=== PATIENT | female | born 1955 | race Caucasian/White ===

== ENCOUNTER 2023-10-18 21:51 | Emergency (ER) | payer MEDICARE, MEDICAID, SELFPAY ==
[2023-10-18] VITALS (11 sets, daily range): BP systolic 82–113; BP diastolic 46–84; PULSE 80; RESP 16; O2SAT 95–100; BMI 24.9
--- NOTE | 2023-10-18 22:00 | CT_ITS ---
The [address] [address] Patient Name: GERTRUDE ALAN MRN: [id number] date: 1955 Sex: F Assigned Patient Location: ER Current Patient Location: Accession/Order Number: [id number] Exam Date: 10/18/2023 22:15 Report Date: 10/18/2023 22:48 At the request of: KHAI MOJICA Procedure: CT head/brain wo con NONCONTRAST CT SCAN OF THE HEAD HISTORY: Headache. TECHNIQUE: Multiple axial images are taken from the level the vertex down to the base of the skull without the use of IV contrast. Images were then reconstructed in the sagittal and coronal planes. This exam was performed according to our departmental dose-optimization program which includes use of Automated Exposure Control, adjustment of the mA and/or kV according to patient size and/or use of iterative reconstruction technique. COMPARISON: None. FINDINGS: Brain Parenchyma: There is global, diffuse atrophy with periventricular decreased white matter attenuation. No intracranial mass. No intracranial hemorrhage. Posterior fossa: Normal. Midline shift: None Extra-axial fluid collection: None Ventricles: Normal. Mastoid air cells: Opacification of mastoid air cells. Cerumen in the ear canals. Sinuses: Large air filled sinuses. Cranium: No depressed skull fracture.Hyperostosis frontalis. Soft tissues: Soft tissue edema overlies the posterior superior scalp with subcutaneous air. Orbits: Normal. CT/CT head/brain wo con IMPRESSION: 1. Chronic small vessel ischemic change. 2. Otherwise, no CT evidence for acute pathology. 3. If patient continues to have symptoms or if there remains any further clinical concern, MRI may help better delineate. Electronically authenticated by: LAM BAEZA Date: 10/18/2023 22:48
--- NOTE | 2023-10-18 22:00 | CT_ITS ---
The [address] [address] Patient Name: GERTRUDE ALAN MRN: [id number] date: 1955 Sex: F Assigned Patient Location: ER Current Patient Location: ER Accession/Order Number: [id number] Exam Date: 10/18/2023 22:15 Report Date: 10/18/2023 22:57 At the request of: KHAI MOJICA Procedure: CT cervical spine wo con EXAM: CT cervical spine wo con HISTORY: fall, head injury COMPARISON: C-spine x-ray 09/10/2011. TECHNIQUE: CT C-spine noncontrast. Axial scans with reformatted coronal and sagittal images. Individualized dose reduction use for this exam. FINDINGS: Negative for fracture. Reversal of lordotic curvature unchanged from previous without findings suggesting traumatic subluxation. Disc space narrowing moderate with mild spurring felt to be degenerative C6-7 increased from previous plain films. Disc spaces are preserved at other levels. Facet joint degenerative changes mild to moderate. No definite acute process neck, upper chest or lung branch. CT/CT cervical spine wo con IMPRESSION: Negative for fracture or traumatic subluxation. Degenerative disc disease C6-7. Electronically authenticated by: BLANK SMITH Date: 10/18/2023 22:57
--- NOTE | 2023-10-18 22:02 | ED_ITS ---
HPI - Fall General Chief Complaint: Fall Stated Complaint: Fall, Head Injury Time Seen by Provider: 10/18/23 21:55 Source: unable to obtain Mode of arrival: ambulance Limitations: language barrier and altered mental status History of Present Illness HPI Narrative: Patient had a witnessed fall at the jail in [place]. No LOC but the patient sustained a large laceration to the back of the scalp. She apparently fell like a tree trunk and no attempt was made by herself to catch her fall. She was brought in by EMS. Patient is autistic and deaf. She is unable to give HPI or ROS. PMHx includes seizure disorder, pulmonary HTN, CHF, sick sinus syndrome. She takes aspirin and Eliquis daily - not clear why she is on blood thinner. Related Data Home Medications Medication Instructions Recorded Confirmed apixaban 5 mg tablet (Eliquis) 5 mg PO Q12H 10/18/23 10/18/23 aspirin 81 mg tablet,delayed 81 mg PO DAILY 10/18/23 10/18/23 release calcium carbonate 500 mg-vitamin 1 tab PO BID 10/18/23 10/18/23 D3 5 mcg (200 unit) tablet (Oyster Shell Calcium-Vitamin D3) cholecalciferol (vitamin D3) 125 5,000 unit PO DAILY 10/18/23 10/18/23 mcg (5,000 unit) capsule furosemide 40 mg tablet 40 mg PO DAILY 10/18/23 10/18/23 losartan 25 mg tablet 12.5 mg PO DAILY 10/18/23 10/18/23 metoprolol tartrate 50 mg tablet 50 mg PO Q12H 10/18/23 10/18/23 multivitamin 1 tab PO DAILY 10/18/23 10/18/23 sertraline 25 mg tablet 75 mg PO DAILY 10/18/23 10/18/23 [facility] Social History Smoking status: Unknown if ever smoked Exam Narrative Exam Narrative: Nurses note and vital signs reviewed and patient is not hypoxic. afebrile General: The patient appears well and in no apparent distress. Patient is res ting comfortably on cart. Skin: Warm, dry, no pallor noted. Head: Occipital scalp - hair is matted with alrge amount of blood - there is a vigorous bleeder noted in one area but visualization is limited due to hair matting and amount of dried blood. Neck: Supple, trachea mid-line, no tenderness, no lymphadenopathy. Full ROM and no cervical spinal tenderness. The patient has no step-offs or crepitus noted Eyes: PERRLA, EOMI ENT: TM's clear, no hemotympanum detected, no blood in posterior oropharynx Cardiovascular: Regular Rate and Rhythm Respiratory: Patient is in no distress, no accessory muscle use, lungs are clear to auscultation, no wheezing, rales or rhonchi Chest Wall: no tenderness, no flail chest, contusion, abrasion, or signs of trauma. Back: Back has no evidence of trauma, including contusion, abrasion, swelling or ecchymosis. The patient had no evidence of step-offs or creptitus noted. No tenderness to palpation. Negative straight leg raise bilaterally. Musculoskeletal: no sign of long bone fracture. No extremity or hip/pelvis tenderness or extremity swelling noted. Pulses at femoral, DP, PT, and popiteal were 2+ bilaterally. Moves all four extremities in all modalities with 5/5 strength. GI: Normal bowel sounds, no tenderness to palpation, no masses appreciated. No rebound, guarding, or rigidity noted. Neurological: Awake and alert. No truncal ataxia. Moves extremities spontaneously with normal motor function. Sensation intact. Psychiatric: Cooperative Constitutional Vital Signs, click to edit/add: Last Vital Signs Pulse 80 10/18/23 21:54 Resp 16 10/18/23 21:54 BP 113/84 10/18/23 23:16 Pulse Ox 96 10/18/23 23:16 O2 Del Method Nasal Cannula 10/18/23 21:54 O2 Flow Rate 3 10/18/23 21:54 Course Vital Signs Vital signs: Vital Signs Pulse Rate 80 10/18/23 21:54 Respiratory Rate 16 10/18/23 21:54 Blood Pressure 99/78 10/18/23 21:54 Pulse Oximetry 95 10/18/23 21:54 Oxygen Delivery Method Nasal Cannula 10/18/23 21:54 Oxygen Delivery Flow Rate 3 10/18/23 21:54 Pulse Rate 80 10/18/23 21:54 Respiratory Rate 16 10/18/23 21:54 Blood Pressure 113/84 10/18/23 23:16 Pulse Oximetry 96 10/18/23 23:16 Oxygen Delivery Method Nasal Cannula 10/18/23 21:54 Oxygen Delivery Flow Rate 3 10/18/23 21:54 MDM - Fall MDM Narrative Medical decision making narrative: I applied two ABD pads to the patient's occipital scalp and then wrapped with two puma wraps to tamponade the bleeding. She was sent for CT scans of the head and cervical spine. Blood drawn and sent for testing. CTs did not identify any skull fracture, ICH, cervical fracture or other worrisome findings, per radiologist. Scalp cleansed and wound closed - see procedure note. Patient tolerated well. She will need to have the grace removed in 7-10 days. Lab Data Attestation: I reviewed the patient's lab results. Labs: Lab Results 10/18/23 Range/Units 22:12 WBC 7.3 (4.0-11.0) 10^3/uL RBC 4.02 L (4.20-5.40) 10^6/uL Hgb 12.9 (12.0-16.0) g/dL Hct 40.9 (36.0-48.0) % MCV 101.7 H (81.0-99.0) fL MCH 32.1 (26.7-34.0) pg MCHC 31.5 (29.9-35.2) g/dL RDW 13.5 (11.0-15.0) % Plt Count 180 (150-450) 10^3/uL MPV 8.8 L (9.5-13.5) fL Neut % (Auto) 54.8 (43.0-75.0) % Lymph % (Auto) 32.2 (20.5-60.0) % Holmes % (Auto) 10.3 (1.7-12.0) % Eos % (Auto) 1.0 (0.9-7.0) % Baso % (Auto) 1.0 (0.2-2.0) % Neut # (Auto) 4.0 (1.4-6.5) 10^3/uL Lymph # (Auto) 2.4 (1.2-3.8) 10^3/uL Holmes # (Auto) 0.8 (0.3-0.8) 10^3/uL Eos # (Auto) 0.1 (0.0-0.7) 10^3/uL Baso # (Auto) 0.1 (0.0-0.1) 10^3/uL Abs Immat Gran (auto) 0.05 H (0.00-0.03) 10^3/uL Imm/Tot Granulo (auto) 0.7 H (0.0-0.5) % PT 12.8 H (9.0-11.6) sec INR 1.22 APTT 37.4 H (22.3-36.2) sec Sodium 141 (136-145) mmol/L Potassium 4.2 (3.5-5.1) mmol/L Chloride 102 (98-107) mmol/L Carbon Dioxide 33.1 H (21.0-32.0) mmol/L Anion Gap 10.1 BUN 27.0 H (7.0-18.0) mg/dL Creatinine 1.00 (0.55-1.02) mg/dL Est GFR ( Amer) >60 (>=60) Est GFR (Non-Af Amer) 55 L (>=60) BUN/Creatinine Ratio 27.0 Glucose 103 (74-106) mg/dL Calcium 9.3 (8.5-10.1) mg/dL Total Bilirubin 0.6 (0.2-1.0) mg/dL AST 20 (15-37) U/L ALT 21 (14-59) U/L Alkaline Phosphatase 87 (46-116) U/L Total Protein 7.5 (6.4-8.2) g/dL Albumin 3.3 L (3.4-5.0) g/dL Globulin 4.2 g/dL Albumin/Globulin Ratio 0.[address] head, ct cervical spine: Attestation: I have reviewed the pertinent imaging results. Radiologist's impression: ITS Impressions Cervical Spine CT 10/18/23 22:00 IMPRESSION: Negative for fracture or traumatic subluxation. Degenerative disc disease C6-7. Electronically authenticated by: BLANK SMITH Date: 10/18/2023 22:[address] 10/18/23 22:00 IMPRESSION: 1. Chronic small vessel ischemic change. 2. Otherwise, no CT evidence for acute pathology. 3. If patient continues to have symptoms or if there remains any further clinical concern, MRI may help better delineate. Electronically authenticated by: LAM BAEZA Date: 10/18/2023 22:48 Discharge Plan Discharge Chief Complaint: Fall Clinical Impression: Head injury, Laceration of scalp Patient Disposition: Home, Self-Care Time of Disposition Decision: 00:08 Prescriptions / Home Meds: No Action Eliquis 5 mg tablet 5 mg PO Q12H aspirin 81 mg tablet,delayed release (DR/EC) 81 mg PO DAILY furosemide 40 mg tablet 40 mg PO DAILY losartan 25 mg tablet 12.5 mg PO DAILY metoprolol tartrate 50 mg tablet 50 mg PO Q12H multivitamin Tablet 1 tab PO DAILY calcium carbonate-vitamin D3 [Oyster Shell Calcium-Vit D3] 500 mg-5 mcg (200 unit) tablet 1 tab PO BID sertraline 25 mg tablet 75 mg PO DAILY cholecalciferol (vitamin D3) 125 mcg (5,000 unit) capsule 5,000 unit PO DAILY Instructions: Laceration (ED), Head Injury (ED) Stand Alone Forms: Portal Instructions Referrals: Physician,Non-Staff, MD [Primary Care Provider] - 1 week Procedures ED Laceration Laceration Laceration 1: Additional comments: Scalp laceration -laceration repair: All of the procedure was done under sterile conditions. Wound cleansed with Hibiclens and sterile water solution. The wound was explored to depth and found to be free of foreign material. The laceration wound edges were well-approximated and did not require revision. Wound closed with 6 sterile grace in simple interrupted fashion. Patient valentino erated the procedure well. With the assistance of the ED nurse I applied an ABD dressing and then wrapped the patient's head with puma bandages. The patient will need to follow-up in the next 7-10 days for removal.
[2023-10-18 22:18] LABS: Basophils Absolute Auto 0.1 10^3/uL (0.0-0.1); Eosinophils Absolute Auto 0.1 10^3/uL (0.0-0.7); Hematocrit 40.9 % (36.0-48.0); Hemoglobin 12.9 g/dL (12.0-16.0); Immature Granulocytes Abs Auto 0.05 10^3/uL (0.00-0.03); Immature Granulocytes Pct Auto 0.7 % (0.0-0.5); Lymphocytes Absolute Auto 2.4 10^3/uL (1.2-3.8); Lymphocytes Percent Auto 32.2 % (20.5-60.0); Mean Corpuscular HGB Conc 31.5 g/dL (29.9-35.2); Mean Corpuscular Hemoglobin 32.1 pg (26.7-34.0); Mean Corpuscular Volume 101.7 fL (81.0-99.0); Mean Platelet Volume 8.8 fL (9.5-13.5); Monocytes Absolute Auto 0.8 10^3/uL (0.3-0.8); Monocytes Percent Auto 10.3 % (1.7-12.0); Neutrophils Percent Auto 54.8 % (43.0-75.0); Platelet Count 180 10^3/uL (150-450); Red Blood Count 4.02 10^6/uL (4.20-5.40); Red Cell Distribution Width 13.5 % (11.0-15.0); White Blood Count 7.3 10^3/uL (4.0-11.0)
[2023-10-18 22:32] LABS: Alanine Aminotransferase 21 U/L (14-59); Albumin Globulin Ratio 0.8; Albumin Level 3.3 g/dL (3.4-5.0); Alkaline Phosphatase 87 U/L (46-116); Anion Gap 10.1; Aspartate Amino Transferase 20 U/L (15-37); Bilirubin Total 0.6 mg/dL (0.2-1.0); Calcium 9.3 mg/dL (8.5-10.1); Carbon Dioxide 33.1 mmol/L (21.0-32.0); Chloride 102 mmol/L (98-107); Estimated GFR (African America >60 (>=60); Estimated GFR (Non-African Ame 55 (>=60); Globulin 4.2 g/dL; Glucose 103 mg/dL (74-106); Potassium 4.2 mmol/L (3.5-5.1); Sodium 141 mmol/L (136-145); Total Protein 7.5 g/dL (6.4-8.2)
[2023-10-18 22:41] LABS: INR 1.22; Partial Thromboplastin Time 37.4 sec (22.3-36.2); Prothrombin Time 12.8 sec (9.0-11.6)
--- NOTE | 2023-10-19 00:11 | PC.NURSE ---
area cleansed and several grace in place by Dr at bedside. dressing applied to head
== END 2023-10-19 02:22 | disposition home or self-care (01) ==
PROVIDERS: Emergency Provider Emergency Medicine
DX: S01.01XA Laceration without foreign body of scalp, initial encounter (principal); W19.XXXA Unspecified fall, initial encounter; F84.0 Autistic disorder; H91.90 Unspecified hearing loss, unspecified ear; G40.909 Epilepsy, unspecified, not intractable, without status epilepticus; I27.20 Pulmonary hypertension, unspecified; I11.0 Hypertensive heart disease with heart failure; I50.9 Heart failure, unspecified; Z79.01 Long term (current) use of anticoagulants; Z79.82 Long term (current) use of aspirin; I49.5 Sick sinus syndrome; M50.323 Other cervical disc degeneration at C6-C7 level; X58.XXXA Exposure to other specified factors, initial encounter
CPT/HCPCS: 12001; 12002; 36415; 70450; 72125; 80053; 85025; 85610; 85730; 99284

== ENCOUNTER 2023-10-19 05:57 | Emergency (ER) | payer MEDICARE, MEDICAID, SELFPAY ==
[2023-10-19 06:00] VITALS: BP 113/78; PULSE 104; RESP 18; TEMP 36.5; O2SAT 99; BMI 23.8
--- OUTSIDE RECORDS SUMMARY | 2023-10-19 06:03 | XMS_ITS | CCD ---
Author Name Unknown Address [address] [place] [address] Organization [facility] Care Team Providers Care Storeroom Supervisor Name Role Phone Jose Deleon Primary Care Provider [phone] LUCIE DELEON Admitting Unavailab le LUCIE DELEON Attending Unavailab le MISC, DOCTOR Primary Care Unavailable LUCIE DELEON Consulting Unavailab le Heike Almazandeep Primary Care Provider [phone] Ara Almazan MD Primary Care Provider [phone] Ara Almazan MD Primary Care Provider [phone] Ara Almazan MD Primary Care Provider [phone] Ara Almazan MD Primary Care Provider [phone] [facility] Provider Unavailable Primary Care Provider Unavailabl e PROVIDER, UNKNOWN Attending Unavailable PROVIDER, UNKNOWN Admitting Unavailable Ara Almazan MD Primary Care Provider [phone] GIDDA, KULADEEP Primary Care Unavailable GADIEL, ROB L Referring Unavailable GIDDA, KULADEEP Primary Care Unavailable GADIEL, ROB L Referring Unavailable GIDDA, KULADEEP Primary Care Unavailable GADIEL, ROB L Referring Unavailable GADIEL, ROB L Referring Unavailable GIDDA, KULADEEP Primary Care Unavailable GADIEL, ROB L Referring Unavailable GIDDA, KULADEEP Primary Care Unavailable EFREN TIM Referring Unavailable GIDDA, KULADEEP Primary Care Unavailable GADIEL, ROB L Referring Unavailable GIDDA, KULADEEP Primary Care Unavailable GADIEL, ROB L Referring Unavailable MAXIMINO ALMAZANVACHRIS Primary Care Unavailable ROB RAMESH Referring [facility] Unavailable ROB RAMESH Referring Unavailable Medications Current Medications Medication Drug Class(es) Dates Sig (Normalized) Sig (Original) Acetaminophen (20 sources) Start: 11-30-2020 acetaminophen (TYLENOL) tablet 650 mg Start: 10-02-2020 acetaminophen (TYLENOL) 160 MG/5ML solution 640 mg take 2 tablets by mo uth every six hours as needed acetaminophen (TYLENOL) 325 MG tablet Take 2 tablets by mouth every 6 hours as needed 0 Active albuterol 0.83 mg/ml inhalant solution (20 sources) beta2-Adrenergic Agonist Start: 10-06-2020 2.5 m g, Nebulization, EVERY 4 HOURS PRN, Wheezing, Shortness of Breath, Starting Ka[facility] 10/06/20 at 2007 albuterol (PROVE NTIL) (2.5 MG/3ML) 0.083% nebulizer solution Inhale 3 mLs into the lungs every 4 hours as needed 0 Active End: 11-30-2020 albuterol (PROVENTIL) (2.5 M G/3ML) 0.083% nebulizer solution Inhale 2.5 mg into the lungs every 4 hours as needed 0 Active apixaban 5 mg oral tablet (20 sources) Factor Xa Inhibitor Start: 10-07-2020 take 1 tablet by mouth twice daily apixaban (ELIQUIS) 5 MG TABS tablet Take 1 tablet by mouth 2 times daily 60 tablet 2 10/10/2020 Active aspirin 81 mg delayed release oral tablet (20 sources) Platelet Aggregation Inhibitor, Nonsteroidal Anti-inflammatory Drug Start: 12-01-2020 take 81 mg by mouth once daily 81 mg, Oral, DAILY, First dose on [facility] 12/01/20 at 0900 Start: 10-06-2020 take 81 mg by mouth once daily 81 mg, Oral, DAILY, First dose on [facility] 10/06/20 at 2030 take 1 tablet by mouth once tereso y aspirin 81 MG tablet Take 1 tablet by mouth daily 0 Active calcium carbonate 1250 mg / cholecalciferol 200 unt oral tablet (20 sources) Vitamin D Start: 10-06-2020 take 1 tablet by mouth once daily 1 tablet, Oral, DAILY, First dose on [facility] 12/01/20 at 0900 take 1 tablet by mouth twice darion ly calcium-vitamin D (OSCAL-500) 500-200 MG- UNIT per tablet Take 1 tablet by mouth 2 times daily 0 Active cholecalciferol 1000 unt oral tablet (20 sources) Vitamin D Start: 12-01-2020 take 1 tablet by mouth once daily 5,000 Units (5 tablet), Oral, DAILY, First dose on [facility] 12/01/20 at 2200 take 1 tablet by mouth once tereso y Cholecalciferol (VITAMIN D3) 125 MCG (5000 UT) TABS Take 1 tablet by mouth daily 0 Active clindamycin 150 mg oral capsule (6 sources) Lincosamide Antibacterial Start: 10-06-2020 clindamycin (CLEOCIN ) capsule 300 mg Start: 10-02-2020 End: 10-10-2020 take 20 mL by mouth four times daily clindamycin (CLEOCIN) 75 MG/5ML solution Take 20 mLs by mouth 4 times daily for 7 days 560 mL 0 10/02/2020 10/10/2020 Discontinued (Stop Taking at Discharge) Start: 10-02-2020 End: 10-02-2020 clindamycin (CLEOCIN) 900 mg in dextrose 5 % 50 mL IVPB End: 11-30-2020 take 1 capsule by mouth four times daily clindamycin (CLEOCIN) 75 MG capsule Take 75 mg by mouth 4 times daily 0 11/30/2020 Discontinued (LIST CLEANUP) Compression Stockings MISC (18 sources) Start: 12-16-2020 Compression Stockings MISC Indications: Chronic diastolic CHF (congestive heart failure), NYHA class 3 (HCC) by Does not apply route Low compression knee high as directed. 5 each 1 12/16/2020 Active digoxin 0.125 mg oral tablet (16 sources) Cardiac Glycoside Start: 10-07-2020 take 1 tablet by mouth once daily digoxin (LANOXIN) 125 MCG tablet Take 1 tablet by mouth daily 30 tablet 3 10/10/2020 Active furosemide 40 mg oral tablet (20 sources) Loop Diuretic Start: 12-02-2020 take 1 tablet by mouth once daily furosemide (LASIX) 40 MG tablet Take 1 tablet by mouth daily 30 tablet 2 12/02/2020 Active Start: 11-30-2020 40 mg, Intrave nous, DAILY, First dose on Sat11/30/20 at 1615 Start: 10-10-2020 End: 12-02-2020 take 1 tablet by mouth once daily furosemide (LASIX) 20 MG tablet Take 1 tablet by mouth daily 60 tablet 3 10/10/2020 12/02/2020 Discontinued (REORDER) Start: 10-06-2020 End: 10-07-2020 furosemide (LASIX) injection 20 mg Start: 09-16-2020 End: 10-10-2020 take 1 tablet by mouth twice daily furosemide (LASIX) 20 MG tablet Take 20 mg by mouth 2 times daily 0 09/16/2020 10/10/2020 Discontinued (REORDER) losartan potassium 25 mg oral tablet (20 sources) Angiotensin 2 Receptor Leonie Start: 12-01-2020 take 12.5 mg by mouth once daily 12.5 mg, Oral, DAILY, First dose on Sat12/01/20 at 0900 Start: 10-06-2020 take 12.5 mg by mouth once darion ly 12.5 mg, Oral, DAILY, First dose on Sat10/06/20 at 2030 take 0.5 tablet by m outh once daily losartan (COZAAR) 25 MG tablet Take 0.5 tablets by mouth daily 0 Active losartan (COZAAR ) 25 MG tablet Take 12.5 mg by mouth daily 0 Active metoprolol tartrate 50 mg oral tablet (20 sources) beta-Adrenergic Leonie Start: 05-03-2022 take 1 tablet by mouth twice daily metoprolol tartrate (LOPRESSOR) 50 MG tablet Take 1 tablet by mouth 2 times daily 180 tablet 3 05/03/2022 Active Start: 11-30-2020 take 75 mg by mouth twice tereso y 75 mg, Oral, 2 TIMES DAILY, First dose on Sat11/30/20 at 2100 Start: 10-10-2020 take 1 tablet by aleksandra th twice daily Metoprolol Tartrate 75 MG TABS Take 75 mg by mouth 2 times daily 60 tablet 3 10/10/2020 Active Start: 10-10-2020 End: 10-10-2020 metoprolol tartrate 75 MG TA BS Take 50 mg by mouth 2 times daily 60 tablet 3 10/10/2020 10/10/2020 Discontinued Start: 10-07-2020 metoprolol tar trate (LOPRESSOR) tablet 50 mg Start: 10-06-2020 metoprolol (LO PRESSOR) injection 5 mg Multiple Vitamin (MULTI-VITAMIN DAILY PO) (20 sources) Multiple Vitamin (MULTI-VITAMIN DAILY PO) Take by mouth 0 Active multivitamin 1 tablet (1 source) Start: 12-02-19 take 1 tablet by mouth once daily 1 tablet, Oral, DAILY, First dose on Sat12/01/20 at 0900 2 ml ondansetron 2 mg/ml injection (1 source) Serotonin-3 Receptor Antagonist Start: 10-06-19 4 mg, Intravenous, EVERY 6 HOURS PRN, Nausea, Vomiting, Starting Sat10/06/20 at 2007 polyethylene glycol 3350 [id number] mg powder for oral solution (20 sources) Osmotic Laxative Start: 10-06-19 17 g, Oral, DAILY, First dose on Sat12/01/20 at 0900 Sertraline (20 sources) Serotonin Reuptake Inhibitor Start: 12-02-19 take 75 mg by mouth once daily 75 mg, Oral, DAILY, First dose on Sat12/01/20 at 0900 Start: 11-11-2020 End: 11-30-2020 sertraline (ZOLOFT) 50 MG ta blet Start: 10-10-2020 take 3 tablets by mo uth once daily sertraline (ZOLOFT) 25 MG tablet Take 3 tablets by mouth daily 30 tablet 3 10/10/2020 Active Start: 10-10-2020 sertraline (ZO LOFT) tablet 75 mg Start: 09-09-2020 End: 10-10-2020 sertraline (ZOLOFT) 50 MG ta blet End: 10-10-2020 sertraline (ZOLOFT) 25 MG ta blet Take 62.5 mg by mouth daily 0 10/10/2020 Discontinued (Stop Taking at Discharge) take 3 tablets by mo uth once daily sertraline (ZOLOFT) 25 MG tablet Take 75 mg by mouth daily. 0 Active 3 ml sodium chloride 9 mg/ml injection (5 sources) Start: 11-30-2020 10 mL, Intrave nous, EVERY 12 HOURS SCHEDULED (2 times per day), First dose on Sat11/30/20 at 2100 Start: 11-30-2020 take 25 mL intraveno us route every hour as needed 25 mL, Intravenous, at 100 mL/hr, PRN, If patient receiving piggyback infusions without ordered maintenance IV fluids or with frequent/long duration piggyback infusions, Starting Sat11/30/20 at 1544 Administer at the same rate as the piggyback being infused. Start: 11-30-2020 take 10 mL intraveno us route once as needed 10 mL, Intravenous, PRN, Line Care, After every IV line use, Starting Sat11/30/20 at 1544 Start: 10-06-2020 10 mL, Intrave nous, EVERY 12 HOURS SCHEDULED (2 times per day), First dose on Sat10/06/20 at 2100 Start: 10-06-2020 take 10 mL intraveno us route once as needed 10 mL, Intravenous, PRN, Line Care, After every IV line use, Starting Sat10/06/20 at 2008 Completed/Discontinued Medications Medication Drug Class(es) Dates Sig (Normalized) Sig (Original) 0.4 ml enoxaparin sodium 100 mg/ml prefilled syringe (1 source) Low Molecular Weight Heparin Start: 10-07-2020 End: 10-07-2020 inject 40 mg by subcutaneous injection once daily 40 mg, Subcutaneous, DAILY, First dose on Sat10/07/20 at 0900 hydrocortisone 10 mg/ml topical cream (6 sources) Corticosteroid End: 11-30-2020 hydrocortisone 1 % cream Apply topically 2 times daily as needed Apply topically 2 times daily. 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] Onset: 2023 10-07-2020 Chronic Cardiac dysrhythmias (20 sources) Atrial flutter; Translations: [Unspecified atrial flutter] Onset: 10-06-2020 10-07-2020 Chronic Congestive heart failure; nonhypertensive (20 sources) Congestive heart failure; Translations: [Acute exacerbation of chronic congestive heart failure] Onset: 10-06-2020 10-06-2020 Chronic Developmental disorders (2 sources) Moderate intellectual disabilities; 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] Onset: 09-18-2023 Chronic Disorders of teeth and jaw (1 source) Infection of tooth; Translations: [Dental infection] Episodic Disorders usually diagnosed in infancy, childhood, or adolescence (2 sources) Autistic disorder; Translations: [Autistic disorder] Onset: 09-18-2023 Chronic Epilepsy; convulsions (2 sources) Epilepsy, unspecified, not intractable, without status epilepticus; Translations: [Epilepsy, unspecified, not intractable, without status epilepticus] Onset: 09-18-2023 Chronic Genitourinary symptoms and ill-defined conditions (2 sources) Other symptoms and signs involving the genitourinary system; Translations: [Other symptoms and signs involving the genitourinary system] Onset: 09-18-2023 Episodic Heart valve disorders (20 sources) Mitral valve regurgitation; Translations: [Nonrheumatic mitral (valve) insufficiency] 02-03-2013 Chronic Immunizations and screening for infectious disease (4 sources) Contact with and (suspected) exposure to other viral communicable diseases; Translations: [CONTCT EXPS OTH VIRL COMMUNICABL DZ] Onset: 03-10-2020 Episodic Other aftercare (20 sources) Long-term current use of anticoagulant; Translations: [technician terminal and repeater (current) use of anticoagulants] 10-07-2020 Episodic Other connective tissue disease (1 source) Weakness of face muscles; Translations: [Facial droop] Episodic Other ear and sense organ disorders (2 sources) Unspecified hearing loss, unspecified ear; Translations: [Unspecified hearing loss, unspecified ear] Onset: 09-18-2023 Chronic Other lower respiratory disease (1 source) Cough Episodic Other screening for suspected conditions (not mental disorders or infectious disease) (2 sources) Patient encounter status; Translations: [Encounter for screening mammogram for malignant neoplasm of breast] Episodic Pulmonary heart disease (20 sources) Pulmonary hypertension; Translations: [Pulmonary hypertension, unspecified] Onset: 2023 02-03-2013 Chronic Unclassified (1 source) Atrioventricular septal defect, unspecified as to partial or complete; Translations: [Atrioventricular septal defect, unspecified as to partial or complete] Onset: 2023 Past or Other Problems Problem Classification Problem Date Documented Date Episodic/Chronic Cardiac dysrhythmias (2 sources) Bradycardia, unspecified; Translations: [Bradycardia, unspecified] Onset: 12-12-2022 Episodic Other aftercare (2 sources) correction (current) use of anticoagulants; Translations: [correction (current) use of anticoagulants] Onset: 2023 Episodic Other aftercare (2 sources) Other prison (current) drug therapy; Translations: [Other long term care social worker (current) drug therapy] Onset: 09-26-2022 Episodic Other connective tissue disease (2 sources) Muscle weakness (generalized); Translations: [Muscle weakness (generalized)] Onset: 12-13-2022 Episodic Other nervous system disorders (2 sources) Personal history of other diseases of the nervous system and sense organs; Translations: [Personal history of other diseases of the nervous system and sense organs] Onset: 06-13-2023 Episodic Skin and subcutaneous tissue infections (20 sources) Cellulitis; Translations: [Cellulitis of face] Onset: 10-07-2020 10-07-2020 Episodic Syncope (2 sources) Syncope and collapse; Translations: [Syncope and collapse] Onset: 12-12-2022 Episodic Unclassified (1 source) Atrioventricular septal defect, unspecified as to partial or complete; Translations: [Atrioventricular septal defect, unspecified as to partial or complete] Onset: 2023 Viral infection (15 sources) COVID-19; Translations: [Other specified viral infection] Onset: 08-29-2021 08-29-2021 Episodic Results Test Name Value Interpretation Reference Range Facility [facility] Metabolic Profon 2023 Albumin [Mass/Vol] 3.8 g/dL Normal 3.5-5.2 [facility] Comment on above: Performed By: #### C P #### [facility] [address] [place] [address] Set Making Machine Operator: Jorge Richard MD Albumin/Glob Ratio 1.2 Normal 1.0-2.5 [facility] Comment on above: Performed By: #### C P #### [facility] [address] [place] [address] Set Making Machine Operator: Jorge Richard MD Alkaline Phos 79 U/L Normal 35-104 [facility] Comment on above: Performed By: #### C P #### [facility] [address] [place], [place] [id number] Set Making Machine Operator: Jorge Richard MD ALT [Catalytic activity/Vol] 13 U/L Normal 5-33 [facility] Comment on above: Performed By: #### C P #### [facility] [address] [place], [place] [id number] Set Making Machine Operator: Jorge Richard MD Anion gap [Moles/Vol] 9 mmol/L Normal 9-17 [facility] Comment on above: Performed By: #### C P #### [facility] [address] [place], [place] [id number] Set Making Machine Operator: Jorge Richard MD AST [Catalytic activity/Vol] 16 U/L Normal <32 [facility] Comment on above: Performed By: #### C P #### [facility] [address] [place], [place] [id number] Set Making Machine Operator: Jorge Richard MD Bilirubin [Mass/Vol] 0.6 mg/dL Normal 0.3-1.2 [facility] Comment on above: Performed By: #### C P #### [facility] [address] [place], [place] [id number] Set Making Machine Operator: Jorge Richard MD BUN/CRE Ratio 39 High 9-20 [facility] Comment on above: Performed By: #### C P #### [facility] [address] [place], [place] [id number] Set Making Machine Operator: Jorge Richard MD Calcium [Mass/Vol] 9.6 mg/dL Normal 8.6-10.4 [facility] Comment on above: Performed By: #### C P #### [facility] [address] [place], [place] [id number] Set Making Machine Operator: Jorge iRchard MD Chloride [Moles/Vol] 101 mmol/L Normal 98-107 [facility] Comment on above: Performed By: #### C P #### [facility] [address] [place] [address] Set Making Machine Operator: Jorge Richard MD CO2 [Moles/Vol] 31 mmol/L Normal 20-31 [facility] Comment on above: Performed By: #### C P #### [facility] [address] [place] [address] Set Making Machine Operator: Jorge Richard MD Creatinine [Mass/Vol] 0.8 mg/dL Normal 0.5-0.9 [facility] Comment on above: Performed By: #### C P #### [facility] [address] [place] [address] Set Making Machine Operator: Jorge Richard MD GFR/1.73 sq M.predicted among non-blacks MDRD (S/P/Bld) [Vol rate/Area] mL/min/{1.73_m2} Normal >60 [facility] Comment on above: Result Comment: These results are not intended for use in patients <18 years of age. eGFR results are calculated without a race factor using the 2020 CKD-EPI equation. Careful clinical correlation is recommended, particularly when comparing to results calculated using previous equations. The CKD-EPI equation is less accurate in patients with extremes of muscle mass, extra-renal metabolism of creatine, excessive creatine ingestion, or following therapy that affects renal tubular secretion. Performed By: #### C P #### [facility] [address] [place] [address] Set Making Machine Operator: Jorge Richard MD Glucose [Mass/Vol] 82 mg/dL Normal 70-99 [facility] Comment on above: Performed By: #### C P #### [facility] [address] [place] [address] Set Making Machine Operator: Jorge Richard MD Potassium [Moles/Vol] 4.7 mmol/L Normal 3.7-5.3 [facility] Comment on above: Performed By: #### C P #### [facility] [address] [place] [address] Set Making Machine Operator: Jorge Richard MD Protein [Mass/Vol] 7.1 g/dL Normal 6.4-8.3 [facility] Comment on above: Performed By: #### C P #### [facility] [address] [place], [place] [id number] Set Making Machine Operator: Jorge Richard MD Sodium [Moles/Vol] 141 mmol/L Normal 135-144 [facility] Comment on above: Performed By: #### C P #### [facility] [address] [place] [address] Set Making Machine Operator: Jorge Richard MD Urea nitrogen [Mass/Vol] 31 mg/dL High 8-23 [facility] Comment on above: Performed By: #### C P #### [facility] [address] [place], [place] [id number] Set Making Machine Operator: Jorge Richard MD Basic Metabolic Profon 06-13 Anion gap [Moles/Vol] 9 mmol/L Normal 9-17 [facility] Comment on above: Performed By: #### B MP #### [facility] [address] [place] [address] Dr. [place], [place] [id number] Set Making Machine Operator: Jorge Richard MD BUN/CRE Ratio 51 High 9-20 [facility] Comment on above: Performed By: #### B MP #### [facility] [address] [place], [place] [id number] Set Making Machine Operator: Jorge Richard MD Calcium [Mass/Vol] 10.0 mg/dL Normal 8.6-10.4 [facility] Comment on above: Performed By: #### B MP #### [facility] [address] [place] [address] Set Making Machine Operator: Jorge Richard MD Chloride [Moles/Vol] 100 mmol/L Normal 98-107 [facility] Comment on above: Performed By: #### B MP #### [facility] [address] [place] [address] Set Making Machine Operator: Jorge Richard MD CO2 [Moles/Vol] 31 mmol/L Normal 20-31 [facility] Comment on above: Performed By: #### B MP #### [facility] [address] [place] [address] Set Making Machine Operator: Jorge Richard MD Creatinine [Mass/Vol] 0.8 mg/dL Normal 0.5-0.9 [facility] Comment on above: Performed By: #### B MP #### [facility] [address] [place] [address] Set Making Machine Operator: Jorge Richard MD GFR/1.73 sq M.predicted among non-blacks MDRD (S/P/Bld) [Vol rate/Area] mL/min/{1.73_m2} Normal >60 [facility] Comment on above: Result Comment: These results are not intended for use in patients <18 years of age. eGFR results are calculated without a race factor using the 2020 CKD-EPI equation. Careful clinical correlation is recommended, particularly when comparing to results calculated using previous equations. The CKD-EPI equation is less accurate in patients with extremes of muscle mass, extra-renal metabolism of creatine, excessive creatine ingestion, or following therapy that affects renal tubular secretion. Performed By: #### B MP #### [facility] [address] [place] [address] Set Making Machine Operator: Jorge Richard MD Glucose [Mass/Vol] 77 mg/dL Normal 70-99 [facility] Comment on above: Performed By: #### B MP #### [facility] [address] [place] [address] Set Making Machine Operator: Jorge Richard MD Potassium [Moles/Vol] 4.5 mmol/L Normal 3.7-5.3 [facility] Comment on above: Performed By: #### B MP #### [facility] [address] [place], [place] [id number] Set Making Machine Operator: Jorge Richard MD Sodium [Moles/Vol] 140 mmol/L Normal 135-144 [facility] Comment on above: Performed By: #### B MP #### [facility] [address] [place] [address] [place] [place], [place] [id number] Set Making Machine Operator: Jorge Richard MD Urea nitrogen [Mass/Vol] 41 mg/dL High 8-23 [facility] Comment on above: Performed By: #### B MP #### [address] [place], [place] [id number] Set Making Machine Operator: Jorge Richard MD CBCon 04-11-2023 Erythrocyte distribution width (RBC) [Ratio] 13.3 % Normal 11.8-14.4 [facility] Comment on above: Performed By: #### C BC #### [address] [place], [place] [id number] Set Making Machine Operator: Jorge Richard MD Hematocrit (Bld) [Volume fraction] 42.7 % Normal 36.3-47.1 [facility] Comment on above: Performed By: #### C BC #### [address] [place], [place] [id number] Set Making Machine Operator: Jorge Richard MD Hemoglobin (Bld) [Mass/Vol] 13.6 g/dL Normal 11.9-15.1 [facility] Comment on above: Performed By: #### C BC #### [facility] [address] [place] [address] [place] [place], [place] [phone] Set Making Machine Operator: Jorge Richard MD MCH (RBC) [Entitic mass] 32.1 pg Normal 25.2-33.5 [facility] Comment on above: Performed By: #### C BC #### [facility] [address] [place] [address] [place] [place], [place] [phone] Set Making Machine Operator: Jorge Richard MD MCHC (RBC) [Mass/Vol] 31.9 g/dL Normal 28.4-34.8 [facility] Comment on above: Performed By: #### C BC #### [facility] [address] [place], [place] [phone] Set Making Machine Operator: Jorge Richard MD MCV (RBC) [Entitic vol] 100.7 fL Normal 82.6-102.9 [facility] Comment on above: Performed By: #### C BC #### [facility] [address] [place], [place] [id number] Set Making Machine Operator: Jorge Richard MD NRBC Automated 0.0 per 100 WBC Normal 0.0 [facility] Comment on above: Performed By: #### C BC #### [address] [place] [address] Set Making Machine Operator: Jorge Richard MD Platelet mean volume (Bld) [Entitic vol] 9.5 fL Normal 8.1-13.5 [facility] Comment on above: Performed By: #### C BC #### [address] [place] [address] Set Making Machine Operator: Jorge Richard MD Platelets (Bld) [#/Vol] 172 10*3/uL Normal 138-453 [facility] Comment on above: Performed By: #### C BC #### [address] [place] [address] Set Making Machine Operator: Jorge Richard MD RBC (Bld) [#/Vol] 4.24 10*6/uL Normal 3.95-5.11 [facility] Comment on above: Performed By: #### C BC #### [address] [place], [place] [id number] Set Making Machine Operator: Jorge Richard MD WBC (Bld) [#/Vol] 4.6 10*3/uL Normal 3.5-11.3 [facility] Comment on above: Performed By: #### C #### [facility] [address] [place] [address] Set Making Machine Operator: Jorge Richard MD Erythrocyte distribution width (RBC) [Ratio] 13.3 % 11.8 - 14.4 % [facility] Hematocrit (Bld) [Volume fraction] 42.7 % 36.3 - 47.1 % [facility] Hemoglobin (Bld) [Mass/Vol] 13.6 g/dL 11.9 - 15.1 g/dL [facility] MCH (RBC) [Entitic mass] 32.1 pg 25.2 - 33.5 pg [facility] MCHC (RBC) [Mass/Vol] 31.9 g/dL 28.4 - 34.8 g/dL [facility] MCV (RBC) [Entitic vol] 100.7 fL 82.6 - 102.9 fL [facility] Nucleated RBC/100 WBC (Bld) [Ratio] 0.0 % 0.0 per 100 WBC [facility] Platelet mean volume (Bld) [Entitic vol] 9.5 fL 8.1 - 13.5 fL [facility] Platelets (Bld) [#/Vol] 172 10*3/uL [facility] RBC (Bld) [#/Vol] 4.24 10*6/uL 3.95 - 5.1 1 m/uL [facility] WBC other (Bld) [#/Vol] 4.6 [facility] Progress Noteson 02-14-2023 [employer] Authentication Interface Message Text ----- January at 12:08:30 PM ----- ----- Provider: Resident Harsha -- Clinic: [facility] ----- OR EVALUATION Patient presents for evaluation to determine best course of treatment due to history of . Deaf, autistic, seisure disorder, urinary problems, sick sinus syndrome, bradycardia, syncope, facial laceration Patient is accompanied by caregiver for today's appointment. Patient did not cooperate for any examination. Clinical findings: Decay and Gingivitis It is best suited that this patient have full comprehensive examination, radiographs and treatment completed in the OR setting. Explained that the patient will be added to our OR waiting list, and the legal guardian will be contacted once a time slot becomes available. Legal Guardian: Katerin Meyer- [phone]- Sandwich Artist email- [email or web address] Next Visit: OR ----- Signed on , February 14, 2023 at 12:23:14 PM ----- ----- Provider: Gaston Gloria DDS -- Clinic: [facility] ----- Normal [facility] Basic Metabolic Profon 02-13 Anion gap [Moles/Vol] 8 mmol/L Low 9-17 [facility] Comment on above: Performed By: #### B MP, BNP, CDP #### [facility] [address] [place] [address] [place] [address] Set Making Machine Operator: Jorge Richard MD BUN/CRE Ratio 41 High 9-20 [facility] Comment on above: Performed By: #### B MP BNP, CDP #### [facility] [address] [place] [address] Set Making Machine Operator: Jorge Richard MD Calcium [Mass/Vol] 9.8 mg/dL Normal 8.6-10.4 [facility] Comment on above: Performed By: #### B MP BNP, CDP #### [facility] [address] [place] [address] Set Making Machine Operator: Jorge Richard MD Chloride [Moles/Vol] 98 mmol/L Normal 98-107 [facility] Comment on above: Performed By: #### B MP, BNP, CDP #### [facility] [address] [place] [address] [place] [address] Set Making Machine Operator: Jorge Richard MD CO2 [Moles/Vol] 32 mmol/L High 20-31 [facility] Comment on above: Performed By: #### B MP, BNP, CDP #### [facility] [address] [place] [address] Set Making Machine Operator: Jorge Richard MD Creatinine [Mass/Vol] 0.76 mg/dL Normal 0.50-0.90 [facility] Comment on above: Performed By: #### B MP, BNP, CDP #### [facility] [address] [place] [address] Set Making Machine Operator: Jorge Richard MD GFR/1.73 sq M.predicted among non-blacks MDRD (S/P/Bld) [Vol rate/Area] mL/min/{1.73_m2} Normal >60 [facility] Comment on above: Result Comment: These results are not intended for use in patients <18 years of age. eGFR results are calculated without a race factor using the 2020 CKD-EPI equation. Careful clinical correlation is recommended, particularly when comparing to results calculated using previous equations. The CKD-EPI equation is less accurate in patients with extremes of muscle mass, extra-renal metabolism of creatine, excessive creatine ingestion, or following therapy that affects renal tubular secretion. Performed By: #### B MP, BNP, CDP #### [address] [place] [address] Set Making Machine Operator: Jorge Richard MD Glucose [Mass/Vol] 81 mg/dL Normal 70-99 [facility] Comment on above: Performed By: #### B MP, BNP, CDP #### [facility] [address] [place] [address] Set Making Machine Operator: Jorge Richard MD Potassium [Moles/Vol] 4.0 mmol/L Normal 3.7-5.3 [facility] Comment on above: Performed By: #### B MP, BNP, CDP #### [facility] [address] [place] [address] Set Making Machine Operator: Jorge Richard MD Sodium [Moles/Vol] 138 mmol/L Normal 135-144 [facility] Comment on above: Performed By: #### B MP, BNP, CDP #### [facility] [address] [place], [place] [id number] Set Making Machine Operator: Jorge Richard MD Urea nitrogen [Mass/Vol] 31 mg/dL High 8-23 [facility] Comment on above: Performed By: #### B MP, BNP, CDP #### [facility] [address] [place] [id number] Set Making Machine Operator: Jorge Richard MD Brain Natri. Peptideon 02-13 Natriuretic peptide B (Bld) [Mass/Vol] 2964 pg/mL High <300 [facility] Comment on above: Result Comment: An age-independent cutoff point of 300 pg/ml has a 98% negative predictive value excluding acute heart failure. Performed By: #### B MP, BNP, CDP #### [facility] [address] [place] [address] [address] [place], [place] [address] Set Making Machine Operator: Jorge Richard MD CBC with Diffon 5 Abs. Basophil 0.06 k/uL Normal 0.00-0.20 [facility] Comment on above: Performed By: #### B MP, BNP, CDP #### [address] [place] [id number] Set Making Machine Operator: Jorge Richard MD Abs.Imm.Granulocyte <0.03 Normal 0.00-0.30 [facility] Comment on above: Performed By: #### B MP, BNP, CDP #### [facility] [address] [place] [address] Dr[place], [place] [phone] Set Making Machine Operator: Jorge Richard MD Abs.Neutrophil (Seg) 3.76 k/uL Normal 1.50-8.10 [facility] Comment on above: Performed By: #### B MP, BNP, CDP #### [facility] [address] [place] [address] Dr[address] [place], [facility]83 Set Making Machine Operator: Jorge Richard MD Basophils/100 WBC (Bld) 1 % Normal 0-2 [facility] Comment on above: Performed By: #### B MP, BNP, CDP #### [address] [place], [place] [id number] Set Making Machine Operator: Jorge Richard MD Eosinophils (Bld) [#/Vol] 0.21 10*3/uL Normal 0.00-0.44 [facility] Comment on above: Performed By: #### B MP, BNP, CDP #### [address] [place], [place] [phone] Set Making Machine Operator: Jorge Richard MD Eosinophils/100 WBC (Bld) 3 % Normal 1-4 [facility] Comment on above: Performed By: #### B MP, BNP, CDP #### [address] [place] [phone] Set Making Machine Operator: Jorge Richard MD Erythrocyte distribution width (RBC) [Ratio] 13.7 % Normal 11.8-14.4 [facility] Comment on above: Performed By: #### B MP, BNP, CDP #### [address] [place] [address] Set Making Machine Operator: Jorge Richard MD Hematocrit (Bld) [Volume fraction] 42.7 % Normal 36.3-47.1 [facility] Comment on above: Performed By: #### B MP, BNP, CDP #### [address] [place], [place] [address]83 Set Making Machine Operator: Jorge Richard MD Hemoglobin (Bld) [Mass/Vol] 13.7 g/dL Normal 11.9-15.1 [facility] Comment on above: Performed By: #### B MP, BNP, CDP #### [address] [place] [address] Set Making Machine Operator: Jorge Richard MD Immature granulocytes/100 WBC (Bld) 0 % Normal 0 [facility] Comment on above: Performed By: #### B MP, BNP, CDP #### [facility] [address] [place], [place] [phone] Set Making Machine Operator: Jorge Richard MD Lymphocytes (Bld) [#/Vol] 1.76 10*3/uL Normal 1.10-3.70 [facility] Comment on above: Performed By: #### B MP, BNP, CDP #### [address] [place], [place] [id number] Set Making Machine Operator: Jorge Richard MD Lymphocytes/100 WBC (Bld) 27 % Normal 24-43 [facility] Comment on above: Performed By: #### B MP, BNP, CDP #### [address] [place], [place] [phone] Set Making Machine Operator: Jorge Richard MD MCH (RBC) [Entitic mass] 31.9 pg Normal 25.2-33.5 [facility] Comment on above: Performed By: #### B MP, BNP, CDP #### [address] [place], [place] [phone] Set Making Machine Operator: Jorge Richard MD MCHC (RBC) [Mass/Vol] 32.1 g/dL Normal 28.4-34.8 [facility] Comment on above: Performed By: #### B MP, BNP, CDP #### [address] [place], [facility]83 Set Making Machine Operator: Jorge Richard MD MCV (RBC) [Entitic vol] 99.5 fL Normal 82.6-102.9 [facility] Comment on above: Performed By: #### B MP, BNP, CDP #### [address] [place] [address] Set Making Machine Operator: Jorge Richard MD Monocytes (Bld) [#/Vol] 0.62 10*3/uL Normal 0.10-1.20 [facility] Comment on above: Performed By: #### B MP, BNP, CDP #### [facility] [address] [place], [place] [phone] Set Making Machine Operator: Jorge Richard MD Monocytes/100 WBC (Bld) 10 % Normal 3-12 [facility] Comment on above: Performed By: #### B MP, BNP, CDP #### [facility] [address] [place], [facility]83 Set Making Machine Operator: Jorge Richard MD Neutrophil (Seg) 59 % Normal 36-65 [facility] Comment on above: Performed By: #### B MP, BNP, CDP #### [address] [place], [place] [id number] Set Making Machine Operator: Jorge Richard MD NRBC Automated 0.0 per 100 WBC Normal 0.0 [facility] Comment on above: Performed By: #### B MP, BNP, CDP #### [address] [place], [facility]83 Set Making Machine Operator: Jorge Richard MD Platelet mean volume (Bld) [Entitic vol] 9.5 fL Normal 8.1-13.5 [facility] Comment on above: Performed By: #### B MP, BNP, CDP #### [address] [place], [facility]83 Set Making Machine Operator: Jorge Richard MD Platelets (Bld) [#/Vol] 175 10*3/uL Normal 138-453 [facility] Comment on above: Performed By: #### B MP, BNP, CDP #### [address] [place], [place] [phone] Set Making Machine Operator: Jorge Richard MD RBC (Bld) [#/Vol] 4.29 10*6/uL Normal 3.95-5.11 [facility] Comment on above: Performed By: #### B MP, BNP, CDP #### [address] [place] [address] Set Making Machine Operator: Jorge Richard MD WBC (Bld) [#/Vol] 6.4 10*3/uL Normal 3.5-11.3 [facility] Comment on above: Performed By: #### B MP, BNP, CDP #### [facility] [address] [place] [address] Set Making Machine Operator: Jorge Richard MD Basic Metabolic Panelon 04-2 Anion gap [Moles/Vol] 9 mmol/L 9 - 17 mmol/L [facility] Calcium [Mass/Vol] 10.0 mg/dL 8.6 - 10. 4 mg/dL [facility] Chloride [Moles/Vol] 97 mmol/L Low 98 - 10 7 mmol/L [facility] CO2 [Moles/Vol] 30 mmol/L 20 - 31 mmol/L [facility] Creatinine [Mass/Vol] 0.83 mg/dL 0.50 - 0.90 mg/dL [facility] GFR/1.73 sq M.predicted MDRD (S/P/Bld) [Vol rate/Area] - PINF [facility] Comment on above: These results are not intended for use in patients <18 years of age. eGFR results are calculated without a race factor using the 2020 CKD-EPI equation. Careful clinical correlation is recommended, particularly when comparing to results calculated using previous equations. The CKD-EPI equation is less accurate in patients with extremes of muscle mass, extra-renal metabolism of creatine, excessive creatine ingestion, or following therapy that affects renal tubular secretion. Glucose [Mass/Vol] 114 mg/dL High 70 - 99 mg/dL [facility] Interpretation and review of laboratory results Abnormal [facility] Potassium [Moles/Vol] 4.1 mmol/L 3.7 - 5.3 mmol/L [facility] Sodium [Moles/Vol] 136 mmol/L 135 - 144 mmol/L [facility] Urea nitrogen [Mass/Vol] 34 mg/dL High 8 - 23 mg/dL [facility] Urea nitrogen/Creatinine (Bld) [Mass ratio] 41 High 9 - 20 [facility] Basic Metabolic Profon 12-13 Anion gap [Moles/Vol] 9 mmol/L Normal 9-17 [facility] Comment on above: Performed By: #### B MP #### [facility] [address] [place], [place] [phone] Set Making Machine Operator: Jorge Richard MD BUN/CRE Ratio 41 High 9-20 [facility] Comment on above: Performed By: #### B MP #### [facility] [address] [place], [place] [phone] Set Making Machine Operator: Jorge Richard MD Calcium [Mass/Vol] 10.0 mg/dL Normal 8.6-10.4 [facility] Comment on above: Performed By: #### B MP #### [facility] [address] [place], [place] 668[address]83 Set Making Machine Operator: Jorge Richard MD Chloride [Moles/Vol] 97 mmol/L Low 98-107 [facility] Comment on above: Performed By: #### B MP #### [facility] [address] [place], [place] [phone] Set Making Machine Operator: Jorge Richard MD CO2 [Moles/Vol] 30 mmol/L Normal 20-31 [facility] Comment on above: Performed By: #### B MP #### [facility] [address] [place], [place] [address]83 Set Making Machine Operator: Jorge Richard MD Creatinine [Mass/Vol] 0.83 mg/dL Normal 0.50-0.90 [facility] Comment on above: Performed By: #### B MP #### [facility] [address] [place], [place] [phone] Set Making Machine Operator: Jorge Richard MD GFR/1.73 sq M.predicted among non-blacks MDRD (S/P/Bld) [Vol rate/Area] mL/min/{1.73_m2} Normal >60 [facility] Comment on above: Result Comment: These results are not intended for use in patients <18 years of age. eGFR results are calculated without a race factor using the 2020 CKD-EPI equation. Careful clinical correlation is recommended, particularly when comparing to results calculated using previous equations. The CKD-EPI equation is less accurate in patients with extremes of muscle mass, extra-renal metabolism of creatine, excessive creatine ingestion, or following therapy that affects renal tubular secretion. Performed By: #### B MP #### [facility] [address] [place] [address] Set Making Machine Operator: Jorge Richard MD Glucose [Mass/Vol] 114 mg/dL High 70-99 [facility] Comment on above: Performed By: #### B MP #### [address] [place] [address] Set Making Machine Operator: Jorge Richard MD Potassium [Moles/Vol] 4.1 mmol/L Normal 3.7-5.3 [facility] Comment on above: Performed By: #### B MP #### [address] [place] [address] Set Making Machine Operator: Jorge Richard MD Sodium [Moles/Vol] 136 mmol/L Normal 135-144 [facility] Comment on above: Performed By: #### B MP #### [facility] [address] [place] [address] [place] [address] Set Making Machine Operator: Jorge Richard MD Urea nitrogen [Mass/Vol] 34 mg/dL High 8-23 [facility] Comment on above: Performed By: #### B MP #### [facility] [address] [place] [address] Set Making Machine Operator: Jorge Richard MD CBCon 09-27-2022 Erythrocyte distribution width (RBC) [Ratio] 13.3 % Normal 11.8-14.4 [facility] Comment on above: Performed By: #### D IGC, CBC #### [facility] [address] [place] [address] [place], [place] [phone] Set Making Machine Operator: Jorge Richard MD Hematocrit (Bld) [Volume fraction] 44.5 % Normal 36.3-47.1 [facility] Comment on above: Performed By: #### D IGC, CBC #### [address] [place], [place] [id number] Set Making Machine Operator: Jorge Richard MD Hemoglobin (Bld) [Mass/Vol] 14.6 g/dL Normal 11.9-15.1 [facility] Comment on above: Performed By: #### D IGC, CBC #### [address] [place], [place] 1148383 Set Making Machine Operator: Jorge Richard MD MCH (RBC) [Entitic mass] 33.5 pg Normal 25.2-33.5 [facility] Comment on above: Performed By: #### D IGC, CBC #### [address] [place], [place] 2003583 Set Making Machine Operator: Jorge Richard MD MCHC (RBC) [Mass/Vol] 32.8 g/dL Normal 28.4-34.8 [facility] Comment on above: Performed By: #### D IGC, CBC #### [address] [place] [address] Set Making Machine Operator: Jorge Richard MD MCV (RBC) [Entitic vol] 102.1 fL Normal 82.6-102.9 [facility] Comment on above: Performed By: #### D IGC, CBC #### [address] [place] [address] Set Making Machine Operator: Jorge Richard MD NRBC Automated 0.0 per 100 WBC Normal 0.0 [facility] Comment on above: Performed By: #### D IGC, CBC #### [address] [place], [place] [phone] Set Making Machine Operator: Jorge Richard MD Platelet mean volume (Bld) [Entitic vol] 9.6 fL Normal 8.1-13.5 [facility] Comment on above: Performed By: #### D IGC, CBC #### [facility] [address] [place], [place] [phone] Set Making Machine Operator: Jorge Richard MD Platelets (Bld) [#/Vol] 175 10*3/uL Normal 138-453 [facility] Comment on above: Performed By: #### D IGC, CBC #### [facility] [address] [place] [address] Set Making Machine Operator: Jorge Richard MD RBC (Bld) [#/Vol] 4.36 10*6/uL Normal 3.95-5.11 [facility] Comment on above: Performed By: #### D IGC, CBC #### [facility] [address] [place], [place] [phone] Set Making Machine Operator: Jorge Richard MD WBC (Bld) [#/Vol] 5.6 10*3/uL Normal 3.5-11.3 [facility] Comment on above: Performed By: #### D IGC, CBC #### [facility] [address] [place], [place] [phone] Set Making Machine Operator: Jorge Richard MD Hematocrit (Bld) [Volume fraction] 44.5 % 36.3 - 47.1 % [facility] Hemoglobin (Bld) [Mass/Vol] 14.6 g/dL 11.9 - 15.1 g/dL [facility] MCH (RBC) [Entitic mass] 33.5 pg 25.2 - 33.5 pg [facility] MCHC (RBC) [Mass/Vol] 32.8 g/dL 28.4 - 34.8 g/dL [facility] MCV (RBC) [Entitic vol] 102.1 fL 82.6 - 102.9 fL [facility] NRBC Automated 0.0 0.0 per 100 WBC [facility] Platelet distribution width (Bld) [Ratio] 13.3 % 11.8 - 14.4 % [facility] Platelet mean volume (Bld) [Entitic vol] 9.6 fL 8.1 - 13.5 fL [facility] Platelets (Bld) [#/Vol] 175 10*3/uL [facility] RBC (Bld) [#/Vol] 4.36 10*6/uL 3.95 - 5.1 1 m/uL [facility] WBC (Bld) [#/Vol] 5.6 10*3/uL [facility] Digoxinon 09-27-2022 Digoxin [Mass/Vol] 0.5 ng/mL Normal 0.5-2.0 [facility] Comment on above: Result Comment: Digoxin Reference Range: Heart Failure 0.5-0.9 Atrial Fibrillation 0.8-2.0 Performed By: #### D IGC, CBC #### [facility] [address] [place] [address] [place] [address] Set Making Machine Operator: Jorge Richard MD Digoxin Levelon 09-27-2022 Digoxin Lvl 0.5 ng/mL 0.5 - 2.0 ng/mL [facility] Comment on above: Digoxin Reference Range: Heart Failure 0.5-0.9 Atrial Fibrillation 0.8-2.0 [facility] Comprehensive Metabolic Pane barry 09-19-2022 Albumin [Mass/Vol] 4.5 g/dL 3.5 - 5.2 g/dL [facility] Albumin/Globulin [Mass ratio] 1.2 {ratio} 1.0 - 2.5 [facility] ALP (Bld) [Catalytic activity/Vol] 99 U/L 35 - 104 U/L [facility] ALT [Catalytic activity/Vol] 22 U/L 5 - 33 U/L [facility] Anion gap [Moles/Vol] 10 mmol/L 9 - 17 mmol/L [facility] AST [Catalytic activity/Vol] 25 U/L NINF - 32 U/L [facility] Bilirubin [Mass/Vol] 0.6 mg/dL 0.3 - 1 .2 mg/dL [facility] Calcium [Mass/Vol] 10.2 mg/dL 8.6 - 10. 4 mg/dL [facility] Chloride [Moles/Vol] 99 mmol/L 98 - 10 7 mmol/L [facility] CO2 [Moles/Vol] 30 mmol/L 20 - 31 mmol/L [facility] Creatinine [Mass/Vol] 0.77 mg/dL 0.50 - 0.90 mg/dL [facility] GFR/1.73 sq M.predicted MDRD (S/P/Bld) [Vol rate/Area] - PINF [facility] Comment on above: Effective May 28, 2022 These results are not intended for use in patients <18 years of age. eGFR results are calculated without a race factor using the 2020 CKD-EPI equation. Careful clinical correlation is recommended, particularly when comparing to results calculated using previous equations. The CKD-EPI equation is less accurate in patients with extremes of muscle mass, extra-renal metabolism of creatine, excessive creatine ingestion, or following therapy that affects renal tubular secretion. Glucose [Mass/Vol] 101 mg/dL High 70 - 99 mg/dL [facility] Interpretation and review of laboratory results Abnormal [facility] Potassium [Moles/Vol] 5.1 mmol/L 3.7 - 5.3 mmol/L [facility] Protein [Mass/Vol] 8.2 g/dL 6.4 - 8.3 g/dL [facility] Sodium [Moles/Vol] 139 mmol/L 135 - 144 mmol/L [facility] Urea nitrogen (BldV) [Mass/Vol] 28 mg/dL High 8 - 23 mg/dL [facility] Urea nitrogen/Creatinine (Bld) [Mass ratio] 36 High 9 - 20 [facility] Basic Metabolic Panelon 10-2 Anion gap [Moles/Vol] 6 mmol/L Low 9 - 17 mmol/L [facility] Calcium [Mass/Vol] 9.4 mg/dL 8.6 - 10. 4 mg/dL [facility] Chloride [Moles/Vol] 100 mmol/L 98 - 10 7 mmol/L [facility] [employer] CO2 [Moles/Vol] 30 mmol/L 20 - 31 mmol/L [facility] [employer] Creatinine [Mass/Vol] 0.7 mg/dL 0.50 - 0.90 mg/dL [facility] [employer] GFR/1.73 sq M.predicted MDRD (S/P/Bld) [Vol rate/Area] - PINF [facility] [employer] Comment on above: Effective May 28, 2022 These results are not intended for use in patients <18 years of age. eGFR results are calculated without a race factor using the 2020 CKD-EPI equation. Careful clinical correlation is recommended, particularly when comparing to results calculated using previous equations. The CKD-EPI equation is less accurate in patients with extremes of muscle mass, extra-renal metabolism of creatine, excessive creatine ingestion, or following therapy that affects renal tubular secretion. Glucose [Mass/Vol] 109 mg/dL High 70 - 99 mg/dL [facility] [employer] Interpretation and review of laboratory results Abnormal [facility] Potassium [Moles/Vol] 4.5 mmol/L 3.7 - 5.3 mmol/L [facility] [employer] [facility] Sodium [Moles/Vol] 136 mmol/L 135 - 144 mmol/L [facility] [employer] Urea nitrogen (BldV) [Mass/Vol] 25 mg/dL High 8 - 23 mg/dL [facility] [employer] Urea nitrogen/Creatinine (Bld) [Mass ratio] 36 High 9 - 20 [facility] Basic Metabolic Panelon 09-0 Anion gap [Moles/Vol] 9 mmol/L 9 - 17 mmol/L [facility] [employer] [facility] Calcium [Mass/Vol] 9.9 mg/dL 8.6 - 10. 4 mg/dL [facility] [facility] Chloride [Moles/Vol] 99 mmol/L 98 - 10 7 mmol/L [facility] [employer] [facility] CO2 [Moles/Vol] 31 mmol/L 20 - 31 mmol/L [facility] Creatinine [Mass/Vol] 0.74 mg/dL 0.5 - 0.9 mg/dL [facility] [employer] [facility] GFR >60 60 - PI NF mL/min [facility] GFR Non- >60 60 - PINF mL/min [facility] Glucose [Mass/Vol] 85 mg/dL 70 - 99 mg/dL [facility] Potassium [Moles/Vol] 4.3 mmol/L 3.7 - 5.3 mmol/L [facility] Sodium [Moles/Vol] 139 mmol/L 135 - 144 mmol/L [facility] Urea nitrogen (BldV) [Mass/Vol] 26 mg/dL High 8 - 23 mg/dL [facility] Urea nitrogen/Creatinine (Bld) [Mass ratio] 35 High 9 - 20 [facility] Brain Natriuretic Peptideon 05-02-2022 Natriuretic peptide B (Bld) [Mass/Vol] 2979 pg/mL High NINF - 300 pg/mL [facility] Comment on above: An age-independent cutoff point of 300 pg/ml has a 98% negative predictive value excluding acute heart failure. CBCon 05-02-2022 Hematocrit (Bld) [Volume fraction] 41.1 % 36.3 - 47.1 % [facility] Hemoglobin (Bld) [Mass/Vol] 13.0 g/dL 11.9 - 15.1 g/dL [facility] MCH (RBC) [Entitic mass] 31.1 pg 25.2 - 33.5 pg [facility] MCHC (RBC) [Mass/Vol] 31.6 g/dL 28.4 - 34.8 g/dL [facility] MCV (RBC) [Entitic vol] 98.3 fL 82.6 - 102.9 fL [facility] NRBC Automated 0.0 0.0 per 100 WBC [facility] Platelet distribution width (Bld) [Ratio] 12.7 % 11.8 - 14.4 % [facility] Platelet mean volume (Bld) [Entitic vol] 9.6 fL 8.1 - 13.5 fL [facility] Platelets (Bld) [#/Vol] 184 10*3/uL [facility] RBC (Bld) [#/Vol] 4.18 10*6/uL 3.95 - 5.1 1 m/uL [facility] WBC (Bld) [#/Vol] 6.1 10*3/uL [facility] Digoxin Levelon 05-02-2022 Digoxin Lvl 1.5 ng/mL 0.5 - 2 ng/mL [facility] Comment on above: Digoxin Reference Range: Heart Failure 0.5-0.9 Atrial Fibrillation 0.8-2.0 Laboratory - Chemistry and C hemistry - challengeon 05-02-2022 GFR/1.73 sq M.predicted MDRD (S/P/Bld) [Vol rate/Area] [facility] Comment on above: Average GFR for 60-6 9 years old: 85 mL/min/1.73sq m Chronic Kidney Disease: <60 mL/min/1.73sq m Kidney failure: <15 mL/min/1.73sq m eGFR calculated using average adult body mass. Additional eGFR calculator available at: http://www.OpenX/multiple_crcl_2012.htm Stage 1: Some kidney damage normal GFR Stage 2: Mild kidney damage GFR 60-89 Stage 3: Moderate kidney damage GFR 30-59 Stage 4: Severe kidney damage GFR 15-29 Stage 5: Severe kidney damage GFR <15 ESRD - chronic treatment by dialysis or transplant No Panel Informationon 05-02 Interpretation and review of laboratory results Abnormal [facility] CBCon 04-12-2022 Hematocrit (Bld) [Volume fraction] 39.8 % 36.3 - 47.1 % [facility] Hemoglobin (Bld) [Mass/Vol] 12.5 g/dL 11.9 - 15.1 g/dL [facility] MCH (RBC) [Entitic mass] 31.6 pg 25.2 - 33.5 pg [facility] MCHC (RBC) [Mass/Vol] 31.4 g/dL 28.4 - 34.8 g/dL [facility] MCV (RBC) [Entitic vol] 100.5 fL 82.6 - 102.9 fL [facility] NRBC Automated 0.0 0.0 per 100 WBC [facility] Platelet distribution width (Bld) [Ratio] 13.0 % 11.8 - 14.4 % [facility] Platelet mean volume (Bld) [Entitic vol] 9.1 fL 8.1 - 13.5 fL [facility] Platelets (Bld) [#/Vol] 174 10*3/uL [facility] RBC (Bld) [#/Vol] 3.96 10*6/uL 3.95 - 5.1 1 m/uL [facility] WBC (Bld) [#/Vol] 5.5 10*3/uL [facility] CHANG DIGITAL SCREEN BILA TERALon 2022 No evidence of malignancy. Advise annual screening mammography. BREAST DENSITY SUMMARY C: The breasts are heterogeneously dense which may obscure small masses. BI-RADS 1 BIRADS: BIRADS - CATEGORY 1 Negative, no evidence of malignancy. Normal interval follow-up is recommended in 12 months. OVERALL ASSESSMENT - NEGATIVE A letter of notification will be sent to the patient regarding the results. [employer] recommends annual mammograms for women 40 years and older. [facility] EXAMINATION: SCREENING DIGITAL BILATERAL MAMMOGRAM WITH TOMOSYNTHESIS, 2022 TECHNIQUE: Screening mammography was performed with tomosynthesis including MLO and CC views of the bilateral breasts. Computer aided detection was used for the interpretation of this exam. COMPARISON: 26 Dec 2020; 04 December 2018 HISTORY: Screening. Screening examination. Limited history is the patient is from a long-term. FINDINGS: The breasts are heterogeneously dense with anterior breast parenchyma extremely dense which can limit assessment. No skin thickening, nipple contour changes, malignant type microcalcifications , areas of architectural distortion, or significant interval changes are noted. [facility] Radiology Study observation (narrative) [facility] Work Phone: [facility] CHANG DIGITAL SCREEN BILA TERALOrdered By: Kerry Felix on 2022 [facility] Work Phone: Basic Metabolic Panelon 04-2 Anion gap [Moles/Vol] 8 mmol/L Low 9 - 17 mmol/L [facility] Calcium [Mass/Vol] 9.7 mg/dL 8.6 - 10. 4 mg/dL [facility] Chloride [Moles/Vol] 98 mmol/L 98 - 10 7 mmol/L [facility] CO2 [Moles/Vol] 33 mmol/L High 20 - 31 mmol/L [facility] Creatinine [Mass/Vol] 0.64 mg/dL 0.50 - 0.90 mg/dL [facility] GFR >60 >60 mL/min [facility] GFR Non- >60 >60 mL/min [facility] Glucose [Mass/Vol] 74 mg/dL 70 - 99 mg/dL [facility] Interpretation and review of laboratory results Abnormal [facility] Potassium [Moles/Vol] 4.0 mmol/L 3.7 - 5.3 mmol/L [facility] Sodium [Moles/Vol] 139 mmol/L 135 - 144 mmol/L [facility] Urea nitrogen (BldV) [Mass/Vol] 26 mg/dL High 8 - 23 mg/dL [facility] Urea nitrogen/Creatinine (Bld) [Mass ratio] 41 High [facility] Laboratory - Chemistry and C hemistry - challengeon 12-22-2021 GFR/1.73 sq M.predicted MDRD (S/P/Bld) [Vol rate/Area] [facility] Comment on above: Average GFR for 60-6 9 years old: 85 mL/min/1.73sq m Chronic Kidney Disease: <60 mL/min/1.73sq m Kidney failure: <15 mL/min/1.73sq m eGFR calculated using average adult body mass. Additional eGFR calculator available at: http://www.[employer]/multiple_crcl_2012.htm Stage 1: Some kidney damage normal GFR Stage 2: Mild kidney damage GFR 60-89 Stage 3: Moderate kidney damage GFR 30-59 Stage 4: Severe kidney damage GFR 15-29 Stage 5: Severe kidney damage GFR <15 ESRD - chronic treatment by dialysis or transplant CBCon 09-06-2021 Hematocrit (Bld) [Volume fraction] 40.3 % 36.3 - 47.1 % [facility] Hemoglobin.gastrointes tinal spec 1 Ql (Stl) 12.8 g/dL 11.9 - 15.1 g/dL [facility] MCH (RBC) [Entitic mass] 32.2 pg 25.2 - 33.5 pg [facility] MCHC (RBC) [Mass/Vol] 31.8 g/dL 28.4 - 34.8 g/dL [facility] MCV (RBC) [Entitic vol] 101.5 fL 82.6 - 102.9 fL [facility] NRBC Automated 0.0 0.0 per 100 WBC [facility] Platelet distribution width (Bld) [Ratio] 13.6 % 11.8 - 14.4 % [facility] Platelet mean volume (Bld) [Entitic vol] 9.4 fL 8.1 - 13.5 fL [facility] Platelets (Bld) [#/Vol] 193 10*3/uL [facility] RBC (Bld) [#/Vol] 3.97 10*6/uL 3.95 - 5.1 1 m/uL [facility] WBC (Bld) [#/Vol] 4.7 10*3/uL [facility] Comprehensive Metabolic Pane barry 09-06-2021 Albumin [Mass/Vol] 4 g/dL 3.5 - 5.2 g/dL [facility] Albumin/Globulin [Mass ratio] 1.1 {ratio} [facility] ALP (Bld) [Catalytic activity/Vol] 78 U/L 35 - 104 U/L [facility] ALT [Catalytic activity/Vol] 20 U/L 5 - 33 U/L [facility] Anion gap [Moles/Vol] 13 mmol/L 9 - 17 mmol/L [facility] AST [Catalytic activity/Vol] 20 U/L <32 [facility] Bilirubin [Mass/Vol] 0.53 mg/dL 0.3 - 1 .2 mg/dL [facility] Calcium [Mass/Vol] 9.5 mg/dL 8.6 - 10. 4 mg/dL [facility] Chloride [Moles/Vol] 100 mmol/L 98 - 10 7 mmol/L [facility] CO2 [Moles/Vol] 29 mmol/L 20 - 31 mmol/L [facility] Creatinine [Mass/Vol] 0.72 mg/dL 0.50 - 0.90 mg/dL [facility] Free PSA/Total PSA [Mass fraction] 7.7 g/dL 6.4 - 8.3 g/dL [facility] GFR >60 >60 mL/min [facility] GFR Non- >60 >60 mL/min [facility] Glucose [Mass/Vol] 72 mg/dL 70 - 99 mg/dL [facility] Interpretation and review of laboratory results Abnormal [facility] Potassium [Moles/Vol] 3.9 mmol/L 3.7 - 5.3 mmol/L [facility] Sodium [Moles/Vol] 142 mmol/L 135 - 144 mmol/L [facility] Urea nitrogen (BldV) [Mass/Vol] 29 mg/dL High 8 - 23 mg/dL [facility] Urea nitrogen/Creatinine (Bld) [Mass ratio] 40 High [facility] Laboratory - Chemistry and C hemistry - challengeon 09-06-2021 GFR/1.73 sq M.predicted MDRD (S/P/Bld) [Vol rate/Area] [facility] Comment on above: Average GFR for 60-6 9 years old: 85 mL/min/1.73sq m Chronic Kidney Disease: <60 mL/min/1.73sq m Kidney failure: <15 mL/min/1.73sq m eGFR calculated using average adult body mass. Additional eGFR calculator available at: http://www.OpenX/multiple_crcl_2012.htm Stage 1: Some kidney damage normal GFR Stage 2: Mild kidney damage GFR 60-89 Stage 3: Moderate kidney damage GFR 30-59 Stage 4: Severe kidney damage GFR 15-29 Stage 5: Severe kidney damage GFR <15 ESRD - chronic treatment by dialysis or transplant Basic Metabolic PanelOrdered By: Ara Almazan on 06-14-2021 Anion gap [Moles/Vol] 11 mmol/L 9 - 17 mmol/L [facility] [employer] Work Phone: Calcium [Mass/Vol] 9.1 mg/dL 8.6 - 10. 4 mg/dL [employer] Phone: Chloride [Moles/Vol] 96 mmol/L Low 98 - 10 7 mmol/L [employer] Phone: CO2 [Moles/Vol] 30 mmol/L 20 - 31 mmol/L [employer] Phone: Creatinine [Mass/Vol] 0.62 mg/dL 0.50 - 0.90 mg/dL [facility] Work Phone: GFR >60 >60 mL/min [employer] Phone: GFR Non- >60 >60 mL/min [facility] [employer] Phone: Glucose [Mass/Vol] 111 mg/dL High 70 - 99 mg/dL [facility] [employer] Phone: Interpretation and review of laboratory results Abnormal [facility] [employer] Phone: Potassium [Moles/Vol] 3.9 mmol/L 3.7 - 5.3 mmol/L [facility] [employer] Phone: Sodium [Moles/Vol] 137 mmol/L 135 - 144 mmol/L [facility] [employer] Phone: Urea nitrogen (BldV) [Mass/Vol] 25 mg/dL High 8 - 23 mg/dL [facility] [employer] Phone: Urea nitrogen/Creatinine (Bld) [Mass ratio] 40 High [facility] [employer] Phone: [facility] [employer] Phone: Laboratory - Chemistry and C hemistry - challengeOrdered By: Ara Almazan on 06-14-2021 GFR/1.73 sq M.predicted MDRD (S/P/Bld) [Vol rate/Area] [facility] [employer] Phone: Comment on above: Average GFR for 60-6 9 years old: 85 mL/min/1.73sq m Chronic Kidney Disease: <60 mL/min/1.73sq m Kidney failure: <15 mL/min/1.73sq m eGFR calculated using average adult body mass. Additional eGFR calculator available at: http://www.Incanthe[employer].com/multiple_crcl_2011.htm Stage 1: Some kidney damage normal GFR Stage 2: Mild kidney damage GFR 60-89 Stage 3: Moderate kidney damage GFR 30-59 Stage 4: Severe kidney damage GFR 15-29 Stage 5: Severe kidney damage GFR <15 ESRD - chronic treatment by dialysis or transplant ED CHANG DIGITAL SCREEN SELF REFERRAL W OR WO CAD BILATERALOrdered By: Scooter Dhillon on 12-26-2020 No evidence of malignancy. Advise annual screening mammography. BREAST DENSITY SUMMARY D: The breasts are extremely dense which may obscure small masses. BI-RADS 1 BIRADS: BIRADS - CATEGORY 1 Negative, no evidence of malignancy in either breast. OVERALL ASSESSMENT - NEGATIVE A letter of notification will be sent to the patient regarding the results. RECOMMENDATION: Routine bilateral annual screening mammography is recommended. Follow-up screening mammogram in 1 year is advised. [employer] Phone: EXAMINATION: SCREENING DIGITAL BILATERAL MAMMOGRAM WITH TOMOSYNTHESIS, 12/26/2020 TECHNIQUE: Screening mammography of the bilateral breasts was performed with tomosynthesis. 2D standard and 3D tomosynthesis combination imaging performed through both breasts in the MLO and CC projection. Computer aided detection was utilized in the interpretation of this exam. COMPARISON: 04 December 2018; 11 November 2017 HISTORY: Screening. Negative family history of breast cancer. Negative history of hormonal replacement therapy. No prior breast interventions. FINDINGS: Anterior breast parenchyma is extremely dense which can obscure small masses. No skin thickening, nipple contour changes, malignant type microcalcifications , areas of architectural distortion, or significant interval changes are noted. [employer] Phone: Joni, pn Incoming Radiant Results From [employer] - 12/26/2020 2:29 PM EDT EXAMINATION: SCREENING DIGITAL BILATERAL MAMMOGRAM WITH TOMOSYNTHESIS, 12/26/2020 TECHNIQUE: Screening mammography of the bilateral breasts was performed with tomosynthesis. 2D standard and 3D tomosynthesis combination imaging performed through both breasts in the MLO and CC projection. Computer aided detection was utilized in the interpretation of this exam. COMPARISON: 04 December 2018; 11 November 2017 HISTORY: Screening. Negative family history of breast cancer. Negative history of hormonal replacement therapy. No prior breast interventions. FINDINGS: Anterior breast parenchyma is extremely dense which can obscure small masses. No skin thickening, nipple contour changes, malignant type microcalcifications , areas of architectural distortion, or significant interval changes are noted. IMPRESSION: No evidence of malignancy. Advise annual screening mammography. BREAST DENSITY SUMMARY D: The breasts are extremely dense which may obscure small masses. BI-RADS 1 BIRADS: BIRADS - CATEGORY 1 Negative, no evidence of malignancy in either breast. OVERALL ASSESSMENT - NEGATIVE A letter of notification will be sent to the patient regarding the results. RECOMMENDATION: Routine bilateral annual screening mammography is recommended. Follow-up screening mammogram in 1 year is advised. [employer] Work Phone: Microscopic UrinalysisOrdere d By: Scooter Dhillon on 12-21-2020 - [employer] Work Phone: Amorphous, UA NOT REPORTED None [facility] Work Phone: Bacteria, UA TRACE Abnormal None [facility] Work Phone: Casts UA NOT REPORTED /LPF [facility] Work Phone: Crystals, UA NOT REPORTED None /HPF [facility] Work Phone: Epithelial Cells UA 0 TO 2 [facility] Work Phone: Interpretation and review of laboratory results Abnormal [facility] Work Phone: Mucus, UA NOT REPORTED None [facility] Work Phone: Other Observations UA NOT REPORTED NOT REQ. [facility] [employer] Work Phone: RBC, UA 0 TO 2 [facility] Work Phone: Renal Epithelial, UA NOT REPORTED 0 /HPF [facility] [employer] Work Phone: Trichomonas, UA NOT REPORTED None [facility] Work Phone: WBC, UA 2 TO 5 [facility] Work Phone: Yeast, UA NOT REPORTED None [facility] Work Phone: UrinalysisOrdered By: Scooter Dhillon on 12-21-2020 Bilirubin Urine Negative NEGATIVE [facility] Work Phone: Color, UA YELLOW YELLOW [facility] Work Phone: Glucose, Ur Negative NEGATIVE [employer] Work Phone: Interpretation and review of laboratory results Abnormal [facility] [employer] Work Phone: Ketones Ql (U) Negative NEGATIVE [facility] Work Phone: Leukocyte esterase Test strip Ql (U) TRACE Abnormal NEGATIVE [facility] [employer] Work Phone: Nitrite, Urine Negative NEGATIVE [facility] Work Phone: pH, UA 6.0 [facility] [employer] Work Phone: Protein, UA Negative NEGATIVE [facility] Work Phone: Specific [place], UA 1.025 High [facility] [employer] Work Phone: Turbidity UA CLEAR CLEAR [facility] [employer] Work Phone: Urinalysis Comments NOT REPORTED [facility] [employer] Work Phone: Urine Hgb Negative NEGATIVE [facility] [employer] Work Phone: Urobilinogen, Urine Normal Normal [facility] [employer] Work Phone: Microscopic Urinalysison Amorphous, UA NOT REPORTED None [facility] Work Phone: Bacteria, UA 3+ Abnormal None [facility] Work Phone: Casts UA NOT REPORTED /LPF [facility] [employer] Work Phone: Crystals, UA NOT REPORTED None /HPF [facility] Work Phone: Epithelial Cells UA 2 TO 5 [facility] Work Phone: Interpretation and review of laboratory results Abnormal [facility] [employer] Work Phone: Mucus, UA NOT REPORTED None [facility] [employer] Work Phone: Other Observations UA NOT REPORTED NOT REQ. M [facility] [employer] Work Phone: RBC (U) [#/Vol] [address] [facility] Work Phone: Renal Epithelial, UA NOT REPORTED 0 /HPF [facility] [employer] Work Phone: Trichomonas, UA NOT REPORTED None [facility] Work Phone: WBC, UA 50 TO 100 [facility] Work Phone: Yeast, UA NOT REPORTED None [facility] Work Phone: - [facility] Work Phone: Urinalysison 12-07-2020 Bilirubin Urine Negative NEGATIVE [facility] Work Phone: Color, UA YELLOW YELLOW [facility] Work Phone: Glucose, Ur Negative NEGATIVE [facility] Work Phone: Interpretation and review of laboratory results Abnormal [facility] Work Phone: Ketones Ql (U) Negative NEGATIVE [facility] Work Phone: Leukocyte esterase Test strip Ql (U) SMALL Abnormal NEGATIVE [facility] Work Phone: Nitrite, Urine Positive Abnormal NEGATIVE [facility] Work Phone: pH, UA 6.0 [facility] [employer] Work Phone: Protein (U) [Mass/Vol] TRACE Abnormal NEGATIVE [facility] Work Phone: Specific [place], UA 1.025 High [facility] [employer] Work Phone: Turbidity UA CLOUDY Abnormal CLEAR [facility] Work Phone: Urinalysis Comments NOT REPORTED [facility] [employer] Work Phone: Urine Hgb TRACE Abnormal NEGATIVE [facility] Work Phone: Urobilinogen, Urine Normal Normal [facility] Work Phone: Basic Metabolic Panelon 04-0 Anion gap [Moles/Vol] 10 mmol/L 9 - 17 mmol/L [facility] [employer] Work Phone: Calcium [Mass/Vol] 9.4 mg/dL 8.6 - 10. 4 mg/dL [facility] Work Phone: Chloride [Moles/Vol] 95 mmol/L Low 98 - 10 7 mmol/L [facility] [employer] Phone: CO2 [Moles/Vol] 32 mmol/L High 20 - 31 mmol/L [facility] [employer] Phone: Creatinine [Mass/Vol] 0.93 mg/dL High 0.50 - 0.90 mg/dL [facility] [employer] Phone: GFR >60 >60 mL/min [employer] Phone: GFR Non- >60 >60 mL/min [facility] [employer] Phone: Glucose [Mass/Vol] 90 mg/dL 70 - 99 mg/dL [facility] [email or web address]) Phone: Interpretation and review of laboratory results Abnormal [facility] [employer] Phone: Potassium [Moles/Vol] 4.3 mmol/L 3.7 - 5.3 mmol/L [facility] [employer] Phone: Sodium [Moles/Vol] 137 mmol/L 135 - 144 mmol/L [facility] [employer] Phone: Urea nitrogen (BldV) [Mass/Vol] 31 mg/dL High 8 - 23 mg/dL [facility] [employer] Phone: Urea nitrogen/Creatinine (Bld) [Mass ratio] 33 High [facility] [employer] Phone: Lipid panel - fastingon 04-0 Cholesterol [Mass/Vol] 99 mg/dL <200 [facility] [employer] Phone: Comment on above: Cholesterol Guidelines: <200 Desirable 200-240 Borderline >240 Undesirable Cholesterol in HDL [Mass/Vol] 37 mg/dL Low >40 [facility] [employer] Phone: Comment on above: HDL Guidelines: <40 Undesirable 40-59 Borderline >59 Desirable Cholesterol in LDL [Mass/Vol] 55 mg/dL 0 - 130 mg/dL [facility] [employer] Phone: Comment on above: LDL Guidelines: <100 Desirable 100-129 Near to/above Desirable 130-159 Borderline >159 Undesirable Direct (measured) LDL and calculated LDL are not interchangeable tests. Cholesterol in VLDL [Mass/Vol] NOT REPORTED 1 - 30 mg/dL [facility] Phone: Cholesterol.total/Chol esterol in HDL [Mass ratio] 2.7 {ratio} <5 [facility] Phone: Interpretation and review of laboratory results Abnormal [employer] Phone: Triglyceride [Mass/Vol] 37 mg/dL <150 [employer] Phone: Comment on above: Triglyceride Guidelines: <150 Desirable 150-199 Borderline 200-499 High >499 Very high Based on AHA Guidelines for fasting triglyceride, May 2012. Otheron 12-02-2020 GFR/1.73 sq M.predicted MDRD (S/P/Bld) [Vol rate/Area] [employer] Phone: Comment on above: Average GFR for 60-6 9 years old: 85 mL/min/1.73sq m Chronic Kidney Disease: <60 mL/min/1.73sq m Kidney failure: <15 mL/min/1.73sq m eGFR calculated using average adult body mass. Additional eGFR calculator available at: http://www.OpenX/multiple_crcl_2012.htm Stage 1: Some kidney damage normal GFR Stage 2: Mild kidney damage GFR 60-89 Stage 3: Moderate kidney damage GFR 30-59 Stage 4: Severe kidney damage GFR 15-29 Stage 5: Severe kidney damage GFR <15 ESRD - chronic treatment by dialysis or transplant Basic Metabolic Panelon 04-0 Anion gap [Moles/Vol] 7 mmol/L Low 9 - 17 mmol/L [facility] Phone: Calcium [Mass/Vol] 9.1 mg/dL 8.6 - 10. 4 mg/dL [facility] Phone: Chloride [Moles/Vol] 97 mmol/L Low 98 - 10 7 mmol/L [facility] Phone: CO2 [Moles/Vol] 30 mmol/L 20 - 31 mmol/L [facility] Phone: Creatinine [Mass/Vol] 0.9 mg/dL 0.50 - 0.90 mg/dL [facility] Phone: GFR >60 >60 mL/min [employer] Phone: GFR Non- >60 >60 mL/min [facility] Phone: Glucose [Mass/Vol] 83 mg/dL 70 - 99 mg/dL [employer] Phone: Interpretation and review of laboratory results Abnormal [facility] Phone: Potassium [Moles/Vol] 4.3 mmol/L 3.7 - 5.3 mmol/L [facility] Phone: Sodium [Moles/Vol] 134 mmol/L Low 135 - 144 mmol/L [facility] Phone: Urea nitrogen (BldV) [Mass/Vol] 33 mg/dL High 8 - 23 mg/dL [facility] Phone: Urea nitrogen/Creatinine (Bld) [Mass ratio] 37 High [facility] Phone: Otheron 12-01-2020 GFR/1.73 sq M.predicted MDRD (S/P/Bld) [Vol rate/Area] [facility] Phone: Comment on above: Stage 1: Some kidney damage normal GFR Stage 2: Mild kidney damage GFR 60-89 Stage 3: Moderate kidney damage GFR 30-59 Stage 4: Severe kidney damage GFR 15-29 Stage 5: Severe kidney damage GFR <15 ESRD - chronic treatment by dialysis or transplant Average GFR for 60-6 9 years old: 85 mL/min/1.73sq m Chronic Kidney Disease: <60 mL/min/1.73sq m Kidney failure: <15 mL/min/1.73sq m eGFR calculated using average adult body mass. Additional eGFR calculator available at: http://www.[employer]/multiple_crcl_2012.htm APTTon 11-30-2020 aPTT Coag (Bld) [Time] 42.1 s High [facility] [employer] Phone: Comment on above: IV Heparin Therapy Range: 62.0-94.0 Interpretation and review of laboratory results Abnormal [facility] Phone: Brain Natriuretic Peptideon 11-30-2020 Natriuretic peptide B (Bld) [Mass/Vol] Pro-BNP Reference Range: [facility] Phone: Comment on above: Rule Out: <300 Chao Zone: Age <50 300-450 Age 50-75 300-900 Age >75 300-1800 Usually represents mild to moderate HF but other cardiopulmonary causes cannot be ruled out. Rule In: Age <50 >450 Age 50-75 >900 Age >75 >1800 Natriuretic peptide B (Bld) [Mass/Vol] 4701 pg/mL High <300 [facility] Phone: Comment on above: Pro-BNP results cesar ot be compared to BNP results. CBC auto differentialon Basophils (Bld) [#/Vol] 0.06 10*3/uL [facility] Phone: Basophils/100 WBC (Bld) 1 % 0 - 2 % [facility] Phone: Differential Type NOT REPORTED [facility] Phone: Eosinophils (Bld) [#/Vol] 0.07 10*3/uL [facility] Phone: Eosinophils/100 WBC (Bld) 1 % 1 - 4 % [facility] Phone: Hematocrit (Bld) [Volume fraction] 47.6 % High 36.3 - 47.1 % [facility] Phone: Hemoglobin.gastrointes tinal spec 1 Ql (Stl) 14.8 g/dL 11.9 - 15.1 g/dL [facility] Phone: Immature granulocytes (Bld) [#/Vol] 0 % 0 [facility] Phone: Immature granulocytes (Bld) [#/Vol] 10*3/uL [facility] Phone: Interpretation and review of laboratory results Abnormal [facility] Phone: Lymphocytes (Bld) [#/Vol] 1.43 10*3/uL [facility] Phone: Lymphocytes/100 WBC (Bld) 24 % 24 - 43 % [facility] Phone: MCH (RBC) [Entitic mass] 31.0 pg 25.2 - 33.5 pg [facility] Phone: MCHC (RBC) [Mass/Vol] 31.1 g/dL 28.4 - 34.8 g/dL [facility] Phone: MCV (RBC) [Entitic vol] 99.6 fL 82.6 - 102.9 fL [facility] Phone: Monocytes (Bld) [#/Vol] 0.74 10*3/uL [facility] Phone: Monocytes/100 WBC (Bld) 12 % 3 - 12 % [facility] Phone: Platelet distribution width (Bld) [Ratio] 14.6 % High 11.8 - 14.4 % [facility] Phone: Platelet mean volume (Bld) [Entitic vol] 9.4 fL 8.1 - 13.5 fL [facility] Phone: Platelets (Bld) [#/Vol] NOT REPORTED [facility] Phone: Platelets (Bld) [#/Vol] 148 10*3/uL [facility] Phone: RBC (Bld) [#/Vol] 4.78 10*6/uL 3.95 - 5.1 1 m/uL [facility] Phone: RBC (Bld) [#/Vol] NOT REPORTED [facility] Phone: Segmented neutrophils/100 WBC (Bld) 62 % 36 - 65 % [facility] Phone: Segs Absolute 3.76 [employer] Work Phone: WBC (Bld) [#/Vol] 6.1 10*3/uL [facility] Phone: WBC (Bld) [#/Vol] 0.0 10*3/uL 0.0 per 10 0 WBC [facility] Phone: WBC (Bld) [#/Vol] NOT REPORTED [facility] Phone: Comprehensive Metabolic Pane barry 11-30-2020 Albumin [Mass/Vol] 3.6 g/dL 3.5 - 5.2 g/dL [facility] Phone: Albumin/Globulin [Mass ratio] 1.0 {ratio} [facility] Phone: ALP (Bld) [Catalytic activity/Vol] 123 U/L High 35 - 104 U/L [facility] Phone: ALT [Catalytic activity/Vol] 35 U/L High 5 - 33 U/L [facility] Phone: Anion gap [Moles/Vol] 10 mmol/L 9 - 17 mmol/L [facility] Phone: AST [Catalytic activity/Vol] 33 U/L High <32 [facility] Phone: Bilirubin [Mass/Vol] 1.18 mg/dL 0.3 - 1 .2 mg/dL [facility] Phone: Calcium [Mass/Vol] 9.6 mg/dL 8.6 - 10. 4 mg/dL [facility] Phone: Chloride [Moles/Vol] 94 mmol/L Low 98 - 10 7 mmol/L [facility] Phone: CO2 [Moles/Vol] 29 mmol/L 20 - 31 mmol/L [facility] Phone: Creatinine [Mass/Vol] 0.88 mg/dL 0.50 - 0.90 mg/dL [facility] Phone: Free PSA/Prostate specific Ag.total [Mass fraction] 7.2 g/dL 6.4 - 8.3 g/dL [facility] Phone: GFR >60 >60 mL/min [employer] Phone: GFR Non- >60 >60 mL/min [facility] Phone: Glucose [Mass/Vol] 142 mg/dL High 70 - 99 mg/dL [employer] Phone: Potassium [Moles/Vol] 4.7 mmol/L 3.7 - 5.3 mmol/L [facility] Phone: Sodium [Moles/Vol] 133 mmol/L Low 135 - 144 mmol/L [facility] Phone: Urea nitrogen (BldV) [Mass/Vol] 36 mg/dL High 8 - 23 mg/dL [facility] Phone: Urea nitrogen/Creatinine (Bld) [Mass ratio] 41 High [facility] Phone: EKG 12 Leadon 11-30-2020 Atrial Rate 300 BPM [facility] Phone: Q-T Interval 366 ms [facility] Phone: QRS Duration 92 ms [facility] Phone: QTc Calculation (Bazett) 395 ms [facility] Phone: R Underhill -31 degrees [facility] Phone: T Underhill 137 degrees [facility] Phone: Ventricular Rate 70 BPM [employer] Phone: Joni, Mhpn Incoming Ekg Results From [employer] - 11/30/2020 8:53 PM EDT Atrial fibrillation Left axis deviation ST & T wave abnormality, consider lateral ischemia Abnormal ECG When compared with ECG of 06-OCT-2020 15:15, Criteria for Septal infarct are no longer Present Non-specific change in ST segment in Anterior leads T wave inversion more evident in Lateral leads Vent. rate has decreased 69 beats. Confirmed by Efren Tim MD ([id number]) on 11/30/2020 8:53:36 PM [facility] Phone: Atrial fibrillation Left axis deviation ST & T wave abnormality, consider lateral ischemia Abnormal ECG When compared with ECG of 06-OCT-2020 15:15, Criteria for Septal infarct are no longer Present Non-specific change in ST segment in Anterior leads T wave inversion more evident in Lateral leads Vent. rate has decreased 69 beats. Confirmed by Efren Tim MD ([id number]) on 11/30/2020 8:53:36 PM [facility] Phone: Magnesiumon 11-30-2020 Magnesium [Mass/Vol] 2.1 mg/dL 1.6 - 2 .6 mg/dL [facility] Phone: Otheron 11-30-2020 GFR/1.73 sq M.predicted MDRD (S/P/Bld) [Vol rate/Area] [facility] Phone: Comment on above: Stage 1: Some kidney damage normal GFR Stage 2: Mild kidney damage GFR 60-89 Stage 3: Moderate kidney damage GFR 30-59 Stage 4: Severe kidney damage GFR 15-29 Stage 5: Severe kidney damage GFR <15 ESRD - chronic treatment by dialysis or transplant Average GFR for 60-6 9 years old: 85 mL/min/1.73sq m Chronic Kidney Disease: <60 mL/min/1.73sq m Kidney failure: <15 mL/min/1.73sq m eGFR calculated using average adult body mass. Additional eGFR calculator available at: http://www.[employer]/multiple_crcl_2012.htm Interpretation and review of laboratory results Abnormal [facility] Phone: Protime-INRon 11-30-2020 INR Coag (Bld) [Relative time] 1.4 {INR} [facility] Phone: Comment on above: Non-therapeutic Range: INR = 0.9-1.2 Therapeutic Range: Moderate Anticoagulant Intensity: INR = 2.0-3.0 High Anticoagulant Intensity: INR = 2.5-3.5 Interpretation and review of laboratory results Abnormal [facility] Phone: PT Coag (PPP) [Time] 17 s High [employer] Phone: Troponinon 11-30-2020 Troponin I.cardiac [Mass/Vol] NOT REPORTED [facility] Phone: Troponin T.cardiac [Mass/Vol] NOT REPORTED <0.03 ng/mL [facility] Phone: Troponin, High Sensitivity 10 ng/L 0 - 14 ng/L [facility] Phone: Comment on above: High Sensitivity Troponin values cannot be compared with other Troponin methodologies. Patients with high levels of Biotin oral intake (i.e >5mg/day) may have falsely decreased Troponin levels. Samples collected within 8 hours of biotin intake may require additional information for diagnosis. XR CHEST (2 VW)on 11-30-2020 EXAMINATION: TWO XRAY VIEWS OF THE CHEST 11/30/2020 4:16 pm COMPARISON: Plain film imaging of the chest October 06, 2020 and September 28, 2019. HISTORY: ORDERING SYSTEM PROVIDED HISTORY: chf TECHNOLOGIST PROVIDED HISTORY: chf FINDINGS: There has been almost complete clearing of the prominent interstitial markings in the lung branch when compared to the previous study. The heart remains moderate to markedly enlarged with generalized configuration. Central pulmonary vascularity appears prominent. No evidence of pneumothorax or pleural effusion. Degenerative changes are present in the osseous structures, including the visualized portions of the shoulders. [facility] Phone: Joni, Mhpn Incoming Radiant Results From [facility] - 11/30/2020 4:26 PM EDT EXAMINATION: TWO XRAY VIEWS OF THE CHEST 11/30/2020 4:16 pm COMPARISON: Plain film imaging of the chest October 06, 2020 and September 28, 2019. HISTORY: ORDERING SYSTEM PROVIDED HISTORY: chf TECHNOLOGIST PROVIDED HISTORY: chf FINDINGS: There has been almost complete clearing of the prominent interstitial markings in the lung branch when compared to the previous study. The heart remains moderate to markedly enlarged with generalized configuration. Central pulmonary vascularity appears prominent. No evidence of pneumothorax or pleural effusion. Degenerative changes are present in the osseous structures, including the visualized portions of the shoulders. IMPRESSION: Heart is much larger when compared to the study of September 28, 2019. Findings suggest congestive heart failure but without definite pleural effusion. Degenerative bony changes with suggestion of osteopenia. Clearing of most of the prominent interstitial markings when compared to the previous study, suggesting vascular congestion. [employer] Phone: Heart is much larger when compared to the study of September 28, 2019. Findings suggest congestive heart failure but without definite pleural effusion. Degenerative bony changes with suggestion of osteopenia. Clearing of most of the prominent interstitial markings when compared to the previous study, suggesting vascular congestion. [facility] Phone: Basic Metabolic Panelon 02- Anion gap [Moles/Vol] 7 mmol/L Low 9 - 17 mmol/L [facility] Phone: Bun/Cre Ratio 32 High [employer] Work Phone: Calcium [Mass/Vol] 8.5 mg/dL Low 8.6 - 10. 4 mg/dL [facility] Phone: Chloride [Moles/Vol] 99 mmol/L 98 - 10 7 mmol/L [facility] Phone: CO2 [Moles/Vol] 29 mmol/L 20 - 31 mmol/L [facility] Phone: Creatinine [Mass/Vol] 1.18 mg/dL High 0.5 - 0.9 mg/dL [facility] Phone: GFR 56 mL/min Low >60 [employer] Phone: GFR Non- 46 mL/min Low >60 [facility] Phone: Glucose [Mass/Vol] 118 mg/dL High 70 - 99 mg/dL [facility] [employer] Phone: Interpretation and review of laboratory results Abnormal [facility] Phone: Potassium [Moles/Vol] 4.3 mmol/L 3.7 - 5.3 mmol/L [facility] Phone: Sodium [Moles/Vol] 135 mmol/L 135 - 144 mmol/L [facility] Phone: Urea nitrogen [Mass/Vol] 38 mg/dL High 8 - 23 mg/dL [facility] Phone: Magnesiumon 10-10-2020 Magnesium [Mass/Vol] 2.1 mg/dL 1.6 - 2 .6 mg/dL [facility] Phone: Metabolic Panelon 10-10-2020 GFR/1.73 sq M predicted among non-blacks MDRD (S/P/Bld) [Vol rate/Area] [facility] Phone: Comment on above: Stage 1: Some kidney damage normal GFR Stage 2: Mild kidney damage GFR 60-89 Stage 3: Moderate kidney damage GFR 30-59 Stage 4: Severe kidney damage GFR 15-29 Stage 5: Severe kidney damage GFR <15 ESRD - chronic treatment by dialysis or transplant Average GFR for 60-6 9 years old: 85 mL/min/1.73sq m Chronic Kidney Disease: <60 mL/min/1.73sq m Kidney failure: <15 mL/min/1.73sq m eGFR calculated using average adult body mass. Additional eGFR calculator available at: http://www.[employer]/multiple_crcl_2012.htm Basic Metabolic Panelon 09-26 Anion gap [Moles/Vol] 9 mmol/L 9 - 17 mmol/L [facility] Phone: Bun/Cre Ratio 38 High [employer] [facility] [employer] Work Phone: Calcium [Mass/Vol] 9.0 mg/dL 8.6 - 10. 4 mg/dL [facility] Phone: Chloride [Moles/Vol] 97 mmol/L Low 98 - 10 7 mmol/L [facility] Phone: CO2 [Moles/Vol] 26 mmol/L 20 - 31 mmol/L [facility] Phone: Creatinine [Mass/Vol] 1.06 mg/dL High 0.5 - 0.9 mg/dL [facility] Phone: GFR >60 >60 mL/min [employer] Phone: GFR Non- 52 mL/min Low >60 [facility] Phone: Glucose [Mass/Vol] 116 mg/dL High 70 - 99 mg/dL [facility] [email or web address] Phone: Interpretation and review of laboratory results Abnormal [facility] Phone: Potassium [Moles/Vol] 5.0 mmol/L 3.7 - 5.3 mmol/L [facility] Phone: Sodium [Moles/Vol] 132 mmol/L Low 135 - 144 mmol/L [facility] Phone: Urea nitrogen [Mass/Vol] 40 mg/dL High 8 - 23 mg/dL [facility] Phone: Brain Natriuretic Peptideon 10-09-2020 Interpretation and review of laboratory results Abnormal [facility] Phone: Natriuretic peptide B (Bld) [Mass/Vol] 6088 pg/mL High <300 [facility] Phone: Comment on above: Pro-BNP results cesar ot be compared to BNP results. Natriuretic peptide B (Bld) [Mass/Vol] Pro-BNP Reference Range: [facility] Phone: Comment on above: Rule Out: <300 Chao Zone: Age <50 300-450 Age 50-75 300-900 Age >75 300-1800 Usually represents mild to moderate HF but other cardiopulmonary causes cannot be ruled out. Rule In: Age <50 >450 Age 50-75 >900 Age >75 >1800 Magnesiumon 10-09-2020 Magnesium [Mass/Vol] 2.0 mg/dL 1.6 - 2 .6 mg/dL [facility] Phone: Metabolic Panelon 10-09-2020 GFR/1.73 sq M predicted among non-blacks MDRD (S/P/Bld) [Vol rate/Area] [facility] Phone: Comment on above: Average GFR for 60-6 9 years old: 85 mL/min/1.73sq m Chronic Kidney Disease: <60 mL/min/1.73sq m Kidney failure: <15 mL/min/1.73sq m eGFR calculated using average adult body mass. Additional eGFR calculator available at: http://www.[employer]/multiple_crcl_2012.htm Stage 1: Some kidney damage normal GFR Stage 2: Mild kidney damage GFR 60-89 Stage 3: Moderate kidney damage GFR 30-59 Stage 4: Severe kidney damage GFR 15-29 Stage 5: Severe kidney damage GFR <15 ESRD - chronic treatment by dialysis or transplant Basic Metabolic Panelon 09-26 Anion gap [Moles/Vol] 9 mmol/L 9 - 17 mmol/L [facility] Phone: Bun/Cre Ratio 43 High [employer] Work Phone: Calcium [Mass/Vol] 8.6 mg/dL 8.6 - 10. 4 mg/dL [facility] Phone: Chloride [Moles/Vol] 100 mmol/L 98 - 10 7 mmol/L [facility] Phone: CO2 [Moles/Vol] 24 mmol/L 20 - 31 mmol/L [facility] Phone: Creatinine [Mass/Vol] 1.05 mg/dL High 0.5 - 0.9 mg/dL [facility] Phone: GFR >60 >60 mL/min [employer] Phone: GFR Non- 53 mL/min Low >60 [facility] Phone: Glucose [Mass/Vol] 135 mg/dL High 70 - 99 mg/dL [facility] [email or web address] Phone: Interpretation and review of laboratory results Abnormal [facility] Phone: Potassium [Moles/Vol] 4.5 mmol/L 3.7 - 5.3 mmol/L [facility] Phone: Sodium [Moles/Vol] 133 mmol/L Low 135 - 144 mmol/L [facility] Phone: Urea nitrogen [Mass/Vol] 45 mg/dL High 8 - 23 mg/dL [facility] Phone: Magnesiumon 10-08-2020 Magnesium [Mass/Vol] 1.9 mg/dL 1.6 - 2 .6 mg/dL [facility] Phone: Metabolic Panelon 10-08-2020 GFR/1.73 sq M predicted among non-blacks MDRD (S/P/Bld) [Vol rate/Area] [facility] Phone: Comment on above: Average GFR for 60-6 9 years old: 85 mL/min/1.73sq m Chronic Kidney Disease: <60 mL/min/1.73sq m Kidney failure: <15 mL/min/1.73sq m eGFR calculated using average adult body mass. Additional eGFR calculator available at: http://www.[employer]/multiple_crcl_2012.htm Stage 1: Some kidney damage normal GFR Stage 2: Mild kidney damage GFR 60-89 Stage 3: Moderate kidney damage GFR 30-59 Stage 4: Severe kidney damage GFR 15-29 Stage 5: Severe kidney damage GFR <15 ESRD - chronic treatment by dialysis or transplant APTTon 10-07-2020 aPTT Coag (Bld) [Time] 38.3 s High [facility] [employer] Work Phone: Comment on above: IV Heparin Therapy Range: 62.0-94.0 Interpretation and review of laboratory results Abnormal [facility] Phone: Basic Metabolic Panelon 09-26 Anion gap [Moles/Vol] 12 mmol/L 9 - 17 mmol/L [facility] Work Phone: Bun/Cre Ratio 33 High [facility] [employer] Work Phone: Calcium [Mass/Vol] 9.0 mg/dL 8.6 - 10. 4 mg/dL [facility] [employer] Phone: Chloride [Moles/Vol] 96 mmol/L Low 98 - 10 7 mmol/L [facility] Work Phone: CO2 [Moles/Vol] 23 mmol/L 20 - 31 mmol/L [facility] [employer] Phone: Creatinine [Mass/Vol] 1.12 mg/dL High 0.5 - 0.9 mg/dL [facility] [employer] Phone: GFR 60 mL/min Low >60 [facility] [employer] Phone: GFR Non- 49 mL/min Low >60 [facility] [employer] Work Phone: Glucose [Mass/Vol] 113 mg/dL High 70 - 99 mg/dL [facility] [employer] Work Phone: Interpretation and review of laboratory results Abnormal [facility] Phone: Potassium [Moles/Vol] 4.8 mmol/L 3.7 - 5.3 mmol/L [facility] [employer] Phone: Sodium [Moles/Vol] 131 mmol/L Low 135 - 144 mmol/L [facility] Phone: Urea nitrogen [Mass/Vol] 37 mg/dL High 8 - 23 mg/dL [facility] Phone: CBC auto differentialon 09-26 Basophils (Bld) [#/Vol] 0.06 10*3/uL [facility] Phone: Basophils/100 WBC (Bld) 1 % 0 - 2 % [facility] Phone: Differential Type NOT REPORTED [facility] Phone: Eosinophils (Bld) [#/Vol] 0.03 10*3/uL [facility] Phone: Eosinophils/100 WBC (Bld) 0 % Low 1 - 4 % [facility] Phone: Erythrocyte distribution width (RBC) [Ratio] 14.8 % High 11.8 - 14.4 % [facility] Phone: Hematocrit (Bld) [Volume fraction] 44.2 % 36.3 - 47.1 % [facility] Phone: Hemoglobin (Bld) [Mass/Vol] 14.3 g/dL 11.9 - 15.1 g/dL [facility] Phone: Immature granulocytes (Bld) [#/Vol] 0.03 10*3/uL [facility] Phone: Immature granulocytes (Bld) [#/Vol] 0 % 0 [facility] Phone: Interpretation and review of laboratory results Abnormal [facility] Phone: Lymphocytes (Bld) [#/Vol] 2.04 10*3/uL [facility] Phone: Lymphocytes/100 WBC (Bld) 23 % Low 24 - 43 % [facility] Phone: MCH (RBC) [Entitic mass] 31.9 pg 25.2 - 33.5 pg [facility] Phone: MCHC (RBC) [Mass/Vol] 32.4 g/dL 28.4 - 34.8 g/dL [facility] Phone: MCV (RBC) [Entitic vol] 98.7 fL 82.6 - 102.9 fL [facility] Phone: Monocytes (Bld) [#/Vol] 1.06 10*3/uL [facility] Phone: Monocytes/100 WBC (Bld) 12 % 3 - 12 % [facility] Phone: Platelet mean volume (Bld) [Entitic vol] 9.0 fL 8.1 - 13.5 fL [facility] Phone: Platelets (Bld) [#/Vol] 185 10*3/uL [facility] Phone: Platelets (Bld) [#/Vol] NOT REPORTED [facility] Phone: RBC (Bld) [#/Vol] 4.48 10*6/uL 3.95 - 5.1 1 m/uL [facility] Phone: RBC morphology finding Nom (Bld) NOT REPORTED [facility] Phone: Segmented neutrophils/100 WBC (Bld) 64 % 36 - 65 % [facility] Phone: Segs Absolute 5.58 [facility] [facility] [employer] Work Phone: WBC (Bld) [#/Vol] 8.8 10*3/uL [facility] Phone: WBC (Bld) [#/Vol] 0.3 10*3/uL High 0.0 per 10 0 WBC [facility] Phone: WBC Morphology NOT REPORTED [facility] Work Phone: Lipid panel - fastingon 09-26 Cholesterol [Mass/Vol] 110 mg/dL <200 [employer] Work Phone: Comment on above: Cholesterol Guidelines: <200 Desirable 200-240 Borderline >240 Undesirable Cholesterol in HDL [Mass/Vol] 41 mg/dL >40 [facility] Phone: Comment on above: HDL Guidelines: <40 Undesirable 40-59 Borderline >59 Desirable Cholesterol in LDL [Mass/Vol] 57 mg/dL 0 - 130 mg/dL [facility] Phone: Comment on above: LDL Guidelines: <100 Desirable 100-129 Near to/above Desirable 130-159 Borderline >159 Undesirable Direct (measured) LDL and calculated LDL are not interchangeable tests. Cholesterol in VLDL [Mass/Vol] NOT REPORTED 1 - 30 mg/dL [facility] Phone: Cholesterol.total/Chol esterol in HDL [Mass ratio] 2.7 {ratio} <5 [facility] Phone: Triglyceride [Mass/Vol] 60 mg/dL <150 [facility] Phone: Comment on above: Triglyceride Guidelines: <150 Desirable 150-199 Borderline 200-499 High >499 Very high Based on AHA Guidelines for fasting triglyceride, May 2012. Magnesiumon 10-07-2020 Magnesium [Mass/Vol] 2.0 mg/dL 1.6 - 2 .6 mg/dL [facility] Phone: Metabolic Panelon 10-07-2020 GFR/1.73 sq M predicted among non-blacks MDRD (S/P/Bld) [Vol rate/Area] [facility] Phone: Comment on above: Stage 1: Some kidney damage normal GFR Stage 2: Mild kidney damage GFR 60-89 Stage 3: Moderate kidney damage GFR 30-59 Stage 4: Severe kidney damage GFR 15-29 Stage 5: Severe kidney damage GFR <15 ESRD - chronic treatment by dialysis or transplant Average GFR for 60-6 9 years old: 85 mL/min/1.73sq m Chronic Kidney Disease: <60 mL/min/1.73sq m Kidney failure: <15 mL/min/1.73sq m eGFR calculated using average adult body mass. Additional eGFR calculator available at: http://www.[employer]/multiple_crcl_2012.htm Protime-INRon 10-07-2020 INR Coag (PPP) [Relative time] 1.5 {INR} [facility] Phone: Comment on above: Non-therapeutic Range: INR = 0.9-1.2 Therapeutic Range: Moderate Anticoagulant Intensity: INR = 2.0-3.0 High Anticoagulant Intensity: INR = 2.5-3.5 Interpretation and review of laboratory results Abnormal [facility] Phone: PT Coag (PPP) [Time] 17.6 s High [employer] Phone: T4, freeon 10-07-2020 Thyroxine, Free 1.25 ng/dL 0.93 - 1.7 ng/dL [facility] Phone: Brain Natriuretic Peptideon 10-06-2020 Natriuretic peptide B (Bld) [Mass/Vol] Pro-BNP Reference Range: [facility] Phone: Comment on above: Rule Out: <300 Chao Zone: Age <50 300-450 Age 50-75 300-900 Age >75 300-1800 Usually represents mild to moderate HF but other cardiopulmonary causes cannot be ruled out. Rule In: Age <50 >450 Age 50-75 >900 Age >75 >1800 Natriuretic peptide B (Bld) [Mass/Vol] 5456 pg/mL High <300 [facility] Phone: Comment on above: Pro-BNP results cesar ot be compared to BNP results. CBC Auto Differentialon 09-26 Basophils (Bld) [#/Vol] 0.07 10*3/uL [facility] Phone: Basophils/100 WBC (Bld) 1 % 0 - 2 % [facility] Phone: Differential Type NOT REPORTED [facility] Phone: Eosinophils (Bld) [#/Vol] 0.07 10*3/uL [facility] Phone: Eosinophils/100 WBC (Bld) 1 % 1 - 4 % [facility] Phone: Erythrocyte distribution width (RBC) [Ratio] 14.6 % High 11.8 - 14.4 % [facility] Phone: Hematocrit (Bld) [Volume fraction] 43.7 % 36.3 - 47.1 % [facility] Phone: Hemoglobin (Bld) [Mass/Vol] 14.2 g/dL 11.9 - 15.1 g/dL [facility] Phone: Immature granulocytes (Bld) [#/Vol] 1 % High 0 [employer] Phone: Immature granulocytes (Bld) [#/Vol] 0.06 10*3/uL [facility] Phone: Interpretation and review of laboratory results Abnormal [employer] Phone: Lymphocytes (Bld) [#/Vol] 2.02 10*3/uL [facility] Phone: Lymphocytes/100 WBC (Bld) 24 % 24 - 43 % [employer] Phone: MCH (RBC) [Entitic mass] 31.7 pg 25.2 - 33.5 pg [facility] Phone: MCHC (RBC) [Mass/Vol] 32.5 g/dL 28.4 - 34.8 g/dL [facility] Phone: MCV (RBC) [Entitic vol] 97.5 fL 82.6 - 102.9 fL [facility] Phone: Monocytes (Bld) [#/Vol] 0.98 10*3/uL [facility] Phone: Monocytes/100 WBC (Bld) 12 % 3 - 12 % [facility] Phone: Platelet mean volume (Bld) [Entitic vol] 9.2 fL 8.1 - 13.5 fL [facility] Phone: Platelets (Bld) [#/Vol] NOT REPORTED [facility] Phone: Platelets (Bld) [#/Vol] 175 10*3/uL [facility] Phone: RBC (Bld) [#/Vol] 4.48 10*6/uL 3.95 - 5.1 1 m/uL [employer] Work Phone: RBC morphology finding Nom (Bld) NOT REPORTED [facility] Phone: Segmented neutrophils/100 WBC (Bld) 63 % 36 - 65 % [facility] Phone: Segs Absolute 5.34 [employer] Work Phone: WBC (Bld) [#/Vol] 0.0 10*3/uL 0.0 per 10 0 WBC [facility] Phone: WBC (Bld) [#/Vol] 8.5 10*3/uL [facility] Phone: WBC Morphology NOT REPORTED [employer] Work Phone: Comprehensive Metabolic Pane barry 10-06-2020 Albumin [Mass/Vol] 3.8 g/dL 3.5 - 5.2 g/dL [facility] Phone: Albumin/Globulin [Mass ratio] 1.0 {ratio} [facility] Phone: ALP [Catalytic activity/Vol] 112 U/L High 35 - 104 U/L [facility] Phone: ALT [Catalytic activity/Vol] 36 U/L High 5 - 33 U/L [facility] Phone: Anion gap [Moles/Vol] 10 mmol/L 9 - 17 mmol/L [facility] Phone: AST [Catalytic activity/Vol] 43 U/L High <32 [facility] Phone: Bilirubin Ql (U) 1.31 mg/dL High 0.3 - 1.2 mg/dL [facility] [employer] Phone: Bun/Cre Ratio 40 High [facility] Work Phone: Calcium [Mass/Vol] 9.1 mg/dL 8.6 - 10. 4 mg/dL [facility] English Phone: Chloride [Moles/Vol] 99 mmol/L 98 - 10 7 mmol/L [facility] Work Phone: CO2 [Moles/Vol] 22 mmol/L 20 - 31 mmol/L [facility] English Phone: Creatinine [Mass/Vol] 0.92 mg/dL High 0.5 - 0.9 mg/dL [facility] English Phone: GFR >60 >60 mL/min [email or web address] Work Phone: GFR Non- >60 >60 mL/min [facility] Work Phone: Glucose [Mass/Vol] 111 mg/dL High 70 - 99 mg/dL [facility] [employer] Work Phone: Potassium [Moles/Vol] 4.6 mmol/L 3.7 - 5.3 mmol/L [facility] [employer] Phone: Protein [Mass/Vol] 7.6 g/dL 6.4 - 8.3 g/dL [facility] [employer] Phone: Sodium [Moles/Vol] 131 mmol/L Low 135 - 144 mmol/L [facility] English Phone: Urea nitrogen [Mass/Vol] 37 mg/dL High 8 - 23 mg/dL [facility] English Phone: EKG 12 Leadon 10-06-2020 Atrial Rate 94 BPM [facility] English Phone: Q-T Interval 396 ms [facility] Work Phone: QRS Duration 102 ms [facility] Phone: QTc Calculation (Bazett) 623 ms [facility] Phone: R Underhill -24 degrees [facility] Phone: T Underhill 89 degrees [facility] Phone: Ventricular Rate 149 BPM [employer] Phone: Most likely 2:1 atrial flutter with variable block Septal infarct , age undetermined Subtle inferior ST elevation, Consider right ventricular involvement in acute inferior infarct Abnormal ECG No previous ECGs available Confirmed by ZOE FLOREZ ([id number]) on 10/06/2020 9:49:16 PM [facility] Phone: Joni, Mhpn Incoming Ekg Results From [employer] - 10/06/2020 9:49 PM EST Most likely 2:1 atrial flutter with variable block Septal infarct , age undetermined Subtle inferior ST elevation, Consider right ventricular involvement in acute inferior infarct Abnormal ECG No previous ECGs available Confirmed by ZOE FLOREZ ([id number]) on 10/06/2020 9:49:16 PM [facility] Phone: Metabolic Panelon 10-06-2020 GFR/1.73 sq M predicted among non-blacks MDRD (S/P/Bld) [Vol rate/Area] [facility] Phone: Comment on above: Average GFR for 60-6 9 years old: 85 mL/min/1.73sq m Chronic Kidney Disease: <60 mL/min/1.73sq m Kidney failure: <15 mL/min/1.73sq m eGFR calculated using average adult body mass. Additional eGFR calculator available at: http://www.[employer]/multiple_crcl_2012.htm Stage 1: Some kidney damage normal GFR Stage 2: Mild kidney damage GFR 60-89 Stage 3: Moderate kidney damage GFR 30-59 Stage 4: Severe kidney damage GFR 15-29 Stage 5: Severe kidney damage GFR <15 ESRD - chronic treatment by dialysis or transplant Microscopic Urinalysison Amorphous, UA NOT REPORTED None [facility] Work Phone: Bacteria, UA 3+ Abnormal None [facility] Work Phone: Casts UA NOT REPORTED /LPF [facility] Work Phone: Crystals, UA NOT REPORTED None /HPF [facility] Work Phone: Epithelial Cells UA 0 TO 2 [facility] Work Phone: Interpretation and review of laboratory results Abnormal [facility] Work Phone: Mucus, UA NOT REPORTED None [facility] Work Phone: Other Observations UA NOT REPORTED NOT REQ. M [facility] [employer] Work Phone: RBC (U) [#/Vol] 0 TO 2 [facility] Work Phone: Renal Epithelial, UA NOT REPORTED 0 /HPF [facility] Work Phone: Trichomonas, UA NOT REPORTED None [facility] Work Phone: WBC, UA 2 TO 5 [facility] Work Phone: Yeast, UA NOT REPORTED None [facility] Work Phone: - [facility] Work Phone: Otheron 10-06-2020 Interpretation and review of laboratory results Abnormal [employer] Work Phone: TSH without Reflexon 021 TSH Qn 2.44 m[IU]/L [facility] Work Phone: Troponinon 10-06-2020 Troponin I.cardiac [Mass/Vol] NOT REPORTED [facility] Work Phone: Troponin T.cardiac [Mass/Vol] NOT REPORTED <0.03 ng/mL [facility] Work Phone: Troponin, High Sensitivity 16 ng/L High 0 - 14 ng/L [employer] Work Phone: Comment on above: High Sensitivity Troponin values cannot be compared with other Troponin methodologies. Patients with high levels of Biotin oral intake (i.e >5mg/day) may have falsely decreased Troponin levels. Samples collected within 8 hours of biotin intake may require additional information for diagnosis. Urinalysis Reflex to Culture on 10-06-2020 Bilirubin Urine Negative NEGATIVE [facility] Work Phone: Color, UA YELLOW YELLOW [facility] [employer] Work Phone: Glucose, Ur Negative NEGATIVE [facility] [employer] Work Phone: Interpretation and review of laboratory results Abnormal [facility] [employer] Work Phone: Ketones Ql (U) Negative NEGATIVE [facility] Work Phone: Leukocyte esterase Test strip Ql (U) Negative NEGATIVE [facility] [employer] Phone: Nitrite, Urine Positive Abnormal NEGATIVE [facility] Work Phone: pH, UA 5.5 [facility] [employer] Work Phone: Protein (U) [Mass/Vol] Negative NEGATIVE [facility] [employer] Work Phone: Specific [place], UA 1.020 [facility] [employer] Work Phone: Turbidity UA CLEAR CLEAR [facility] [employer] Phone: Urinalysis Comments NOT REPORTED [facility] [employer] Work Phone: Urine Hgb Negative NEGATIVE [facility] [employer] Work Phone: Urobilinogen, Urine Normal Normal [facility] [employer] Work Phone: XR CHEST PORTABLEon 10-06-19 21 Joni, Mhpn Incoming Radiant Results From [employer] - 10/06/2020 3:46 PM EST EXAMINATION: ONE XRAY VIEW OF THE CHEST 10/06/2020 3:07 pm COMPARISON: 09/28/2019 HISTORY: ORDERING SYSTEM PROVIDED HISTORY: sob TECHNOLOGIST PROVIDED HISTORY: sob FINDINGS: Cardiomegaly and pulmonary vascular congestion. No definite superimposed focal airspace consolidation, sizeable pleural effusion or pneumothorax. Trachea is midline. Osseous structures and soft tissues are grossly intact. IMPRESSION: Cardiomegaly and pulmonary vascular congestion. [facility] Phone: EXAMINATION: ONE XRAY VIEW OF THE CHEST 10/06/2020 3:07 pm COMPARISON: 09/28/2019 HISTORY: ORDERING SYSTEM PROVIDED HISTORY: sob TECHNOLOGIST PROVIDED HISTORY: sob FINDINGS: Cardiomegaly and pulmonary vascular congestion. No definite superimposed focal airspace consolidation, sizeable pleural effusion or pneumothorax. Trachea is midline. Osseous structures and soft tissues are grossly intact. [facility] Phone: Cardiomegaly and pulmonary vascular congestion. [facility] Phone: Basic Metabolic Panel w/ Ref john to MGon 10-02-2020 Anion gap [Moles/Vol] 12 mmol/L 9 - 17 mmol/L [place] Bun/Cre Ratio 40 High [place] Calcium [Mass/Vol] 9.1 mg/dL 8.6 - 10. 4 mg/dL [place] Chloride [Moles/Vol] 97 mmol/L Low 98 - 10 7 mmol/L [place] CO2 [Moles/Vol] 25 mmol/L 20 - 31 mmol/L [place] Creatinine [Mass/Vol] 0.81 mg/dL 0.5 - 0.9 mg/dL [place] GFR >60 >60 mL/min [place] GFR Non- >60 >60 mL/min [place] Glucose [Mass/Vol] 126 mg/dL High 70 - 99 mg/dL [place] Interpretation and review of laboratory results Abnormal [place] Potassium [Moles/Vol] 4.5 mmol/L 3.7 - 5.3 mmol/L [place] Sodium [Moles/Vol] 134 mmol/L Low 135 - 144 mmol/L [place] Urea nitrogen [Mass/Vol] 32 mg/dL High 8 - 23 mg/dL [place] CBC Auto Differentialon Basophils (Bld) [#/Vol] 0.03 10*3/uL [place] Basophils/100 WBC (Bld) 0 % 0 - 2 % [place] Differential Type NOT REPORTED [place] Eosinophils (Bld) [#/Vol] 10*3/uL [place] Eosinophils/100 WBC (Bld) 0 % Low 1 - 4 % [place] Erythrocyte distribution width (RBC) [Ratio] 14.6 % High 11.8 - 14.4 % [place] Hematocrit (Bld) [Volume fraction] 41.6 % 36.3 - 47.1 % [place] Hemoglobin (Bld) [Mass/Vol] 13.3 g/dL 11.9 - 15.1 g/dL [place] Immature granulocytes (Bld) [#/Vol] 0.04 10*3/uL [place] Immature granulocytes (Bld) [#/Vol] 0 % 0 [place] Interpretation and review of laboratory results Abnormal [place] Lymphocytes (Bld) [#/Vol] 0.77 10*3/uL Low [place] Lymphocytes/100 WBC (Bld) 6 % Low 24 - 43 % [place] MCH (RBC) [Entitic mass] 31.1 pg 25.2 - 33.5 pg [place] MCHC (RBC) [Mass/Vol] 32.0 g/dL 28.4 - 34.8 g/dL [place] MCV (RBC) [Entitic vol] 97.4 fL 82.6 - 102.9 fL [place] Monocytes (Bld) [#/Vol] 0.80 10*3/uL [place] Monocytes/100 WBC (Bld) 7 % 3 - 12 % [place] Platelet mean volume (Bld) [Entitic vol] 9.7 fL 8.1 - 13.5 fL [place] Platelets (Bld) [#/Vol] 122 10*3/uL Low [place] Platelets (Bld) [#/Vol] NOT REPORTED [place] RBC (Bld) [#/Vol] 4.27 10*6/uL 3.95 - 5.1 1 m/uL [place] RBC morphology finding Nom (Bld) NOT REPORTED [place] Segmented neutrophils/100 WBC (Bld) 87 % High 36 - 65 % [place] Segs Absolute 10.53 [place] WBC (Bld) [#/Vol] 12.2 10*3/uL [place] WBC (Bld) [#/Vol] 0.0 10*3/uL 0.0 per 10 0 WBC [place] WBC Morphology NOT REPORTED [place] Metabolic Panelon 10-02-2020 GFR/1.73 sq M predicted among non-blacks MDRD (S/P/Bld) [Vol rate/Area] [place] Comment on above: Stage 1: Some kidney damage normal GFR Stage 2: Mild kidney damage GFR 60-89 Stage 3: Moderate kidney damage GFR 30-59 Stage 4: Severe kidney damage GFR 15-29 Stage 5: Severe kidney damage GFR <15 ESRD - chronic treatment by dialysis or transplant Average GFR for 60-6 9 years old: 85 mL/min/1.73sq m Chronic Kidney Disease: <60 mL/min/1.73sq m Kidney failure: <15 mL/min/1.73sq m eGFR calculated using average adult body mass. Additional eGFR calculator available at: http://www.[employer]/multiple_crcl_2012.htm CBC Auto Differentialon Basophils (Bld) [#/Vol] 0.05 10*3/uL [place] Basophils/100 WBC (Bld) 1 % 0 - 2 % [place] Differential Type NOT REPORTED [place] Eosinophils (Bld) [#/Vol] 0.21 10*3/uL [place] Eosinophils/100 WBC (Bld) 4 % 1 - 4 % [place] Erythrocyte distribution width (RBC) [Ratio] 14.6 % High 11.8 - 14.4 % [place] Hematocrit (Bld) [Volume fraction] 40.6 % 36.3 - 47.1 % [place] Hemoglobin (Bld) [Mass/Vol] 12.8 g/dL 11.9 - 15.1 g/dL [place] Immature granulocytes (Bld) [#/Vol] 0.03 10*3/uL [place] Immature granulocytes (Bld) [#/Vol] 1 % High 0 [place] Interpretation and review of laboratory results Abnormal [place] Lymphocytes (Bld) [#/Vol] 1.03 10*3/uL Low [place] Lymphocytes/100 WBC (Bld) 19 % Low 24 - 43 % [place] MCH (RBC) [Entitic mass] 31.1 pg 25.2 - 33.5 pg [place] MCHC (RBC) [Mass/Vol] 31.5 g/dL 28.4 - 34.8 g/dL [place] MCV (RBC) [Entitic vol] 98.5 fL 82.6 - 102.9 fL [place] Monocytes (Bld) [#/Vol] 0.69 10*3/uL [place] Monocytes/100 WBC (Bld) 13 % High 3 - 12 % [place] Platelet mean volume (Bld) [Entitic vol] NOT REPORTED 8.1 - 13.5 fL [place] Platelets (Bld) [#/Vol] NOT REPORTED [place] Platelets (Bld) [#/Vol] See Reflexed IPF Result [place] RBC (Bld) [#/Vol] 4.12 10*6/uL 3.95 - 5.1 1 m/uL [place] RBC morphology finding Nom (Bld) NOT REPORTED [place] Segmented neutrophils/100 WBC (Bld) 63 % 36 - 65 % [place] Segs Absolute 3.47 [place] WBC (Bld) [#/Vol] 5.5 10*3/uL [place] WBC (Bld) [#/Vol] 0.0 10*3/uL 0.0 per 10 0 WBC [place] WBC Morphology NOT REPORTED [place] Comprehensive Metabolic Pane barry 09-30-2020 Albumin [Mass/Vol] 3.4 g/dL Low 3.5 - 5.2 g/dL [place] Albumin/Globulin [Mass ratio] 1.0 {ratio} [place] ALP [Catalytic activity/Vol] 80 U/L 35 - 104 U/L [place] ALT [Catalytic activity/Vol] 24 U/L 5 - 33 U/L [place] Anion gap [Moles/Vol] 9 mmol/L 9 - 17 mmol/L [place] AST [Catalytic activity/Vol] 27 U/L <32 [place] Bilirubin Ql (U) 0.68 mg/dL 0.3 - 1.2 mg/dL [place] Bun/Cre Ratio 41 High [place] Calcium [Mass/Vol] 8.9 mg/dL 8.6 - 10. 4 mg/dL [place] Chloride [Moles/Vol] 99 mmol/L 98 - 10 7 mmol/L [place] CO2 [Moles/Vol] 25 mmol/L 20 - 31 mmol/L [place] Creatinine [Mass/Vol] 0.88 mg/dL 0.5 - 0.9 mg/dL [place] GFR >60 >60 mL/min [place] GFR Non- >60 >60 mL/min [place] Glucose [Mass/Vol] 111 mg/dL High 70 - 99 mg/dL [place] Interpretation and review of laboratory results Abnormal [place] Potassium [Moles/Vol] 4.9 mmol/L 3.7 - 5.3 mmol/L [place] Protein [Mass/Vol] 6.7 g/dL 6.4 - 8.3 g/dL [place] Sodium [Moles/Vol] 133 mmol/L Low 135 - 144 mmol/L [place] Urea nitrogen [Mass/Vol] 36 mg/dL High 8 - 23 mg/dL [place] Immature Platelet Fractionon 09-30-2020 Interpretation and review of laboratory results Abnormal [place] Platelet, Fluorescence 102 Low [place] Platelet, Immature Fraction 2.5 % 1.1 - 10.3 % [place] Metabolic Panelon 09-30-2020 GFR/1.73 sq M predicted among non-blacks MDRD (S/P/Bld) [Vol rate/Area] [place] Comment on above: Average GFR for 60-6 9 years old: 85 mL/min/1.73sq m Chronic Kidney Disease: <60 mL/min/1.73sq m Kidney failure: <15 mL/min/1.73sq m eGFR calculated using average adult body mass. Additional eGFR calculator available at: http://www.[employer]/multiple_crcl_2012.htm Stage 1: Some kidney damage normal GFR Stage 2: Mild kidney damage GFR 60-89 Stage 3: Moderate kidney damage GFR 30-59 Stage 4: Severe kidney damage GFR 15-29 Stage 5: Severe kidney damage GFR <15 ESRD - chronic treatment by dialysis or transplant COVID-19 PCRon 03-13-2020 SARS-CoV-2, LUIS F Not Detected Normal Not Detected [facility] Comment on above: Result Comment: This test was developed and its performance characteristics determined by [employer]. This test has not been FDA cleared or approved. This test has been authorized by FDA under an Emergency Use Authorization (EUA). This test is only authorized for the duration of time the declaration that circumstances exist justifying the authorization of the emergency use of in vitro diagnostic tests for detection of SARS-CoV-2 virus and/or diagnosis of COVID-19 infection under section 564(b)(1) of the Act, 21 U.S.C. 360bbb-3(b)(1), unless the authorization is terminated or revoked sooner. When diagnostic testing is negative, the possibility of a false negative result should be considered in the context of a patient's recent exposures and the presence of clinical signs and symptoms consistent with COVID-19. An individual without symptoms of COVID-19 and who is not shedding SARS-CoV-2 virus would expect to have a negative (not detected) result in this assay. Performed By: #### C VDPCR #### [facility] [id number] Head WO Contraston 2019 No acute intracranial abnormality. Findings were discussed with RODRIGUEZ ESTRADA at 2:30 pm on 02/22/2020. [place] EXAMINATION: CT OF THE HEAD WITHOUT CONTRAST 02/22/2020 1:48 pm TECHNIQUE: CT of the head was performed without the administration of intravenous contrast. Dose modulation, iterative reconstruction, and/or weight based adjustment of the mA/kV was utilized to reduce the radiation dose to as low as reasonably achievable. COMPARISON: CT brain performed 12/05/2013. HISTORY: ORDERING SYSTEM PROVIDED HISTORY: facial droop TECHNOLOGIST PROVIDED HISTORY: facial droop FINDINGS: BRAIN/VENTRICLES: There is no acute intracranial hemorrhage, mass effect, or midline shift. There is satisfactory overall chairez-white matter differentiation. The ventricular structures are symmetric and unremarkable. The infratentorial structures are unremarkable. ORBITS: The visualized portion of the orbits demonstrate no acute abnormality. SINUSES: Paranasal sinuses are normally aerated. There is fluid in the mastoid air cells. SOFT TISSUES/SKULL: No acute abnormality of the visualized skull or soft tissues. [place] Joni, pn Incoming Radiant Results From [employer] - 02/22/2020 2:35 PM EDT EXAMINATION: CT OF THE HEAD WITHOUT CONTRAST 02/22/2020 1:48 pm TECHNIQUE: CT of the head was performed without the administration of intravenous contrast. Dose modulation, iterative reconstruction, and/or weight based adjustment of the mA/kV was utilized to reduce the radiation dose to as low as reasonably achievable. COMPARISON: CT brain performed 12/05/2013. HISTORY: ORDERING SYSTEM PROVIDED HISTORY: facial droop TECHNOLOGIST PROVIDED HISTORY: facial droop FINDINGS: BRAIN/VENTRICLES: There is no acute intracranial hemorrhage, mass effect, or midline shift. There is satisfactory overall chairez-white matter differentiation. The ventricular structures are symmetric and unremarkable. The infratentorial structures are unremarkable. ORBITS: The visualized portion of the orbits demonstrate no acute abnormality. SINUSES: Paranasal sinuses are normally aerated. There is fluid in the mastoid air cells. SOFT TISSUES/SKULL: No acute abnormality of the visualized skull or soft tissues. IMPRESSION: No acute intracranial abnormality. Findings were discussed with RODRIGUEZ ESTRADA at 2:30 pm on 02/22/2020. [facility] [place] Basic Metabolic Panelon Anion gap [Moles/Vol] 11 mmol/L 9 - 17 mmol/L [employer] Phone: Bun/Cre Ratio 28 High [employer] Work Phone: Calcium [Mass/Vol] 9.3 mg/dL 8.6 - 10. 4 mg/dL [employer] Work Phone: Chloride [Moles/Vol] 96 mmol/L Low 98 - 10 7 mmol/L [employer] Work Phone: CO2 [Moles/Vol] 26 mmol/L 20 - 31 mmol/L [employer] Phone: Creatinine [Mass/Vol] 0.68 mg/dL 0.5 - 0.9 mg/dL [employer] Phone: GFR >60 >60 mL/min [email or web address] Work Phone: GFR Non- >60 >60 mL/min [facility] Phone: Glucose [Mass/Vol] 91 mg/dL 70 - 99 mg/dL [employer] Work Phone: Potassium [Moles/Vol] 4.5 mmol/L 3.7 - 5.3 mmol/L [facility] English Phone: Sodium [Moles/Vol] 133 mmol/L Low 135 - 144 mmol/L [employer] Phone: Urea nitrogen [Mass/Vol] 19 mg/dL 8 - 23 mg/dL [employer] Phone: Brain Natriuretic Peptideon 09-28-2019 Natriuretic peptide B (Bld) [Mass/Vol] 455 pg/mL High <300 [employer] Phone: Comment on above: Pro-BNP results cesar ot be compared to BNP results. Natriuretic peptide B (Bld) [Mass/Vol] Pro-BNP Reference Range: [employer] Phone: Comment on above: Rule Out: <300 Chao Zone: Age <50 300-450 Age 50-75 300-900 Age >75 300-1800 Usually represents mild to moderate HF but other cardiopulmonary causes cannot be ruled out. Rule In: Age <50 >450 Age 50-75 >900 Age >75 >1800 Metabolic Panelon 09-28-2019 GFR/1.73 sq M predicted among non-blacks MDRD (S/P/Bld) [Vol rate/Area] [employer] Phone: Comment on above: Stage 1: Some kidney damage normal GFR Stage 2: Mild kidney damage GFR 60-89 Stage 3: Moderate kidney damage GFR 30-59 Stage 4: Severe kidney damage GFR 15-29 Stage 5: Severe kidney damage GFR <15 ESRD - chronic treatment by dialysis or transplant Average GFR for 60-6 9 years old: 85 mL/min/1.73sq m Chronic Kidney Disease: <60 mL/min/1.73sq m Kidney failure: <15 mL/min/1.73sq m eGFR calculated using average adult body mass. Additional eGFR calculator available at: http://www.[employer]X/Simple IT_crcl_2012.htm Otheron 09-28-2019 Interpretation and review of laboratory results Abnormal [employer] Phone: XR CHEST STANDARD (2 VW)on 0 09-28-2019 No acute cardiopulmonary process. [employer] Phone: EXAMINATION: TWO XRAY VIEWS OF THE CHEST 09/28/2019 1:01 pm COMPARISON: Chest radiograph performed 11/03/2018. HISTORY: ORDERING SYSTEM PROVIDED HISTORY: Cough TECHNOLOGIST PROVIDED HISTORY: non-productive cough, CHF FINDINGS: There is no acute consolidation or effusion. There is no pneumothorax. The mediastinal structures are unremarkable. The upper abdomen is unremarkable. The extrathoracic soft tissues are unremarkable. [employer] Phone: Joni, Mhpn Incoming Radiant Results From [employer] - 09/28/2019 1:16 PM EST EXAMINATION: TWO XRAY VIEWS OF THE CHEST 09/28/2019 1:01 pm COMPARISON: Chest radiograph performed 11/03/2018. HISTORY: ORDERING SYSTEM PROVIDED HISTORY: Cough TECHNOLOGIST PROVIDED HISTORY: non-productive cough, CHF FINDINGS: There is no acute consolidation or effusion. There is no pneumothorax. The mediastinal structures are unremarkable. The upper abdomen is unremarkable. The extrathoracic soft tissues are unremarkable. IMPRESSION: No acute cardiopulmonary process. [facility] Work Phone: Basic Metabolic Panelon 05-26 Anion gap [Moles/Vol] 12 mmol/L 9 - 17 mmol/L [place] Bun/Cre Ratio 29 High [place] Calcium [Mass/Vol] 9.4 mg/dL 8.6 - 10. 4 mg/dL [place] Chloride [Moles/Vol] 95 mmol/L Low 98 - 10 7 mmol/L [place] CO2 [Moles/Vol] 27 mmol/L 20 - 31 mmol/L [place] Creatinine [Mass/Vol] 0.68 mg/dL 0.5 - 0.9 mg/dL [place] GFR >60 >60 mL/min [place] GFR Non- >60 >60 mL/min [place] Glucose [Mass/Vol] 102 mg/dL High 70 - 99 mg/dL [place] Interpretation and review of laboratory results Abnormal [place] Potassium [Moles/Vol] 4.3 mmol/L 3.7 - 5.3 mmol/L [place] Sodium [Moles/Vol] 134 mmol/L Low 135 - 144 mmol/L [place] Urea nitrogen [Mass/Vol] 20 mg/dL 8 - 23 mg/dL [place] Metabolic Panelon 06-11-2019 GFR/1.73 sq M predicted among non-blacks MDRD (S/P/Bld) [Vol rate/Area] [place] Comment on above: Stage 1: Some kidney damage normal GFR Stage 2: Mild kidney damage GFR 60-89 Stage 3: Moderate kidney damage GFR 30-59 Stage 4: Severe kidney damage GFR 15-29 Stage 5: Severe kidney damage GFR <15 ESRD - chronic treatment by dialysis or transplant Average GFR for 60-6 9 years old: 85 mL/min/1.73sq m Chronic Kidney Disease: <60 mL/min/1.73sq m Kidney failure: <15 mL/min/1.73sq m eGFR calculated using average adult body mass. Additional eGFR calculator available at: http://www.OpenX/multiple_crcl_2012.htm Vital Signs Date Time Vital Sign Value Performing Clinician Karmeni lity 12-02-2020 11:38-0400 Body Temperature 95.4 [degF] Austin Gorman [employer] 6 Phone: 12-02-2020 11:38-0400 BP Diastolic 99 mm[Hg] [employer] [facility] [employer] Work Phone: 12-02-2020 11:38-0400 BP Systolic 124 mm[Hg] [employer] [facility] Door 6 Phone: 12-02-2020 11:38-0400 Pulse (Heart Rate) 75 /min DylanProxinokumar Gorman [employer]en [employer] 6 Phone: 12-02-2020 11:38-0400 Pulse Oximetry 99 % POINT 3 Basketballkumar Gorman zlien Door 6 Phone: 12-02-2020 07:43-0400 Respiratory Rate 18 /min DylanProxinokumar [facility] Door 6 Phone: 12-02-2020 03:55-0400 BMI (Body Mass Index) 24.14 kg/m2 Austin [employer] [facility] Work Phone: 12-02-2020 03:55-0400 Body weight 74.16 kg Austin Gorman [employer] Phone: 12-01-2020 07:48-0400 Height 175.3 cm Austin Gorman [employer] Phone: 10-10-2020 06:47-0500 Body Temperature 96.01 [degF] Lindsay Mcneill [employer] Work Phone: 10-10-2020 06:47-0500 BP Diastolic 68 mm[Hg] Lindsay Obrien Door 6 Phone: 10-10-2020 06:47-0500 BP Systolic 119 mm[Hg] Lindsay Obrien Door 6 Phone: 10-10-2020 06:47-0500 Pulse (Heart Rate) 122 /min Lindsay Obrien Door 6 Phone: 10-10-2020 06:47-0500 Pulse Oximetry 99 % Lindsay Obrien Door 6 Phone: 10-10-2020 06:47-0500 Respiratory Rate 20 /min Lindsay Obrien [employer] 6 Phone: 10-10-2020 04:45-0500 BMI (Body Mass Index) 22.92 kg/m2 Lindsay Obrien [employer] Work Phone: 10-10-2020 04:45-0500 Body weight 70.4 kg Lindsay Obrien Door 6 Phone: 10-07-2020 10:07-0500 Height 175.3 cm Lindsay Obrien Door 6 Phone: 10-02-2020 09:29-0500 BMI (Body Mass Index) 23.63 kg/m2 [facility] [place] [place] 10-02-2020 09:29-0500 Body Temperature 97.7 [degF] Lindsay Obrien [facility] [place] 10-02-2020 09:29-0500 Body weight 72.58 kg [facility] [place] [facility] [place] 10-02-2020 09:29-0500 BP Diastolic 84 mm[Hg] [facility] [place] [facility] [place] 10-02-2020 09:29-0500 BP Systolic 126 mm[Hg] [facility] [place] [facility] [place] 10-02-2020 09:29-0500 Pulse (Heart Rate) 72 /min [facility] [place] 10-02-2020 09:29-0500 Pulse Oximetry 97 % Lindsay Obrien [facility] , [place] 10-02-2020 09:29-0500 Respiratory Rate 20 /min Lindsay Obrien [facility] [place] 02-22-2020 11:56-0400 Body Temperature 98.01 [degF] Rodriguez Obrien [facility] [place] 02-22-2020 11:56-0400 BP Diastolic 67 mm[Hg] Rodriguez Obrien [facility] [place] , [place] 02-22-2020 11:56-0400 BP Systolic 151 mm[Hg] Rodriguez Obrien [facility] [place] , [place] 02-22-2020 11:56-0400 Pulse (Heart Rate) 42 /min Rodriguez Obrien [facility], [place] 02-22-2020 11:56-0400 Pulse Oximetry 99 % Rodriguez Obrien [facility] , [place] 02-22-2020 11:56-0400 Respiratory Rate 16 /min Rodriguez Obrien [facility], [place] Encounters Encounter Date Encounter Type Care Provider Facility Start: 09-18-2023 End: 09-19-2023 ambulatory KULADEEP SANDRAA [facility] Start: 06-13-2023 End: 06-14-2023 ambulatory KULADEEP SHEREEDDA [facility] Start: 06-05-2023 End: 06-06-2023 ambulatory ROB L GADIEL [facility] Start: 04-11-2023 End: 04-12-2023 ambulatory ROB L GADIEL [facility] Start: 04-11-2023 End: 04-11-2023 Subsequent hospital visit by physician Ara Almazan MD Work Phone: [facility] Start: 04-10-2023 End: 04-11-2023 ambulatory ROB L GADIEL [facility] Start: 02-14-2023 End: 02-18-2023 Patient encounter procedure Jacquelin Rodriguez DDS Work Phone: [facility] Start: 02-14-2023 End: 02-18-2023 ambulatory UNKNOWN PROVIDER Facility:[facility] Start: 2023 End: 02-14-2023 ambulatory EFREN Obrien [facility] Start: 12-13-2022 End: 12-13-2022 Subsequent hospital visit by physician Ara Almazan MD Work Phone: [facility] Start: 12-13-2022 End: 12-14-2022 ambulatory ROB RAMESH [facility] Start: 12-12-2022 End: 12-13-2022 ambulatory ROB L GADIEL [facility] Start: 12-12-2022 End: 12-12-2022 Subsequent hospital visit by physician Ara Almazan MD Work Phone: [facility] Start: 09-27-2022 End: 09-28-2022 ambulatory ARA Obrien [facility] Start: 09-27-2022 End: 09-27-2022 Subsequent hospital visit by physician Ara Almazan MD Work Phone: [facility] Start: 09-26-2022 End: 09-27-2022 ambulatory ARA Obrien [facility] Start: 09-26-2022 End: 09-26-2022 Subsequent hospital visit by physician Ara Almazan MD Work Phone: [facility] Start: 09-19-2022 End: 09-19-2022 Subsequent hospital visit by physician Ara Almazan MD Work Phone: [facility] Start: 06-21-2022 End: 06-21-2022 Subsequent hospital visit by physician Ara Almazan MD Work Phone: [facility] Start: 05-02-2022 End: 05-02-2022 Subsequent hospital visit by physician Ara Almazan MD Work Phone: [facility] Comment on above: Chronic diastolic CH F (congestive heart failure) (HCC); Chronic a-fib (HCC); Chronic anticoagulation; Severe mitral regurgitation; Pulmonary hypertension, moderate to severe (HCC) Start: 04-12-2022 End: 04-12-2022 Subsequent hospital visit by physician Ara Almazan MD Work Phone: [facility] Start: 04-05-2022 End: 04-05-2022 Subsequent hospital visit by physician [facility] [employer] [facility] EKG Comment on above: Chronic diastolic CH F (congestive heart failure) (HCC); Chronic a-fib (HCC); Chronic anticoagulation; Severe mitral regurgitation; Pulmonary hypertension, moderate to severe (HCC) Start: 03-22-2022 End: 03-22-2022 Subsequent hospital visit by physician [facility] [employer] [facility] EKG Comment on above: Arrived Start: 2022 End: 02-15-2022 Subsequent hospital visit by physician [facility] Mamm[facility] Comment on above: Screening mammogram for high-risk patient Start: 12-22-2021 End: 12-22-2021 Subsequent hospital visit by physician Ara Almazan MD Work Phone: [facility] Start: 12-20-2021 End: 12-20-2021 Subsequent hospital visit by physician Ara Almazan MD Work Phone: [facility] Start: 09-06-2021 End: 09-06-2021 Subsequent hospital visit by physician Ara Almazan MD Work Phone: [facility] Start: 06-14-2021 End: 06-14-2021 Subsequent hospital visit by physician Ara Almazan MD Work Phone: [facility] Start: 12-26-2020 End: 12-28-2020 Subsequent hospital visit by physician [facility] Mammography [facility] Mammography Comment on above: Breast cancer screen ing by mammogram Start: 12-21-2020 End: 12-21-2020 Subsequent hospital visit by physician Ara Almazan MD Work Phone: [facility] Start: 12-07-2020 End: 12-07-2020 Subsequent hospital visit by physician Ara Almazan [facility] Start: 11-30-2020 End: 12-02-2020 Evaluation and management of inpatient Austin Gorman Work Phone: [facility] Start: 10-06-2020 End: 10-10-2020 Evaluation and management of inpatient Lindsay Mcneill Work Phone: [facility] Comment on above: Acute on chronic con gestive heart failure, unspecified heart failure type (HCC) (Primary Dx); Atrial flutter, unspecified type (HCC) Start: 10-04-2020 End: 10-04-2020 Subsequent hospital visit by physician [facility] Echo Room [facility] Echocardiography Comment on above: Severe mitral valve regurgitation; Congestive heart failure, unspecified HF chronicity, unspecified heart failure type (HCC) Start: 10-02-2020 End: 10-02-2020 Emergency department patient visit Lindsay Mcneill Work Phone: [facility] ED Comment on above: Dental infection (Pr imary Dx); Cellulitis, unspecified cellulitis site Start: 09-30-2020 End: 09-30-2020 Subsequent hospital visit by physician Ara Almazan [facility] Start: 03-10-2020 End: 03-10-2020 Patient encounter procedure LUCIE DELEON Facility: Start: 02-22-2020 End: 02-22-2020 Emergency department patient visit Rodriguez Estrada Work Phone: [facility] ED Comment on above: Facial droop (Primar y Dx) Start: 09-28-2019 End: 09-30-2019 Subsequent hospital visit by physician Jose MARTIN Laboratory Comment on above: Cough; Congestive heart failure, unspecified HF chronicity, unspecified heart failure type (HCC) Start: 06-11-2019 End: 06-11-2019 Subsequent hospital visit by physician Jose MARTIN Laboratory Start: 06-10-2019 End: 06-10-2019 Subsequent hospital visit by physician Jose MARTIN Laboratory Procedures Date Procedure Procedure Detail Performing Clinician Start: 04-11-2023 Blood count complete automated Rob Ramesh APRN Work Phone: Start: 12-13-2022 Basic metabolic pane l calcium total Rob Tamr [employer] Work Phone: Start: 09-27-2022 Blood count complete automated Rob Tamr [employer] Work Phone: Start: 09-27-2022 Drug screen quantita tive digoxin total Rob Tamr [employer] Work Phone: Start: 09-19-2022 Comprehensive metabo lic panel Rob Tamr [employer] Work Phone: Start: 06-21-2022 Basic metabolic pane l calcium total Ara Almazan MD Work Phone: Start: 05-02-2022 Basic metabolic pane l calcium total Efren Tim MD Work Phone: Start: 05-02-2022 Drug screen quantita tive digoxin total Efren Tim MD Work Phone: Start: 04-12-2022 Blood count complete automated Scooter Dhillon [employer] Work Phone: Start: 2022 Screening mammograph y bi 2-view breast inc cad Scooter Dhillon APRN - [employer] Work Phone: Start: 12-22-2021 Basic metabolic pane l calcium total Ara Almazan MD Work Phone: Start: 09-06-2021 Comprehensive metabo lic panel Ara Almazan MD Work Phone: Start: 06-14-2021 Basic metabolic pane l calcium total rAa Almazan MD Work Phone: Start: 12-26-2020 Screening mammograph y bi 2-view breast inc cad Scooter Dhillon [employer] Work Phone: Start: 12-21-2020 Urinalysis microscopic only Scooter Dhillon [employer] Work Phone: Start: 12-21-2020 Urnls dip stick/tabl et rgnt auto w/o microscopy Scooter Dhillon [employer] Work Phone: Start: 12-07-2020 Urinalysis microscopic only Scooter Dhillon Work Phone: Start: 12-07-2020 Urnls dip stick/tabl et rgnt auto w/o microscopy Scooter Dhillon Work Phone: Start: 12-02-2020 Basic metabolic pane l calcium total Francine Burkett Work Phone: Start: 12-01-2020 Basic metabolic pane l calcium total Francine Burkett Work Phone: Start: 12-01-2020 Lipid panel Francine Burkett Work Phone: Start: 11-30-2020 Assay of magnesium Tameka Burkett Work Phone: Start: 11-30-2020 Assay of troponin quantitative Francine Burkett Work Phone: Start: 11-30-2020 Blood count complete auto&auto difrntl wbc Francine Burkett Work Phone: Start: 11-30-2020 Comprehensive metabo lic panel Francine Burkett Work Phone: Start: 11-30-2020 Natriuretic peptide Charlotte virgilio Burkett Work Phone: Start: 11-30-2020 Prothrombin time Carin Burkett Work Phone: Start: 11-30-2020 Thromboplastin time partial plasma/whole blood Francine Burkett Work Phone: Start: 11-30-2020 Ecg routine ecg w/le ast 12 lds i&r only Francine Burkett Work Phone: Start: 11-30-2020 EKG REPORT Hpf Scanni ng Start: 11-30-2020 Radiologic exam ches t 2 views Francien Burkett Work Phone: Start: 10-10-2020 Assay of magnesium Tameka Burkett Work Phone: Start: 10-10-2020 Basic metabolic pane l calcium total Francine Burkett Work Phone: Start: 10-09-2020 Assay of magnesium Tameka Burkett Work Phone: Start: 10-09-2020 Basic metabolic pane l calcium total Francine Burkett Work Phone: Start: 10-09-2020 Natriuretic peptide Charlotte Irwin Nanali Work Phone: Start: 10-08-2020 Assay of magnesium Tameka Irwin Nanali Work Phone: Start: 10-08-2020 Basic metabolic pane l calcium total Francine Burkett Work Phone: Start: 10-07-2020 Assay of magnesium Tameka Irwin Nanali Work Phone: Start: 10-07-2020 Basic metabolic pane l calcium total Francine Burkett Work Phone: Start: 10-07-2020 Blood count complete auto&auto difrntl wbc Francine Burkett Work Phone: Start: 10-07-2020 Lipid panel Francine Burkett Work Phone: Start: 10-07-2020 Prothrombin time Carin Burkett Work Phone: Start: 10-07-2020 Thromboplastin time partial plasma/whole blood Francine Burkett Work Phone: Start: 10-06-2020 Urinalysis microscopic only Maria Elena Leonarda Work Phone: Start: 10-06-2020 Urnls dip stick/tabl et rgnt auto w/o microscopy Francine Burkett Work Phone: Start: 10-06-2020 Radiologic exam ches t single view Maria Elena Brower Work Phone: Start: 10-06-2020 Assay of free thyroxine Francine Burkett Work Phone: Start: 10-06-2020 Assay of thyroid stimulating hormone tsh Francine Burkett Work Phone: Start: 10-06-2020 Ecg routine ecg w/le ast 12 lds i&r only Maria Elena Brower Work Phone: Start: 10-06-2020 EKG REPORT Hpf Scanni ng Start: 10-06-2020 Assay of troponin quantitative Maria Elena Mendozacheson Work Phone: Start: 10-06-2020 Blood count complete auto&auto difrntl wbc Maria Elena Mendozacheson Work Phone: Start: 10-06-2020 Comprehensive metabo lic panel Maria Elena Mendozacheson Work Phone: Start: 10-06-2020 Natriuretic peptide Chantelle Mendozacheson Work Phone: Start: 10-02-2020 BASIC METABOLIC PANE L W/ REFLEX TO MG FOR LOW K Lindsay Mcneill Work Phone: Start: 10-02-2020 Blood count complete auto&auto difrntl wbc Lindsay Mcneill Work Phone: Start: 09-30-2020 Blood count complete auto&auto difrntl wbc Ara Almazan Work Phone: Start: 09-30-2020 Comprehensive metabo lic panel Ara Almazan Work Phone: Start: 09-30-2020 IMMATURE PLATELET FRACTION Ara Almazan Work Phone: Start: 02-22-2020 Ct head/brain w/o co ntrast material Rodriguez Estrada Work Phone: Start: 09-28-2019 Radiologic exam ches t 2 views Jose C Juana Work Phone: Start: 09-28-2019 Basic metabolic pane l calcium total Krishnaiah C Garlajese Work Phone: Start: 09-28-2019 Natriuretic peptide Aparna Deleon Work Phone: Start: 06-11-2019 Basic metabolic pane l calcium total Krishnaiah C Garlapati Work Phone: Plan of Treatment Date Care Activity Detail Author Start: 12-01-2025 Lipid panel [employer] Start: 10-07-2025 Lipid panel Lipid screen [employer] Work Phone: Start: 02-15-2024 Screening for malignant neoplasm of breast [facility] Start: 02-14-2024 Screening for malignant neoplasm of breast Breast cancer [facility] Start: 08-05-2023 End: 08-05-2023 Patient encounter procedure 08/05/2023 Office Visit Cardiology Efren Tim MD [address] [place] [address] [place] [phone] [facility] Start: 03-26-2023 Influenza vaccination [facility] Start: 02-14-2023 Screening for malignant neoplasm of breast Mammography [facility] Start: 01-31-2023 End: 01-31-2023 Patient encounter procedure 01/31/2023 Office Visit Cardiology Efren Tim MD [address] [place] [address] [place] [address] [facility] Start: 12-26-2022 Screening for malignant neoplasm of breast Breast cancer screen [employer] Start: 10-04-2022 Creatinine [facility] Start: 10-04-2022 Potassium [Moles/volume] in Serum or Plasma [facility] Start: 09-06-2022 Creatinine measurement [facility] Start: 09-06-2022 Potassium monitoring Potassium monitoring [facility] Start: 08-02-2022 End: 08-02-2022 Patient encounter procedure 08/02/2022 Office Visit Cardiology Efren Tim MD [address] [place] [address] [place] [phone] [facility] Start: 06-14-2022 Creatinine measurement Creatinine monitoring [facility] [employer] Work Phone: Start: 06-14-2022 Potassium monitoring Potassium monitoring [facility] English Phone: Start: 05-03-2022 End: 05-03-2022 Patient encounter procedure 05/03/2022 Office Visit Cardiology Efren Tim MD [address] [place] [phone] [facility] Start: 04-26-2022 Influenza vaccination [facility] Start: 04-14-2022 COVID-19 Vaccine (4 - Booster for Pfizer series) COVID-19 Vaccine (4 - Booster for Pfizer series) [facility] [employer] Start: 03-26-2022 Influenza vaccination Flu vaccine (#1) [facility] [employer] Start: 03-22-2022 End: 03-22-2022 Patient encounter procedure 03/22/2022 Office Visit Cardiology Efren Tim MD [address] [place] [address] [place] [phone] [facility] Start: 2022 Pneumococcal 0-64 years Vaccine (2 of 2 - PPSV23) Pneumococcal 0-64 years Vaccine (2 of 2 - PPSV23) [facility] Start: 2022 Screening for osteoporosis Bone Densitometry [facility] Start: 02-07-2022 COVID-19 Vaccine (4 - Booster for Pfizer series) COVID-19 Vaccine (4 - Booster for Pfizer series) [facility] Start: 12-27-2021 End: 12-27-2021 Patient encounter procedure 12/27/2021 Appointment Radiology [facility] Mammography Start: 12-07-2021 Creatinine measurement Creatinine [facility] Phone: Start: 12-07-2021 Potassium monitoring Potassium monitoring [facility] Phone: Start: 12-02-2021 Creatinine measurement Creatinine monitoring [facility] [employer] Phone: Start: 12-02-2021 Potassium monitoring Potassium monitoring [facility] Work Phone: Start: 10-10-2021 Creatinine measurement Creatinine monitoring [facility] Work Phone: Start: 10-10-2021 Potassium monitoring Potassium monitoring [facility] Work Phone: Start: 10-02-2021 Creatinine measurement Creatinine monitoring [facility] [place], [place] Start: 10-02-2021 Potassium monitoring Potassium monitoring [facility] [place] Start: 09-20-2021 End: 09-20-2021 Patient encounter procedure 09/20/2021 Office Visit Cardiology Efren Tim MD [address] [place] [phone] [facility] Start: 08-29-2021 End: 08-29-2021 Patient encounter procedure 08/29/2021 Office Visit Cardiology Efren Tim MD [address] [place] [phone] [facility] Start: 04-26-2021 Influenza vaccination [facility] Start: 03-27-2021 COVID-19 Vaccine (3 - Booster for Pfizer series) COVID-19 Vaccine (3 - Booster for Pfizer series) [facility] Start: 02-24-2021 COVID-19 Vaccine (3 - Booster for Pfizer series) COVID-19 Vaccine (3 - Booster for Pfizer series) [facility] Start: 02-01-2021 End: 02-01-2021 Patient encounter procedure 02/01/2021 Office Visit Cardiology Efren Tim MD [address] [place] [phone] [facility] Start: 12-26-2020 End: 12-26-2020 Appointment 12/26/2020 Appointment Radiology [facility] Mammography Start: 12-16-2020 End: 12-16-2020 Office Visit 12/16/2020 Office Visit Cardiology Efren Tim MD [address] [place] [address] [phone] [facility] Start: 12-04-2020 Breast cancer screen Breast cancer screen [place], [place] Start: 12-04-2020 Screening for malignant neoplasm of breast Breast cancer screen [place], [place] Start: 10-17-2020 End: 10-10-2021 Basic metabolic 2000 panel Basic Metabolic Panel Lab Routine Acute on chronic congestive heart failure, unspecified heart failure type (HCC) Expected: 10/17/2020, Expires: 10/10/2021 [facility] Work Phone: Comment on above: Expected: 10/17/2020, Expires: Start: 10-06-2020 End: 10-06-2020 Office Visit 10/06/2020 Office Visit Cardiology Efren Tim MD [address] [place] [address] [place] [phone] [facility] Start: 10-04-2020 End: 10-04-2020 Appointment 10/04/2020 Appointment Echocardiography [facility] Echocardiography Start: 09-28-2020 Creatinine measurement Creatinine monitoring [place], [place] Start: 09-28-2020 Potassium monitoring Potassium monitoring [place] Start: 04-26-2020 Influenza vaccination [place] Start: 12-15-2019 DTaP/Tdap/Td vaccine (2 - Td or Tdap) DTaP/Tdap/Td vaccine (2 - Td or Tdap) [facility] Start: 12-15-2019 Tetanus vaccination Tetanus (Td or Tdap) [facility] Start: 04-26-2019 Influenza vaccination Flu vaccine (#1) [place] Start: 02-12-2019 Annual Wellness Visit (AWV) Annual Wellness Visit (AWV) [facility] Start: 02-14-2012 Screening for osteoporosis DEXA (modify frequency per FRAX score) [facility]ENNY SOLARES [facility] Start: 12-14-2010 Pneumococcal 0-64 years Vaccine (2 - PCV) Pneumococcal 0-64 years Vaccine (2 - PCV) [facility] Start: 12-14-2010 Pneumococcal 65+ years Vaccine (2 - PCV) Pneumococcal 65+ years Vaccine (2 - PCV) [facility] Start: 12-14-2010 Pneumococcal vaccination Pneumococcal Vaccine(s) (65+ yrs) (2 - PCV) [facility] Start: 2007 Colon cancer screen colonoscopy Colon cancer screen colonoscopy [place], [place] Start: 2007 Screening for malignant neoplasm of colon Colon cancer screen colonoscopy [place] Start: 2007 Shingles (RZV) Vaccine (1 of 2) Shingles (RZV) Vaccine (1 of 2) [facility] Start: 2007 Shingles Vaccine (1 of 2) Shingles Vaccine (1 of 2) [facility] Start: 2002 Cholesterol [Mass/volume] in Serum or Plasma Cholesterol [facility] Start: 2002 Screening for malignant neoplasm of colon [facility] Start: 1997 Lipid panel Lipid screen [place], [place] Start: 1997 Lipid screen Lipid screen [place] Start: 1987 Screening for malignant neoplasm of cervix [facility] Start: 1978 Cervical cancer screen Cervical cancer screen [place], [place] Start: 1978 Screening for malignant neoplasm of cervix [facility] Start: 02-14-1976 DTaP/Tdap/Td vaccine (1 - Tdap) DTaP/Tdap/Td vaccine (1 - Tdap) [place] Start: 1975 Hepatitis C screening [facility] Start: 1973 COVID-19 Vaccine (1 of 2) COVID-19 Vaccine (1 of 2) [facility] Work Phone: Start: 1973 COVID-19 Vaccine (1) COVID-19 Vaccine (1) [facility] [employer] Phone: Start: 02-14-1972 HIV screen HIV screen [place], [place] Start: 02-14-1972 HIV screening HIV screen [facility] Start: 1969 COVID-19 Vaccine (1) COVID-19 Vaccine (1) [facility] [employer] Phone: Start: 1969 Depression Screen Depression Screen [facility] [employer] Start: 02-14-1968 DTaP/Tdap/Td vaccine (1 - Tdap) DTaP/Tdap/Td vaccine (1 - Tdap) [employer] Phone: Start: 1963 Pneumococcal 0-64 years Vaccine (1 of 1 - PPSV23) Pneumococcal 0-64 years Vaccine (1 of 1 - PPSV23) [employer] Phone: Start: 1963 Pneumococcal 0-64 years Vaccine (1 of 2 - PPSV23) Pneumococcal 0-64 years Vaccine (1 of 2 - PPSV23) [employer] Phone: Start: 1957 COVID-19 Vaccine (#1) COVID-19 Vaccine (#1) [facility] [facility] Start: 1955 Annual Wellness Visit (AWV) Annual Wellness Visit (AWV) JENNY SOLARES [facility] Start: 1955 Hepatitis C screen Hepatitis C screen [place], [place] Start: 1957 Hepatitis C screening Hepatitis C screen [facility] Start: 1955 Screening for malignant neoplasm of colon Colonoscopy [facility] End: 10-11-2020 Basic metabolic 2000 panel Basic Metabolic Panel Lab Routine Daily for 5 Days starting 10/07/2020 until 10/11/2020, 4 completed [facility] Phone: Comment on above: Daily for 5 Days starting 10/07/2020 unt il 10/11/2020, 4 completed End: 12-05-2020 Basic metabolic 2000 panel Basic Metabolic Panel Lab Routine Daily for 5 Days starting 12/01/2020 until 12/05/2020, 2 completed [facility] Phone: Comment on above: Daily for 5 Days starting 12/01/2020 unt il 12/05/2020, 2 completed End: 10-15-2020 Brain Natriuretic Peptide Brain Natriuretic Peptide Lab Routine Every Third Day for 3 Occurrences starting 10/09/2020 until 10/15/2020, 1 completed [facility] Phone: Comment on above: Every Third Day for 3 Occurrences starti ng 10/09/2020 until 10/15/2020, 1 completed End: 12-06-2020 Brain Natriuretic Peptide Brain Natriuretic Peptide Lab Routine Every Third Day for 3 Occurrences starting 11/30/2020 until 12/06/2020, 1 completed [facility] Phone: Comment on above: Every Third Day for 3 Occurrences starti ng 11/30/2020 until 12/06/2020, 1 completed End: 04-11-2023 CBC panel - Blood by Automated count [facility] Phone: Comment on above: Once for 1 Occurrences starting 04/11/20 until 04/11/2023 End: 04-05-2022 Continuous cardiac monitoring, >2 up to 14 days Continuous cardiac monitoring, >2 up to 14 days Cardiac Services Routine Chronic diastolic CHF (congestive heart failure) (HCC) Chronic a-fib (HCC) Chronic anticoagulation Severe mitral regurgitation Pulmonary hypertension, moderate to severe (HCC) 1 Occurrences starting 04/05/2022 until 04/05/2022 [facility] Phone: Comment on above: 1 Occurrences starting 04/05/2022 until 04/05/2022 End: 10-02-2020 Culture, Blood 1 Culture, Blood 1 Microbiology STAT One Time for 1 Occurrences starting 10/02/2020 until 10/02/2020 [employer] Comment on above: One Time for 1 Occurrences starting 02/2021 until 10/02/2020 Culture, Blood 1 [facility] [place], [place] End: 12-07-2020 Culture, Urine Culture, Urine Microbiology Routine Once for 1 Occurrences starting 12/07/2020 until 12/07/2020 [facility] Phone: Comment on above: Once for 1 Occurrences starting 12/08/19 21 until 12/07/2020 Culture, Urine [facility] Phone: End: 12-21-2020 Culture, Urine Culture, Urine Microbiology Routine Once for 1 Occurrences starting 12/21/2020 until 12/21/2020 [facility] Phone: Comment on above: Once for 1 Occurrences starting 12/22/19 21 until 12/21/2020 End: 10-11-2020 Magnesium [Mass/Vol] Magnesium Lab Routine Daily for 5 Days starting 10/07/2020 until 10/11/2020, 4 completed [facility] Phone: Comment on above: Daily for 5 Days starting 10/07/2020 unt il 10/11/2020, 4 completed Oxygen therapy [Minimum Data Set] [employer] Work Phone: Comment on above: Daily until discontinued starting 2020 Daily until disconti nued starting 11/30/2020 Immunizations Immunization Date Immunization Notes Care Provider Chris barbosa 05-28-2011 influenza, seasonal, injectable Jacquelin Rodriguez DDS Work Phone: [facility] 12-14-2009 pneumococcal polysac charide vaccine, 23 valent Jacquelin Rodriguez DDS Work Phone: [facility] 12-14-2009 tetanus toxoid, redu christin diphtheria toxoid, and acellular pertussis vaccine, adsorbed Jacquelin Rodriguez DDS Work Phone: [facility] Payers Date Payer Category Payer Medicaid DENTAL-MEDICAID D[facility]AL [place] MEDICAID [id number] 2017-Present [address] [place] [address] Medicaid [id number] 2016 Medicaid MEDICAID [facility] DEPT OF JOB xxxxxxxxxxxx 2016-Present [phone] [address] [place] [address] xxxxxxxxxxxx [id number] 2014 Medicare MEDICARE MEDICAR E PART A AND B xxxxxxxxxxx 2014-Present [phone] [place] [address] xxxxxxxxxxx [id number] 1959 Medicaid [id number] 1959 Medicare [id number] 1957 Unknown [id number] 1957 Unknown [id number] 1957 Unknown [id number] 1957 Unknown [id number] 1957 Unknown [id number] 1957 Unknown [id number] 1957 Unknown [id number] 1957 Unknown [id number] 1957 Unknown [id number] 1957 Unknown [id number] 1957 Unknown [id number] 1957 Unknown [id number] Social History Date Type Detail Facility Start: 12-05-2013 End: 10-06-2020 Tobacco smoking status NHIS Never smoker [place], [place] Start: 12-05-2013 End: 01-31-2023 Alcohol intake Current non-drinker of alcohol (finding) [facility] Phone: Start: 1955 Sex Assigned At Not on file M JL Ball Exposure to SARS-CoV-2 (event) Not sure [facility] [employer] JL JORDAN Start: 01-25-2013 End: 10-06-2020 Tobacco use and exposure Never used [facility] Phone: Start: 12-05-2013 Alcohol intake No [employer] Exposure to SARS-CoV-2 (event) Unable to assess [facility] Phone: Tobacco smoking status NHIS Tobacco smoking consumption unknown [facility] History of Present illness Narrative 02-14-2023 Jacquelin Rodriguez DDS - 02/14/2023 10:06 AM EDT Note Date & Type Note Facility 02-14-2023 History of Presen t illness Narrative ----- January at 12:08:30 PM ----- ----- Provider: [id number] Rosangela Rodriguez, -- Clinic: [facility] ----- OR EVALUATION Patient presents for evaluation to determine best course of treatment due to history of . Deaf, autistic, seisure disorder, urinary problems, sick sinus syndrome, bradycardia, syncope, facial laceration Patient is accompanied by caregiver for today's appointment. Patient did not cooperate for any examination. Clinical findings: Decay and Gingivitis It is best suited that this patient have full comprehensive examination, radiographs and treatment completed in the OR setting. Explained that the patient will be added to our OR waiting list, and the legal guardian will be contacted once a time slot becomes available. Legal Guardian: Katerin Meyer- [phone]- Sandwich Artist email- [email or web address] Next Visit: OR ----- Signed on January at 12:23:14 PM ----- ----- Provider: [id number] Rosangela Gloria DDS -- Clinic: [facility] ----- documented in this encounter [facility] History of Present illness Narrative 04-05-2022 Angelica Curiel RN - 04/05/2022 11:00 AM EDT Note Date & Type Note Facility 04-05-2022 History of Present illness Narrative Patient instructed on extended sourcing coordinator indications and use. Diary sent with patient. documented in this encounter [facility] Phone: Evaluation note Note Date & Type Note Facility Evaluation note Diagnosis Breast cancer screening by mammogram documented in this encounter [facility] Phone: Evaluation note Note Date & Type Note Facility Evaluation note Diagnosis Screening mammogram for high-risk patient documented in this encounter [facility] Phone: Evaluation note Note Date & Type Note Facility Evaluation note Diagnosis Chronic diastolic CHF (congestive heart failure) (HCC) Chronic a-fib (HCC) Atrial fibrillation Chronic anticoagulation Encounter for long-term (current) use of anticoagulants Severe mitral regurgitation Mitral valve disorders Pulmonary hypertension, moderate to severe (HCC) Other chronic pulmonary heart diseases documented in this encounter [facility] Phone: Evaluation note Note Date & Type Note Facility Evaluation note Diagnosis Chronic diastolic CHF (congestive heart failure) (HCC) Chronic a-fib (HCC) Atrial fibrillation Chronic anticoagulation Encounter for long-term (current) use of anticoagulants Severe mitral regurgitation Mitral valve disorders Pulmonary hypertension, moderate to severe (HCC) Other chronic pulmonary heart diseases documented in this encounter [facility] Phone: Advance Directives No Advanced Directives Records FoundDocuments on File Type Date Recorded Patient Cardiovascular Surgical Tech Expl anation Advance Directives and Living Will Power of Sandwich Artist Documents on File Type Date Recorded Patient Cardiovascular Surgical Tech Expl anation ACP-Advance Directive ACP-Power of Sandwich Artist DNR Documentation 03/03/2013 3:14 PM DNR Documentation 02/24/2020 12:32 PM Documents on File Type Date Recorded Patient Cardiovascular Surgical Tech Expl anation ACP-Advance Directive ACP-Power of Sandwich Artist DNR Documentation 03/03/2013 3:14 PM DNR Documentation 02/24/2020 12:32 PM Latest Code Status on File Code Status Date Activated Date Inactivated Comments DNR-CC 10/06/2020 8:41 PM Full Code 10/06/2020 8:08 PM 10/06/2020 8:41 PM Healthcare Agents on File Name Relationship Healthcare Agent Sherinehi p Communication Kody Alcaraz Legal Guardian Primary Decision Maker Documents on File Type Date Recorded Patient Cardiovascular Surgical Tech Expl anation ACP-Advance Directive ACP-Do Not Resuscitate 03/03/2013 3:14 PM ACP-Do Not Resuscitate 02/24/2020 12:32 PM ACP-Do Not Resuscitate 10/13/2020 1:28 PM ACP-Power of Sandwich Artist Latest Code Status on File Code Status Date Activated Date Inactivated Comments DNR-CC 11/30/2020 3:49 PM DNR-CC 10/06/2020 8:41 PM 10/10/2020 1:50 PM Healthcare Agents on File Name Relationship Healthcare Agent Relationshi p Communication Kody Alcaraz Legal Guardian Primary Decision Maker Latest Code Status on File Code Status Date Activated Date Inactivated Comments DNR-CC 11/30/2020 3:49 PM 12/02/2020 5:22 PM Healthcare Agents on File Name Relationship Healthcare Agent Relationshi p Communication Kody Alcaraz Legal Guardian Primary Decision Maker Healthcare Agents on File Name Relationship Healthcare Agent Relationshi p Communication Kody Alcaraz Legal Guardian Primary Decision Maker Documents on File Type Date Recorded Patient Cardiovascular Surgical Tech Expl anation ACP-Advance Directive ACP-Do Not Resuscitate 03/03/2013 3:14 PM ACP-Do Not Resuscitate 02/24/2020 12:32 PM ACP-Do Not Resuscitate 10/13/2020 1:28 PM ACP-Power of Sandwich Artist Latest Code Status on File Code Status Date Activated Date Inactivated Comments DNR-CC 11/30/2020 3:49 PM 12/02/2020 5:22 PM DNR-CC 10/06/2020 8:41 PM 10/10/2020 1:50 PM Full Code 10/06/2020 8:08 PM 10/06/2020 8:41 PM Healthcare Agents on File Name Relationship Healthcare Agent Relationshi p Communication Kody Alcaraz Legal Guardian Primary Decision Maker Documents on File Type Date Recorded Patient Cardiovascular Surgical Tech Expl anation ACP-Advance Directive ACP-Power of Sandwich Artist ACP-Do Not Resuscitate 10/13/2020 1:28 PM ACP-Do Not Resuscitate 02/24/2020 12:32 PM ACP-Do Not Resuscitate 03/03/2013 3:14 PM Healthcare Agents on File Name Relationship Healthcare Agent Relationshi p Communication Kody Alcaraz Legal Guardian Primary Decision Maker Healthcare Agents on File Name Relationship Healthcare Agent Relationshi p Communication Kody Alcaraz Legal Guardian Primary Decision Maker Documents on File Type Date Recorded Patient Cardiovascular Surgical Tech Expl anation ACP-Advance Directive ACP-Power of Sandwich Artist ACP-Do Not Resuscitate 10/13/2020 1:28 PM ACP-Do Not Resuscitate 02/24/2020 12:32 PM ACP-Do Not Resuscitate 03/03/2013 3:14 PM Healthcare Agents on File Name Relationship Healthcare Agent Relationshi p Communication Kody Alcaraz Legal Guardian Primary Decision Maker Documents on File Type Date Recorded Patient Cardiovascular Surgical Tech Expl anation ACP-Do Not Resuscitate 10/13/2020 1:28 PM ACP-Do Not Resuscitate 02/24/2020 12:32 PM Healthcare Agents on File Name Relationship Healthcare Agent Relationshi p Communication Kody Alcaraz Legal Guardian Primary Decision Maker Healthcare Agents on File Name Relationship Healthcare Agent Relationshi p Communication Kody Alcaraz Legal Guardian Primary Decision Maker Documents on File Type Date Recorded Patient Cardiovascular Surgical Tech Expl anation ACP-Do Not Resuscitate 10/13/2020 1:28 PM ACP-Do Not Resuscitate 02/24/2020 12:32 PM Healthcare Agents on File Name Relationship Healthcare Agent Relationshi p Communication Kody Alcaraz Legal Guardian Primary Decision Maker Healthcare Agents on File Name Relationship Healthcare Agent Relationshi p Communication Kody Alcaraz Legal Guardian Primary Decision Maker Healthcare Agents on File Name Relationship Healthcare Agent Relationshi p Communication Kody Alcaraz Legal Guardian Primary Decision Maker Latest Code Status on File Code Status Date Activated Date Inactivated Comments DNR-CC 11/30/2020 3:49 PM 12/02/2020 5:22 PM Code Status History Code Status Date Activated Date Inactivated Comments DNR-CC 10/06/2020 8:41 PM 10/10/2020 1:50 PM Full Code 10/06/2020 8:08 PM 10/06/2020 8:41 PM Healthcare Agents on File Name Relationship Healthcare Agent Sherinehi p Communication Kody Alcaraz Legal Guardian Primary Decision Maker Healthcare Agents on File Name Relationship Healthcare Agent Sherinega p Communication Kody Alcaraz Legal Guardian Primary Decision Maker Assessments Diagnosis Cough Congestive heart failure, unspecified HF chronicity, unspecified heart failure type (HCC) Diagnosis Facial droop Facial weakness Diagnosis Dental infection- Primary Acute apical periodontitis of pulpal origin Cellulitis, unspecified cellulitis site Diagnosis Severe mitral valve regurgitation Congestive heart failure, unspecified HF chronicity, unspecified heart failure type (HCC) Diagnosis Acute on chronic combined systolic and diastolic CHF (congestive heart failure) (HCC)- Primary Acute on chronic congestive heart failure, unspecified heart failure type (HCC) Atrial flutter, unspecified type (HCC) Severe mitral regurgitation Mitral valve disorders Pulmonary hypertension, moderate to severe (HCC) Other chronic pulmonary heart diseases Facial cellulitis Cellulitis and abscess of face 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 * Stroke (Martiniquais) documented in this encounter* Instructions* Lindsay Mcenill MD - 10/02/2020 Give Tylenol as directed until symptoms resolve. Clindamycin daily as directed until complete. Follow-up with a dentist as soon as possible. Return immediately for any worsening swelling pain fevers or any other acute concerns * Attachments The following attachments cannot be sent through Care Everywhere. * Cellulitis (Martiniquais) * Tooth: Abscessed (Martiniquais) documented in this encounter* Discharge Instr - SERGIO* MoisésCarlosJennifer Juan, LAURA - 10/07/2020 4:48 PM EST Continuity of Care Form Patient Name: Minerva Alan : 1955 Admit date: 10/06/2020 Discharge date: 10/10/20 Code Status Order: DNR-CC Advance Directives: Admitting Physician: Nathanael Foreman MD PCP: Ara Almazan MD Discharging Nurse: opal Discharging Hospital Unit/Room#: 0315/0315-01 Discharging Unit Phone Number: [phone] Emergency Contact: Extended Emergency Contact Information Primary Emergency Contact: Kody Alcaraz [address]: [address] [place] [address] Relation: Legal Guardian Past Surgical History: Past Surgical History: Procedure Laterality Date HIP SURGERY Immunization History: There is no immunization history on file for this patient. 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 Chronic anticoagulation Z79.01 Isolation/Infection: Isolation No Isolation Patient Infection Status None to display Nurse Assessment: Last Vital Signs: BP 119/68 Pulse 122 Temp 96 F (35.6 C) (Temporal) Resp 20 Ht 5' 9 (1.753m) Wt 155 lb 3.2 oz (70.4 kg) SpO2 99% BMI 22.92 kg/m Last documented pain score (0-10 scale): Pain Level: 0 Last Weight: Wt Readings from Last 1 Encounters: 10/10/20 155 lb 3.2 oz (70.4 kg) Mental Status: alert IV Access: - None Nursing Mobility/ADLs: Walking Assisted Transfer Assisted Bathing Assisted Dressing Assisted Toileting Assisted Feeding Independent Button Decorating Machine Operator Assisted Med Delivery whole Wound Care Documentation and Therapy: Wound 02/27/13 Laceration Eye Left (Active) Number of days: 2781 Elimination: Continence: Bowel: No Bladder: Yes Urinary Catheter: None and Removal Date 10/10/20 Colostomy/Ileostomy/Ileal Conduit: No Date of Last BM: 10/10/20 Intake/Output Summary (Last 24 hours) at 10/10/2020 0949 Last data filed at 10/10/2020 0831 Gross per 24 hour Intake 800 ml Output 1750 ml Net -950 ml I/O last 3 completed shifts: In: 620 [P.O.:620] Out: 1750 [Urine:1750] Safety Concerns: At Risk for Falls Impairments/Disabilities: Hearing Nutrition Therapy: Current Nutrition Therapy: - Oral Diet: General Routes of Feeding: Oral Liquids: Thin Liquids Daily Fluid Restriction: no Last Modified Barium Swallow with Video (Video Swallowing Test): not done Treatments at the Time of Hospital Discharge: Respiratory Treatments: Oxygen Therapy: is not on home oxygen therapy. Ventilator: - No ventilator support Rehab Therapies: {THERAPEUTIC INTERVENTION:0225902906} Weight Bearing Status/Restrictions: No weight bearing restirctions Other Medical Equipment (for information only, NOT a DME order): walker Other Treatments: Patient's personal belongings (please select all that are sent with patient): None RN SIGNATURE: CASE MANAGEMENT/SOCIAL WORK SECTION Inpatient Status Date:10/06/20 Readmission Risk Assessment Score: Readmission Risk Risk of Unplanned Readmission: 17 Discharging to Facility/ Agency Name: residential Address:[address] [place] [address] Phone: Fax: Dialysis Facility (if applicable) Name: Address: Dialysis Schedule: Phone: Fax: [employer]/Mill[employer] Salesperson signature: PHYSICIAN SECTION Prognosis: Fair Condition at Discharge: Stable Rehab Potential (if transferring to Rehab): Fair Recommended Labs or Other Treatments After Discharge: BMP in [address] Tim Physician Certification: I certify the above information and transfer of Minerva Alan is necessary for the continuing treatment of the diagnosis listed and that she requires Intermediate/Mental Retardation/Developmental Disabilities Care for greater 30 days. Update Admission H&P: No change in H&P PHYSICIAN SIGNATURE: documented in this encounter* Discharge Instr - SERGIO* Anjali Dickinson RN - 12/02/2020 10:54 AM EDT Continuity of Care Form Patient Name: Minerva Alan : 1955 Admit date: 11/30/2020 Discharge date: 12/02/2020 Code Status Order: DNR-CC Advance Directives: Admitting Physician: Austin Gorman MD PCP: Ara Almazan MD Discharging Nurse: Anjali PAN Discharging Hospital Unit/Room#: 0316/0316-01 Discharging Unit Emergency Contact: Extended Emergency Contact Information Primary Emergency Contact: Kody Alcaraz Address: [address] [place] [address] Relation: Legal Guardian Past Surgical History: Past Surgical History: Procedure Laterality Date HIP SURGERY Immunization History: There is no immunization history on file for this patient. 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 Chronic anticoagulation Z79.01 CHF (congestive heart failure) ([facility]) I50.9 Acute on chronic combined systolic and diastolic hrt fail ([facility]) I50.43 Isolation/Infection: Isolation No Isolation Patient Infection Status None to display Nurse Assessment: Last Vital Signs: BP 121/88 Pulse 62 Temp 98 F (36.7 C) (Oral) Resp 18 Ht 5' 9 (1.753 m) Wt 163 lb 8 oz (74.2 kg) SpO2 99% BMI 24.14 kg/m Last documented pain score (0-10 scale): Pain Level: 0 Last Weight: Wt Readings from Last 1 Encounters: 12/02/20 163 lb 8 oz (74.2 kg) Mental Status: alert IV Access: - None Nursing Mobility/ADLs: Walking Assisted Transfer Independent Bathing Assisted Dressing Assisted Toileting Independent Feeding Independent Button Decorating Machine Operator Dependent Med Delivery whole Wound Care Documentation and Therapy: Wound 02/27/13 Laceration Eye Left (Active) Number of days: 2834 Elimination: Continence: Bowel: Yes Bladder: No Urinary Catheter: None Colostomy/Ileostomy/Ileal Conduit: No Date of Last BM: 12/01/2020 Intake/Output Summary (Last 24 hours) at 12/02/2020 1052 Last data filed at 12/02/2020 1021 Gross per 24 hour Intake 490 ml Output 2350 ml Net -1860 ml I/O last 3 completed shifts: In: 490 [P.O.:490] Out: 3575 [Urine:3575] Safety Concerns: At Risk for Falls Impairments/Disabilities: Speech, Vision and Hearing Nutrition Therapy: Current Nutrition Therapy: - Oral Diet: Dental Soft and Low Sodium (2gm) Routes of Feeding: Oral Liquids: No Restrictions Daily Fluid Restriction: no Last Modified Barium Swallow with Video (Video Swallowing Test): not done Treatments at the Time of Hospital Discharge: Respiratory Treatments: Oxygen Therapy: is not on home oxygen therapy. Ventilator: - No ventilator support Rehab Therapies: Physical Therapy and Occupational Therapy Weight Bearing Status/Restrictions: No weight bearing restirctions Other Medical Equipment (for information only, NOT a DME order): Other Treatments: Patient's personal belongings (please select all that are sent with patient): Ankita RN SIGNATURE: CASE MANAGEMENT/SOCIAL WORK SECTION Inpatient Status Date: Readmission Risk Assessment Score: Readmission Risk Risk of Unplanned Readmission: 14 Discharging to Facility/ Agency Name: Address: Phone: Fax: Dialysis Facility (if applicable) Name: Address: Dialysis Schedule: Phone: Fax: [employer] Salesperson signature: {Esignature:[id number]} PHYSICIAN SECTION Prognosis: {Prognosis:4781284239} Condition at Discharge: { Patient Condition:013827009} Rehab Potential (if transferring to Rehab): {Prognosis:1870257757} Recommended Labs or Other Treatments After Discharge: Physician Certification: I certify the above information and transfer of Minerva Alan is necessary for the continuing treatment of the diagnosis listed and that she requires {Admit to Appropriate Level of Care:88411} for {GREATER/LESS:599954541} 30 days. Update Admission H&P: {CHP DME Changes in HandP:400212866} PHYSICIAN SIGNATURE: {Esignature:[id number]} * Attachments The following attachments cannot be sent through Care Everywhere. * Low Sodium Foods: General Info (Martiniquais) * Low Sodium: Reading a Food Label (Martiniquais) * Heart Failure (Martiniquais) documented in this encounter Summary Purpose Family History No Family History Records FoundNo Family History Records FoundNo Family History Records Found Reason for Referral Status Reason Specialty Diagnoses / Procedures Referred By Contact Referred To Contact Closed Cardiology / Echocardiography Diagnoses Severe mitral valve regurgitation Congestive heart failure, unspecified HF chronicity, unspecified heart failure type (HCC) Procedures ECHO Complete 2D W Doppler W Color Ara Almazan MD [address] [place] [id number] [facility] Echo [address] [place] [id number] Specialty Diagnoses / Procedures Referred By Contac t Referred To Contact Diagnoses Chronic diastolic CHF (congestive heart failure) (HCC) Chronic a-fib (HCC) Chronic anticoagulation Severe mitral regurgitation Pulmonary hypertension, moderate to severe (HCC) Procedures Continuous cardiac monitoring, >2 up to 14 days Efren Tim MD [address] [place] [address] Referral ID Status Reason Start Date Expiration Date Visits Re quested Visits Authorized [id number] Closed 03/22/2022 03/22/2023 1 1 History of Present Illness * Lory Shipley - 10/04/2020 2:00 PM EST Explained policies and procedures of an echocardiogram/doppler study. documented in this encounter* Opal Moralez - 10/10/2020 11:34 AM EST Iv, luevano removed pt discharged to alf staff * Jennifer Curiel LSW - 10/10/2020 9:54 AM EST The guardian aware of the discharge back to the alf. She will go by ambulance. Ambulance could not come until 730 PM. The alf will come and provide the transportation. LAURA Oneill Daisy Martin RN - 10/10/2020 1:55 AM EST Pt reassessed and VS rechecked. HR 104, BP 100/79. FLACC 0. No noted changed from initial assessment. Will continue to monitor. Daisy Mg RN - 10/09/2020 9:05 PM EST Senior Drafter entered room to administer nightly medications. BP 95/56, HR 116. Pt took medications without difficulty. Lighting adjusted in room. Bed alarm remains in place. Will continue to monitor. Daisy Mg RN - 10/09/2020 6:40 PM EST Bed alarm activated, credit underwriter entered room to find patient sitting on edge of bed pointing to bathroom. Pt assisted to bathroom using walker, tolerated well. Pt had large bowel movement as charted in flow sheet. Pt then assisted back to bed. VS obtained and assessment done as charted in flow sheet. Bed alarm in place. Will continue to monitor. Sera Arias RN - 10/09/2020 2:45 PM EST Rechecked vital signs and blood pressure was systolic in 120's with a heart rate of 126. MetoprololIV given at this time since she met the parameter for this. Will continue to monitor. Sera Foss RN - 10/09/2020 10:21 AM EST Rechecked blood pressure after oral medication to see if prn lopressor IV could be given for Heart rate at 110. Systolic BP was 101-does not meet parameters for order. A-flutter continues to be present but patient asymptomatic. * Austin Gorman MD - 10/09/2020 10:03 AM EST Progress Note Austin Gorman MD OBJECTIVE: Patient seen for f/u of Acute on chronic combined systolic and diastolic CHF (congestive heart failure) ([facility]). She is improving,lost 1 lbs ROS: Constitutional: negative for fevers, and negative for chills. Respiratory: negative for shortness of breath, negative for cough, and negative for wheezing Cardiovascular: negative for chest pain, and negative for palpitations Gastrointestinal: negative for abdominal pain, negative for nausea,negative for vomiting, negative for diarrhea, and negative for constipation All other systems were reviewed with the patient and are negative unless otherwise stated in HPI OBJECTIVE: Vitals: Temp: 98.6 F (37 C) BP: 128/72 Resp: 16 Pulse: 110 SpO2: 100 % 24HR INTAKE/OUTPUT: Intake/Output Summary (Last 24 hours) at 10/09/2020 1004 Last data filed at 10/09/2020 0809 Gross per 24 hour Intake 300 ml Output 1500 ml Net -1200 ml Exam: GEN: Awake, not in any distress. EYES: EOMI, pupils equal NECK: Supple. No lymphadenopathy. No carotid bruit CVS: regular rate and rhythm, 3/6 systolic murmur PULM: CTA, no wheezes, rales or rhonchi, no acute respiratory distress ABD: Bowels sounds normal. Abdomen is soft. No distention. no tenderness to palpation. EXT: trace edema bilaterally . No calf tenderness. NEURO: Moves all extremities. Motor and sensory are grossly intact SKIN: No rashes. No skin lesions. 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 * ASSESSMENT / PLAN: Acute on chronic combined systolic and diastolic CHF (congestive heart failure) ([facility]) Continue current therapy Monitor renal functionand electrolytes Nutrition status: Well developed, well nourished with no malnutrition DVT prophylaxis: Lovenox High risk medications: none Disposition: Discharge plan is home Austin Gorman M.D. 10/09/2020 10:04 AM * Sera Hunter RN - 10/09/2020 8:15 AM EST Patient alert and oriented x 4. Vital signs and head to toe assessment performed. Patient sitting up chair with feet elevated. Breathing is unlabored with clear lung sounds. Vital signs are within normal limits. Patient down 1 pound since yesterday with a total weight loss of 3 pounds. Her lower ext remities are reddened with 1+ pitting edema present bilaterally. Pedal pulses present-+2. Call light and patient belongings in reach. Instructed to use call light for assistance. * Alize Pham RN - 10/08/2020 9:55 PM EST Medications given. Patient has no difficulty taking pills whole with water. Brief continues to be dry. Bed alarm. No complaints that credit underwriter is aware of at this time. Will continue to monitor. * Alize Pham RN - 10/08/2020 6:58 PM EST Patient is deaf, non-verbal and MRDD. Patient able to effectively communicate what she wants via pointing at objects in the room. Vital signs and assessment completed. Patient has +1 pitting edema inBLE. Patient is overall cooperative. Brief is dry at this time. Luevano bag emptied, 450ml output, nadege, clear, non- odorous. Bed alarm on patient. Will continue to monitor. * Austin Gorman MD - 10/08/2020 11:14 AM EST Progress Note Austin Gorman MD OBJECTIVE: Patient seen for f/u of Acute on chronic combined systolic and diastolic CHF (congestive heart failure) (HCC). She is improving,lost 2 lbs ROS: Constitutional: negative for fevers, and negative for chills. Respiratory: negative for shortness of breath, negative for cough, and negative for wheezing Cardiovascular: negative for chest pain, and negative for palpitations Gastrointestinal: negative for abdominal pain, negative for nausea,negative for vomiting, negative for diarrhea, and negative for constipation All other systems were reviewed with the patient and are negative unless otherwise stated in HPI OBJECTIVE: Vitals: Temp: 97.5 F (36.4 C) BP: 101/78 Resp: 18 Pulse: 120 SpO2: 95 % 24HR INTAKE/OUTPUT: Intake/Output Summary (Last 24 hours) at 10/08/2020 1114 Last data filed at 10/08/2020 0830 Gross per 24 hour Intake 370 ml Output 975 ml Net -605 ml Exam: GEN: Awake, not in any distress. EYES: EOMI, pupils equal NECK: Supple. No lymphadenopathy. No carotid bruit CVS: regular rate and rhythm, 3/6 systolic murmur PULM: CTA, no wheezes, rales or rhonchi, no acute respiratory distress ABD: Bowels sounds normal. Abdomen is soft. No distention. no tenderness to palpation. EXT: no edema bilaterally . No calf tenderness. NEURO: Moves all extremities. Motor and sensory are grossly intact SKIN: No rashes. No skin lesions. 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 * ASSESSMENT / PLAN: Acute on chronic combined systolic and diastolic CHF (congestive heart failure) ([facility]) Continue current therapy Monitor renal functionand electrolytes Nutrition status: Well developed, well nourished with no malnutrition DVT prophylaxis: Lovenox High risk medications: none Disposition: Discharge plan is home Dipakkumar P Gorman , M.D. 10/08/2020 11:14 AM * Sera Hunter RN - 10/08/2020 9:11 AM EST Patient alert at this time sitting up in chair comfortable. Patient is deaf and nonverbal. Vital signs and head to toe assessment performed. Some swelling to bilateral lower extremity edema present +1 pitting. Chair alarm on and wheels locked. Call light and patient belongings in reach. Instructed to use call light for assistance. * Estela Berman RN - 10/07/2020 6:53 PM EST Pt sitting up in bed, removed all linen from bed and refuses to allow staff to return linen. Patient continually pushes credit underwriter away while credit underwriter assessing patient (report received that patient will push away when she is done with something or no longer wants to be messed with). Senior Drafter assessed as able and competed VS. Will continue to monitor. * Jennifer Curiel LSW - 10/07/2020 10:44 AM EST Discussed discharge plans with the legal guardian. Patient is a 65 year old female here with Acute on chronic diastolic heart failure. She is alert. Patient is deaf and has the dx of intellectual disability. Patient is single and lives in a alf. She uses a walker for ambulation. The staff assist herwith her ADL's. The alf manages her medication and transportation. Her PCP is Dr. Ara Almazan MD. She has medical insurance that helps with medication costs. The discharge plan is to return to the alf. She does not have advance directives do to having a legal guardian. CYBER SECURITY INSTRUCTOR to monitor and assist with any needs or concerns as they arise. LAURA Oneill * Saundra Yi RN - 10/07/2020 7:57 AM EST Senior Drafter to bedside to complete morning assessment and vitals. Pt awake in bed. Vitals obtained and assessment completed see flow sheet for details. Breakfast tray brought in, pt sitting at edge of bedeating breakfast. Attempted to pass pills pt kept pushing credit underwriter away. Assisted pt to chair, while up in chair pt did take pills. No other needs noted at this time. Chair pad alarm active. Will continue to monitor. * Francine Burkett APRN - [employer] - 10/07/2020 7:14 AM EST Progress Note SUBJECTIVE: Follow-up on congestive heart failure OBJECTIVE: Patient is resting in bed alert in no acute distress. She is an MRDD patient who is nonverbal and does not answer any questions. Nursing does not report any issues. Vitals: Vitals: 10/07/20 0757 BP: 91/63 Pulse: 118 Resp: 20 Temp: 97.3 F (36.3 C) SpO2: 95% Weight: 159 lb 4.8 oz (72.3 kg) Height: 5' 9 (175.3 cm) Exam: CONSTITUTIONAL: Well-developed, well-nourished in no acute distress alert EYES: Lids and lashes normal, pupils equal, round and reactive to light, extra ocular muscles intact, sclera clear, conjunctiva normal ENT: Normocephalic, without obvious abnormality, atraumatic, sinuses nontender on palpation, external ears without lesions, oral pharynx with moist mucus membranes, mild erythema to right side of face NECK: Supple, symmetrical, trachea midline, no adenopathy, thyroid symmetric, not enlarged and no tenderness, skin normal HEMATOLOGIC/LYMPHATICS: no cervical lymphadenopathy and no supraclavicular lymphadenopathy LUNGS: No increased work of breathing, good air exchange, clear to auscultation bilaterally, no crackles or wheezing and diminished throughout CARDIOVASCULAR: tachycardic with irregular rhythm and normal S1 and S2 ABDOMEN: No scars, normal bowel sounds, soft, non-distended, non-tender, no masses palpated, no hepatosplenomegally MUSCULOSKELETAL: There is no redness, warmth, or swelling of the joints. Full range of motion noted. Motor strength is 5 out of 5 all extremities bilaterally. Tone is normal. NEUROLOGIC: Alert, moves all extremities SKIN: no bruising or bleeding, normal skin color, texture, turgor, no redness, warmth, or swelling,no rashes and no lesions EXT: edema: 2+ affecting bilateral foot, bilateral ankle, bilateral calf Diagnostic Data: Reviewed ASSESSMENT: Principal Problem: Acute on chronic combined systolic and diastolic CHF (congestive heart failure) (HCC) Active Problems: Severe mitral regurgitation by prior echocardiogram Pulmonary hypertension, moderate to severe (HCC) Atrial flutter (HCC) Resolved Problems: * No resolved hospital problems. * PLAN: Acute on chronic combined CHF Appreciate cardiology Luevano for I/O Td weights Lasix 20 IV twice daily Trend labs Atrial flutter Continue Lovenox Continue aspirin, losartan Continue Lopressor 5 mg IV as needed tachycardia greater than 110 Facial cellulitis Improved Continue clindamycin as previously ordered as an outpatient High risk medications: Lasix Discharge plan: Return to alf when stable Francine Burkett APRN, EARLY CHILDHOOD EDUCATION SPECIALIST-C Associated attestation - Nathanael Foreman MD - 10/07/2020 4:55 PM EST Attending Supervising Physician s Attestation Statement I have personally evaluated and examined the patient [id number] in conjunction with the nurse practitioner. I agree with management and disposition of the patient. My douglas findings are: 65 y.o. female admitteed for congestive heart failure Nonverbal. Heart is regular. Lungs have diminished breath sounds. No edema Principal Problem: Acute on chronic combined systolic and diastolic CHF (congestive heart failure) (HCC) Active Problems: Severe mitral regurgitation by prior echocardiogram Pulmonary hypertension, moderate to severe (HCC) Atrial flutter (HCC) Facial cellulitis Resolved Problems: * No resolved hospital problems. * Examined and Reviewed plan of care with EARLY CHILDHOOD EDUCATION SPECIALIST. Directions and discussion about care and plans. Disposition including length of stay was reviewed. Nutritional status, advanced directive and old records reviewed. Disposition: cardiology, diuresis The patient was seen examined with the nurse practitioner on October 07, 2020 all direct care was reviewed with the nurse practitioner at the bedside with the patient. Electronically signed by MD Bishnu Lanza Pamela S, RN - 10/07/2020 5:14 AM EST HR 120. PRN IV metoprolol given at this time. Priscilla Orlando RN - 10/07/2020 3:31 AM EST Orthostatic blood pressures done at this time. See flowsheets for details. Priscilla Orlando RN - 10/06/2020 9:50 PM EST Cardiology consult called and faxed at this time. Priscilla Orlando RN - 10/06/2020 8:49 PM EST Called [facility] to discuss MAR with nurse. Was referred to April, who states that patientreceived all meds this AM at alf. States she was in a hurry and did not send an updated MAR. Priscilla Orlando RN - 10/06/2020 8:35 PM EST NAOMIE Leung notified of continued tachycardia. Will put in new orders. Priscilla Kwan RN - 10/06/2020 8:05 PM EST 16 Fr luevano catheter inserted at this time. Bulb inflated with 10mL NS. Collected sterile urine sample and sent to lab. Pt tolerated fairly well. * Priscilla Loya RN - 10/06/2020 7:31 PM EST Unable to complete admission navigator d/t patient's condition. * Priscilla Loya RN - 10/06/2020 6:55 PM EST Pt arrives to [facility] from ER via cart. Ambulates to bed with unsteady gait. Pt is deaf and nonverbal.Attempted vital signs at this time. Pt not tolerating blood pressure being taken. Will attempt again at a later time. Assessment completed. Orders received. Telemetry applied. Pt's HR is 124 and patient is in an atrial flutter rhythm. Resting comfortably in bed with call light and belongings within reach. Bed alarm on. documented in this encounter* Anjali Dickinson RN - 12/02/2020 2:50 PM EDT Discharge folder given to residential staff. Patient IV removed and patient dressed at this time. * Jennifer Curiel LSW - 12/02/2020 12:36 PM EDT Left a message for the guardian that the patient was returning to the residential. LAURA Oneill * Jennifer Curiel LSW - 12/02/2020 11:48 AM EDT The alf staff will come to transport around 4 PM. LAURA Oneill * Efren Tim MD - 12/02/2020 10:33 AM EDT Images from the original note were not included. IHelen am scribing for and in the presence of Efren Tim MD, F.A.C.C. Patient: Minerva Alan : 1955 Date of Visit: December 02, 2020 History of Present Illness: Deajacki Almazan MD REASON FOR VISIT / CONSULTATION: lower extremity swelling I had the pleasure of seeing Minerva Alan in my office today. Ms. Alan is a 65 y.o. female with a history of a history of heart failure. Ms. Alan is mentally delayed. She is deaf, Autistic, has history of seizure disorder, Moderate DD and urinary problems. 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 She was tested positive for COVID 2020 although staff denies she had any symptoms. 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 Normal left ventricular systolic function with ventricular septal defect, atrial septal defect with partially malformed mitral and tricuspid valve. The left atrium is mildly dilated (29-33) with a left atrial volume index of 66 ml/m2. Malformed mitral valve as part of the endocardial cushion defect with Severe mitral regurgitation. Moderate to severe tricuspid regurgitation. Diastolic function cannot be assessed due to the patients rhythm and severe mitral regurgitation. EKG done 10/06/2020- Shows Atrial flutter with variable AV block. Left axis deviation. Minimal voltage criteria for LVH maybe normal variant. Ms. Alan was admitted from my office because of worsening shortness of breath and increasing lower extremity edema in addition to weight gain. Currently treated for acute on chronic heart failurewith preserved ejection fraction. Her aide in the office reported that her breathing was getting worse and she is gasping for air with any minor activities. No shortness of breath at rest. No orthopnea or PND. No further history can be obtained from the patient. She is doing fine today. She is lying in her bed comfortably. She has negative fluid balance of four-point liters since admission. Her leg swelling is much better. She is sleeping comfortable in bed with no orthopnea. I reviewed her telemetry. Heart rate is controlled. 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 Severe LA enlargement. Severe pulmonary hypertension. Sick sinus syndrome (HCC) Syncope CURRENT ALLERGIES: Patient has no known allergies. REVIEW OF SYSTEMS: Unable to obtain review of systems due to the patient being nonverbal and with significant mental retardation. Past Surgical History: Procedure Laterality Date HIP SURGERY Social History: Social History Tobacco Use Smoking status: Never Smoker Smokeless tobacco: Never Used Substance Use Topics Alcohol use: No Drug use: No CURRENT MEDICATIONS: Outpatient Medications Marked as Taking for the 11/30/20 encounter (Hospital Encounter) Medication Sig Dispense Refill Cholecalciferol (VITAMIN D3) 125 MCG (5000 UT) TABS Take 1 tablet by mouth daily Multiple Vitamin (MULTI-VITAMIN DAILY PO) Take by mouth apixaban (ELIQUIS) 5 MG TABS tablet Take 1 tablet by mouth 2 times daily 60 tablet 2 sertraline (ZOLOFT) 25 MG tablet Take 3 tablets by mouth daily 30 tablet 3 digoxin (LANOXIN) 125 MCG tablet Take 1 tablet by mouth daily 30 tablet 3 furosemide (LASIX) 20 MG tablet Take 1 tablet by mouth daily 60 tablet 3 Metoprolol Tartrate 75 MG TABS Take 75 mg by mouth 2 times daily 60 tablet 3 losartan (COZAAR) 25 MG tablet Take 12.5 mg by mouth daily calcium-vitamin D (OSCAL-500) 500-200 MG-UNIT per tablet Take 1 tablet by mouth daily. aspirin 81 MG tablet Take 81 mg by mouth daily. polyethylene glycol (GLYCOLAX) powder Take 17 g by mouth daily. apixaban 5 mg Oral BID aspirin 81 mg Oral Daily calcium-vitamin D 1 tablet Oral Daily Vitamin D 5 tablet Oral Daily digoxin 125 mcg Oral Daily losartan 12.5 mg Oral Daily metoprolol tartrate 75 mg Oral BID multivitamin 1 tablet Oral Daily polyethylene glycol 17 g Oral Daily sertraline 75 mg Oral Daily sodium chloride flush 10 mL Intravenous 2 times per day furosemide 40 mg Intravenous Daily FAMILY HISTORY: Family history is unknown. PHYSICAL EXAMINATION: BP 121/88 Pulse 62 Temp 98 F (36.7 C) (Oral) Resp 18 Ht 5' 9 (1.753 m) Wt 163 lb 8 oz (74.2 kg) SpO2 99% BMI 24.14 kg/m Body mass index is 24.14 kg/m . Constitutional: She is nonverbal. HEENT: Normocephalic and atraumatic.No JVD present. Carotid bruit is not present. No mass and no thyromegaly present. No lymphadenopathy present. Cardiovascular: Normal rate, irregularly irregular rhythm, normal heart sounds. Exam reveals no gallop and no friction rubs. 3/6 systolic murmur, 5th intercostal space on the LEFT in the mid-clavicular line (cardiac apex). Pulmonary/Chest: Effort normal and breath sounds normal. No respiratory distress. She has no wheezes, rhonchi or rales. Abdominal: Soft, non-tender. Bowel sounds and aorta are normal. She exhibits noorganomegaly, mass or bruit. Extremities: 3+ 1/2 up to the knees bilaterally. No cyanosis or clubbing. 2+ radial and carotid pulses. Distal extremity pulses: 2+ bilaterally. Redness in bilateral lower extremities. Neurological: Nonverbal, deaf with significant mental retardation. Uses walker for ambulation Skin: Skin is warm and dry. There is no rash or diaphoresis. MOST RECENT LABS ON RECORD: Lab Results Component Value Date WBC 6.1 11/30/2020 HGB 14.8 11/30/2020 HCT 47.6 (H) 11/30/2020 PLT 148 11/30/2020 CHOL 99 12/01/2020 TRIG 37 12/01/2020 HDL 37 (L) 12/01/2020 ALT 35 (H) 11/30/2020 AST 33 (H) 11/30/2020 NA 137 12/02/2020 K 4.3 12/02/2020 CL 95 (L) 12/02/2020 CREATININE 0.93 (H) 12/02/2020 BUN 31 (H) 12/02/2020 CO2 32 (H) 12/02/2020 TSH 2.44 10/06/2020 INR 1.4 11/30/2020 ASSESSMENT: Patient Active Problem List Diagnosis Date Noted Complex congenital heart disease Priority: High Endocardial cushion defect Priority: High Chronic anticoagulation Priority: High CHF (congestive heart failure) ([facility]) 11/30/2020 Acute on chronic combined systolic and diastolic hrt fail ([facility]) 11/30/2020 Facial cellulitis 10/07/2020 Acute on chronic combined systolic and diastolic CHF (congestive heart failure) ([facility]) 10/06/2020 Atrial flutter with rapid ventricular response ([facility]) 10/06/2020 Severe mitral regurgitation Pulmonary hypertension, moderate to severe ([facility]) Acute on chronic heart failure with preserved ejection fraction. Complex congenital heart disease. Atrial flutter with variable block. Chronic anticoagulation. PLAN: Acute on chronic diastolic heart failure: with NYHA Class IV symptoms:Patient with complex congenital heart disease endocardial cushion defect with inlet VSD, premium ASD and partially malformation mitral and tricuspid valves leading to severe mitral regurgitation and moderate to severe tricuspid regurgitation. Currently in atrial flutter with variable block and acute on chronic diastolic CHF. Beta Leonie: Continue Metoprolol tartrate (Lopressor) 75 mg bid. SELWYN Inibitor/ARB: Continue losartan (Cozaar) 25 mg daily. Diuretics: START furosemide (Lasix) 40 mg orally for her to go home. She diuresed very well. She had negative fluid balance of 4.5 L since admission. Her lower extremity swelling is much better. She is laying flat in bed with no orthopnea. Can be discharged home todayon oral Lasix 40 mg daily as outlined above. Plan to see her back after 2 weeks. I will have our heart failure nurse Harmony call the alf to inquire about her weight, vital signs, symptoms and medication compliance/problems. Atrial flutter with variable block: Unknown chronicity Rate control with beta-leonie therapy: Continue Metoprolol tartrate (Lopressor) 75 mg bid. Please avoid calcium channel blockers. Continue digoxin. Stroke Risk: Her CHADS2-VASc score is 2/9 (2.2% stroke risk) Anticoagulation: Continue Eliquis 5 mg twice daily [id number] Score for Atrial Fibrillation Stroke Risk Risk Factors Component Value C CHF Yes 1 H HTN No 0 A2 Age >= 75 No, (65 y.o.) 0 D DM No 0 S2 Prior Stroke/TIA No 0 V Vascular Disease No 0 A Age 65-74 No, (65 y.o.) 0 Sc Sex female 1 [id number] Score 2 Score last updated 10/06/20 3:04 PM EST Click here for a link to the UpToDate guideline Atrial Fibrillation: Anticoagulation therapy to prevent embolization Disclaimer: Risk Score calculation is dependent on accuracy of patient problem list and past encounter diagnosis. Complex congenital heart disease: Not candidate for surgical correction at this stage of the disease. Discussed all the details with her power of compliance attorney over the phone when she was in the hospital. Sincerely, Efren Tim MD, F.A.C.C. [facility] Accountant [address] [place] [id number] , I believe that the risk of significant morbidity and mortality related to the patient's current medical conditions are: intermediate-high. The documentation recorded by the scribe, accurately and completely reflects the services I personally performed and the decisions made by me. Efren Tim MD, F.A.C.C. December 02, 2020 * Anjali Dickinson RN - 12/02/2020 8:30 AM EDT Patient non verbal and deaf. Able to follow commands. Pills taken whole with water. Patient seems like she is having no pain. Lasix given IV. Points at what she wants. Patient dumps water down drain and does not want sheets or pillow. * Francine Burkett APRN - SPORTS MEDIA - 12/02/2020 7:14 AM EDT Progress Note SUBJECTIVE: Follow-up in leg edema OBJECTIVE: Sitting up in the bed alert in no acute distress. She is cooperative but she is mute. Nosigns of distress. No signs of pain. No reports of concerns from nursing. Nursing does report that she became agitated through the night and at had to call for orders from physician on-call. Ativan was given to her last evening. Vitals: Vitals: 12/02/20 0743 BP: 121/88 Pulse: 62 Resp: 18 Temp: 98 F (36.7 C) SpO2: 99% Weight: 163 lb 8 oz (74.2 kg) Height: 5' 9 (175.3 cm) Exam: GEN: well-developed and well nourished, in no acute distress, alert and mute EYES: No gross abnormalities., PERRL and EOMI NECK: normal, supple, no lymphadenopathy, no carotid bruits PULM: clear to auscultation bilaterally- no wheezes, rales or rhonchi, normal air movement, no respiratory distress diminished COR: Systolic murmurs, no gallops, irregularly irregular, S1 normal and S2 normal ABD: soft, non-tender, non-distended, normal bowel sounds, no masses or organomegaly EXT: edema: 2-3+ affecting bilateral foot, bilateral ankle, bilateral calf NEURO: PRESTON, aphasia SKIN: no rashes or significant lesions Diagnostic Data: Reviewed ASSESSMENT: Principal Problem: Acute on chronic combined systolic and diastolic CHF (congestive heart failure) (HCC) Active Problems: Complex congenital heart disease Severe mitral regurgitation Pulmonary hypertension, moderate to severe (HCC) Acute on chronic combined systolic and diastolic hrt fail (HCC) Resolved Problems: * No resolved hospital problems. * PLAN: Acute on chronic combined CHF ? Chest x-ray enlarged heart, CHF ? Appreciate cardiology ? Continue IV Lasix 40 mg daily ? Continue losartan, Lopressor ? Labs stable although BNP 4700 ? Tolerating SCDs and Selwyn wraps to lower legs edema improved ? Weight down Atrial flutter ? Continue Eliquis, digoxin, Lopressor High risk medication monitoring: Digoxin Discharge plan: Home today Francine Burkett APRN, EARLY CHILDHOOD EDUCATION SPECIALIST-C * Daisy Torres RN - 12/01/2020 8:45 PM EDT Pt assisted to bathroom. Pt had slight wetness in brief and also urinated 250 ml. Brief changed andpatient assisted back to bed. Bed alarm in place. Will continue to monitor. * Daisy Torres RN - 12/01/2020 7:00 PM EDT Pt assisted to bed from chair, tolerated well. VS obtained and assessment done as charted in flow sheet. FLACC 0 at this time. Pt positioned in bed. SCD's placed. Call light and bedside table within reach. Will continue to monitor. * Clau Davidson RN - 12/01/2020 4:26 PM EDT Nurse from [facility] called at this time for an update, update given on the patient. * Anna Infante LSW - 12/01/2020 11:06 AM EDT SW reviewed pt chart and past assessments from recent hospitalizations to complete assessment. SW spoke with pt's guardian as well. SW attempted to contact the alf several times and the line was busy. Pt is a 65 year old single female who is deaf and has an intellectual disability and was admitted for acute on chronic combined systolic and diastolic CHF. Pt lives in a alf in [place]. The staff there assists her with ADLs and manage her medications and provide transportation.Pt has a walker that she uses to ambulate with. Pt is a DNR CC code status and follows with Dr Ara Almazan as PCP. Pt has a guardian that oversees her so no advance directives are on file for pt. Pt has insurance that covers her medications. Guardian reports that the plan for discharge will be to return to the alf. No other needs identified at this time. SW will follow and remain available. Anna SANCHEZ 12/01/2020 * Clau Davidson RN - 12/01/2020 10:42 AM EDT SELWYN wraps applied to patients legs at this time per verbal order from Dr. Gorman. * Francine Burkett APRN - KELSY - 12/01/2020 7:26 AM EDT Progress Note SUBJECTIVE: Follow-up in leg edema OBJECTIVE: Sitting up in the chair alert in no acute distress. She is cooperative but she is mute. No signs of distress. No signs of pain. No reports of concerns from nursing. Vitals: Vitals: 12/01/20 1616 BP: Pulse: Resp: Temp: SpO2: 97% Weight: 166 lb 14.4 oz (75.7 kg) Height: 5' 9 (175.3 cm) Exam: GEN: well-developed and well nourished, in no acute distress, alert and mute EYES: No gross abnormalities., PERRL and EOMI NECK: normal, supple, no lymphadenopathy, no carotid bruits PULM: clear to auscultation bilaterally- no wheezes, rales or rhonchi, normal air movement, no respiratory distress COR: Systolic murmurs, no gallops, irregularly irregular, S1 normal and S2 normal ABD: soft, non-tender, non-distended, normal bowel sounds, no masses or organomegaly EXT: edema: 3+ affecting bilateral foot, bilateral ankle, bilateral calf NEURO: PRESTON, aphasia SKIN: no rashes or significant lesions Diagnostic Data: Reviewed ASSESSMENT: Principal Problem: Acute on chronic combined systolic and diastolic CHF (congestive heart failure) ([facility]) Active Problems: Complex congenital heart disease Severe mitral regurgitation Pulmonary hypertension, moderate to severe ([facility]) Acute on chronic combined systolic and diastolic hrt fail ([facility]) Resolved Problems: * No resolved hospital problems. * PLAN: Acute on chronic combined CHF ? Chest x-ray enlarged heart, CHF ? Appreciate cardiology ? Continue IV Lasix 40 mg daily ? Continue losartan, Lopressor ? Labs stable although BNP 4700 Atrial flutter ? Continue Eliquis, digoxin, Lopressor High risk medication monitoring: Digoxin Discharge plan: Home tomorrow Francine Burkett APRN, EARLY CHILDHOOD EDUCATION SPECIALIST-C Associated attestation - Austin Gorman MD - 12/01/2020 8:46 PM EDT Attestation 12/01/20 I personally evaluated and examined the patient [id number] in conjunction with the EARLY CHILDHOOD EDUCATION SPECIALIST and agree with the management and dispostition of the patient. Please see EARLY CHILDHOOD EDUCATION SPECIALIST's progress note for full details. My douglas findings are: SUBJECTIVE: Patient seen for follow up of Acute on chronic combined systolic and diastolic CHF (congestive heart failure) ([facility]). She has bilat leg edema Review of Systems: Constitutional: negative for fevers or chills Eyes: negative for visual disturbance ENT: negative for sore throat or nasal congestion Respiratory: negative for shortness of breath or cough Cardiovascular: negative for chest pain ,palpitations,pnd,syncope Gastrointestinal: negative for abd pain, nausea, vomiting, diarrhea , constipation,hemetemesis,chhaya,blood in stool Genitourinary: negative for dysuria, urgency ,frequency,hematuria Integument/breast: negative for skin rash or lesions Neurological: negative for unilateral weakness, numbness or tingling. Skeletal Muscular: no joint pain,jont swelling,back pain OBJECTIVE: Vitals: Temp: 96.8 F (36 C) BP: 108/78 Resp: 18 Pulse: 72 SpO2: 98 % 24HR INTAKE/OUTPUT: Intake/Output Summary (Last 24 hours) at 12/01/20202044 Last data filed at 12/01/20201954 Gross per 24 hour Intake 540 ml Output 3375 ml Net -2835 ml Exam: GEN: Awake. no acute distress EYES: EOMI, pupils equal NECK: Supple. No lymphadenopathy. No carotid bruit CVS: RRR, no murmur, rub or gallop PULM: CTA, no wheezes, rales or rhonchi ABD: Bowels sounds normal. Abdomen is soft. No distention. No tenderness. EXT: 1+ edema bilaterally . No calf tenderness. NEURO: Motor and sensory are intact SKIN: No rashes. No skin lesions. Diagnostic Data: All available data reviewed Lab Results Component Value Date WBC 6.1 11/30/2020 HGB 14.8 11/30/2020 MCV 99.6 11/30/2020 PLT 148 11/30/2020 Lab Results Component Value Date GLUCOSE 83 12/01/2020 BUN 33 (H) 12/01/2020 CREATININE 0.90 12/01/2020 NA 134 (L) 12/01/2020 K 4.3 12/01/2020 CALCIUM 9.1 12/01/2020 CL 97 (L) 12/01/2020 CO2 30 12/01/2020 ASSESSMENT: Principal Problem: Acute on chronic combined systolic and diastolic CHF (congestive heart failure) (HCC) Active Problems: Complex congenital heart disease Severe mitral regurgitation Pulmonary hypertension, moderate to severe (HCC) Acute on chronic combined systolic and diastolic hrt fail (HCC) Resolved Problems: * No resolved hospital problems. * PLAN: I agree with the plan as outlined in the EARLY CHILDHOOD EDUCATION SPECIALIST's note Principal Problem: Acute on chronic combined systolic and diastolic CHF (congestive heart failure) (HCC) Active Problems: Complex congenital heart disease Severe mitral regurgitation Pulmonary hypertension, moderate to severe (HCC) Acute on chronic combined systolic and diastolic hrt fail (HCC) Resolved Problems: * No resolved hospital problems. * * Naomi Duke RN - 12/01/2020 12:10 AM EDT Patient has set off bed alarm multiple times. Will continue to monitor. Bed alarm on. * Naomi uDke RN - 11/30/2020 6:45 PM EDT Pt sitting up in chair when credit underwriter entered room. Vitals and assessment as charted. FLACC 0. Pt trying to get out of chair while credit underwriter was in room. Senior Drafter assisted pt out of the chair and pt walked to the bathroom. Senior Drafter assisted pt back into the chair. Call light within reach. Chair alarm on. * Mirna Galloway RN - 11/30/2020 3:00 PM EDT Patient is deaf and non-verbal. Arrived to floor by W/C as a direct admit accompanied only by registration personnel. Was informed by registration that the aide that was with this patient had left totake a walker home. Made call to alf and spoke with Steph to determine how they normally communicate with this patient, was informed that a staff member at the home occasionally will sign to this patient and that she does sometime respond a little to that. Attempted to use IPad with a assignment manager but patient kept pushing the pad away and attempted to push off button several times while the translater was signing to her. documented in this encounter Hospital Course * Francine Burkett, BLOWER INSTALLER - SPORTS MEDIA - 12/02/2020 10:49 AM EDT Discharge Summary Minerva Alan : 1955 Admit date: 11/30/2020 Discharge date: 12/02/2020 Admitting Physician: Austin Gorman MD Discharge Diagnoses: Principal Problem: Acute on chronic combined systolic and diastolic CHF (congestive heart failure) (HCC) Active Problems: Complex congenital heart disease Severe mitral regurgitation Pulmonary hypertension, moderate to severe (HCC) Acute on chronic combined systolic and diastolic hrt fail (HCC) Resolved Problems: * No resolved hospital problems. * Hospital Course: Minerva Alan is a 65 y.o. female admitted with acute on chronic combined CHF. She presented from alf due to significant weight gain and leg edema. She is a known patient to Dr. Tim and is followed closely. She was admitted and diuresed. Her Lasix dose was increased to 40 mg and she has tolerated this well. She does get agitated at times and did require dose of Ativan throughout the night. Her weight is down 4 L. Her edema is decreased. Selwyn wraps to bilateral lower extremities to help with compression. She will be discharged back to her alf today and shewill continue with Lasix 40 mg daily and follow-up with Dr. Tim in the next 1 to 2 weeks. CHF Documentation LVEF < 40%: yes Is pt on beta-leonie: yes Is pt on SELWYN / ARB: yes Consultants: Dr. Tim, cardiology Procedures: none Complications: none Discharge Condition: fair Exam: GEN: well-developed and well nourished, in no acute distress, alert and mute EYES: No gross abnormalities., PERRL and EOMI NECK: normal, supple, no lymphadenopathy, no carotid bruits PULM: clear to auscultation bilaterally- no wheezes, rales or rhonchi, normal air movement, no respiratory distress diminished COR: Systolic murmurs, no gallops, irregularly irregular, S1 normal and S2 normal ABD: soft, non-tender, non-distended, normal bowel sounds, no masses or organomegaly EXT: edema: 2-3+ affecting bilateral foot, bilateral ankle, bilateral calf NEURO: PRESTON, aphasia SKIN: no rashes or significant lesions Significant Diagnostic Studies: Lab Results Component Value Date WBC 6.1 11/30/2020 HGB 14.8 11/30/2020 PLT 148 11/30/2020 Lab Results Component Value Date BUN 31 (H) 12/02/2020 CREATININE 0.93 (H) 12/02/2020 NA 137 12/02/2020 K 4.3 12/02/2020 CALCIUM 9.4 12/02/2020 CL 95 (L) 12/02/2020 CO2 32 (H) 12/02/2020 LABGLOM >60 12/02/2020 Lab Results Component Value Date WBCUA 2 TO 5 10/06/2020 RBCUA 0 TO 2 10/06/2020 EPITHUA 0 TO 2 10/06/2020 LEUKOCYTESUR NEGATIVE 10/06/2020 SPECGRAV 1.020 10/06/2020 GLUCOSEU NEGATIVE 10/06/2020 KETUA NEGATIVE 10/06/2020 PROTEINU NEGATIVE 10/06/2020 HGBUR NEGATIVE 10/06/2020 CASTUA NOT REPORTED 10/06/2020 CRYSTUA NOT REPORTED 10/06/2020 BACTERIA 3+ (A) 10/06/2020 YEAST NOT REPORTED 10/06/2020 Xr Chest (2 Vw) Result Date: 11/30/2020 EXAMINATION: TWO XRAY VIEWS OF THE CHEST 11/30/2020 4:16 pm COMPARISON: Plain film imaging of the chest October 06, 2020 and September 28, 2019. HISTORY: ORDERING SYSTEM PROVIDED HISTORY: chf TECHNOLOGIST PROVIDED HISTORY: chf FINDINGS: There has been almost complete clearing of the prominent interstitial markings in the lung branch when compared to the previous study. The heart remains moderate to m arkedly enlarged with generalized configuration. Central pulmonary vascularity appears prominent. No evidence of pneumothorax or pleural effusion. Degenerative changes are present in the osseous structures, including the visualized portions of the shoulders. Heart is much larger when compared to the study of September 28, 2019. Findings suggest congestive heart failure but without definite pleural effusion. Degenerative bony changes with suggestion of osteopenia. Clearing of most of the prominent interstitial markings when compared to the previous study,suggesting vascular congestion. Assessment and Plan: Patient Active Problem List Diagnosis Date Noted Complex congenital heart disease Priority: High Endocardial cushion defect Priority: High Chronic anticoagulation Priority: High CHF (congestive heart failure) ([facility]) 11/30/2020 Acute on chronic combined systolic and diastolic hrt fail ([facility]) 11/30/2020 Facial cellulitis 10/07/2020 Acute on chronic combined systolic and diastolic CHF (congestive heart failure) ([facility]) 10/06/2020 Atrial flutter with rapid ventricular response ([facility]) 10/06/2020 Severe mitral regurgitation Pulmonary hypertension, moderate to severe ([facility]) Discharge Medications: Minerva Alan Home Medication Instructions DESMOND:[id number] Printed on:12/02/20 1050 Medication Information acetaminophen (TYLENOL) 325 MG tablet Take 650 mg by mouth every 6 hours as needed. apixaban (ELIQUIS) 5 MG TABS tablet Take 1 tablet by mouth 2 times daily aspirin 81 MG tablet Take 81 mg by mouth daily. calcium-vitamin D (OSCAL-500) 500-200 MG-UNIT per tablet Take 1 tablet by mouth daily. Cholecalciferol (VITAMIN D3) 125 MCG (5000 UT) TABS Take 1 tablet by mouth daily digoxin (LANOXIN) 125 MCG tablet Take 1 tablet by mouth daily furosemide (LASIX) 40 MG tablet Take 1 tablet by mouth daily losartan (COZAAR) 25 MG tablet Take 12.5 mg by mouth daily Metoprolol Tartrate 75 MG TABS Take 75 mg by mouth 2 times daily Multiple Vitamin (MULTI-VITAMIN DAILY PO) Take by mouth polyethylene glycol (GLYCOLAX) powder Take 17 g by mouth daily. sertraline (ZOLOFT) 25 MG tablet Take 3 tablets by mouth daily Patient Instructions: Activity: activity as tolerated Diet: cardiac diet Wound Care: none needed Other: None Disposition: Discharge to Home Follow up: Patient will be followed by Ara Almazan MD in 1-2 weeks; Dr. Tim 2 weeks CORE MEASURES on Discharge (if applicable) SELWYN/ARB in CHF: Yes Statin in SC: NA ASA in SC: NA Statin in CVA: NA Antiplatelet in CVA: NA Total time spent on discharge services: 40 minutes Including the following activities: Evaluation and Management of patient Discussion with patient and/or surrogate about current care plan Coordination with Case Management and/or Millinery Salesperson Coordination of care with Consultants (if applicable) Coordination of care with Receiving Facility Physician (if applicable) Completion of DME forms (if applicable) Preparation of Discharge Summary Preparation of Medication Reconciliation Preparation of Discharge Prescriptions Signed: Francine Burkett APRN, EARLY CHILDHOOD EDUCATION SPECIALIST-C 12/02/2020, 10:50 AM Associated attestation - Austin Gorman MD - 12/02/2020 11:02 AM EDT I personally evaluated and examined the patient face to face in conjunction with the APC and agree with the management and disposition of the patient. My douglas findings are: Patient ID: Minerva Alan [id number] 1955 Admission date: 11/30/2020 Discharge date: 12/02/2020 Admitting Physician: Austin Gorman MD Primary Care Physician: Ara Almazan MD Primary Discharge Diagnoses: Patient Active Problem List Diagnosis Date Noted Complex congenital heart disease Priority: High Endocardial cushion defect Priority: High Chronic anticoagulation Priority: High CHF (congestive heart failure) ([facility]) 11/30/2020 Acute on chronic combined systolic and diastolic hrt fail ([facility]) 11/30/2020 Facial cellulitis 10/07/2020 Acute on chronic combined systolic and diastolic CHF (congestive heart failure) ([facility]) 10/06/2020 Atrial flutter with rapid ventricular response ([facility]) 10/06/2020 Severe mitral regurgitation Pulmonary hypertension, moderate to severe ([facility]) Additional Diagnoses: Diagnosis Date Autistic disorder Bradycardia CHF (congestive heart failure) ([facility]) Deaf H/O echocardiogram 10/04/2020 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 Severe LA enlargement. Severe pulmonary hypertension. Sick sinus syndrome ([facility]) Syncope Review of Systems: Constitutional: negative for fevers or chills Eyes: negative for visual disturbance ENT: negative for sore throat or nasal congestion Respiratory: negative for shortness of breath or cough Cardiovascular: negative for chest pain ,palpitations,pnd,syncope, leg edema better Gastrointestinal: negative for abd pain, nausea, vomiting, diarrhea , constipation,hemetemesis,chhaya,blood in stool Genitourinary: negative for dysuria, urgency ,frequency,hematuria Integument/breast: negative for skin rash or lesions Neurological: negative for unilateral weakness, numbness or tingling. Skeletal Muscular: no joint pain,jont swelling,back pain Physical exam: Exam: GEN: awake, no apparent distress EYES: No gross abnormalities. and PERRL NECK: normal, supple, no lymphadenopathy, no carotid bruits PULM: clear to auscultation bilaterally- no wheezes, rales or rhonchi, normal air movement, no respiratory distress COR: regular rate & rhythm and no gallops ABD: soft, non-tender, non-distended, normal bowel sounds, no masses or organomegaly EXT: Trace edema,no calf tenderness NEURO: negative SKIN: no rashes or significant lesions Hospital Course: The patient was admitted for the above. Minerva Alan is a 65 y.o. female admitted with acute on chronic combined CHF. She presented from alf due to significant weight gain and leg edema. She was admitted and diuresed. Her Lasix dose was increased to 40 mg and she has tolerated this well. She does get agitated at times and did require dose of Ativan throughout the night. Her weight is down 4 L. Her edema is decreased. Selwyn wraps to bilateral lower extremities to help with compression. She will be discharged to her alf today and she will continue with Lasix 40 mg daily and follow-up with Dr. Tim in the next 1 to 2 weeks. Consultants: cardiology Procedures: none Complications: none Significant Diagnostic Studies: Xr Chest (2 Vw) Result Date: 11/30/2020 EXAMINATION: TWO XRAY VIEWS OF THE CHEST 11/30/2020 4:16 pm COMPARISON: Plain film imaging of the chest October 06, 2020 and September 28, 2019. HISTORY: ORDERING SYSTEM PROVIDED HISTORY: chf TECHNOLOGIST PROVIDED HISTORY: chf FINDINGS: There has been almost complete clearing of the prominent interstitial markings in the lung branch when compared to the previous study. The heart remains moderate to m arkedly enlarged with generalized configuration. Central pulmonary vascularity appears prominent. No evidence of pneumothorax or pleural effusion. Degenerative changes are present in the osseous structures, including the visualized portions of the shoulders. Heart is much larger when compared to the study of September 28, 2019. Findings suggest congestive heart failure but without definite pleural effusion. Degenerative bony changes with suggestion of osteopenia. Clearing of most of the prominent interstitial markings when compared to the previous study,suggesting vascular congestion. Recent Results (from the past 96 hour(s)) EKG 12 Lead Collection Time: 11/30/20 4:37 PM Result Value Ref Range Ventricular Rate 70 BPM Atrial Rate 300 BPM QRS Duration 92 ms Q-T Interval 366 ms QTc Calculation (Bazett) 395 ms R Underhill -31 degrees T Underhill 137 degrees Comprehensive Metabolic Panel Collection Time: 11/30/20 6:40 PM Result Value Ref Range Glucose 142 (H) 70 - 99 mg/dL BUN 36 (H) 8 - 23 mg/dL CREATININE 0.88 0.50 - 0.90 mg/dL Bun/Cre Ratio 41 (H) 9 - 20 Calcium 9.6 8.6 - 10.4 mg/dL Sodium 133 (L) 135 - 144 mmol/L Potassium 4.7 3.7 - 5.3 mmol/L Chloride 94 (L) 98 - 107 mmol/L CO2 29 20 - 31 mmol/L Anion Gap 10 9 - 17 mmol/L Alkaline Phosphatase 123 (H) 35 - 104 U/L ALT 35 (H) 5 - 33 U/L AST 33 (H) <32 U/L Total Bilirubin 1.18 0.3 - 1.2 mg/dL Total Protein 7.2 6.4 - 8.3 g/dL Albumin 3.6 3.5 - 5.2 g/dL Albumin/Globulin Ratio 1.0 1.0 - 2.5 GFR Non- >60 >60 mL/min GFR >60 >60 mL/min GFR Comment GFR Staging Magnesium Collection Time: 11/30/20 6:40 PM Result Value Ref Range Magnesium 2.1 1.6 - 2.6 mg/dL CBC auto differential Collection Time: 11/30/20 6:40 PM Result Value Ref Range WBC 6.1 3.5 - 11.3 k/uL RBC 4.78 3.95 - 5.11 m/uL Hemoglobin 14.8 11.9 - 15.1 g/dL Hematocrit 47.6 (H) 36.3 - 47.1 % MCV 99.6 82.6 - 102.9 fL MCH 31.0 25.2 - 33.5 pg MCHC 31.1 28.4 - 34.8 g/dL RDW 14.6 (H) 11.8 - 14.4 % Platelets 148 138 - 453 k/uL MPV 9.4 8.1 - 13.5 fL NRBC Automated 0.0 0.0 per 100 WBC Differential Type NOT REPORTED Seg Neutrophils 62 36 - 65 % Lymphocytes 24 24 - 43 % Monocytes 12 3 - 12 % Eosinophils % 1 1 - 4 % Basophils 1 0 - 2 % Immature Granulocytes 0 0 % Segs Absolute 3.76 1.50 - 8.10 k/uL Absolute Lymph # 1.43 1.10 - 3.70 k/uL Absolute Tensas # 0.74 0.10 - 1.20 k/uL Absolute Eos # 0.07 0.00 - 0.44 k/uL Basophils Absolute 0.06 0.00 - 0.20 k/uL Absolute Immature Granulocyte <0.03 0.00 - 0.30 k/uL WBC Morphology NOT REPORTED RBC Morphology NOT REPORTED Platelet Estimate NOT REPORTED Protime-INR Collection Time: 11/30/20 6:40 PM Result Value Ref Range Protime 17.0 (H) 11.5 - 14.2 sec INR 1.4 APTT Collection Time: 11/30/20 6:40 PM Result Value Ref Range PTT 42.1 (H) 23.9 - 33.8 sec Troponin Collection Time: 11/30/20 6:40 PM Result Value Ref Range Troponin, High Sensitivity 10 0 - 14 ng/L Troponin T NOT REPORTED <0.03 ng/mL Troponin Interp NOT REPORTED Brain Natriuretic Peptide Collection Time: 11/30/20 6:40 PM Result Value Ref Range Pro-BNP 4,701 (H) <300 pg/mL BNP Interpretation Pro-BNP Reference Range: Basic Metabolic Panel Collection Time: 12/01/20 5:40 AM Result Value Ref Range Glucose 83 70 - 99 mg/dL BUN 33 (H) 8 - 23 mg/dL CREATININE 0.90 0.50 - 0.90 mg/dL Bun/Cre Ratio 37 (H) 9 - 20 Calcium 9.1 8.6 - 10.4 mg/dL Sodium 134 (L) 135 - 144 mmol/L Potassium 4.3 3.7 - 5.3 mmol/L Chloride 97 (L) 98 - 107 mmol/L CO2 30 20 - 31 mmol/L Anion Gap 7 (L) 9 - 17 mmol/L GFR Non- >60 >60 mL/min GFR >60 >60 mL/min GFR Comment GFR Staging Lipid panel - fasting Collection Time: 12/01/20 5:40 AM Result Value Ref Range Cholesterol 99 <200 mg/dL HDL 37 (L) >40 mg/dL LDL Cholesterol 55 0 - 130 mg/dL Chol/HDL Ratio 2.7 <5 Triglycerides 37 <150 mg/dL VLDL NOT REPORTED 1 - 30 mg/dL Basic Metabolic Panel Collection Time: 12/02/20 5:20 AM Result Value Ref Range Glucose 90 70 - 99 mg/dL BUN 31 (H) 8 - 23 mg/dL CREATININE 0.93 (H) 0.50 - 0.90 mg/dL Bun/Cre Ratio 33 (H) 9 - 20 Calcium 9.4 8.6 - 10.4 mg/dL Sodium 137 135 - 144 mmol/L Potassium 4.3 3.7 - 5.3 mmol/L Chloride 95 (L) 98 - 107 mmol/L CO2 32 (H) 20 - 31 mmol/L Anion Gap 10 9 - 17 mmol/L GFR Non- >60 >60 mL/min GFR >60 >60 mL/min GFR Comment GFR Staging Discharge Condition: stable Disposition: residential Discharge Medications: Minerva Alan Home Medication Instructions DESMOND:[id number] Printed on:12/02/20 1100 Medication Information acetaminophen (TYLENOL) 325 MG tablet Take 650 mg by mouth every 6 hours as needed. apixaban (ELIQUIS) 5 MG TABS tablet Take 1 tablet by mouth 2 times daily aspirin 81 MG tablet Take 81 mg by mouth daily. calcium-vitamin D (OSCAL-500) 500-200 MG-UNIT per tablet Take 1 tablet by mouth daily. Cholecalciferol (VITAMIN D3) 125 MCG (5000 UT) TABS Take 1 tablet by mouth daily digoxin (LANOXIN) 125 MCG tablet Take 1 tablet by mouth daily furosemide (LASIX) 40 MG tablet Take 1 tablet by mouth daily losartan (COZAAR) 25 MG tablet Take 12.5 mg by mouth daily Metoprolol Tartrate 75 MG TABS Take 75 mg by mouth 2 times daily Multiple Vitamin (MULTI-VITAMIN DAILY PO) Take by mouth polyethylene glycol (GLYCOLAX) powder Take 17 g by mouth daily. sertraline (ZOLOFT) 25 MG tablet Take 3 tablets by mouth daily Resume all home medications unless otherwise directed Add Stop taking Patient Instructions: Activity: activity as tolerated Diet: cardiac diet Wound Care: none needed Other: Follow up with Dr Tim in 2 wks as directed Time Spent on discharge services is 40 minutes in the examination, evaluation, counseling and review of medications and discharge plan. Signed: Austin Gorman M.D. 12/02/2020 11:00 AM I reviewed and agree with the findings and plan documented in her note . Austin Gorman MD documented in this encounter Additional Source Comments Reason for Visit (unrecogniz ed section and content) Reason Comments Facial Droop left facail droop, E [facility] staff states onset at 1045 when she woke up Reason Comments Fever all sx onset today Altered Mental Status staff states pt miller s been confused today Facial Swelling Status Reason Specialty Diagnoses / Procedures Referred By Contact Referred To Contact Closed Cardiology / Echocardiography Diagnoses Severe mitral valve regurgitation Congestive heart failure, unspecified HF chronicity, unspecified heart failure type (HCC) Procedures ECHO Complete 2D W Doppler W Color Ara Almazan MD [address] [place] [id number] [facility] Echo [address] [place] [id number] Reason Comments Other Send from Dr. Tim office to evaluate Status Reason Specialty Diagnoses / Procedures Referre d By Contact Referred To Contact Closed Radiology Diagnoses Breast cancer screening by mammogram Procedures ED CHANG DIGITAL SCREEN SELF REFERRAL W OR WO CAD BILATERAL ED DIGITAL SCREEN W OR WO CAD BILATERAL Scooter Dhillon, [employer] [address] [facility] [address] [place] [address] Specialty Diagnoses / Procedures Referred By Contac t Referred To Contact Radiology Diagnoses Screening mammogram for high-risk patient Procedures ED CHANG DIGITAL SCREEN BILATERAL ED DIGITAL SCREEN W OR WO CAD BILATERAL Scooter Dhillon, [employer] [address] [facility] [address] [place] [address] Referral ID Status Reason Start Date Expiration Date Visits Re quested Visits Authorized [id number] Closed 11/29/2021 11/29/2022 1 1 Specialty Diagnoses / Procedures Referred By Contac t Referred To Contact Diagnoses Chronic diastolic CHF (congestive heart failure) (HCC) Chronic a-fib (HCC) Chronic anticoagulation Severe mitral regurgitation Pulmonary hypertension, moderate to severe (HCC) Procedures Continuous cardiac monitoring, >2 up to 14 days Efren Tim MD [address] [place] [address] [place] [address] Referral ID Status Reason Start Date Expiration Date Visits Re quested Visits Authorized [id number] Closed 03/22/2022 03/22/2023 1 1 INFORMATION SOURCE (unrecogn ized section and content) DATE CREATED AUTHOR 06/06/2020 [facility] DATE CREATED AUTHOR AUTHOR'S ORGANIZ ATION 02/21/2023 [facility] DATE CREATED AUTHOR AUTHOR'S ORGANIZ ATION 09/20/2023 [facility] Juan Jose [facility] Ordered Prescriptions (unrec ognized section and content) Prescription Sig Dispensed Refills Start Date End Da te clindamycin (CLEOCIN) 75 MG/5ML solution Take 20 mLs by mouth 4 times daily for 7 days 560 mL 0 10/02/2020 10/09/2020 Prescription Sig Dispensed Refills Start Date End Da te Metoprolol Tartrate 75 MG TABS Take 75 mg by mouth 2 times daily 60 tablet 3 10/10/2020 furosemide (LASIX) 20 MG tablet Take 1 tablet by mouth daily 60 tablet 3 10/10/2020 digoxin (LANOXIN) 125 MCG tablet Take 1 tablet by mouth daily 30 tablet 3 10/10/2020 sertraline (ZOLOFT) 25 MG tablet Take 3 tablets by mouth daily 30 tablet 3 10/10/2020 apixaban (ELIQUIS) 5 MG TABS tablet Take 1 tablet by mouth 2 times daily 60 tablet 2 10/10/2020 metoprolol tartrate 75 MG TABS Take 50 mg by mouth 2 times daily 60 tablet 3 10/10/2020 10/10/2020 Prescription Sig Dispensed Refills Start Date End Da te furosemide (LASIX) 40 MG tablet Take 1 tablet by mouth daily 30 tablet 2 12/02/2020 Care Teams (unrecognized sec tion and content) Storeroom Supervisor Relationship Specialty Start Date End Date Ara Almazan MD [address] [place], [place] [id number] PCP - General Internal Medicine 09/21/20 Storeroom Supervisor Relationship Specialty Start Date End Date Ara Almazan MD [address] [place], [place] [id number] PCP - General Internal Medicine 09/21/20 Storeroom Supervisor Relationship Specialty Start Date End Date Ara Almazan MD [address] [place], [place] [id number] PCP - General Internal Medicine 09/21/20 Storeroom Supervisor Relationship Specialty Start Date End Date Ara Almazan MD [address] [place], [place] [address] PCP - General Internal Medicine 09/21/20 Storeroom Supervisor Relationship Specialty Start Date End Date Ara Almazan MD [address] [place], [place] [id number] PCP - General Internal Medicine 09/21/20 Storeroom Supervisor Relationship Specialty Start Date End Date Ara Almazan MD [address] [place], [place] [address] PCP - General Internal Medicine 09/21/20 Storeroom Supervisor Relationship Specialty Start Date End Date Ara Almazan MD [address] [place], [place] [id number] PCP - General Internal Medicine 09/21/20 Storeroom Supervisor Relationship Specialty Start Date End Date Ara Almazan MD [address] [place], [place] [id number] PCP - General Internal Medicine 09/21/20 Storeroom Supervisor Relationship Specialty Start Date End Date Ara Almazan MD [address] [place], [place] [id number] PCP - General Internal Medicine 09/21/20 FOR RECORDS PERTAINING TO PATIENTS WHO ARE OR HAVE BEEN ENROLLED IN A CHEMICAL DEPENDENCY/SUBSTANCEABUSE PROGRAM, SOME INFORMATION MAY BE OMITTED. This clinical summary was aggregated from multiple sources. Caution should be exercised in using it in the provision of clinical care. This summary normalizes information from multiple sources, and as a consequence, information in this document may materially change the coding, format and clinical context of patient data. In addition, data may be omitted in some cases. CLINICAL DECISIONS SHOULD BE BASED ON THE PRIMARY CLINICAL RECORDS. [facility]. provides no warranty or guarantee of the accuracy or completeness of information in this document.
--- NOTE | 2023-10-19 06:08 | PC.NURSE ---
blood soaked dressing removed and area cleansed. new pressure dressing will be put in place. pt alert and appears as appropriate as last ER visit
--- NOTE | 2023-10-19 06:10 | PC.NURSE ---
sutures in place
[2023-10-19] MEDS: LIDOCAINE HCL 1%-EPINEPHRINE 1:100,000 20 ML MDV INJ (06:30)
--- NOTE | 2023-10-19 07:04 | ED_ITS ---
HPI - General Adult General Chief complaint: Head Injury Stated complaint: Head INJURY Time Seen by Provider: 10/19/23 06:04 Mode of arrival: ambulance History of Present Illness HPI narrative: Patient sent back to the ED after she bled through her bandage. Patient was seen and evaluated earlier. She had fallen and sustained an irregularly shaped laceration to the occiput. I applied 6 grace to the area and then we applied ABD pad and wrapped with an puma wrap to tamponade the bleeding. We watched her for 2 hours and she had no rebleeding. The NH denied that she sustained any additional injury to the head. On arrival, there is blood on the bandage. She is autistic and deaf. Related Data Home Medications Medication Instructions Recorded Confirmed apixaban 5 mg tablet (Eliquis) 5 mg PO Q12H 10/18/23 10/18/23 aspirin 81 mg tablet,delayed 81 mg PO DAILY 10/18/23 10/18/23 release calcium carbonate 500 mg-vitamin 1 tab PO BID 10/18/23 10/18/23 D3 5 mcg (200 unit) tablet (Oyster Shell Calcium-Vitamin D3) cholecalciferol (vitamin D3) 125 5,000 unit PO DAILY 10/18/23 10/18/23 mcg (5,000 unit) capsule furosemide 40 mg tablet 40 mg PO DAILY 10/18/23 10/18/23 losartan 25 mg tablet 12.5 mg PO DAILY 10/18/23 10/18/23 metoprolol tartrate 50 mg tablet 50 mg PO Q12H 10/18/23 10/18/23 multivitamin 1 tab PO DAILY 10/18/23 10/18/23 sertraline 25 mg tablet 75 mg PO DAILY 10/18/23 10/18/23 Allergies Allergy/AdvReac Type Severity Reaction Status Date / Time No Known Drug Allergies Allergy Verified 10/19/23 07:04 [facility] Social History Smoking status: Unknown if ever smoked Exam Narrative Exam Narrative: Nurses notes and vital signs reviewed and patient is not hypoxic. afebrile General: Well-appearing and in no apparent distress. Skin: Warm, dry, no pallor noted. Head: The area of irregular laceration to the occiput that I stapled earlier is intact and not bleeding. However there is bleeding from a different area that is macerated and no defined laceration is found. Eye: Pupils are equal, round and EOMI. No scleral icterus. Cardiovascular: Regular Rate and Rhythm without murmur, gallop or rub. Respiratory: No accessory muscle use or respiratory distress. Lungs are clear to auscultation, no wheezing, rales or rhonchi Neurological: A&O x4. No cranial nerve dysfunction observed. No truncal ataxia. Moves all extremities. Sensation intact. Psychiatric: Cooperative and interactive. Normal mood and affect. Constitutional Vital Signs, click to edit/add: Last Vital Signs Temp 97.7 F 10/19/23 06:00 Pulse 104 H 10/19/23 06:00 Resp 18 10/19/23 06:00 BP 113/78 10/19/23 06:00 Pulse Ox 99 10/19/23 06:00 O2 Del Method Room Air 10/19/23 06:00 Course Vital Signs Vital signs: Vital Signs Temperature 97.7 F 10/19/23 06:00 Pulse Rate 104 H 10/19/23 06:00 Respiratory Rate 18 10/19/23 06:00 Blood Pressure 113/78 10/19/23 06:00 Pulse Oximetry 99 10/19/23 06:00 Oxygen Delivery Method Room Air 10/19/23 06:00 Temperature 97.7 F 10/19/23 06:00 Pulse Rate 104 H 10/19/23 06:00 Respiratory Rate 18 10/19/23 06:00 Blood Pressure 113/78 10/19/23 06:00 Pulse Oximetry 99 10/19/23 06:00 Oxygen Delivery Method Room Air 10/19/23 06:00 Medical Decision Making MDM Narrative Medical decision making narrative: I injected 10mL of lidocaine with epinephrine into the surrounding tissue but it did not decrease the bleeding. I tried to suture a figure 8 using 4-0 Prolene but it did not stop the bleeding. I then applied a figure 8 suture with 3-0 ethilon and that stopped the bleeding. We watched the area for 10 minutes before applying a new ABD pad and once again wrapping the scalp with puma wrap. She was then discharged back to the [facility] with instructions to skip today's dose of Eliquis. Discharge Plan Discharge Chief Complaint: Head Injury Clinical Impression: Encounter for post-traumatic wound check, Laceration of scalp Patient Disposition: Home, Self-Care Time of Disposition Decision: 07:12 Prescriptions / Home Meds: No Action Eliquis 5 mg tablet 5 mg PO Q12H aspirin 81 mg tablet,delayed release (DR/EC) 81 mg PO DAILY furosemide 40 mg tablet 40 mg PO DAILY losartan 25 mg tablet 12.5 mg PO DAILY metoprolol tartrate 50 mg tablet 50 mg PO Q12H multivitamin Tablet 1 tab PO DAILY calcium carbonate-vitamin D3 [Oyster Shell Calcium-Vit D3] 500 mg-5 mcg (200 unit) tablet 1 tab PO BID sertraline 25 mg tablet 75 mg PO DAILY cholecalciferol (vitamin D3) 125 mcg (5,000 unit) capsule 5,000 unit PO DAILY Instructions: Laceration (ED) Stand Alone Forms: Portal Instructions Referrals: Physician,Non-Staff, MD [Primary Care Provider] - 1 week
== END 2023-10-19 07:35 | disposition home or self-care (01) ==
PROVIDERS: Emergency Provider Emergency Medicine
DX: S01.01XA Laceration without foreign body of scalp, initial encounter (principal); Z79.82 Long term (current) use of aspirin; Z79.899 Other long term (current) drug therapy; Z79.01 Long term (current) use of anticoagulants; X58.XXXA Exposure to other specified factors, initial encounter
CPT/HCPCS: 12001; 99284

== ENCOUNTER 2023-11-01 01:28 | Emergency (ER) | payer MEDICARE, MEDICAID, SELFPAY ==
[2023-11-01 01:31] VITALS: BP 112/92; PULSE 100; RESP 18; TEMP 36.5; O2SAT 100
--- NOTE | 2023-11-01 02:04 | ED.WOUNDLAC1 ---
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 The patient was initially seen here on October 18 after she had fallen from standing and had a large posterior occipital laceration. The laceration was closed with grace and then the patient returned due to bleeding the next day and it was closed again with sutures. Patient is on Eliquis. She was seen at wound care yesterday and the aspiration site was cleaned and left open. She was sent back to the emergency department tonight for bleeding from the left lateral wound edge. There is been no additional trauma. Related Data Home Medications Medication Instructions Recorded Confirmed apixaban 5 mg tablet (Eliquis) 5 mg PO Q12H 10/18/23 10/18/23 aspirin 81 mg tablet,delayed 81 mg PO DAILY 10/18/23 10/18/23 release calcium carbonate 500 mg-vitamin 1 tab PO BID 10/18/23 10/18/23 D3 5 mcg (200 unit) tablet (Oyster Shell Calcium-Vitamin D3) cholecalciferol (vitamin D3) 125 5,000 unit PO DAILY 10/18/23 10/18/23 mcg (5,000 unit) capsule furosemide 40 mg tablet 40 mg PO DAILY 10/18/23 10/18/23 losartan 25 mg tablet 12.5 mg PO DAILY 10/18/23 10/18/23 metoprolol tartrate 50 mg tablet 50 mg PO Q12H 10/18/23 10/18/23 multivitamin 1 tab PO DAILY 10/18/23 10/18/23 sertraline 25 mg tablet 75 mg PO DAILY 10/18/23 10/18/23 Allergies Allergy/AdvReac Type Severity Reaction Status Date / Time No Known Drug Allergies Allergy Verified 11/01/23 01:39 Review of Systems ROS Status of ROS 10 or more systems reviewed and unremarkable except as noted in history and below PFSH PFSH Social History Smoking status: Unknown if ever smoked Exam Narrative Exam Narrative: Nurses note and vital signs reviewed and patient is not hypoxic. General: Alert, nontoxic female, she is nonverbal but grabbed my stethoscope and put it to her chest Skin: Warm, dry, no pallor noted. There is no rash noted. Head: Normocephalic, there is a large full thickness posterior occipital scalp wound with clean edges, approx 2 x 2 cm with a small area of bleeding from the left lateral aspect of the edges. No foul odor or purulent drainage. The wound edges are otherwise clean, the scalp is visible thru the wound Eye: Normal conjunctiva, no drainage, EOMI. PERRL Ears, Nose, Mouth, and Throat: oral mucosa is moist. Cardiovascular: Regular Rate and Rhythm Respiratory: Patient is in no distress, no accessory muscle use, lungs are clear to auscultation, no wheezing, rales or rhonchi Musculoskeletal: The patient has no evidence of calf tenderness, no pitting edema, symmetrical pulses noted bilaterally Neurological: Alert, moving all extremities Constitutional Vital Signs, click to edit/add: Last Vital Signs Temp 97.7 F 11/01/23 01:31 Pulse 100 H 11/01/23 01:31 Resp 18 11/01/23 01:31 BP 112/92 H 11/01/23 01:31 Pulse Ox 100 11/01/23 01:31 O2 Del Method Room Air 11/01/23 01:31 Course Vital Signs Vital signs: Vital Signs Temperature 97.7 F 11/01/23 01:31 Pulse Rate 100 H 11/01/23 01:31 Respiratory Rate 18 11/01/23 01:31 Blood Pressure 112/92 H 11/01/23 01:31 Pulse Oximetry 100 11/01/23 01:31 Oxygen Delivery Method Room Air 11/01/23 01:31 Temperature 97.7 F 11/01/23 01:31 Pulse Rate 100 H 11/01/23 01:31 Respiratory Rate 18 11/01/23 01:31 Blood Pressure 112/92 H 11/01/23 01:31 Pulse Oximetry 100 11/01/23 01:31 Oxygen Delivery Method Room Air 11/01/23 01:31 MDM - Wound/Laceration MDM Narrative Medical decision making narrative: Procedure Note: Posterior scalp wound care: the wound was cleaned with normal saline and dried with a 4 x 4. Gelfoam was cut and applied topically and a telfa was applied over the gelfoam. Pressure was applied to the area and no recurrent bleeding was appreciated. Pt was re-evaluated and there is a small amount of dried blood on the Telfa, it was removed. THere is no active bleeding currently and the gelfoam is in place in the wound. The Telfa was re-applied over the wound. She will be transported back to the [facility] by private vehicle with a caregiver from the [facility]. Discharge Plan Discharge Stand Alone Forms: Portal Instructions Chief Complaint: Wound/Laceration Clinical Impression: Encounter for post-traumatic wound check, Bleeding from wound Patient Disposition: Home, Self-Care Time of Disposition Decision: 02:47 Condition: Good Prescriptions / Home Meds: No Action Eliquis 5 mg tablet 5 mg PO Q12H aspirin 81 mg tablet,delayed release (DR/EC) 81 mg PO DAILY furosemide 40 mg tablet 40 mg PO DAILY losartan 25 mg tablet 12.5 mg PO DAILY metoprolol tartrate 50 mg tablet 50 mg PO Q12H multivitamin Tablet 1 tab PO DAILY calcium carbonate-vitamin D3 [Oyster Shell Calcium-Vit D3] 500 mg-5 mcg (200 unit) tablet 1 tab PO BID sertraline 25 mg tablet 75 mg PO DAILY cholecalciferol (vitamin D3) 125 mcg (5,000 unit) capsule 5,000 unit PO DAILY Additional Instructions: You can replace the packing in the wound with the Gelfoam that was sent back to the snf with Minerva. Otherwise leave the Gelfoam in place and replace the topical dressing on a daily basis. The Gelfoam should gently dissolve as the wound heals. Referrals: Physician,Non-Staff, MD [Primary Care Provider] - 1 week
--- OUTSIDE RECORDS SUMMARY | 2023-11-01 02:07 | XMS_ITS | CCD ---
Author Name Unknown Address [address] [place] [address] Organization [facility] Care Team Providers Care Highway Technician Name Role Phone Jose Deleon Primary Care Provider LUCIE DELEON Admitting Unavailab le LUCIE DELEON Attending Unavailab le MISC, DOCTOR Primary Care Unavailable LUCIE DELEON Consulting Unavailab le Maximino Pinedaladeep Primary Care Provider Ara Pineda MD Primary Care Provider [phone] Ara Pineda MD Primary Care Provider [phone] Ara Pineda MD Primary Care Provider [phone] Ara Pineda MD Primary Care Provider [phone] Ara Pineda MD Primary Care Provider [phone] Unavailable Primary Care Provider Unavailabl e PROVIDER, UNKNOWN Attending Unavailable PROVIDER, UNKNOWN Admitting Unavailable Ara Pineda MD Primary Care Provider [phone] GIDDA, KULADEEP Primary Care Unavailable GADIEL, [...] Care Unavailable GADIEL, ROB L Referring [facility]available [facility] Primary Care Unavailable ROB RAMESH Referring Unavailable [facility] Primary Care Unavailable [facility] Primary Care Unavailable ROB RAMESH Referring Unavailable Medications Current Medications Medication Drug Class(es) Dates Sig (Normalized) Sig (Original) Acetaminophen (20 sources) Start: 11-30-2020 acetaminophen (TYLENOL) tablet 650 mg Start: 10-02-2020 acetaminophen (TYLENOL) 160 MG/5ML solution 640 mg take 2 tablets by mo [facility] every six hours as needed acetaminophen (TYLENOL) [...] 1 tablet, Oral, DAILY, First dose on [place] 12/01/20 at 0900 take 1 tablet by mouth twice darion ly calcium-vitamin D (OSCAL-500) 500-200 MG- UNIT per tablet Take 1 tablet by mouth 2 times daily 0 Active cholecalciferol 1000 unt oral tablet (20 sources) Vitamin D Start: 12-01-2020 take 1 tablet by mouth once daily 5,000 Units (5 tablet), Oral, DAILY, First dose on [facility] 12/01/20 at 2200 take 1 tablet by [...] Starting Sat10/06/20 at 2007 polyethylene glycol 3350 26439 mg powder for oral solution (20 sources) [...] sources) Long-term current use of anticoagulant; Translations: [intermediate frame tender (current) use of anticoagulants] 10-07-2020 Episodic Other [...] Onset: 12-12-2022 Episodic Other aftercare (2 sources) skilled nursing (current) use of anticoagulants; Translations: [skilled nursing (current) use of anticoagulants] Onset: 2023 Episodic Other aftercare (2 sources) Other intermediate frame tender (current) drug therapy; Translations: [Other senior living (current) drug therapy] Onset: 09-26-2022 Episodic Other [...] Test Name Value Interpretation Reference Range Facility [facility] Metabolic Profon 2023 Albumin [Mass/Vol] 3.8 g/dL Normal 3.5-5.2 [facility] Comment on above: Performed By: #### C P #### [facility] [address] [place] [address] Insecticide Mixer: Jorge Richard MD Albumin/Glob Ratio 1.2 Normal 1.0-2.5 [facility] Comment on above: Performed By: #### C P #### [facility] [address] [place] [address] Insecticide Mixer: Jorge Richard MD Alkaline Phos 79 U/L Normal 35-104 [facility] Comment on above: Performed By: #### C P #### [facility] [address] [place], [place] [id number] Insecticide Mixer: Jorge Richard MD ALT [Catalytic activity/Vol] 13 U/L Normal 5-33 [facility] Comment on above: Performed By: #### C P #### [facility] [address] [place], [place] [id number] Insecticide Mixer: Jorge Richard MD Anion gap [Moles/Vol] 9 mmol/L Normal 9-17 [facility] Comment on above: Performed By: #### C P #### [facility] [address] [place], [place] [id number] Insecticide Mixer: Jorge Richard MD AST [Catalytic activity/Vol] 16 U/L Normal <32 [facility] Comment on above: Performed By: #### C P #### [facility] [address] [place], [place] [address]67[address]83 Insecticide Mixer: Jorge Richard MD Bilirubin [Mass/Vol] 0.6 mg/dL Normal 0.3-1.2 [facility] Comment on above: Performed By: #### C P #### [facility] [address] [place], [place] 0[address]183 Insecticide Mixer: Jorge Richard MD BUN/CRE Ratio 39 High 9-20 [facility] Comment on above: Performed By: #### C P #### [facility] [address] [place], [place] [id number] Insecticide Mixer: Jorge Richard MD Calcium [Mass/Vol] 9.6 mg/dL Normal 8.6-10.4 [facility] Comment on above: Performed By: #### C P #### [facility] [address] [place], [place] [id number] Insecticide Mixer: Jorge Richard MD Chloride [Moles/Vol] 101 mmol/L Normal 98-107 [facility] Comment on above: Performed By: #### C P #### [facility] [address] [place] [address] Insecticide Mixer: Jorge Richard MD CO2 [Moles/Vol] 31 mmol/L Normal 20-31 [facility] Comment on above: Performed By: #### C P #### [facility] [address] [place] [address] Insecticide Mixer: Jorge Richard MD Creatinine [Mass/Vol] 0.8 mg/dL Normal 0.5-0.9 [facility] Comment on above: Performed By: #### C P #### [facility] [address] [place] [address] Insecticide Mixer: Jorge Richard MD GFR/1.73 sq M.predicted among non-blacks MDRD (S/P/Bld) [Vol rate/Area] mL/min/{1.73_m2} Normal >60 [facility] Comment on above: Result Comment: [...] secretion. Performed By: #### C P #### [facility] [address] [place] [address] Insecticide Mixer: Jorge Richard MD Glucose [Mass/Vol] 82 mg/dL Normal 70-99 [facility] Comment on above: Performed By: #### C P #### [facility] [address] [place] [address] Insecticide Mixer: Jorge Richard MD Potassium [Moles/Vol] 4.7 mmol/L Normal 3.7-5.3 [facility] Comment on above: Performed By: #### C P #### [facility] [address] [place] [address] Insecticide Mixer: Jorge Richard MD Protein [Mass/Vol] 7.1 g/dL Normal 6.4-8.3 [facility] Comment on above: Performed By: #### C P #### [facility] [address] [place], [place] [address]60[address]83 Insecticide Mixer: Jorge Richard MD Sodium [Moles/Vol] 141 mmol/L Normal 135-144 [facility] Comment on above: Performed By: #### C P #### [facility] [address] [place] [address] Insecticide Mixer: Jorge Richard MD Urea nitrogen [Mass/Vol] 31 mg/dL High 8-23 [facility] Comment on above: Performed By: #### C P #### [facility] [address] [place] [address] [address] [place], [place] [address]2583 Insecticide Mixer: Jorge Richard MD Basic Metabolic Profon 06-13 Anion gap [Moles/Vol] 9 mmol/L Normal 9-17 [facility] Comment on above: Performed By: #### B MP #### [facility] [address] [place] [address] [address], [place] [id number] Insecticide Mixer: Jorge Richard MD BUN/CRE Ratio 51 High 9-20 [facility] Comment on above: Performed By: #### B MP #### [facility] [address] [place], [place] [address]57[address]83 Insecticide Mixer: Jorge Richard MD Calcium [Mass/Vol] 10.0 mg/dL Normal 8.6-10.4 [facility] Comment on above: Performed By: #### B MP #### [facility] [address] [place] [address] Insecticide Mixer: Jorge Richard MD Chloride [Moles/Vol] 100 mmol/L Normal 98-107 [facility] Comment on above: Performed By: #### B MP #### [facility] [address] [place] [address] Insecticide Mixer: Jorge Richard MD CO2 [Moles/Vol] 31 mmol/L Normal 20-31 [facility] Comment on above: Performed By: #### B MP #### [facility] [address] [place] [address] Insecticide Mixer: Jorge Richard MD Creatinine [Mass/Vol] 0.8 mg/dL Normal 0.5-0.9 [facility] Comment on above: Performed By: #### B MP #### [facility] [address] [place] [address] Insecticide Mixer: Jorge Richard MD GFR/1.73 sq M.predicted among non-blacks MDRD (S/P/Bld) [Vol rate/Area] mL/min/{1.73_m2} Normal >60 [facility] Comment on above: Result Comment: [...] secretion. Performed By: #### B MP #### [facility] [address] [place] [address] Insecticide Mixer: Jorge Richard MD Glucose [Mass/Vol] 77 mg/dL Normal 70-99 [facility] Comment on above: Performed By: #### B MP #### [facility] [address] [place] [address] Insecticide Mixer: Jorge Richard MD Potassium [Moles/Vol] 4.5 mmol/L Normal 3.7-5.3 [facility] Comment on above: Performed By: #### B MP #### [facility] [address] [place], [place] [address]83 Insecticide Mixer: Jorge Richard MD Sodium [Moles/Vol] 140 mmol/L Normal 135-144 [facility] Comment on above: Performed By: #### B MP #### [facility] [address] [place] [address] [address] [place], [place] 477[address]83 Insecticide Mixer: Jorge Richard MD Urea nitrogen [Mass/Vol] 41 mg/dL High 8-23 [facility] Comment on above: Performed By: #### B MP #### [address] [place], [place] [id number] Insecticide Mixer: Jorge Richard MD CBCon 04-11-2023 Erythrocyte distribution width (RBC) [Ratio] 13.3 % Normal 11.8-14.4 [facility] Comment on above: Performed By: #### C BC #### [address] [place], [place] [address] Insecticide Mixer: Jorge Richard MD Hematocrit (Bld) [Volume fraction] 42.7 % Normal 36.3-47.1 [facility] Comment on above: Performed By: #### C BC #### [address] [place], [place] [address]83 Insecticide Mixer: Jorge Richard MD Hemoglobin (Bld) [Mass/Vol] 13.6 g/dL Normal 11.9-15.1 [facility] Comment on above: Performed By: #### C BC #### [facility] [address] [place] [address] [address], [place] 15[address]83 Insecticide Mixer: Jorge Richard MD MCH (RBC) [Entitic mass] 32.1 pg Normal 25.2-33.5 [facility] Comment on above: Performed By: #### C BC #### [facility] [address] [place] [address] [address] [place], [place] [id number] Insecticide Mixer: Jorge Richard MD MCHC (RBC) [Mass/Vol] 31.9 g/dL Normal 28.4-34.8 [facility] Comment on above: Performed By: #### C BC #### [facility] [address] [place], [place] [address] Insecticide Mixer: Jorge Richard MD MCV (RBC) [Entitic vol] 100.7 fL Normal 82.6-102.9 [facility] Comment on above: Performed By: #### C BC #### [facility] [address] [place], [place] [address] Insecticide Mixer: Jorge Richard MD NRBC Automated 0.0 per 100 WBC Normal 0.0 [facility] Comment on above: Performed By: #### C BC #### [facility] [address] [place], [place] [address]83 Insecticide Mixer: Jorge Richard MD Platelet mean volume (Bld) [Entitic vol] 9.5 fL Normal 8.1-13.5 [facility] Comment on above: Performed By: #### C BC #### [address] [place] [address] Insecticide Mixer: Jorge Richard MD Platelets (Bld) [#/Vol] 172 10*3/uL Normal 138-453 [facility] Comment on above: Performed By: #### C BC #### [address] [place] [address] Insecticide Mixer: Jorge Richard MD RBC (Bld) [#/Vol] 4.24 10*6/uL Normal 3.95-5.11 [facility] Comment on above: Performed By: #### C BC #### [facility] [address] [place], [place] [address] Insecticide Mixer: Jorge Richard MD WBC (Bld) [#/Vol] 4.6 10*3/uL Normal 3.5-11.3 [facility] Comment on above: Performed By: #### C #### [facility] [address] [place] [address] Insecticide Mixer: Jorge Richard MD Erythrocyte distribution width (RBC) [Ratio] 13.3 % 11.8 - 14.4 % [facility] Hematocrit (Bld) [Volume fraction] 42.7 % 36.3 - 47.1 % [facility] Hemoglobin (Bld) [Mass/Vol] 13.6 g/dL 11.9 - 15.1 g/dL [facility] MCH (RBC) [Entitic mass] 32.1 pg 25.2 - 33.5 pg [facility] MCHC (RBC) [Mass/Vol] 31.9 g/dL 28.4 - 34.8 g/dL [facility] MCV (RBC) [Entitic vol] 100.7 fL 82.6 - 102.9 fL [facility] Nucleated RBC/100 WBC (Bld) [Ratio] 0.0 % 0.0 per 100 WBC [facility] Platelet mean volume (Bld) [Entitic vol] 9.5 fL 8.1 - 13.5 fL [facility] Platelets (Bld) [#/Vol] 172 10*3/uL [facility] RBC (Bld) [#/Vol] 4.24 10*6/uL 3.95 - 5.1 1 m/uL [facility] WBC other (Bld) [#/Vol] 4.6 [facility] Progress Noteson 02-14-2023 Peanut Farmer Authentication Interface Message Text ----- January at 12:08:30 PM ----- ----- Provider: Resident Harsha -- Clinic: [facility] ----- OR EVALUATION Patient presents for evaluation [...] slot becomes available. Legal Guardian: Katerin Meyer- [phone]- Shale Planer Operator Helper email- [email or web address] Visit: OR ----- Signed on , February 14, 2023 at 12:23:14 PM ----- ----- Provider: Gaston Gloria DDS -- Clinic: [facility] ----- Normal [facility] Basic Metabolic Profon 02-13 Anion gap [Moles/Vol] 8 mmol/L Low 9-17 [facility] Comment on above: Performed By: #### B MP, BNP, CDP #### [facility] [address] [place] [address] [place] [address] Insecticide Mixer: Jorge Richard MD BUN/CRE Ratio 41 High 9-20 [facility] Comment on above: Performed By: #### B MP BNP, CDP #### [facility] [address] [place] [address] Insecticide Mixer: Jorge Richard MD Calcium [Mass/Vol] 9.8 mg/dL Normal 8.6-10.4 [facility] Comment on above: Performed By: #### B MP BNP, CDP #### [facility] [address] [place] [address] Insecticide Mixer: Jorge Richard MD Chloride [Moles/Vol] 98 mmol/L Normal 98-107 [facility] Comment on above: Performed By: #### B MP, BNP, CDP #### [facility] [address] [place] [address] Insecticide Mixer: Jorge Richard MD CO2 [Moles/Vol] 32 mmol/L High 20-31 [facility] Comment on above: Performed By: #### B MP, BNP, CDP #### [facility] [address] [place] [address] Insecticide Mixer: Jorge Richard MD Creatinine [Mass/Vol] 0.76 mg/dL Normal 0.50-0.90 [facility] Comment on above: Performed By: #### B MP, BNP, CDP #### [facility] [address] [place] [address] Insecticide Mixer: Jorge Richard MD GFR/1.73 sq M.predicted among non-blacks MDRD (S/P/Bld) [Vol rate/Area] mL/min/{1.73_m2} Normal >60 [facility] Comment on above: Result Comment: [...] By: #### B MP, BNP, CDP #### [facility] [address] [place] [address] Insecticide Mixer: Jorge Richard MD Glucose [Mass/Vol] 81 mg/dL Normal 70-99 [facility] Comment on above: Performed By: #### B MP BNP, CDP #### [facility] [address] [place] [address] Insecticide Mixer: Jorge Richard MD Potassium [Moles/Vol] 4.0 mmol/L Normal 3.7-5.3 [facility] Comment on above: Performed By: #### B MP, BNP, CDP #### [facility] [address] [place] [address] Insecticide Mixer: Jorge Richard MD Sodium [Moles/Vol] 138 mmol/L Normal 135-144 [facility] Comment on above: Performed By: #### B MP, BNP, CDP #### [facility] [address] [place], [place] 5605383 Insecticide Mixer: Jorge Richard MD Urea nitrogen [Mass/Vol] 31 mg/dL High 8-23 [facility] Comment on above: Performed By: #### B MP, BNP, CDP #### [facility] [address] [place] [address] Insecticide Mixer: Jorge Richard MD Brain Natri. Peptideon 02-13 Natriuretic peptide B (Bld) [Mass/Vol] 2964 pg/mL High <300 [facility] Comment on above: Result Comment: An age-independent cutoff point of 300 pg/ml has a 98% negative predictive value excluding acute heart failure. Performed By: #### B MP, BNP, CDP #### [facility] [address] [place] [address] [place] [address] Insecticide Mixer: Jorge Richard MD CBC with Diffon 8 Abs. Basophil 0.06 k/uL Normal 0.00-0.20 [facility] Comment on above: Performed By: #### B MP, BNP, CDP #### [address] [place] [address] Insecticide Mixer: Jorge Richard MD Abs.Imm.Granulocyte <0.03 Normal 0.00-0.30 [facility] Comment on above: Performed By: #### B MP, BNP, CDP #### [facility] [address] [place] [address] Dr. [place], [facility]83 Insecticide Mixer: Jorge Richard MD Abs.Neutrophil (Seg) 3.76 k/uL Normal 1.50-8.10 [facility] Comment on above: Performed By: #### B MP, BNP, CDP #### [facility] [address] [place] [address] [place] [address] Insecticide Mixer: Jorge Richard MD Basophils/100 WBC (Bld) 1 % Normal 0-2 [facility] Comment on above: Performed By: #### B MP, BNP, CDP #### [address] [place], [place] [address]383 Insecticide Mixer: Jorge Richard MD Eosinophils (Bld) [#/Vol] 0.21 10*3/uL Normal 0.00-0.44 [facility] Comment on above: Performed By: #### B MP, BNP, CDP #### [address] [place], [place] 5492583 Insecticide Mixer: Jorge Richard MD Eosinophils/100 WBC (Bld) 3 % Normal 1-4 [facility] Comment on above: Performed By: #### B MP, BNP, CDP #### [address] [place], [place] 654[address]83 Insecticide Mixer: Jorge Richard MD Erythrocyte distribution width (RBC) [Ratio] 13.7 % Normal 11.8-14.4 [facility] Comment on above: Performed By: #### B MP, BNP, CDP #### [address] [place] [address] Insecticide Mixer: Jorge Richard MD Hematocrit (Bld) [Volume fraction] 42.7 % Normal 36.3-47.1 [facility] Comment on above: Performed By: #### B MP, BNP, CDP #### [address] [place], [place] 6794883 Insecticide Mixer: Jorge Richard MD Hemoglobin (Bld) [Mass/Vol] 13.7 g/dL Normal 11.9-15.1 [facility] Comment on above: Performed By: #### B MP, BNP, CDP #### [address] [place] [address] Insecticide Mixer: Jorge Richard MD Immature granulocytes/100 WBC (Bld) 0 % Normal 0 [facility] Comment on above: Performed By: #### B MP, BNP, CDP #### [facility] [address] [place], [place] [address]86683 Insecticide Mixer: Jorge Richard MD Lymphocytes (Bld) [#/Vol] 1.76 10*3/uL Normal 1.10-3.70 [facility] Comment on above: Performed By: #### B MP, BNP, CDP #### [facility] [address] [place], [place] 3505783 Insecticide Mixer: Jorge Richard MD Lymphocytes/100 WBC (Bld) 27 % Normal 24-43 [facility] Comment on above: Performed By: #### B MP, BNP, CDP #### [address] [place], [place] 3417983 Insecticide Mixer: Jorge Richard MD MCH (RBC) [Entitic mass] 31.9 pg Normal 25.2-33.5 [facility] Comment on above: Performed By: #### B MP, BNP, CDP #### [address] [place], [place] 4890483 Insecticide Mixer: Jorge Richard MD MCHC (RBC) [Mass/Vol] 32.1 g/dL Normal 28.4-34.8 [facility] Comment on above: Performed By: #### B MP, BNP, CDP #### [address] [place], [facility]83 Insecticide Mixer: Jorge Richard MD MCV (RBC) [Entitic vol] 99.5 fL Normal 82.6-102.9 [facility] Comment on above: Performed By: #### B MP, BNP, CDP #### [address] [place] [address] Insecticide Mixer: Jorge Richard MD Monocytes (Bld) [#/Vol] 0.62 10*3/uL Normal 0.10-1.20 [facility] Comment on above: Performed By: #### B MP, BNP, CDP #### [facility] [address] [place], [place] 2733783 Insecticide Mixer: Jorge Richard MD Monocytes/100 WBC (Bld) 10 % Normal 3-12 [facility] Comment on above: Performed By: #### B MP, BNP, CDP #### [facility] [address] [place], [place] 47[address]83 Insecticide Mixer: Jorge Richard MD Neutrophil (Seg) 59 % Normal 36-65 [facility] Comment on above: Performed By: #### B MP, BNP, CDP #### [facility] [address] [place], [place] 2621783 Insecticide Mixer: Jorge Richard MD NRBC Automated 0.0 per 100 WBC Normal 0.0 [facility] Comment on above: Performed By: #### B MP, BNP, CDP #### [address] [place], [place] [address]800883 Insecticide Mixer: Jorge Richard MD Platelet mean volume (Bld) [Entitic vol] 9.5 fL Normal 8.1-13.5 [facility] Comment on above: Performed By: #### B MP, BNP, CDP #### [address] [place], [place] [address]684183 Insecticide Mixer: Jorge Richard MD Platelets (Bld) [#/Vol] 175 10*3/uL Normal 138-453 [facility] Comment on above: Performed By: #### B MP, BNP, CDP #### [address] [place] [address] Insecticide Mixer: Jorge Richard MD RBC (Bld) [#/Vol] 4.29 10*6/uL Normal 3.95-5.11 [facility] Comment on above: Performed By: #### B MP, BNP, CDP #### [address] [place] [address] Insecticide Mixer: Jorge Richard MD WBC (Bld) [#/Vol] 6.4 10*3/uL Normal 3.5-11.3 [facility] Comment on above: Performed By: #### B MP, BNP, CDP #### [facility] [address] [place] [address] Insecticide Mixer: Jorge Richard MD Basic Metabolic Panelon 04-2 Anion gap [Moles/Vol] 9 mmol/L 9 - 17 mmol/L [facility] Calcium [Mass/Vol] 10.0 mg/dL 8.6 - 10. 4 mg/dL [facility] Chloride [Moles/Vol] 97 mmol/L Low 98 - 10 7 mmol/L [facility] CO2 [Moles/Vol] 30 mmol/L 20 - 31 mmol/L [facility] Creatinine [Mass/Vol] 0.83 mg/dL 0.50 - 0.90 mg/dL [facility] GFR/1.73 sq M.predicted MDRD (S/P/Bld) [Vol rate/Area] - PINF [facility] Comment on above: These results are [...] 114 mg/dL High 70 - 99 mg/dL [facility] Interpretation and review of laboratory results Abnormal [facility] Potassium [Moles/Vol] 4.1 mmol/L 3.7 - 5.3 mmol/L [facility] Sodium [Moles/Vol] 136 mmol/L 135 - 144 mmol/L [facility] Urea nitrogen [Mass/Vol] 34 mg/dL High 8 - 23 mg/dL [facility] Urea nitrogen/Creatinine (Bld) [Mass ratio] 41 High 9 - 20 [facility] Basic Metabolic Profon 12-13 Anion gap [Moles/Vol] 9 mmol/L Normal 9-17 [facility] Comment on above: Performed By: #### B MP #### [facility] [address] [place], [place] 2499383 Insecticide Mixer: Jorge Richard MD BUN/CRE Ratio 41 High 9-20 [facility] Comment on above: Performed By: #### B MP #### [facility] [address] [place], [place] [id number] Insecticide Mixer: Jorge Richard MD Calcium [Mass/Vol] 10.0 mg/dL Normal 8.6-10.4 [facility] Comment on above: Performed By: #### B MP #### [facility] [address] [place], [place] 2093183 Insecticide Mixer: Jorge Richard MD Chloride [Moles/Vol] 97 mmol/L Low 98-107 [facility] Comment on above: Performed By: #### B MP #### [facility] [address] [place], [place] 0429[address] Insecticide Mixer: Jorge Richard MD CO2 [Moles/Vol] 30 mmol/L Normal 20-31 [facility] Comment on above: Performed By: #### B MP #### [facility] [address] [place], [place] 5037383 Insecticide Mixer: Jorge Richard MD Creatinine [Mass/Vol] 0.83 mg/dL Normal 0.50-0.90 [facility] Comment on above: Performed By: #### B MP #### [facility] [address] [place], [place] 897[address]83 Insecticide Mixer: Jorge Richard MD GFR/1.73 sq M.predicted among non-blacks MDRD (S/P/Bld) [Vol rate/Area] mL/min/{1.73_m2} Normal >60 [facility] Comment on above: Result Comment: [...] secretion. Performed By: #### B MP #### [facility] [address] [place], [place] [id number] Insecticide Mixer: Jorge Richard MD Glucose [Mass/Vol] 114 mg/dL High 70-99 [facility] Comment on above: Performed By: #### B MP #### [address] [place] [address] Insecticide Mixer: Jorge Richard MD Potassium [Moles/Vol] 4.1 mmol/L Normal 3.7-5.3 [facility] Comment on above: Performed By: #### B MP #### [address] [place] [address] Insecticide Mixer: Jorge Richard MD Sodium [Moles/Vol] 136 mmol/L Normal 135-144 [facility] Comment on above: Performed By: #### B MP #### [facility] [address] [place] [address] [place] [address] Insecticide Mixer: Jorge Richard MD Urea nitrogen [Mass/Vol] 34 mg/dL High 8-23 [facility] Comment on above: Performed By: #### B MP #### [facility] [address] [place] [address] [place] [address] Insecticide Mixer: Jorge Richard MD CBCon 09-27-2022 Erythrocyte distribution width (RBC) [Ratio] 13.3 % Normal 11.8-14.4 [facility] Comment on above: Performed By: #### D IGC, CBC #### [facility] [address] [place], [place] [id number] Insecticide Mixer: Jorge Richard MD Hematocrit (Bld) [Volume fraction] 44.5 % Normal 36.3-47.1 [facility] Comment on above: Performed By: #### D IGC, CBC #### [address] [place], [place] [id number] Insecticide Mixer: Jorge Richard MD Hemoglobin (Bld) [Mass/Vol] 14.6 g/dL Normal 11.9-15.1 [facility] Comment on above: Performed By: #### D IGC, CBC #### [address] [place], [place] [id number] Insecticide Mixer: Jorge Richard MD MCH (RBC) [Entitic mass] 33.5 pg Normal 25.2-33.5 [facility] Comment on above: Performed By: #### D IGC, CBC #### [address] [place], [place] [id number] Insecticide Mixer: Jorge Richard MD MCHC (RBC) [Mass/Vol] 32.8 g/dL Normal 28.4-34.8 [facility] Comment on above: Performed By: #### D IGC, CBC #### [address] [place] [address] Insecticide Mixer: Jorge Richard MD MCV (RBC) [Entitic vol] 102.1 fL Normal 82.6-102.9 [facility] Comment on above: Performed By: #### D IGC, CBC #### [address] [place] [address] Insecticide Mixer: Jorge Richard MD NRBC Automated 0.0 per 100 WBC Normal 0.0 [facility] Comment on above: Performed By: #### D IGC, CBC #### [address] [place] [address] Insecticide Mixer: Jorge Richard MD Platelet mean volume (Bld) [Entitic vol] 9.6 fL Normal 8.1-13.5 [facility] Comment on above: Performed By: #### D IGC, CBC #### [facility] [address] [place] [address] Insecticide Mixer: Jorge Richard MD Platelets (Bld) [#/Vol] 175 10*3/uL Normal 138-453 [facility] Comment on above: Performed By: #### D IGC, CBC #### [facility] [address] [place] [address] Insecticide Mixer: Jorge Richard MD RBC (Bld) [#/Vol] 4.36 10*6/uL Normal 3.95-5.11 [facility] Comment on above: Performed By: #### D IGC, CBC #### [facility] [address] [place], [place] [address] Insecticide Mixer: Jorge Richard MD WBC (Bld) [#/Vol] 5.6 10*3/uL Normal 3.5-11.3 [facility] Comment on above: Performed By: #### D IGC, CBC #### [facility] [address] [place] [address] Insecticide Mixer: Jorge Richard MD Hematocrit (Bld) [Volume fraction] 44.5 % 36.3 - 47.1 % [facility] Hemoglobin (Bld) [Mass/Vol] 14.6 g/dL 11.9 - 15.1 g/dL [facility] MCH (RBC) [Entitic mass] 33.5 pg 25.2 - 33.5 pg [facility] MCHC (RBC) [Mass/Vol] 32.8 g/dL 28.4 - 34.8 g/dL [facility] MCV (RBC) [Entitic vol] 102.1 fL 82.6 - 102.9 fL [facility] NRBC Automated 0.0 0.0 per 100 WBC [facility] Platelet distribution width (Bld) [Ratio] 13.3 % 11.8 - 14.4 % [facility] Platelet mean volume (Bld) [Entitic vol] 9.6 fL 8.1 - 13.5 fL [facility] Platelets (Bld) [#/Vol] 175 10*3/uL [facility] RBC (Bld) [#/Vol] 4.36 10*6/uL 3.95 - 5.1 1 m/uL [facility] WBC (Bld) [#/Vol] 5.6 10*3/uL [facility] Digoxinon 09-27-2022 Digoxin [Mass/Vol] 0.5 ng/mL Normal 0.5-2.0 [facility] Comment on above: Result Comment: Digoxin Reference Range: Heart Failure 0.5-0.9 Atrial Fibrillation 0.8-2.0 Performed By: #### D IGC, CBC #### [facility] [address] [place] [address] [place] [address] Insecticide Mixer: Jorge Richard MD Digoxin Levelon 09-27-2022 Digoxin Lvl 0.5 ng/mL 0.5 - 2.0 ng/mL [facility] Comment on above: Digoxin Reference Range: Heart Failure 0.5-0.9 Atrial Fibrillation 0.8-2.0 [facility] Comprehensive Metabolic Pane barry 09-19-2022 Albumin [Mass/Vol] 4.5 g/dL 3.5 - 5.2 g/dL [facility] Albumin/Globulin [Mass ratio] 1.2 {ratio} 1.0 - 2.5 [facility] ALP (Bld) [Catalytic activity/Vol] 99 U/L 35 - 104 U/L [facility] ALT [Catalytic activity/Vol] 22 U/L 5 - 33 U/L [facility] Anion gap [Moles/Vol] 10 mmol/L 9 - 17 mmol/L [facility] AST [Catalytic activity/Vol] 25 U/L NINF - 32 U/L [facility] Bilirubin [Mass/Vol] 0.6 mg/dL 0.3 - 1 .2 mg/dL [facility] Calcium [Mass/Vol] 10.2 mg/dL 8.6 - 10. 4 mg/dL [facility] Chloride [Moles/Vol] 99 mmol/L 98 - 10 7 mmol/L [facility] CO2 [Moles/Vol] 30 mmol/L 20 - 31 mmol/L [facility] Creatinine [Mass/Vol] 0.77 mg/dL 0.50 - 0.90 mg/dL [facility] GFR/1.73 sq M.predicted MDRD (S/P/Bld) [Vol rate/Area] - PINF [facility] Comment on above: Effective May 28, [...] 101 mg/dL High 70 - 99 mg/dL [facility] Interpretation and review of laboratory results Abnormal [facility] Potassium [Moles/Vol] 5.1 mmol/L 3.7 - 5.3 mmol/L [facility] Protein [Mass/Vol] 8.2 g/dL 6.4 - 8.3 g/dL [facility] Sodium [Moles/Vol] 139 mmol/L 135 - 144 mmol/L [facility] Urea nitrogen (BldV) [Mass/Vol] 28 mg/dL High 8 - 23 mg/dL [facility] Urea nitrogen/Creatinine (Bld) [Mass ratio] 36 High 9 - 20 [facility] Basic Metabolic Panelon 10-2 Anion gap [Moles/Vol] 6 mmol/L Low 9 - 17 mmol/L [facility] Calcium [Mass/Vol] 9.4 mg/dL 8.6 - 10. 4 mg/dL [facility] Chloride [Moles/Vol] 100 mmol/L 98 - 10 7 mmol/L [facility] CO2 [Moles/Vol] 30 mmol/L 20 - 31 mmol/L [facility] Creatinine [Mass/Vol] 0.7 mg/dL 0.50 - 0.90 mg/dL [facility] [employer] GFR/1.73 sq M.predicted MDRD (S/P/Bld) [Vol rate/Area] - PINF [facility] [employer] Comment on above: Effective May 28, 2022 [...] 109 mg/dL High 70 - 99 mg/dL [facility] [employer] Interpretation and review of laboratory results Abnormal [facility] Potassium [Moles/Vol] 4.5 mmol/L 3.7 - 5.3 mmol/L [facility] Sodium [Moles/Vol] 136 mmol/L 135 - 144 mmol/L [facility] Urea nitrogen (BldV) [Mass/Vol] 25 mg/dL High 8 - 23 mg/dL [facility] [employer] Urea nitrogen/Creatinine (Bld) [Mass ratio] 36 High 9 - 20 [facility] [employer] Basic Metabolic Panelon 09-0 Anion gap [Moles/Vol] 9 mmol/L 9 - 17 mmol/L [facility] Calcium [Mass/Vol] 9.9 mg/dL 8.6 - 10. 4 mg/dL [facility] [employer] Chloride [Moles/Vol] 99 mmol/L 98 - 10 7 mmol/L [facility] [employer] CO2 [Moles/Vol] 31 mmol/L 20 - 31 mmol/L [facility] [employer] Creatinine [Mass/Vol] 0.74 mg/dL 0.5 - 0.9 mg/dL [facility] [employer] GFR >60 60 - PI NF mL/min [facility] GFR Non- >60 60 - PINF mL/min [facility] Glucose [Mass/Vol] 85 mg/dL 70 - 99 mg/dL [facility] Potassium [Moles/Vol] 4.3 mmol/L 3.7 - 5.3 mmol/L [facility] Sodium [Moles/Vol] 139 mmol/L 135 - 144 mmol/L [facility] Urea nitrogen (BldV) [Mass/Vol] 26 mg/dL High 8 - 23 mg/dL [facility] Urea nitrogen/Creatinine (Bld) [Mass ratio] 35 High 9 - 20 [facility] Brain Natriuretic Peptideon 05-02-2022 Natriuretic peptide B (Bld) [Mass/Vol] 2979 pg/mL High NINF - 300 pg/mL [facility] Comment on above: An age-independent cutoff point of 300 pg/ml has a 98% negative predictive value excluding acute heart failure. CBCon 05-02-2022 Hematocrit (Bld) [Volume fraction] 41.1 % 36.3 - 47.1 % [facility] Hemoglobin (Bld) [Mass/Vol] 13.0 g/dL 11.9 - 15.1 g/dL [facility] MCH (RBC) [Entitic mass] 31.1 pg 25.2 - 33.5 pg [facility] MCHC (RBC) [Mass/Vol] 31.6 g/dL 28.4 - 34.8 g/dL [facility] MCV (RBC) [Entitic vol] 98.3 fL 82.6 - 102.9 fL [facility] NRBC Automated 0.0 0.0 per 100 WBC [facility] Platelet distribution width (Bld) [Ratio] 12.7 % 11.8 - 14.4 % [facility] Platelet mean volume (Bld) [Entitic vol] 9.6 fL 8.1 - 13.5 fL [facility] Platelets (Bld) [#/Vol] 184 10*3/uL [facility] RBC (Bld) [#/Vol] 4.18 10*6/uL 3.95 - 5.1 1 m/uL [facility] WBC (Bld) [#/Vol] 6.1 10*3/uL [facility] Digoxin Levelon 05-02-2022 Digoxin Lvl 1.5 ng/mL 0.5 - 2 ng/mL [facility] Comment on above: Digoxin Reference Range: Heart Failure 0.5-0.9 Atrial Fibrillation 0.8-2.0 Laboratory - Chemistry and C hemistry - challengeon 05-02-2022 GFR/1.73 sq M.predicted MDRD (S/P/Bld) [Vol rate/Area] [facility] Comment on above: Average GFR for 60-6 9 years old: 85 mL/min/1.73sq m Chronic Kidney Disease: <60 mL/min/1.73sq m Kidney failure: <15 mL/min/1.73sq m eGFR calculated using average adult body mass. Additional eGFR calculator available at: http://www.Mumboe/multiple_crcl_2012.htm Stage 1: Some kidney damage normal GFR Stage 2: Mild kidney damage GFR 60-89 Stage 3: Moderate kidney damage GFR 30-59 Stage 4: Severe kidney damage GFR 15-29 Stage 5: Severe kidney damage GFR <15 ESRD - chronic treatment by dialysis or transplant No Panel Informationon 05-02 Interpretation and review of laboratory results Abnormal [facility] CBCon 04-12-2022 Hematocrit (Bld) [Volume fraction] 39.8 % 36.3 - 47.1 % [facility] Hemoglobin (Bld) [Mass/Vol] 12.5 g/dL 11.9 - 15.1 g/dL [facility] MCH (RBC) [Entitic mass] 31.6 pg 25.2 - 33.5 pg [facility] MCHC (RBC) [Mass/Vol] 31.4 g/dL 28.4 - 34.8 g/dL [facility] MCV (RBC) [Entitic vol] 100.5 fL 82.6 - 102.9 fL [facility] NRBC Automated 0.0 0.0 per 100 WBC [facility] Platelet distribution width (Bld) [Ratio] 13.0 % 11.8 - 14.4 % [facility] Platelet mean volume (Bld) [Entitic vol] 9.1 fL 8.1 - 13.5 fL [facility] Platelets (Bld) [#/Vol] 174 10*3/uL [facility] RBC (Bld) [#/Vol] 3.96 10*6/uL 3.95 - 5.1 1 m/uL [facility] WBC (Bld) [#/Vol] 5.5 10*3/uL [facility] CHANG DIGITAL SCREEN BILA TERALon 2022 No [...] to the patient regarding the results. [employer] recommends annual mammograms for women 40 years and older. [facility] EXAMINATION: SCREENING DIGITAL BILATERAL MAMMOGRAM WITH TOMOSYNTHESIS, 2022 TECHNIQUE: Screening mammography was performed with tomosynthesis including MLO and CC views of the bilateral breasts. Computer aided detection was used for the interpretation of this exam. COMPARISON: 26 Dec 2020; 04 December 2018 HISTORY: Screening. Screening examination. Limited history is the patient is from a skilled nursing. FINDINGS: The breasts are heterogeneously dense with anterior breast parenchyma extremely dense which can limit assessment. No skin thickening, nipple contour changes, malignant type microcalcifications , areas of architectural distortion, or significant interval changes are noted. [facility] Radiology Study observation (narrative) [facility] Work Phone: [facility] CHANG DIGITAL SCREEN BILA TERALOrdered By: Kerry Felix on 2022 [facility] Work Phone: Basic Metabolic Panelon 04-2 Anion gap [Moles/Vol] 8 mmol/L Low 9 - 17 mmol/L [facility] Calcium [Mass/Vol] 9.7 mg/dL 8.6 - 10. 4 mg/dL [facility] Chloride [Moles/Vol] 98 mmol/L 98 - 10 7 mmol/L [facility] CO2 [Moles/Vol] 33 mmol/L High 20 - 31 mmol/L [facility] Creatinine [Mass/Vol] 0.64 mg/dL 0.50 - 0.90 mg/dL [facility] GFR >60 >60 mL/min [facility] GFR Non- >60 >60 mL/min [facility] Glucose [Mass/Vol] 74 mg/dL 70 - 99 mg/dL [facility] Interpretation and review of laboratory results Abnormal [facility] Potassium [Moles/Vol] 4.0 mmol/L 3.7 - 5.3 mmol/L [facility] Sodium [Moles/Vol] 139 mmol/L 135 - 144 mmol/L [facility] Urea nitrogen (BldV) [Mass/Vol] 26 mg/dL High 8 - 23 mg/dL [facility] Urea nitrogen/Creatinine (Bld) [Mass ratio] 41 High [facility] Laboratory - Chemistry and C hemistry - challengeon 12-22-2021 GFR/1.73 sq M.predicted MDRD (S/P/Bld) [Vol rate/Area] [facility] Comment on above: Average GFR for 60-6 9 years old: 85 mL/min/1.73sq m Chronic Kidney Disease: <60 mL/min/1.73sq m Kidney failure: <15 mL/min/1.73sq m eGFR calculated using average adult body mass. Additional eGFR calculator available at: http://www.TOTEMS ([employer]LocPlanet/multiple_crcl_2012.htm Stage 1: Some kidney damage normal GFR Stage 2: Mild kidney damage GFR 60-89 Stage 3: Moderate kidney damage GFR 30-59 Stage 4: Severe kidney damage GFR 15-29 Stage 5: Severe kidney damage GFR <15 ESRD - chronic treatment by dialysis or transplant CBCon 09-06-2021 Hematocrit (Bld) [Volume fraction] 40.3 % 36.3 - 47.1 % [facility] Hemoglobin.gastrointes tinal spec 1 Ql (Stl) 12.8 g/dL 11.9 - 15.1 g/dL [facility] MCH (RBC) [Entitic mass] 32.2 pg 25.2 - 33.5 pg [facility] MCHC (RBC) [Mass/Vol] 31.8 g/dL 28.4 - 34.8 g/dL [facility] MCV (RBC) [Entitic vol] 101.5 fL 82.6 - 102.9 fL [facility] NRBC Automated 0.0 0.0 per 100 WBC [facility] Platelet distribution width (Bld) [Ratio] 13.6 % 11.8 - 14.4 % [facility] Platelet mean volume (Bld) [Entitic vol] 9.4 fL 8.1 - 13.5 fL [facility] Platelets (Bld) [#/Vol] 193 10*3/uL [facility] RBC (Bld) [#/Vol] 3.97 10*6/uL 3.95 - 5.1 1 m/uL [facility] WBC (Bld) [#/Vol] 4.7 10*3/uL [facility] Comprehensive Metabolic Pane barry 09-06-2021 Albumin [Mass/Vol] 4 g/dL 3.5 - 5.2 g/dL [facility] Albumin/Globulin [Mass ratio] 1.1 {ratio} [facility] ALP (Bld) [Catalytic activity/Vol] 78 U/L 35 - 104 U/L [facility] ALT [Catalytic activity/Vol] 20 U/L 5 - 33 U/L [facility] Anion gap [Moles/Vol] 13 mmol/L 9 - 17 mmol/L [facility] AST [Catalytic activity/Vol] 20 U/L <32 [facility] Bilirubin [Mass/Vol] 0.53 mg/dL 0.3 - 1 .2 mg/dL [facility] Calcium [Mass/Vol] 9.5 mg/dL 8.6 - 10. 4 mg/dL [facility] Chloride [Moles/Vol] 100 mmol/L 98 - 10 7 mmol/L [facility] CO2 [Moles/Vol] 29 mmol/L 20 - 31 mmol/L [facility] Creatinine [Mass/Vol] 0.72 mg/dL 0.50 - 0.90 mg/dL [facility] Free PSA/Total PSA [Mass fraction] 7.7 g/dL 6.4 - 8.3 g/dL [facility] GFR >60 >60 mL/min [facility] GFR Non- >60 >60 mL/min [facility] Glucose [Mass/Vol] 72 mg/dL 70 - 99 mg/dL [facility] Interpretation and review of laboratory results Abnormal [facility] Potassium [Moles/Vol] 3.9 mmol/L 3.7 - 5.3 mmol/L [facility] Sodium [Moles/Vol] 142 mmol/L 135 - 144 mmol/L [facility] Urea nitrogen (BldV) [Mass/Vol] 29 mg/dL High 8 - 23 mg/dL [facility] Urea nitrogen/Creatinine (Bld) [Mass ratio] 40 High [facility] Laboratory - Chemistry and C hemistry - challengeon 09-06-2021 GFR/1.73 sq M.predicted MDRD (S/P/Bld) [Vol rate/Area] [facility] Comment on above: Average GFR for 60-6 9 years old: 85 mL/min/1.73sq m Chronic Kidney Disease: <60 mL/min/1.73sq m Kidney failure: <15 mL/min/1.73sq m eGFR calculated using average adult body mass. Additional eGFR calculator available at: http://www.Mumboe/multiple_crcl_2012.htm Stage 1: Some kidney damage normal GFR Stage 2: Mild kidney damage GFR 60-89 Stage 3: Moderate kidney damage GFR 30-59 Stage 4: Severe kidney damage GFR 15-29 Stage 5: Severe kidney damage GFR <15 ESRD - chronic treatment by dialysis or transplant Basic Metabolic PanelOrdered By: Ara Pineda on 06-14-2021 Anion gap [Moles/Vol] 11 mmol/L 9 - 17 mmol/L [facility] [employer] Work Phone: Calcium [Mass/Vol] 9.1 mg/dL 8.6 - 10. 4 mg/dL [facility] Phone: Chloride [Moles/Vol] 96 mmol/L Low 98 - 10 7 mmol/L [facility] Phone: CO2 [Moles/Vol] 30 mmol/L 20 - 31 mmol/L [facility] Phone: Creatinine [Mass/Vol] 0.62 mg/dL 0.50 - 0.90 mg/dL [facility] Work Phone: GFR >60 >60 mL/min [facility] [employer] Phone: GFR Non- >60 >60 mL/min [facility] Phone: Glucose [Mass/Vol] 111 mg/dL High 70 - 99 mg/dL [facility] [employer] Phone: Interpretation and review of laboratory results Abnormal [facility] Phone: Potassium [Moles/Vol] 3.9 mmol/L 3.7 - 5.3 mmol/L [facility] Phone: Sodium [Moles/Vol] 137 mmol/L 135 - 144 mmol/L [facility] Phone: Urea nitrogen (BldV) [Mass/Vol] 25 mg/dL High 8 - 23 mg/dL [facility] Phone: Urea nitrogen/Creatinine (Bld) [Mass ratio] 40 High [facility] Phone: [facility] Phone: Laboratory - Chemistry and C hemistry - challengeOrdered By: Ara Pineda on 06-14-2021 GFR/1.73 sq M.predicted MDRD (S/P/Bld) [Vol rate/Area] [facility] Phone: Comment on above: Average GFR for 60-6 9 years old: 85 mL/min/1.73sq m Chronic Kidney Disease: <60 mL/min/1.73sq m Kidney failure: <15 mL/min/1.73sq m eGFR calculated using average adult body mass. Additional eGFR calculator available at: http://www.TOTEMS (formerly [employer]itrogram[employer]com/multiple_crcl_2012.htm Stage 1: Some kidney damage normal GFR [...] screening mammogram in 1 year is advised. [facility] Phone: EXAMINATION: SCREENING DIGITAL BILATERAL MAMMOGRAM WITH [...] distortion, or significant interval changes are noted. [facility] Phone: Joni, pn Incoming Radiant Results From [employer] - 12/26/2020 2:29 PM EDT EXAMINATION: SCREENING [...] screening mammogram in 1 year is advised. [employer] Work Phone: Microscopic UrinalysisOrdere d By: Scooter Dhillon on 12-21-2020 - [facility] Work Phone: Amorphous, UA NOT REPORTED None [employer] [facility] Work Phone: Bacteria, UA TRACE Abnormal None [facility] Work Phone: Casts UA NOT REPORTED /LPF [facility] Work Phone: Crystals, UA NOT REPORTED None /HPF [facility] Work Phone: Epithelial Cells UA 0 TO 2 [facility] Work Phone: Interpretation and review of laboratory results Abnormal [facility] Work Phone: Mucus, UA NOT REPORTED None [facility] Work Phone: Other Observations UA NOT REPORTED NOT REQ. M [facility] [place] Work Phone: RBC, UA 0 TO 2 [facility] Work Phone: Renal Epithelial, UA NOT REPORTED 0 /HPF [facility] [place] [employer] Work Phone: Trichomonas, UA NOT REPORTED None [facility] Work Phone: WBC, UA 2 TO 5 [facility] Work Phone: Yeast, UA NOT REPORTED None [facility] Work Phone: UrinalysisOrdered By: Scooter Dhillon on 12-21-2020 Bilirubin Urine Negative NEGATIVE [facility] Work Phone: Color, UA YELLOW YELLOW [facility] Work Phone: Glucose, Ur Negative NEGATIVE [employer] Work Phone: Interpretation and review of laboratory results Abnormal [facility] [place] Work Phone: Ketones Ql (U) Negative NEGATIVE [facility] Work Phone: Leukocyte esterase Test strip Ql (U) TRACE Abnormal NEGATIVE [facility] Work Phone: Nitrite, Urine Negative NEGATIVE [facility] Work Phone: pH, UA 6.0 [facility] [employer] Work Phone: Protein, UA Negative NEGATIVE [facility] Work Phone: Specific Exchange, UA 1.025 High [facility] [employer] Work Phone: Turbidity UA CLEAR CLEAR [facility] Work Phone: Urinalysis Comments NOT REPORTED [facility] [employer] Work Phone: Urine Hgb Negative NEGATIVE [facility] Work Phone: Urobilinogen, Urine Normal Normal [facility] Work Phone: Microscopic Urinalysison Amorphous, UA NOT REPORTED None [facility] Work Phone: Bacteria, UA 3+ Abnormal None [facility] Work Phone: Casts UA NOT REPORTED /LPF [facility] [place] [employer] Work Phone: Crystals, UA NOT REPORTED None /HPF [facility] Work Phone: Epithelial Cells UA 2 TO 5 [facility] Work Phone: Interpretation and review of laboratory results Abnormal [facility] [employer] Work Phone: Mucus, UA NOT REPORTED None [facility] [place] [employer] Work Phone: Other Observations UA NOT REPORTED NOT REQ. M [facility] [employer] Work Phone: RBC (U) [#/Vol] 0 TO 2 [facility] Work Phone: Renal Epithelial, UA NOT REPORTED 0 /HPF [facility] [place] [employer] Work Phone: Trichomonas, UA NOT REPORTED None [facility] [employer] Work Phone: WBC, UA 50 TO 100 [facility] Work Phone: Yeast, UA NOT REPORTED None [facility] Work Phone: - [facility] Work Phone: Urinalysison 12-07-2020 Bilirubin Urine Negative NEGATIVE [facility] [facility] Work Phone: Color, UA YELLOW YELLOW [facility] Work Phone: Glucose, Ur Negative NEGATIVE [facility] Work Phone: Interpretation and review of laboratory results Abnormal [facility] Work Phone: Ketones Ql (U) Negative NEGATIVE [facility] Work Phone: Leukocyte esterase Test strip Ql (U) SMALL Abnormal NEGATIVE [facility] Work Phone: Nitrite, Urine Positive Abnormal NEGATIVE [facility] Work Phone: pH, UA 6.0 [facility] [place] [employer] Work Phone: Protein (U) [Mass/Vol] TRACE Abnormal NEGATIVE [facility] Work Phone: Specific Exchange, UA 1.025 High [facility] [employer] Work Phone: Turbidity UA CLOUDY Abnormal CLEAR [facility] Work Phone: Urinalysis Comments NOT REPORTED [facility] [employer] [employer] Work Phone: Urine Hgb TRACE Abnormal NEGATIVE [facility] Work Phone: Urobilinogen, Urine Normal Normal [facility] Work Phone: Basic Metabolic Panelon - Anion gap [Moles/Vol] 10 mmol/L 9 - 17 mmol/L [facility] [place] [employer] Work Phone: Calcium [Mass/Vol] 9.4 mg/dL 8.6 - 10. 4 mg/dL [facility] Work Phone: Chloride [Moles/Vol] 95 mmol/L Low 98 - 10 7 mmol/L [facility] Phone: CO2 [Moles/Vol] 32 mmol/L High 20 - 31 mmol/L [facility] Phone: Creatinine [Mass/Vol] 0.93 mg/dL High 0.50 - 0.90 mg/dL [facility] Phone: GFR >60 >60 mL/min [employer] Phone: GFR Non- >60 >60 mL/min [facility] Phone: Glucose [Mass/Vol] 90 mg/dL 70 - 99 mg/dL [facility] [employer] Phone: Interpretation and review of laboratory results Abnormal [facility] Phone: Potassium [Moles/Vol] 4.3 mmol/L 3.7 - 5.3 mmol/L [facility] Phone: Sodium [Moles/Vol] 137 mmol/L 135 - 144 mmol/L [facility] Phone: Urea nitrogen (BldV) [Mass/Vol] 31 mg/dL High 8 - 23 mg/dL [facility] Phone: Urea nitrogen/Creatinine (Bld) [Mass ratio] 33 High [facility] Phone: Lipid panel - fastingon 04-0 Cholesterol [Mass/Vol] 99 mg/dL <200 [employer] Phone: Comment on above: Cholesterol Guidelines: <200 Desirable 200-240 Borderline >240 Undesirable Cholesterol in HDL [Mass/Vol] 37 mg/dL Low >40 [facility] Phone: Comment on above: HDL Guidelines: <40 Undesirable 40-59 Borderline >59 Desirable Cholesterol in LDL [Mass/Vol] 55 mg/dL 0 - 130 mg/dL [facility] Phone: Comment on above: LDL Guidelines: <100 Desirable 100-129 Near to/above Desirable 130-159 Borderline >159 Undesirable Direct (measured) LDL and calculated LDL are not interchangeable tests. Cholesterol in VLDL [Mass/Vol] NOT REPORTED 1 - 30 mg/dL [facility] Phone: Cholesterol.total/Chol esterol in HDL [Mass ratio] 2.7 {ratio} <5 [facility] Phone: Interpretation and review of laboratory results Abnormal [facility] Phone: Triglyceride [Mass/Vol] 37 mg/dL <150 [facility] Phone: Comment on above: Triglyceride Guidelines: <150 Desirable 150-199 Borderline 200-499 High >499 Very high Based on AHA Guidelines for fasting triglyceride, May 2012. Otheron 12-02-2020 GFR/1.73 sq M.predicted MDRD (S/P/Bld) [Vol rate/Area] [facility] Phone: Comment on above: Average GFR for 60-6 9 years old: 85 mL/min/1.73sq m Chronic Kidney Disease: <60 mL/min/1.73sq m Kidney failure: <15 mL/min/1.73sq m eGFR calculated using average adult body mass. Additional eGFR calculator available at: http://www.Mumboe/multiple_crcl_2012.htm Stage 1: Some kidney damage normal GFR Stage 2: Mild kidney damage GFR 60-89 Stage 3: Moderate kidney damage GFR 30-59 Stage 4: Severe kidney damage GFR 15-29 Stage 5: Severe kidney damage GFR <15 ESRD - chronic treatment by dialysis or transplant Basic Metabolic Panelon -0 Anion gap [Moles/Vol] 7 mmol/L Low 9 - 17 mmol/L [facility] Phone: Calcium [Mass/Vol] 9.1 mg/dL 8.6 - 10. 4 mg/dL [facility] Phone: Chloride [Moles/Vol] 97 mmol/L Low 98 - 10 7 mmol/L [facility] Phone: CO2 [Moles/Vol] 30 mmol/L 20 - 31 mmol/L [facility] Phone: Creatinine [Mass/Vol] 0.9 mg/dL 0.50 - 0.90 mg/dL [facility] Phone: GFR >60 >60 mL/min [employer] Phone: GFR Non- >60 >60 mL/min [facility] Phone: Glucose [Mass/Vol] 83 mg/dL 70 - 99 mg/dL [facility] Phone: Interpretation and review of laboratory results Abnormal [facility] Phone: Potassium [Moles/Vol] 4.3 mmol/L 3.7 - 5.3 mmol/L [facility] Phone: Sodium [Moles/Vol] 134 mmol/L Low 135 - 144 mmol/L [facility] Phone: Urea nitrogen (BldV) [Mass/Vol] 33 mg/dL High 8 - 23 mg/dL [facility] Phone: Urea nitrogen/Creatinine (Bld) [Mass ratio] 37 High [facility] Phone: Otheron 12-01-2020 GFR/1.73 sq M.predicted MDRD (S/P/Bld) [Vol rate/Area] [facility] Phone: Comment on above: Stage 1: Some [...] body mass. Additional eGFR calculator available at: http://www.TOTEMS (formerly Nitrogram).LocPlanet/multiple_crcl_2012.htm APTTon 11-30-2020 aPTT Coag (Bld) [Time] 42.1 s High [employer] Phone: Comment on above: IV Heparin Therapy Range: 62.0-94.0 Interpretation and review of laboratory results Abnormal [facility] Phone: Brain Natriuretic Peptideon 11-30-2020 Natriuretic peptide B (Bld) [Mass/Vol] Pro-BNP Reference Range: [facility] Phone: Comment on above: Rule Out: <300 Chao Zone: Age <50 300-450 Age 50-75 300-900 Age >75 300-1800 Usually represents mild to moderate HF but other cardiopulmonary causes cannot be ruled out. Rule In: Age <50 >450 Age 50-75 >900 Age >75 >1800 Natriuretic peptide B (Bld) [Mass/Vol] 4701 pg/mL High <300 [facility] Phone: Comment on above: Pro-BNP results cesar ot be compared to BNP results. CBC auto differentialon Basophils (Bld) [#/Vol] 0.06 10*3/uL [facility] Phone: Basophils/100 WBC (Bld) 1 % 0 - 2 % [facility] Phone: Differential Type NOT REPORTED [facility] Phone: Eosinophils (Bld) [#/Vol] 0.07 10*3/uL [facility] Phone: Eosinophils/100 WBC (Bld) 1 % 1 - 4 % [facility] Phone: Hematocrit (Bld) [Volume fraction] 47.6 % High 36.3 - 47.1 % [facility] Phone: Hemoglobin.gastrointes tinal spec 1 Ql (Stl) 14.8 g/dL 11.9 - 15.1 g/dL [facility] Phone: Immature granulocytes (Bld) [#/Vol] 0 % 0 [facility] Phone: Immature granulocytes (Bld) [#/Vol] 10*3/uL [facility] Phone: Interpretation and review of laboratory results Abnormal [facility] Phone: Lymphocytes (Bld) [#/Vol] 1.43 10*3/uL [facility] Phone: Lymphocytes/100 WBC (Bld) 24 % 24 - 43 % [facility] Phone: MCH (RBC) [Entitic mass] 31.0 pg 25.2 - 33.5 pg [facility] Phone: MCHC (RBC) [Mass/Vol] 31.1 g/dL 28.4 - 34.8 g/dL [facility] Phone: MCV (RBC) [Entitic vol] 99.6 fL 82.6 - 102.9 fL [facility] Phone: Monocytes (Bld) [#/Vol] 0.74 10*3/uL [facility] Phone: Monocytes/100 WBC (Bld) 12 % 3 - 12 % [facility] Phone: Platelet distribution width (Bld) [Ratio] 14.6 % High 11.8 - 14.4 % [facility] Phone: Platelet mean volume (Bld) [Entitic vol] 9.4 fL 8.1 - 13.5 fL [facility] Phone: Platelets (Bld) [#/Vol] NOT REPORTED [facility] Phone: Platelets (Bld) [#/Vol] 148 10*3/uL [facility] Phone: RBC (Bld) [#/Vol] 4.78 10*6/uL 3.95 - 5.1 1 m/uL [facility] Phone: RBC (Bld) [#/Vol] NOT REPORTED [facility] Phone: Segmented neutrophils/100 WBC (Bld) 62 % 36 - 65 % [facility] Phone: Segs Absolute 3[employer] Work Phone: WBC (Bld) [#/Vol] 6.1 10*3/uL [facility] Phone: WBC (Bld) [#/Vol] 0.0 10*3/uL 0.0 per 10 0 WBC [facility] Phone: WBC (Bld) [#/Vol] NOT REPORTED [facility] Phone: Comprehensive Metabolic Pane barry 11-30-2020 Albumin [Mass/Vol] 3.6 g/dL 3.5 - 5.2 g/dL [facility] Phone: Albumin/Globulin [Mass ratio] 1.0 {ratio} [facility] Phone: ALP (Bld) [Catalytic activity/Vol] 123 U/L High 35 - 104 U/L [facility] Phone: ALT [Catalytic activity/Vol] 35 U/L High 5 - 33 U/L [facility] Phone: Anion gap [Moles/Vol] 10 mmol/L 9 - 17 mmol/L [facility] Phone: AST [Catalytic activity/Vol] 33 U/L High <32 [facility] Phone: Bilirubin [Mass/Vol] 1.18 mg/dL 0.3 - 1 .2 mg/dL [facility] Phone: Calcium [Mass/Vol] 9.6 mg/dL 8.6 - 10. 4 mg/dL [facility] Phone: Chloride [Moles/Vol] 94 mmol/L Low 98 - 10 7 mmol/L [facility] Phone: CO2 [Moles/Vol] 29 mmol/L 20 - 31 mmol/L [facility] Phone: Creatinine [Mass/Vol] 0.88 mg/dL 0.50 - 0.90 mg/dL [facility] Phone: Free PSA/Prostate specific Ag.total [Mass fraction] 7.2 g/dL 6.4 - 8.3 g/dL [facility] Phone: GFR >60 >60 mL/min [employer] Phone: GFR Non- >60 >60 mL/min [facility] Phone: Glucose [Mass/Vol] 142 mg/dL High 70 - 99 mg/dL [facility] Phone: Potassium [Moles/Vol] 4.7 mmol/L 3.7 - 5.3 mmol/L [facility] Phone: Sodium [Moles/Vol] 133 mmol/L Low 135 - 144 mmol/L [facility] Phone: Urea nitrogen (BldV) [Mass/Vol] 36 mg/dL High 8 - 23 mg/dL [facility] Phone: Urea nitrogen/Creatinine (Bld) [Mass ratio] 41 High [facility] Phone: EKG 12 Leadon 11-30-2020 Atrial Rate 300 BPM [facility] Phone: Q-T Interval 366 ms [facility] Phone: QRS Duration 92 ms [facility] Phone: QTc Calculation (Bazett) 395 ms [facility] Phone: R [place] -31 degrees [facility] Phone: T [place] 137 degrees [facility] Phone: Ventricular Rate 70 BPM [facility] Phone: Joni, Mhpn Incoming Ekg Results From [employer] - 11/30/2020 8:53 PM EDT Atrial fibrillation Left axis deviation ST & T wave abnormality, consider lateral ischemia Abnormal ECG When compared with ECG of 06-OCT-2020 15:15, Criteria for Septal infarct are no longer Present Non-specific change in ST segment in Anterior leads T wave inversion more evident in Lateral leads Vent. rate has decreased 69 beats. Confirmed by Efren Tim MD ([id number]) on 11/30/2020 8:53:36 PM [facility] Phone: Atrial fibrillation Left axis deviation ST & T wave abnormality, consider lateral ischemia Abnormal ECG When compared with ECG of 06-OCT-2020 15:15, Criteria for Septal infarct are no longer Present Non-specific change in ST segment in Anterior leads T wave inversion more evident in Lateral leads Vent. rate has decreased 69 beats. Confirmed by Efren Tim MD ([id number]) on 11/30/2020 8:53:36 PM [facility] Phone: Magnesiumon 11-30-2020 Magnesium [Mass/Vol] 2.1 mg/dL 1.6 - 2 .6 mg/dL [facility] Phone: Otheron 11-30-2020 GFR/1.73 sq M.predicted MDRD (S/P/Bld) [Vol rate/Area] [facility] Phone: Comment on above: Stage 1: Some [...] body mass. Additional eGFR calculator available at: http://www.TOTEMS (formerly Nitrogram).LocPlanet/multiple_crcl_2012.htm Interpretation and review of laboratory results Abnormal [facility] Phone: Protime-INRon 11-30-2020 INR Coag (Bld) [Relative time] 1.4 {INR} [facility] Phone: Comment on above: Non-therapeutic Range: INR = 0.9-1.2 Therapeutic Range: Moderate Anticoagulant Intensity: INR = 2.0-3.0 High Anticoagulant Intensity: INR = 2.5-3.5 Interpretation and review of laboratory results Abnormal [facility] Phone: PT Coag (PPP) [Time] 17 s High [employer] Phone: Troponinon 11-30-2020 Troponin I.cardiac [Mass/Vol] NOT REPORTED [facility] Phone: Troponin T.cardiac [Mass/Vol] NOT REPORTED <0.03 ng/mL [facility] Phone: Troponin, High Sensitivity 10 ng/L 0 - 14 ng/L [facility] Phone: Comment on above: High Sensitivity Troponin [...] including the visualized portions of the shoulders. [facility] Phone: Joni, Mhpn Incoming Radiant Results From [employer] - 11/30/2020 4:26 PM EDT EXAMINATION: TWO [...] to the previous study, suggesting vascular congestion. [facility] Phone: Heart is much larger when compared to the study of September 28, 2019. Findings suggest congestive heart failure but without definite pleural effusion. Degenerative bony changes with suggestion of osteopenia. Clearing of most of the prominent interstitial markings when compared to the previous study, suggesting vascular congestion. [facility] Phone: Basic Metabolic Panelon 02- Anion gap [Moles/Vol] 7 mmol/L Low 9 - 17 mmol/L [facility] Phone: Bun/Cre Ratio 32 [employer] Work Phone: Calcium [Mass/Vol] 8.5 mg/dL Low 8.6 - 10. 4 mg/dL [facility] Phone: Chloride [Moles/Vol] 99 mmol/L 98 - 10 7 mmol/L [facility] Phone: CO2 [Moles/Vol] 29 mmol/L 20 - 31 mmol/L [facility] Phone: Creatinine [Mass/Vol] 1.18 mg/dL High 0.5 - 0.9 mg/dL [facility] Phone: GFR 56 mL/min Low >60 [employer] Phone: GFR Non- 46 mL/min Low >60 [facility] Phone: Glucose [Mass/Vol] 118 mg/dL High 70 - 99 mg/dL [facility] [employer] Phone: Interpretation and review of laboratory results Abnormal [facility] Phone: Potassium [Moles/Vol] 4.3 mmol/L 3.7 - 5.3 mmol/L [facility] Phone: Sodium [Moles/Vol] 135 mmol/L 135 - 144 mmol/L [facility] Phone: Urea nitrogen [Mass/Vol] 38 mg/dL High 8 - 23 mg/dL [facility] Phone: Magnesiumon 10-10-2020 Magnesium [Mass/Vol] 2.1 mg/dL 1.6 - 2 .6 mg/dL [facility] Phone: Metabolic Panelon 10-10-2020 GFR/1.73 sq M predicted among non-blacks MDRD (S/P/Bld) [Vol rate/Area] [facility] Phone: Comment on above: Stage 1: Some [...] body mass. Additional eGFR calculator available at: http://www.Mumboe/multiple_crcl_2012.htm Basic Metabolic Panelon 09-26 Anion gap [Moles/Vol] 9 mmol/L 9 - 17 mmol/L [facility] Phone: Bun/Cre Ratio 38 High [employer] [facility] [employer] Work Phone: Calcium [Mass/Vol] 9.0 mg/dL 8.6 - 10. 4 mg/dL [facility] Phone: Chloride [Moles/Vol] 97 mmol/L Low 98 - 10 7 mmol/L [facility] Phone: CO2 [Moles/Vol] 26 mmol/L 20 - 31 mmol/L [facility] Phone: Creatinine [Mass/Vol] 1.06 mg/dL High 0.5 - 0.9 mg/dL [facility] Phone: GFR >60 >60 mL/min [employer] Phone: GFR Non- 52 mL/min Low >60 [facility] Phone: Glucose [Mass/Vol] 116 mg/dL High 70 - 99 mg/dL [facility] [employer] Phone: Interpretation and review of laboratory results Abnormal [facility] Phone: Potassium [Moles/Vol] 5.0 mmol/L 3.7 - 5.3 mmol/L [facility] Phone: Sodium [Moles/Vol] 132 mmol/L Low 135 - 144 mmol/L [facility] Phone: Urea nitrogen [Mass/Vol] 40 mg/dL High 8 - 23 mg/dL [facility] Phone: Brain Natriuretic Peptideon 10-09-2020 Interpretation and review of laboratory results Abnormal [facility] Phone: Natriuretic peptide B (Bld) [Mass/Vol] 6088 pg/mL High <300 [facility] Phone: Comment on above: Pro-BNP results cesar ot be compared to BNP results. Natriuretic peptide B (Bld) [Mass/Vol] Pro-BNP Reference Range: [facility] Phone: Comment on above: Rule Out: <300 Chao Zone: Age <50 300-450 Age 50-75 300-900 Age >75 300-1800 Usually represents mild to moderate HF but other cardiopulmonary causes cannot be ruled out. Rule In: Age <50 >450 Age 50-75 >900 Age >75 >1800 Magnesium[facility] 10-09-2020 Magnesium [Mass/Vol] 2.0 mg/dL 1.6 - 2 .6 mg/dL [facility] Phone: Metabolic Panelon 10-09-2020 GFR/1.73 sq M predicted among non-blacks MDRD (S/P/Bld) [Vol rate/Area] [facility] Phone: Comment on above: Average GFR for 60-6 9 years old: 85 mL/min/1.73sq m Chronic Kidney Disease: <60 mL/min/1.73sq m Kidney failure: <15 mL/min/1.73sq m eGFR calculated using average adult body mass. Additional eGFR calculator available at: http://www.Mumboe/multiple_crcl_2012.htm Stage 1: Some kidney damage normal GFR Stage 2: Mild kidney damage GFR 60-89 Stage 3: Moderate kidney damage GFR 30-59 Stage 4: Severe kidney damage GFR 15-29 Stage 5: Severe kidney damage GFR <15 ESRD - chronic treatment by dialysis or transplant Basic Metabolic Panelon 09-26 Anion gap [Moles/Vol] 9 mmol/L 9 - 17 mmol/L [facility] Phone: Bun/Cre Ratio 43 [employer] Work Phone: Calcium [Mass/Vol] 8.6 mg/dL 8.6 - 10. 4 mg/dL [facility] Phone: Chloride [Moles/Vol] 100 mmol/L 98 - 10 7 mmol/L [facility] Phone: CO2 [Moles/Vol] 24 mmol/L 20 - 31 mmol/L [facility] Phone: Creatinine [Mass/Vol] 1.05 mg/dL High 0.5 - 0.9 mg/dL [facility] Phone: GFR >60 >60 mL/min [employer] Phone: GFR Non- 53 mL/min Low >60 [facility] Phone: Glucose [Mass/Vol] 135 mg/dL High 70 - 99 mg/dL [facility] [employer] Phone: Interpretation and review of laboratory results Abnormal [facility] Phone: Potassium [Moles/Vol] 4.5 mmol/L 3.7 - 5.3 mmol/L [facility] Phone: Sodium [Moles/Vol] 133 mmol/L Low 135 - 144 mmol/L [facility] Phone: Urea nitrogen [Mass/Vol] 45 mg/dL High 8 - 23 mg/dL [facility] Phone: Magnesiumon 10-08-2020 Magnesium [Mass/Vol] 1.9 mg/dL 1.6 - 2 .6 mg/dL [facility] Phone: Metabolic Panelon 10-08-2020 GFR/1.73 sq M predicted among non-blacks MDRD (S/P/Bld) [Vol rate/Area] [facility] Phone: Comment on above: Average GFR for 60-6 9 years old: 85 mL/min/1.73sq m Chronic Kidney Disease: <60 mL/min/1.73sq m Kidney failure: <15 mL/min/1.73sq m eGFR calculated using average adult body mass. Additional eGFR calculator available at: http://www.Mumboe/multiple_crcl_2012.htm Stage 1: Some kidney damage normal GFR Stage 2: Mild kidney damage GFR 60-89 Stage 3: Moderate kidney damage GFR 30-59 Stage 4: Severe kidney damage GFR 15-29 Stage 5: Severe kidney damage GFR <15 ESRD - chronic treatment by dialysis or transplant APTTon 10-07-2020 aPTT Coag (Bld) [Time] 38.3 s High [facility] [place] Work Phone: Comment on above: IV Heparin Therapy Range: 62.0-94.0 Interpretation and review of laboratory results Abnormal [facility] Phone: Basic Metabolic Panelon 09-26 Anion gap [Moles/Vol] 12 mmol/L 9 - 17 mmol/L [facility] Work Phone: Bun/Cre Ratio 33 High [facility] [employer] Work Phone: Calcium [Mass/Vol] 9.0 mg/dL 8.6 - 10. 4 mg/dL [facility] Phone: Chloride [Moles/Vol] 96 mmol/L Low 98 - 10 7 mmol/L [facility] Work Phone: CO2 [Moles/Vol] 23 mmol/L 20 - 31 mmol/L [facility] Phone: Creatinine [Mass/Vol] 1.12 mg/dL High 0.5 - 0.9 mg/dL [facility] [employer] Phone: GFR 60 mL/min Low >60 [employer] Phone: GFR Non- 49 mL/min Low >60 [facility] [place] [employer] Work Phone: Glucose [Mass/Vol] 113 mg/dL High 70 - 99 mg/dL [facility] [place] [employer] Work Phone: Interpretation and review of laboratory results Abnormal [facility] Phone: Potassium [Moles/Vol] 4.8 mmol/L 3.7 - 5.3 mmol/L [facility] Phone: Sodium [Moles/Vol] 131 mmol/L Low 135 - 144 mmol/L [facility] Work Phone: Urea nitrogen [Mass/Vol] 37 mg/dL High 8 - 23 mg/dL [facility] Phone: CBC auto differentialon 09-26 Basophils (Bld) [#/Vol] 0.06 10*3/uL [facility] Phone: Basophils/100 WBC (Bld) 1 % 0 - 2 % [facility] Phone: Differential Type NOT REPORTED [facility] Phone: Eosinophils (Bld) [#/Vol] 0.03 10*3/uL [facility] Phone: Eosinophils/100 WBC (Bld) 0 % Low 1 - 4 % [facility] Phone: Erythrocyte distribution width (RBC) [Ratio] 14.8 % High 11.8 - 14.4 % [facility] Phone: Hematocrit (Bld) [Volume fraction] 44.2 % 36.3 - 47.1 % [facility] Phone: Hemoglobin (Bld) [Mass/Vol] 14.3 g/dL 11.9 - 15.1 g/dL [facility] Phone: Immature granulocytes (Bld) [#/Vol] 0.03 10*3/uL [facility] Phone: Immature granulocytes (Bld) [#/Vol] 0 % 0 [facility] Phone: Interpretation and review of laboratory results Abnormal [facility] Phone: Lymphocytes (Bld) [#/Vol] 2.04 10*3/uL [facility] Phone: Lymphocytes/100 WBC (Bld) 23 % Low 24 - 43 % [facility] Phone: MCH (RBC) [Entitic mass] 31.9 pg 25.2 - 33.5 pg [facility] Phone: MCHC (RBC) [Mass/Vol] 32.4 g/dL 28.4 - 34.8 g/dL [facility] Phone: MCV (RBC) [Entitic vol] 98.7 fL 82.6 - 102.9 fL [facility] Phone: Monocytes (Bld) [#/Vol] 1.06 10*3/uL [facility] Phone: Monocytes/100 WBC (Bld) 12 % 3 - 12 % [facility] Phone: Platelet mean volume (Bld) [Entitic vol] 9.0 fL 8.1 - 13.5 fL [facility] Phone: Platelets (Bld) [#/Vol] 185 10*3/uL [facility] Phone: Platelets (Bld) [#/Vol] NOT REPORTED [facility] Phone: RBC (Bld) [#/Vol] 4.48 10*6/uL 3.95 - 5.1 1 m/uL [facility] Phone: RBC morphology finding Nom (Bld) NOT REPORTED [facility] Phone: Segmented neutrophils/100 WBC (Bld) 64 % 36 - 65 % [facility] Phone: [employer]s [employer] 5.58 [employer] [facility] [employer] Work Phone: WBC (Bld) [#/Vol] 8.8 10*3/uL [facility] Work Phone: WBC (Bld) [#/Vol] 0.3 10*3/uL High 0.0 per 10 0 WBC [facility] Phone: WBC Morphology NOT REPORTED [employer] [facility] Work Phone: Lipid panel - fastingon 09-26 Cholesterol [Mass/Vol] 110 mg/dL <200 [facility] Work Phone: Comment on above: Cholesterol Guidelines: <200 Desirable 200-240 Borderline >240 Undesirable Cholesterol in HDL [Mass/Vol] 41 mg/dL >40 [facility] Phone: Comment on above: HDL Guidelines: <40 Undesirable 40-59 Borderline >59 Desirable Cholesterol in LDL [Mass/Vol] 57 mg/dL 0 - 130 mg/dL [facility] Phone: Comment on above: LDL Guidelines: <100 Desirable 100-129 Near to/above Desirable 130-159 Borderline >159 Undesirable Direct (measured) LDL and calculated LDL are not interchangeable tests. Cholesterol in VLDL [Mass/Vol] NOT REPORTED 1 - 30 mg/dL [facility] Phone: Cholesterol.total/Chol esterol in HDL [Mass ratio] 2.7 {ratio} <5 [facility] Phone: Triglyceride [Mass/Vol] 60 mg/dL <150 [facility] Phone: Comment on above: Triglyceride Guidelines: <150 Desirable 150-199 Borderline 200-499 High >499 Very high Based on AHA Guidelines for fasting triglyceride, May 2012. Magnesiumon 10-07-2020 Magnesium [Mass/Vol] 2.0 mg/dL 1.6 - 2 .6 mg/dL [facility] Phone: Metabolic Panelon 10-07-2020 GFR/1.73 sq M predicted among non-blacks MDRD (S/P/Bld) [Vol rate/Area] [facility] Phone: Comment on above: Stage 1: Some [...] body mass. Additional eGFR calculator available at: http://www.Mumboe/multiple_crcl_2012.htm Protime-INRon 10-07-2020 INR Coag (PPP) [Relative time] 1.5 {INR} [facility] Phone: Comment on above: Non-therapeutic Range: INR = 0.9-1.2 Therapeutic Range: Moderate Anticoagulant Intensity: INR = 2.0-3.0 High Anticoagulant Intensity: INR = 2.5-3.5 Interpretation and review of laboratory results Abnormal [facility] Phone: PT Coag (PPP) [Time] 17.6 s High [employer] Phone: T4, freeon 10-07-2020 Thyroxine, Free 1.25 ng/dL 0.93 - 1.7 ng/dL [facility] Phone: Brain Natriuretic Peptideon 10-06-2020 Natriuretic peptide B (Bld) [Mass/Vol] Pro-BNP Reference Range: [facility] Phone: Comment on above: Rule Out: <300 Chao Zone: Age <50 300-450 Age 50-75 300-900 Age >75 300-1800 Usually represents mild to moderate HF but other cardiopulmonary causes cannot be ruled out. Rule In: Age <50 >450 Age 50-75 >900 Age >75 >1800 Natriuretic peptide B (Bld) [Mass/Vol] 5456 pg/mL High <300 [facility] Phone: Comment on above: Pro-BNP results cesar ot be compared to BNP results. CBC Auto Differentialon 09-26 Basophils (Bld) [#/Vol] 0.07 10*3/uL [facility] Phone: Basophils/100 WBC (Bld) 1 % 0 - 2 % [facility] Phone: Differential Type NOT REPORTED [facility] Phone: Eosinophils (Bld) [#/Vol] 0.07 10*3/uL [facility] Phone: Eosinophils/100 WBC (Bld) 1 % 1 - 4 % [facility] Phone: Erythrocyte distribution width (RBC) [Ratio] 14.6 % High 11.8 - 14.4 % [facility] Phone: Hematocrit (Bld) [Volume fraction] 43.7 % 36.3 - 47.1 % [facility] Phone: Hemoglobin (Bld) [Mass/Vol] 14.2 g/dL 11.9 - 15.1 g/dL [facility] Phone: Immature granulocytes (Bld) [#/Vol] 1 % High 0 [facility] Phone: Immature granulocytes (Bld) [#/Vol] 0.06 10*3/uL [facility] Phone: Interpretation and review of laboratory results Abnormal [facility] Phone: Lymphocytes (Bld) [#/Vol] 2.02 10*3/uL [facility] Phone: Lymphocytes/100 WBC (Bld) 24 % 24 - 43 % [facility] Phone: MCH (RBC) [Entitic mass] 31.7 pg 25.2 - 33.5 pg [facility] Phone: MCHC (RBC) [Mass/Vol] 32.5 g/dL 28.4 - 34.8 g/dL [facility] Phone: MCV (RBC) [Entitic vol] 97.5 fL 82.6 - 102.9 fL [facility] Phone: Monocytes (Bld) [#/Vol] 0.98 10*3/uL [facility] Phone: Monocytes/100 WBC (Bld) 12 % 3 - 12 % [facility] Phone: Platelet mean volume (Bld) [Entitic vol] 9.2 fL 8.1 - 13.5 fL [facility] Phone: Platelets (Bld) [#/Vol] NOT REPORTED [facility] Phone: Platelets (Bld) [#/Vol] 175 10*3/uL [facility] Phone: RBC (Bld) [#/Vol] 4.48 10*6/uL 3.95 - 5.1 1 m/uL [employer] Work Phone: RBC morphology finding Nom (Bld) NOT REPORTED [facility] Phone: Segmented neutrophils/100 WBC (Bld) 63 % 36 - 65 % [facility] Phone: [employer]s [employer] Work Phone: WBC (Bld) [#/Vol] 0.0 10*3/uL 0.0 per 10 0 WBC [facility] Phone: WBC (Bld) [#/Vol] 8.5 10*3/uL [facility] Phone: WBC Morphology NOT REPORTED [employer] Work Phone: Comprehensive Metabolic Pane barry 10-06-2020 Albumin [Mass/Vol] 3.8 g/dL 3.5 - 5.2 g/dL [facility] Phone: Albumin/Globulin [Mass ratio] 1.0 {ratio} [facility] Phone: ALP [Catalytic activity/Vol] 112 U/L High 35 - 104 U/L [facility] Phone: ALT [Catalytic activity/Vol] 36 U/L High 5 - 33 U/L [facility] Phone: Anion gap [Moles/Vol] 10 mmol/L 9 - 17 mmol/L [facility] Phone: AST [Catalytic activity/Vol] 43 U/L High <32 [facility] Phone: Bilirubin Ql (U) 1.31 mg/dL High 0.3 - 1.2 mg/dL [facility] Phone: Bun/Cre Ratio 40 High [facility] Work Phone: Calcium [Mass/Vol] 9.1 mg/dL 8.6 - 10. 4 mg/dL [facility] Phone: Chloride [Moles/Vol] 99 mmol/L 98 - 10 7 mmol/L [facility] Work Phone: CO2 [Moles/Vol] 22 mmol/L 20 - 31 mmol/L [facility] Phone: Creatinine [Mass/Vol] 0.92 mg/dL High 0.5 - 0.9 mg/dL [facility] Phone: GFR >60 >60 mL/min [facility] Work Phone: GFR Non- >60 >60 mL/min [facility] Phone: Glucose [Mass/Vol] 111 mg/dL High 70 - 99 mg/dL [facility] [employer] Work Phone: Potassium [Moles/Vol] 4.6 mmol/L 3.7 - 5.3 mmol/L [facility] Phone: Protein [Mass/Vol] 7.6 g/dL 6.4 - 8.3 g/dL [facility] Phone: Sodium [Moles/Vol] 131 mmol/L Low 135 - 144 mmol/L [facility] Phone: Urea nitrogen [Mass/Vol] 37 mg/dL High 8 - 23 mg/dL [facility] Phone: EKG 12 Leadon 10-06-2020 Atrial Rate 94 BPM [facility] Phone: Q-T Interval 396 ms [facility] Phone: QRS Duration 102 ms [facility] Phone: QTc Calculation (Bazett) 623 ms [facility] Phone: R [place] -24 degrees [facility] Phone: T [place] 89 degrees [facility] Phone: Ventricular Rate 149 BPM [facility] Phone: Most likely 2:1 atrial flutter with variable block Septal infarct , age undetermined Subtle inferior ST elevation, Consider right ventricular involvement in acute inferior infarct Abnormal ECG No previous ECGs available Confirmed by ZOE FLOREZ ([id number]) on 10/06/2020 9:49:16 PM [facility] Phone: Joni, Mhpn Incoming Ekg Results From [employer] - 10/06/2020 9:49 PM EST Most likely 2:1 atrial flutter with variable block Septal infarct , age undetermined Subtle inferior ST elevation, Consider right ventricular involvement in acute inferior infarct Abnormal ECG No previous ECGs available Confirmed by ZOE FLOREZ ([id number]) on 10/06/2020 9:49:16 PM [facility] Phone: Metabolic Panelon 10-06-2020 GFR/1.73 sq M predicted among non-blacks MDRD (S/P/Bld) [Vol rate/Area] [facility] Phone: Comment on above: Average GFR for 60-6 9 years old: 85 mL/min/1.73sq m Chronic Kidney Disease: <60 mL/min/1.73sq m Kidney failure: <15 mL/min/1.73sq m eGFR calculated using average adult body mass. Additional eGFR calculator available at: http://www.TOTEMS (formerly Nitrogram).LocPlanet/multiple_crcl_2012.htm Stage 1: Some kidney damage normal GFR Stage 2: Mild kidney damage GFR 60-89 Stage 3: Moderate kidney damage GFR 30-59 Stage 4: Severe kidney damage GFR 15-29 Stage 5: Severe kidney damage GFR <15 ESRD - chronic treatment by dialysis or transplant Microscopic Urinalysison Amorphous, UA NOT REPORTED None [facility] Work Phone: Bacteria, UA 3+ Abnormal None [facility] Work Phone: Casts UA NOT REPORTED /LPF [facility] Work Phone: Crystals, UA NOT REPORTED None /HPF [facility] Work Phone: Epithelial Cells UA 0 TO 2 [facility] Work Phone: Interpretation and review of laboratory results Abnormal [facility] Work Phone: Mucus, UA NOT REPORTED None [facility] Work Phone: Other Observations UA NOT REPORTED NOT REQ. M [facility] [place] [employer] Work Phone: RBC (U) [#/Vol] 0 TO 2 [facility] Work Phone: Renal Epithelial, UA NOT REPORTED 0 /HPF [facility] Work Phone: Trichomonas, UA NOT REPORTED None [facility] Work Phone: WBC, UA 2 TO 5 [facility] Work Phone: Yeast, UA NOT REPORTED None [facility] Work Phone: - [facility] Work Phone: Otheron 10-06-2020 Interpretation and review of laboratory results Abnormal [facility] Work Phone: TSH without Reflexon 021 TSH Qn 2.44 m[IU]/L [facility] Work Phone: Troponinon 10-06-2020 Troponin I.cardiac [Mass/Vol] NOT REPORTED [facility] Work Phone: Troponin T.cardiac [Mass/Vol] NOT REPORTED <0.03 ng/mL [facility] Work Phone: Troponin, High Sensitivity 16 ng/L High 0 - 14 ng/L [facility] Work Phone: Comment on above: High Sensitivity Troponin values cannot be compared with other Troponin methodologies. Patients with high levels of Biotin oral intake (i.e >5mg/day) may have falsely decreased Troponin levels. Samples collected within 8 hours of biotin intake may require additional information for diagnosis. Urinalysis Reflex to Culture on 10-06-2020 Bilirubin Urine Negative NEGATIVE [facility] Work Phone: Color, UA YELLOW YELLOW [facility] [place] [employer] Work Phone: Glucose, Ur Negative NEGATIVE [facility] [place] [employer] Work Phone: Interpretation and review of laboratory results Abnormal [facility] [place] [employer] Work Phone: Ketones Ql (U) Negative NEGATIVE [facility] Work Phone: Leukocyte esterase Test strip Ql (U) Negative NEGATIVE [facility] [place] [employer] Work Phone: Nitrite, Urine Positive Abnormal NEGATIVE [facility] Work Phone: pH, UA 5.5 [facility] [place] [employer] Work Phone: Protein (U) [Mass/Vol] Negative NEGATIVE [facility] [place] [employer] Work Phone: Specific Exchange, UA 1.020 [facility] [place] [employer] Work Phone: Turbidity UA CLEAR CLEAR [facility] [employer] Phone: Urinalysis Comments NOT REPORTED [facility] [place] [employer] Work Phone: Urine Hgb Negative NEGATIVE [facility] [place] [employer] Work Phone: Urobilinogen, Urine Normal Normal [facility] [place] [employer] Work Phone: XR CHEST PORTABLEon 10-06-19 21 Joni, Mhpn Incoming Radiant Results From [employer] - 10/06/2020 3:46 PM EST EXAMINATION: ONE XRAY VIEW OF THE CHEST 10/06/2020 3:07 pm COMPARISON: 09/28/2019 HISTORY: ORDERING SYSTEM PROVIDED HISTORY: sob TECHNOLOGIST PROVIDED HISTORY: sob FINDINGS: Cardiomegaly and pulmonary vascular congestion. No definite superimposed focal airspace consolidation, sizeable pleural effusion or pneumothorax. Trachea is midline. Osseous structures and soft tissues are grossly intact. IMPRESSION: Cardiomegaly and pulmonary vascular congestion. [facility] Phone: EXAMINATION: ONE XRAY VIEW OF THE CHEST 10/06/2020 3:07 pm COMPARISON: 09/28/2019 HISTORY: ORDERING SYSTEM PROVIDED HISTORY: sob TECHNOLOGIST PROVIDED HISTORY: sob FINDINGS: Cardiomegaly and pulmonary vascular congestion. No definite superimposed focal airspace consolidation, sizeable pleural effusion or pneumothorax. Trachea is midline. Osseous structures and soft tissues are grossly intact. [facility] Phone: Cardiomegaly and pulmonary vascular congestion. [facility] Phone: Basic Metabolic Panel w/ Ref john to MGon 10-02-2020 Anion gap [Moles/Vol] 12 mmol/L 9 - 17 mmol/L [place] Bun/Cre Ratio 40 High [place] Calcium [Mass/Vol] 9.1 mg/dL 8.6 - 10. 4 mg/dL [place] Chloride [Moles/Vol] 97 mmol/L Low 98 - 10 7 mmol/L [place] CO2 [Moles/Vol] 25 mmol/L 20 - 31 mmol/L [place] Creatinine [Mass/Vol] 0.81 mg/dL 0.5 - 0.9 mg/dL [place] GFR >60 >60 mL/min [place] GFR Non- >60 >60 mL/min [place] Glucose [Mass/Vol] 126 mg/dL High 70 - 99 mg/dL [place] Interpretation and review of laboratory results Abnormal [place] Potassium [Moles/Vol] 4.5 mmol/L 3.7 - 5.3 mmol/L [place] Sodium [Moles/Vol] 134 mmol/L Low 135 - 144 mmol/L [place] Urea nitrogen [Mass/Vol] 32 mg/dL High 8 - 23 mg/dL [place] CBC Auto Differentialon Basophils (Bld) [#/Vol] 0.03 10*3/uL [place] Basophils/100 WBC (Bld) 0 % 0 - 2 % [place] Differential Type NOT REPORTED [place] Eosinophils (Bld) [#/Vol] 10*3/uL [place] Eosinophils/100 WBC (Bld) 0 % Low 1 - 4 % [place] Erythrocyte distribution width (RBC) [Ratio] 14.6 % High 11.8 - 14.4 % [place] Hematocrit (Bld) [Volume fraction] 41.6 % 36.3 - 47.1 % [place] Hemoglobin (Bld) [Mass/Vol] 13.3 g/dL 11.9 - 15.1 g/dL [place] Immature granulocytes (Bld) [#/Vol] 0.04 10*3/uL [place] Immature granulocytes (Bld) [#/Vol] 0 % 0 [place] Interpretation and review of laboratory results Abnormal [place] Lymphocytes (Bld) [#/Vol] 0.77 10*3/uL Low [place] Lymphocytes/100 WBC (Bld) 6 % Low 24 - 43 % [place] MCH (RBC) [Entitic mass] 31.1 pg 25.2 - 33.5 pg [place] MCHC (RBC) [Mass/Vol] 32.0 g/dL 28.4 - 34.8 g/dL [place] MCV (RBC) [Entitic vol] 97.4 fL 82.6 - 102.9 fL [place] Monocytes (Bld) [#/Vol] 0.80 10*3/uL [place] Monocytes/100 WBC (Bld) 7 % 3 - 12 % [place] Platelet mean volume (Bld) [Entitic vol] 9.7 fL 8.1 - 13.5 fL [place] Platelets (Bld) [#/Vol] 122 10*3/uL [place] Platelets (Bld) [#/Vol] NOT REPORTED [place] RBC (Bld) [#/Vol] 4.27 10*6/uL 3.95 - 5.1 1 m/uL [place] RBC morphology finding Nom (Bld) NOT REPORTED [place] Segmented neutrophils/100 WBC (Bld) 87 % High 36 - 65 % [place] Segs Absolute 10.53 High [place] WBC (Bld) [#/Vol] 12.2 10*3/uL [place] WBC (Bld) [#/Vol] 0.0 10*3/uL 0.0 per 10 0 WBC [place] WBC Morphology NOT REPORTED [place] Metabolic Panelon 10-02-2020 GFR/1.73 sq M predicted among non-blacks MDRD (S/P/Bld) [Vol rate/Area] [place] Comment on above: Stage 1: Some [...] body mass. Additional eGFR calculator available at: http://www.TOTEMS (formerly Nitrogram).LocPlanet/multiple_crcl_2012.htm CBC Auto Differentialon Basophils (Bld) [#/Vol] 0.05 10*3/uL [place] Basophils/100 WBC (Bld) 1 % 0 - 2 % [place] Differential Type NOT REPORTED [place] Eosinophils (Bld) [#/Vol] 0.21 10*3/uL [place] Eosinophils/100 WBC (Bld) 4 % 1 - 4 % [place] Erythrocyte distribution width (RBC) [Ratio] 14.6 % High 11.8 - 14.4 % [place] Hematocrit (Bld) [Volume fraction] 40.6 % 36.3 - 47.1 % [place] Hemoglobin (Bld) [Mass/Vol] 12.8 g/dL 11.9 - 15.1 g/dL [place] Immature granulocytes (Bld) [#/Vol] 0.03 10*3/uL [place] Immature granulocytes (Bld) [#/Vol] 1 % High 0 [place] Interpretation and review of laboratory results Abnormal [place] Lymphocytes (Bld) [#/Vol] 1.03 10*3/uL Low [place] Lymphocytes/100 WBC (Bld) 19 % Low 24 - 43 % [place] MCH (RBC) [Entitic mass] 31.1 pg 25.2 - 33.5 pg [place] MCHC (RBC) [Mass/Vol] 31.5 g/dL 28.4 - 34.8 g/dL [place] MCV (RBC) [Entitic vol] 98.5 fL 82.6 - 102.9 fL [place] Monocytes (Bld) [#/Vol] 0.69 10*3/uL [place] Monocytes/100 WBC (Bld) 13 % High 3 - 12 % [place] Platelet mean volume (Bld) [Entitic vol] NOT REPORTED 8.1 - 13.5 fL [place] Platelets (Bld) [#/Vol] NOT REPORTED [place] Platelets (Bld) [#/Vol] See Reflexed IPF Result [place] RBC (Bld) [#/Vol] 4.12 10*6/uL 3.95 - 5.1 1 m/uL [place] RBC morphology finding Nom (Bld) NOT REPORTED [place] Segmented neutrophils/100 WBC (Bld) 63 % 36 - 65 % [place] Segs Absolute 3.47 [place] WBC (Bld) [#/Vol] 5.5 10*3/uL [place] WBC (Bld) [#/Vol] 0.0 10*3/uL 0.0 per 10 0 WBC [place] WBC Morphology NOT REPORTED [place] Comprehensive Metabolic Pane barry 09-30-2020 Albumin [Mass/Vol] 3.4 g/dL Low 3.5 - 5.2 g/dL [place] Albumin/Globulin [Mass ratio] 1.0 {ratio} [place] ALP [Catalytic activity/Vol] 80 U/L 35 - 104 U/L [place] ALT [Catalytic activity/Vol] 24 U/L 5 - 33 U/L [place] Anion gap [Moles/Vol] 9 mmol/L 9 - 17 mmol/L [place] AST [Catalytic activity/Vol] 27 U/L <32 [place] Bilirubin Ql (U) 0.68 mg/dL 0.3 - 1.2 mg/dL [place] Bun/Cre Ratio 41 High [place] Calcium [Mass/Vol] 8.9 mg/dL 8.6 - 10. 4 mg/dL [place] Chloride [Moles/Vol] 99 mmol/L 98 - 10 7 mmol/L [place] CO2 [Moles/Vol] 25 mmol/L 20 - 31 mmol/L [place] Creatinine [Mass/Vol] 0.88 mg/dL 0.5 - 0.9 mg/dL [place] GFR >60 >60 mL/min [place] GFR Non- >60 >60 mL/min [place] Glucose [Mass/Vol] 111 mg/dL High 70 - 99 mg/dL [place] Interpretation and review of laboratory results Abnormal [place] Potassium [Moles/Vol] 4.9 mmol/L 3.7 - 5.3 mmol/L [place] Protein [Mass/Vol] 6.7 g/dL 6.4 - 8.3 g/dL [place] Sodium [Moles/Vol] 133 mmol/L Low 135 - 144 mmol/L [place] Urea nitrogen [Mass/Vol] 36 mg/dL High 8 - 23 mg/dL [place] Immature Platelet Fractionon 09-30-2020 Interpretation and review of laboratory results Abnormal [place] Platelet, Fluorescence 102 Low Me [place], [place] Platelet, Immature Fraction 2.5 % 1.1 - 10.3 % [place] Metabolic Panelon 09-30-2020 GFR/1.73 sq M predicted among non-blacks MDRD (S/P/Bld) [Vol rate/Area] [place] Comment on above: Average GFR for 60-6 9 years old: 85 mL/min/1.73sq m Chronic Kidney Disease: <60 mL/min/1.73sq m Kidney failure: <15 mL/min/1.73sq m eGFR calculated using average adult body mass. Additional eGFR calculator available at: http://www.Mumboe/multiple_crcl_2012.htm Stage 1: Some kidney damage normal GFR Stage 2: Mild kidney damage GFR 60-89 Stage 3: Moderate kidney damage GFR 30-59 Stage 4: Severe kidney damage GFR 15-29 Stage 5: Severe kidney damage GFR <15 ESRD - chronic treatment by dialysis or transplant COVID-19 PCRon 03-13-2020 SARS-CoV-2, LUIS F Not Detected Normal Not Detected [facility] Comment on above: Result Comment: This test was developed and its performance characteristics determined by [employer]. This test has not been FDA cleared [...] assay. Performed By: #### C VDPCR #### [facility] [id number] Head WO Contraston 2019 No acute intracranial abnormality. Findings were discussed with RODRIGUEZ ESTRADA at 2:30 pm on 02/22/2020. [place] EXAMINATION: CT OF THE HEAD WITHOUT [...] of the visualized skull or soft tissues. [place] Joni, pn Incoming Radiant Results From [employer] - 02/22/2020 2:35 PM EDT EXAMINATION: CT [...] RODRIGUEZ ESTRADA at 2:30 pm on 02/22/2020. [facility] [place] Basic Metabolic Panelon Anion gap [Moles/Vol] 11 mmol/L 9 - 17 mmol/L [facility] Phone: Bun/Cre Ratio 28 [employer] Work Phone: Calcium [Mass/Vol] 9.3 mg/dL 8.6 - 10. 4 mg/dL [facility] Work Phone: Chloride [Moles/Vol] 96 mmol/L Low 98 - 10 7 mmol/L [facility] Work Phone: CO2 [Moles/Vol] 26 mmol/L 20 - 31 mmol/L [facility] Phone: Creatinine [Mass/Vol] 0.68 mg/dL 0.5 - 0.9 mg/dL [facility] Phone: GFR >60 >60 mL/min [employer] Phone: GFR Non- >60 >60 mL/min [facility] Phone: Glucose [Mass/Vol] 91 mg/dL 70 - 99 mg/dL [employer] Work Phone: Potassium [Moles/Vol] 4.5 mmol/L 3.7 - 5.3 mmol/L [facility] Phone: Sodium [Moles/Vol] 133 mmol/L Low 135 - 144 mmol/L [facility] Phone: Urea nitrogen [Mass/Vol] 19 mg/dL 8 - 23 mg/dL [facility] Phone: Brain Natriuretic Peptideon 09-28-2019 Natriuretic peptide B (Bld) [Mass/Vol] 455 pg/mL High <300 [facility] Phone: Comment on above: Pro-BNP results cesar ot be compared to BNP results. Natriuretic peptide B (Bld) [Mass/Vol] Pro-BNP Reference Range: [facility] Phone: Comment on above: Rule Out: <300 Chao Zone: Age <50 300-450 Age 50-75 300-900 Age >75 300-1800 Usually represents mild to moderate HF but other cardiopulmonary causes cannot be ruled out. Rule In: Age <50 >450 Age 50-75 >900 Age >75 >1800 Metabolic Panelon 09-28-2019 GFR/1.73 sq M predicted among non-blacks MDRD (S/P/Bld) [Vol rate/Area] [facility] Phone: Comment on above: Stage 1: Some [...] body mass. Additional eGFR calculator available at: http://www.Mumboe/multiple_crcl_2012.htm Otheron 09-28-2019 Interpretation and review of laboratory results Abnormal [facility] Phone: XR CHEST STANDARD (2 VW)on 0 09-28-2019 No acute cardiopulmonary process. [facility] Phone: EXAMINATION: TWO XRAY VIEWS OF THE CHEST 09/28/2019 1:01 pm COMPARISON: Chest radiograph performed 11/03/2018. HISTORY: ORDERING SYSTEM PROVIDED HISTORY: Cough TECHNOLOGIST PROVIDED HISTORY: non-productive cough, CHF FINDINGS: There is no acute consolidation or effusion. There is no pneumothorax. The mediastinal structures are unremarkable. The upper abdomen is unremarkable. The extrathoracic soft tissues are unremarkable. [facility] Phone: Joni, Mhpn Incoming Radiant Results From [employer] - 09/28/2019 1:16 PM EST EXAMINATION: TWO [...] are unremarkable. IMPRESSION: No acute cardiopulmonary process. [facility] Work Phone: Basic Metabolic Panelon 05-26 Anion gap [Moles/Vol] 12 mmol/L 9 - 17 mmol/L [place] Bun/Cre Ratio 29 High [place] Calcium [Mass/Vol] 9.4 mg/dL 8.6 - 10. 4 mg/dL [place] Chloride [Moles/Vol] 95 mmol/L Low 98 - 10 7 mmol/L [place] CO2 [Moles/Vol] 27 mmol/L 20 - 31 mmol/L [place] Creatinine [Mass/Vol] 0.68 mg/dL 0.5 - 0.9 mg/dL [place] GFR >60 >60 mL/min [place] GFR Non- >60 >60 mL/min [place] Glucose [Mass/Vol] 102 mg/dL High 70 - 99 mg/dL [place] Interpretation and review of laboratory results Abnormal [place] Potassium [Moles/Vol] 4.3 mmol/L 3.7 - 5.3 mmol/L [place] Sodium [Moles/Vol] 134 mmol/L Low 135 - 144 mmol/L [place] Urea nitrogen [Mass/Vol] 20 mg/dL 8 - 23 mg/dL [place] Metabolic Panelon 06-11-2019 GFR/1.73 sq M predicted among non-blacks MDRD (S/P/Bld) [Vol rate/Area] [place] Comment on above: Stage 1: Some [...] body mass. Additional eGFR calculator available at: http://www.Mumboe/multiple_crcl_2012.htm Vital Signs Date Time Vital Sign Value Performing Clinician Karmeni lity 12-02-2020 11:38-0400 Body Temperature 95.4 [degF] Austin Gorman [employer] [place] [employer] Work Phone: 12-02-2020 11:38-0400 BP Diastolic 99 mm[Hg] Austin [facility] [place] [employer] Work Phone: 12-02-2020 11:38-0400 BP Systolic 124 mm[Hg] DylanHammerhead Navigation[employer]b [facility] [place] [employer] Work Phone: 12-02-2020 11:38-0400 Pulse (Heart Rate) 75 /min LupilloSaraf Food[employer] Gorman [employer] Phone: 12-02-2020 11:38-0400 Pulse Oximetry 99 % [employer] Communicationskumar Gorman [employer] Phone: 12-02-2020 07:43-0400 Respiratory Rate 18 /min LupilloSaraf [employer] [facility] [place] [employer] Work Phone: 12-02-2020 03:55-0400 BMI (Body Mass Index) 24.14 kg/m2 Austin [employer] [facility] Work Phone: 12-02-2020 03:55-0400 Body weight 74.16 kg Austin Gorman [employer] [place] [employer] Work Phone: 12-01-2020 07:48-0400 Height 175.3 cm Austin Gorman [employer] Phone: 10-10-2020 06:47-0500 Body Temperature 96.01 [degF] Lindsay Mcneill [employer] [facility] Work Phone: 10-10-2020 06:47-0500 BP Diastolic 68 mm[Hg] Lindsay Obrien [employer] Phone: 10-10-2020 06:47-0500 BP Systolic 119 mm[Hg] Lindsay [employer] Phone: 10-10-2020 06:47-0500 Pulse (Heart Rate) 122 /min Lindsay Obrien [employer] Phone: 10-10-2020 06:47-0500 Pulse Oximetry 99 % Lindsay Obrien [employer] Phone: 10-10-2020 06:47-0500 Respiratory Rate 20 /min Lindsay Obrien [employer] Phone: 10-10-2020 04:45-0500 BMI (Body Mass Index) 22.92 kg/m2 Lindsay Obrien [employer] Work Phone: 10-10-2020 04:45-0500 Body weight 70.4 kg Lindsay Mcneill [facility] Phone: 10-07-2020 10:07-0500 Height 175.3 cm Lindsay Obrien [employer] Phone: 10-02-2020 09:29-0500 BMI (Body Mass Index) 23.63 kg/m2 [facility] [place] [place] 10-02-2020 09:29-0500 Body Temperature 97.7 [degF] Lindsay Obrien [employer] [place] 10-02-2020 09:29-0500 Body weight 72.58 kg Lindsay [facility] [place] 10-02-2020 09:29-0500 BP Diastolic 84 mm[Hg] [facility] [place] 10-02-2020 09:29-0500 BP Systolic 126 mm[Hg] Lindsay [facility] [place] 10-02-2020 09:29-0500 Pulse (Heart Rate) 72 /min [facility] [place] [place] 10-02-2020 09:29-0500 Pulse Oximetry 97 % Lindsay Obrien [facility] , [place] 10-02-2020 09:29-0500 Respiratory Rate 20 /min Lindsay Obrien [facility] 02-22-2020 11:56-0400 Body Temperature 98.01 [degF] Rodriguez Obrien [facility], [place] 02-22-2020 11:56-0400 BP Diastolic 67 mm[Hg] Rodriguez Obrien [facility] , [place] 02-22-2020 11:56-0400 BP Systolic 151 mm[Hg] Rodriguez Obrien [facility] , [place] 02-22-2020 11:56-0400 Pulse (Heart Rate) 42 /min Rodriguez Obrien [facility], [place] 02-22-2020 11:56-0400 Pulse Oximetry 99 % Rodriguez Obrien [facility] , [place] 02-22-2020 11:56-0400 Respiratory Rate 16 /min Rodriguez Obrien [facility], [place] Encounters Encounter Date Encounter Type Care Provider Facility Start: 09-18-2023 End: 09-19-2023 ambulatory KULADEEP SANDRAA [facility] Start: 06-13-2023 End: 06-14-2023 ambulatory KULADEEP SHEREEDDA [facility] Start: 06-05-2023 End: 06-06-2023 ambulatory ROB L GADIEL [facility] Start: 04-11-2023 End: 04-12-2023 ambulatory ROB L GADIEL [facility] Start: 04-11-2023 End: 04-11-2023 Subsequent hospital visit by physician Ara Pineda MD Work Phone: [facility] Start: 04-10-2023 End: 04-11-2023 ambulatory ROB L GADIEL [facility] Start: 02-14-2023 End: 02-18-2023 Patient encounter procedure Jacquelin Rodriguez DDS Work Phone: [facility] Start: 02-14-2023 End: 02-18-2023 ambulatory UNKNOWN PROVIDER Facility:[facility] Start: 2023 End: 02-14-2023 ambulatory EFREN Obrien [facility] Start: 12-13-2022 End: 12-13-2022 Subsequent hospital visit by physician Ara Pineda MD Work Phone: [facility] Start: 12-13-2022 End: 12-14-2022 ambulatory ROB RAMESH [facility] Start: 12-12-2022 End: 12-13-2022 ambulatory ROB L GADIEL [facility] Start: 12-12-2022 End: 12-12-2022 Subsequent hospital visit by physician Ara Pineda MD Work Phone: [facility] Start: 09-27-2022 End: 09-28-2022 ambulatory ARA Obrien [facility] Start: 09-27-2022 End: 09-27-2022 Subsequent hospital visit by physician Ara Pineda MD Work Phone: [facility] Start: 09-26-2022 End: 09-27-2022 ambulatory ARA Obrien [facility] Start: 09-26-2022 End: 09-26-2022 Subsequent hospital visit by physician Ara Pineda MD Work Phone: [facility] Start: 09-19-2022 End: 09-19-2022 Subsequent hospital visit by physician Ara Pineda MD Work Phone: [facility] Start: 06-21-2022 End: 06-21-2022 Subsequent hospital visit by physician Ara Pineda MD Work Phone: [facility] Start: 05-02-2022 End: 05-02-2022 Subsequent hospital visit by physician Ara Pineda MD Work Phone: [facility] Comment on above: Chronic diastolic CH F (congestive heart failure) (HCC); Chronic a-fib (HCC); Chronic anticoagulation; Severe mitral regurgitation; Pulmonary hypertension, moderate to severe (HCC) Start: 04-12-2022 End: 04-12-2022 Subsequent hospital visit by physician Ara Pineda MD Work Phone: [facility] Start: 04-05-2022 End: 04-05-2022 Subsequent hospital visit by physician [facility] [facility] Comment on above: Chronic diastolic CH F (congestive heart failure) (HCC); Chronic a-fib (HCC); Chronic anticoagulation; Severe mitral regurgitation; Pulmonary hypertension, moderate to severe (HCC) Start: 03-22-2022 End: 03-22-2022 Subsequent hospital visit by physician [facility] EKG Comment on above: Arrived Start: 2022 End: 02-15-2022 Subsequent hospital visit by physician [facility] Mamm[facility] Mammography Comment on above: Screening mammogram for high-risk patient Start: 12-22-2021 End: 12-22-2021 Subsequent hospital visit by physician Ara Pineda MD Work Phone: [facility] Start: 12-20-2021 End: 12-20-2021 Subsequent hospital visit by physician Ara Pineda MD Work Phone: [facility] Start: 09-06-2021 End: 09-06-2021 Subsequent hospital visit by physician Ara Pineda MD Work Phone: [facility] Start: 06-14-2021 End: 06-14-2021 Subsequent hospital visit by physician Ara Pineda MD Work Phone: [facility] Start: 12-26-2020 End: 12-28-2020 Subsequent hospital visit by physician [facility] Mammography [facility] Mammography Comment on above: Breast cancer screen ing by mammogram Start: 12-21-2020 End: 12-21-2020 Subsequent hospital visit by physician Ara Pineda MD Work Phone: [facility] Start: 12-07-2020 End: 12-07-2020 Subsequent hospital visit by physician Ara MARTIN Laboratory Start: 11-30-2020 End: 12-02-2020 Evaluation and management of inpatient Austin Gorman Work Phone: [facility] Start: 10-06-2020 End: 10-10-2020 Evaluation and management of inpatient Lindsay Mcneill Work Phone: [facility] Comment on above: Acute on chronic con gestive heart failure, unspecified heart failure type (HCC) (Primary Dx); Atrial flutter, unspecified type (HCC) Start: 10-04-2020 End: 10-04-2020 Subsequent hospital visit by physician [facility] Echo Room [facility] Echocardiography Comment on above: Severe mitral valve regurgitation; Congestive heart failure, unspecified HF chronicity, unspecified heart failure type (HCC) Start: 10-02-2020 End: 10-02-2020 Emergency department patient visit Lindsay Mcneill Work Phone: [facility] ED Comment on above: Dental infection (Pr imary Dx); Cellulitis, unspecified cellulitis site Start: 09-30-2020 End: 09-30-2020 Subsequent hospital visit by physician Ara Pineda [facility] Start: 03-10-2020 End: 03-10-2020 Patient encounter procedure LUCIE DELEON Facility: Start: 02-22-2020 End: 02-22-2020 Emergency department patient visit Rodriguez Estrada Work Phone: [facility] ED Comment on above: Facial [...] Basic metabolic pane l calcium total Rob Ramesh SALES AND MARKETING ADMINISTRATOR Work Phone: Start: 09-27-2022 Blood count complete automated Rob Tamr SALES AND MARKETING ADMINISTRATOR Work Phone: Start: 09-27-2022 Drug screen quantita tive digoxin total Rob Ramesh SALES AND MARKETING ADMINISTRATOR Work Phone: Start: 09-19-2022 Comprehensive metabo lic panel Rob Tamr SALES AND MARKETING ADMINISTRATOR Work Phone: Start: 06-21-2022 Basic metabolic pane l calcium total Ara Pineda MD Work Phone: Start: 05-02-2022 Basic metabolic pane l calcium total Efren Tim MD Work Phone: Start: 05-02-2022 Drug screen quantita tive digoxin total Efren Tim MD Work Phone: Start: 04-12-2022 Blood count complete automated Scooter Dhillon SALES AND MARKETING ADMINISTRATOR - HEALTH INFORMATION ADMINISTRATOR Work Phone: Start: 2022 Screening mammograph y bi 2-view breast inc cad Scooter Dhillon SALES AND MARKETING ADMINISTRATOR - HEALTH INFORMATION ADMINISTRATOR Work Phone: Start: 12-22-2021 Basic metabolic pane l calcium total Ara Pineda MD Work Phone: Start: 09-06-2021 Comprehensive metabo lic panel Ara Pineda MD Work Phone: Start: 06-14-2021 Basic metabolic pane l calcium total Ara Pineda MD Work Phone: Start: 12-26-2020 Screening mammograph y bi 2-view breast inc cad Scooter Dhillon SALES AND MARKETING ADMINISTRATOR - HEALTH INFORMATION ADMINISTRATOR Work Phone: Start: 12-21-2020 Urinalysis microscopic only Scooter Dhillon SALES AND MARKETING ADMINISTRATOR - HEALTH INFORMATION ADMINISTRATOR Work Phone: Start: 12-21-2020 Urnls dip stick/tabl et rgnt auto w/o microscopy Scooter Dhillon SALES AND MARKETING ADMINISTRATOR - HEALTH INFORMATION ADMINISTRATOR Work Phone: Start: 12-07-2020 Urinalysis microscopic only [...] Work Phone: Start: 11-30-2020 Natriuretic peptide Charlotte osminlorin Burkett Work Phone: Start: 11-30-2020 Prothrombin time Carin Burkett Work Phone: Start: 11-30-2020 Thromboplastin time partial plasma/whole blood Francine Burkett Work Phone: Start: 11-30-2020 Ecg routine ecg w/le ast 12 lds i&r only Francine Burkett Work Phone: Start: 11-30-2020 EKG REPORT Hpf Scanni ng Start: 11-30-2020 Radiologic exam ches t 2 views Francine Burkett Work Phone: Start: 10-10-2020 Assay of magnesium Tameka Burkett Work Phone: Start: 10-10-2020 Basic metabolic pane l calcium total Francine Burkett Work Phone: Start: 10-09-2020 Assay of magnesium Tameka Burkett Work Phone: Start: 10-09-2020 Basic metabolic pane l calcium total Francine Burkett Work Phone: Start: 10-09-2020 Natriuretic peptide Charlotte virgilio Irwin Kaleva Work Phone: Start: 10-08-2020 Assay of magnesium Tameka Irwin Madelaine Work Phone: Start: 10-08-2020 Basic metabolic pane l calcium total Francine Burkett Work Phone: Start: 10-07-2020 Assay of magnesium Tameka Irwin [employer] Work Phone: Start: 10-07-2020 Basic metabolic pane [...] Work Phone: Start: 10-06-2020 Natriuretic peptide Chantelle Brower Work Phone: Start: 10-02-2020 BASIC METABOLIC PANE L W/ REFLEX TO MG FOR LOW K Lindsay Mcneill Work Phone: Start: 10-02-2020 Blood count complete auto&auto difrntl wbc Lindsay Mcneill Work Phone: Start: 09-30-2020 Blood count complete auto&auto difrntl wbc Ara Pineda Work Phone: Start: 09-30-2020 Comprehensive metabo lic panel Ara Pineda Work Phone: Start: 09-30-2020 IMMATURE PLATELET FRACTION Ara Pineda Work Phone: Start: 02-22-2020 Ct head/brain w/o co ntrast material Rodriguez Estrada Work Phone: Start: 09-28-2019 Radiologic exam ches t 2 views Jose Deleon Work Phone: Start: 09-28-2019 Basic metabolic pane l calcium total Mikeishmarychuyah C Juana Work Phone: Start: 09-28-2019 Natriuretic peptide Aparna Deleon Work Phone: Start: 06-11-2019 Basic metabolic pane l calcium total Jose Deleon Work Phone: Plan of Treatment Date Care Activity Detail Author Start: 12-01-2025 [facility] Start: 10-07-2025 Lipid panel Lipid screen [employer] Work Phone: Start: 02-15-2024 Screening for malignant neoplasm of breast Breast cancer screen [employer] [facility] Start: 02-14-2024 Screening for malignant neoplasm of breast [facility] Start: 08-05-2023 End: 08-05-2023 Patient encounter procedure 08/05/2023 Office Visit Cardiology Efren Tim MD [address] [place] [address] [place] [id number] [facility] Start: 03-26-2023 Influenza [facility] Start: 02-14-2023 Screening for malignant neoplasm of breast Mammography [facility] Start: 01-31-2023 End: 01-31-2023 Patient encounter procedure 01/31/2023 Office Visit Cardiology Efren Tim MD [address] [place] [address] [place] [id number] [facility] Start: 12-26-2022 Screening for malignant neoplasm of breast Breast cancer screen [employer] Start: 10-04-2022 Creatinine measurement Creatinine [facility] Start: 10-04-2022 Potassium [Moles/volume] in Serum or Plasma Potassium [facility] Start: 09-06-2022 Creatinine measurement Creatinine monitoring [facility] Start: 09-06-2022 Potassium monitoring Potassium monitoring [facility] Start: 08-02-2022 End: 08-02-2022 Patient encounter procedure 08/02/2022 Office Visit Cardiology Efren Tim MD [address] [place] [address] [place] [id number] [facility] Start: 06-14-2022 Creatinine measurement Creatinine monitoring [facility] [employer] Work Phone: Start: 06-14-2022 Potassium monitoring Potassium monitoring [facility] Phone: Start: 05-03-2022 End: 05-03-2022 Patient encounter procedure 05/03/2022 Office Visit Cardiology Efren Tim MD [address] [place] [phone] [facility] Start: 04-26-2022 Influenza vaccination [facility] Start: 04-14-2022 COVID-19 Vaccine (4 - Booster for Pfizer series) COVID-19 Vaccine (4 - Booster for Pfizer series) [facility] Start: 03-26-2022 Influenza vaccination Flu vaccine (#1) [facility] Start: 03-22-2022 End: 03-22-2022 Patient encounter procedure 03/22/2022 Office Visit Cardiology Efren Tim MD [address] [place] [address] [facility] Start: 2022 Pneumococcal 0-64 years Vaccine (2 of 2 - PPSV23) Pneumococcal 0-64 years Vaccine (2 of 2 - PPSV23) [facility] Start: 2022 Screening for osteoporosis Bone Densitometry [facility] Start: 02-07-2022 COVID-19 Vaccine (4 - Booster for Pfizer series) COVID-19 Vaccine (4 - Booster for Pfizer series) [facility] Start: 12-27-2021 End: 12-27-2021 Patient encounter procedure 12/27/2021 Appointment Radiology [facility] Mamm[facility] Start: 12-07-2021 Creatinine measurement Creatinine monitoring [facility] Phone: Start: 12-07-2021 Potassium monitoring Potassium monitoring [facility] Work Phone: Start: 12-02-2021 Creatinine measurement Creatinine monitoring [facility] Phone: Start: 12-02-2021 Potassium monitoring Potassium monitoring [facility] Work Phone: Start: 10-10-2021 Creatinine measurement Creatinine monitoring [facility] Work Phone: Start: 10-10-2021 Potassium monitoring Potassium monitoring [facility] Work Phone: Start: 10-02-2021 Creatinine measurement Creatinine monitoring [facility] [place], [place] Start: 10-02-2021 Potassium monitoring Potassium monitoring [facility] [place], [place] Start: 09-20-2021 End: 09-20-2021 Patient encounter procedure 09/20/2021 Office Visit Cardiology Efren Tim MD [address] [place] [address] [facility] Start: 08-29-2021 End: 08-29-2021 Patient encounter procedure 08/29/2021 Office Visit Cardiology Efren Tim MD [address] [place] [address] [facility] Start: 04-26-2021 Influenza vaccination [facility] Start: 03-27-2021 COVID-19 Vaccine (3 - Booster for Pfizer series) COVID-19 Vaccine (3 - Booster for Pfizer series) [facility] Start: 02-24-2021 COVID-19 Vaccine (3 - Booster for Pfizer series) COVID-19 Vaccine (3 - Booster for Pfizer series) [facility] Start: 02-01-2021 End: 02-01-2021 Patient encounter procedure 02/01/2021 Office Visit Cardiology Efren Tim MD [address] [place] [phone] [facility] Start: 12-26-2020 End: 12-26-2020 Appointment 12/26/2020 Appointment Radiology [facility] Mammography Start: 12-16-2020 End: 12-16-2020 Office Visit 12/16/2020 Office Visit Cardiology Efren Tim MD [address] [place] [address] [phone] [facility] Start: 12-04-2020 Breast cancer screen Breast cancer screen [place], [place] Start: 12-04-2020 Screening for malignant neoplasm of breast Breast cancer screen [place] Start: 10-17-2020 End: 10-10-2021 Basic metabolic 2000 panel Basic Metabolic Panel Lab Routine Acute on chronic congestive heart failure, unspecified heart failure type (HCC) Expected: 10/17/2020, Expires: 10/10/2021 [facility] Work Phone: Comment on above: Expected: 10/17/2020, Expires: Start: 10-06-2020 End: 10-06-2020 Office Visit 10/06/2020 Office Visit Cardiology Efren Tim MD [address] [place] [address] [place] [address] [phone] [facility] Start: 10-04-2020 End: 10-04-2020 Appointment 10/04/2020 Appointment Echocardiography [facility] Echocardi[facility] Start: 09-28-2020 Creatinine measurement Creatinine monitoring [place] Start: 09-28-2020 Potassium monitoring Potassium monitoring [place] Start: 04-26-2020 Influenza vaccination [place] Start: 12-15-2019 DTaP/Tdap/Td vaccine (2 - Td or Tdap) DTaP/Tdap/Td vaccine (2 - Td or Tdap) [facility] Start: 12-15-2019 Tetanus vaccination Tetanus (Td or Tdap) Booster [facility] Start: 04-26-2019 Influenza vaccination Flu vaccine (#1) [place] Start: 02-12-2019 Annual Wellness Visit (AWV) Annual Wellness Visit (AWV) [facility] Start: 02-14-2012 Screening for osteoporosis DEXA (modify frequency per FRAX score) [facility] Start: 12-14-2010 Pneumococcal 0-64 years Vaccine (2 - PCV) Pneumococcal 0-64 years Vaccine (2 - PCV) [facility] Start: 12-14-2010 Pneumococcal 65+ years Vaccine (2 - PCV) Pneumococcal 65+ years Vaccine (2 - PCV) [facility] Start: 12-14-2010 Pneumococcal vaccination Pneumococcal Vaccine(s) (65+ yrs) (2 - PCV) [facility] Start: 2007 Colon cancer screen colonoscopy Colon cancer screen colonoscopy [place], [place] Start: 2007 Screening for malignant neoplasm of colon Colon cancer screen colonoscopy [place] Start: 2007 Shingles (RZV) Vaccine (1 of 2) Shingles (RZV) Vaccine (1 of 2) [facility] Start: 2007 Shingles Vaccine (1 of 2) Shingles Vaccine (1 of 2) [facility] Start: 2002 Cholesterol [Mass/volume] in Serum or Plasma Cholesterol [facility] Start: 2002 Screening for malignant neoplasm of colon [facility] Start: 1997 Lipid panel Lipid screen [place], [place] Start: 1997 Lipid screen Lipid screen [place] Start: 1987 Screening for malignant neoplasm of cervix [facility] Start: 1978 Cervical cancer screen Cervical cancer screen [place], [place] Start: 1978 Screening for malignant neoplasm of cervix [facility] Start: 02-14-1976 DTaP/Tdap/Td vaccine (1 - Tdap) DTaP/Tdap/Td vaccine (1 - Tdap) [place] Start: 1975 Hepatitis C screening [facility] Start: 1973 COVID-19 Vaccine (1 of 2) COVID-19 Vaccine (1 of 2) [facility] Work Phone: Start: 1973 COVID-19 Vaccine (1) COVID-19 Vaccine (1) [facility] [employer] Phone: Start: 02-14-1972 HIV screen HIV screen [place], [place] Start: 02-14-1972 HIV screening HIV screen [facility] Start: 1969 COVID-19 Vaccine (1) COVID-19 Vaccine (1) [facility] [employer] Phone: Start: 1969 Depression Screen Depression Screen [facility] [employer] Start: 02-14-1968 DTaP/Tdap/Td vaccine (1 - Tdap) DTaP/Tdap/Td vaccine (1 - Tdap) [facility] Phone: Start: 1963 Pneumococcal 0-64 years Vaccine (1 of 1 - PPSV23) Pneumococcal 0-64 years Vaccine (1 of 1 - PPSV23) [facility] Phone: Start: 1963 Pneumococcal 0-64 years Vaccine (1 of 2 - PPSV23) Pneumococcal 0-64 years Vaccine (1 of 2 - PPSV23) [facility] Phone: Start: 1957 COVID-19 Vaccine (#1) COVID-19 Vaccine (#1) [facility] Start: 1957 Annual Wellness Visit (AWV) Annual Wellness Visit (AWV) [facility] Start: 1957 Hepatitis C screen Hepatitis C screen [place], [place] Start: 1957 Hepatitis C screening Hepatitis C screen [facility] Start: 1957 Screening for malignant neoplasm of colon Colonoscopy [facility] End: 10-11-2020 Basic metabolic 2000 panel Basic Metabolic Panel Lab Routine Daily for 5 Days starting 10/07/2020 until 10/11/2020, 4 completed [facility] Phone: Comment on above: Daily for 5 Days starting 10/07/2020 unt il 10/11/2020, 4 completed End: 12-05-2020 Basic metabolic 2000 panel Basic Metabolic Panel Lab Routine Daily for 5 Days starting 12/01/2020 until 12/05/2020, 2 completed [facility] Phone: Comment on above: Daily for 5 Days starting 12/01/2020 unt il 12/05/2020, 2 completed End: 10-15-2020 Brain Natriuretic Peptide Brain Natriuretic Peptide Lab Routine Every Third Day for 3 Occurrences starting 10/09/2020 until 10/15/2020, 1 completed [facility] Phone: Comment on above: Every Third Day for 3 Occurrences starti ng 10/09/2020 until 10/15/2020, 1 completed End: 12-06-2020 Brain Natriuretic Peptide Brain Natriuretic Peptide Lab Routine Every Third Day for 3 Occurrences starting 11/30/2020 until 12/06/2020, 1 completed [facility] Phone: Comment on above: Every Third Day for 3 Occurrences starti ng 11/30/2020 until 12/06/2020, 1 completed End: 04-11-2023 CBC panel - Blood by Automated count [facility] Phone: Comment on above: Once for 1 Occurrences starting 04/11/20 until 04/11/2023 End: 04-05-2022 Continuous cardiac monitoring, >2 up to 14 days Continuous cardiac monitoring, >2 up to 14 days Cardiac Services Routine Chronic diastolic CHF (congestive heart failure) (HCC) Chronic a-fib (HCC) Chronic anticoagulation Severe mitral regurgitation Pulmonary hypertension, moderate to severe (HCC) 1 Occurrences starting 04/05/2022 until 04/05/2022 [facility] Phone: Comment on above: 1 Occurrences starting 04/05/2022 until 04/05/2022 End: 10-02-2020 Culture, Blood 1 Culture, Blood 1 Microbiology STAT One Time for 1 Occurrences starting 10/02/2020 until 10/02/2020 [email or web address] are family too Comment on above: One Time for 1 Occurrences starting 02/2021 until 10/02/2020 Culture, Blood 1 [employer] [facility] [place], [place] End: 12-07-2020 Culture, Urine Culture, Urine Microbiology Routine Once for 1 Occurrences starting 12/07/2020 until 12/07/2020 [facility] Phone: Comment on above: Once for 1 Occurrences starting 12/08/19 21 until 12/07/2020 Culture, Urine [facility] Phone: End: 12-21-2020 Culture, Urine Culture, Urine Microbiology Routine Once for 1 Occurrences starting 12/21/2020 until 12/21/2020 [facility] Phone: Comment on above: Once for 1 Occurrences starting 12/22/19 21 until 12/21/2020 End: 10-11-2020 Magnesium [Mass/Vol] Magnesium Lab Routine Daily for 5 Days starting 10/07/2020 until 10/11/2020, 4 completed [facility] Work Phone: Comment on above: Daily for 5 Days starting 10/07/2020 unt il 10/11/2020, 4 completed Oxygen therapy [Minimum Data Set] [facility] Work Phone: Comment on above: Daily until discontinued starting 2020 Daily until disconti nued starting 11/30/2020 Immunizations Immunization Date Immunization Notes Care Provider Chris barbosa 05-28-2011 influenza, seasonal, injectable Jacquelin Rodriguez DDS Work Phone: [facility] 12-14-2009 pneumococcal polysac charide vaccine, 23 valent Jacquelin Rodriguez DDS Work Phone: [facility] 12-14-2009 tetanus toxoid, redu christin diphtheria toxoid, and acellular pertussis vaccine, adsorbed Jacquelin Rodriguez DDS Work Phone: [facility] Payers Date Payer Category Payer Medicaid DENTAL-MEDICAID D[place]AL [place] [id number] 2017-Present [address] [place] [address] Medicaid [id number] 2016 Medicaid MEDICAID [facility] DEPT OF JOB xxxxxxxxxxxx 2016-Present [phone] [address] [place] [address] xxxxxxxxxxxx [id number] 2014 Medicare MEDICARE MEDICAR E PART A AND B xxxxxxxxxxx 2014-Present [phone] [place] [address] xxxxxxxxxxx [id number] 1959 Medicaid [id number] 1959 Medicare [id number] 1957 Unknown [id number] 1957 Unknown [id number] 1957 Unknown [id number] 1957 Unknown [id number] 1957 Unknown [id number] 1957 Unknown [id number] 1957 Unknown [id number] 1957 Unknown [id number] 1957 Unknown [id number] 1957 Unknown [id number] 1957 Unknown [id number] 1957 Unknown [id number] Social History Date Type Detail Facility Start: 12-05-2013 End: 10-06-2020 Tobacco smoking status NHIS Never smoker [place] Start: 12-05-2013 End: 01-31-2023 Alcohol intake Current non-drinker of alcohol (finding) [facility] Phone: Start: 1955 Sex Assigned At Not on file M JL Ball Exposure to SARS-CoV-2 (event) Not sure Camille [place] [employer] Start: 01-25-2013 End: 10-06-2020 Tobacco use and exposure Never used [facility] Phone: Start: 12-05-2013 Alcohol intake No [employer] JL JORDAN Exposure to SARS-CoV-2 (event) Unable to assess [facility] Phone: Tobacco smoking status NHIS Tobacco smoking consumption unknown [facility] History of Present illness Narrative 02-14-2023 Jacquelin Rodriguez DDS - 02/14/2023 10:06 AM EDT Note Date & Type Note Facility 02-14-2023 History of Presen t illness Narrative ----- January at 12:08:30 PM ----- ----- Provider: [id number] Rosangela Rodriguez, -- Clinic: [facility] ----- OR EVALUATION Patient presents for evaluation [...] slot becomes available. Legal Guardian: Katerin Meyer- [phone]- Shale Planer Operator Helper email- [email or web address] Visit: OR ----- Signed on January at 12:23:14 PM ----- ----- Provider: [id number] Rosangela Gloria DDS -- Clinic: [facility] ----- documented in this encounter [facility] History of Present illness Narrative 04-05-2022 Angelica Curiel RN - 04/05/2022 11:00 AM EDT Note Date & Type Note Facility 04-05-2022 History of Present illness Narrative Patient instructed on extended groundwater monitoring technician indications and use. Diary sent with patient. documented in this encounter [facility] Phone: Evaluation note Note Date & Type Note Facility Evaluation note Diagnosis Breast cancer screening by mammogram documented in this encounter [facility] Phone: Evaluation note Note Date & Type Note Facility Evaluation note Diagnosis Screening mammogram for high-risk patient documented in this encounter [facility] Phone: Evaluation note Note Date & Type Note Facility Evaluation note Diagnosis Chronic diastolic CHF (congestive heart failure) (HCC) Chronic a-fib (HCC) Atrial fibrillation Chronic anticoagulation Encounter for long-term (current) use of anticoagulants Severe mitral regurgitation Mitral valve disorders Pulmonary hypertension, moderate to severe (HCC) Other chronic pulmonary heart diseases documented in this encounter [facility] Phone: Evaluation note Note Date & Type Note Facility Evaluation note Diagnosis Chronic diastolic CHF (congestive heart failure) (HCC) Chronic a-fib (HCC) Atrial fibrillation Chronic anticoagulation Encounter for long-term (current) use of anticoagulants Severe mitral regurgitation Mitral valve disorders Pulmonary hypertension, moderate to severe (HCC) Other chronic pulmonary heart diseases documented in this encounter [place] Phone: Advance Directives No Advanced Directives Records FoundDocuments on File Type Date Recorded Patient Design Maintenance Engineer Expl anation Advance Directives and Living Will Power of Shale Planer Operator Helper Documents on File Type Date Recorded Patient Design Maintenance Engineer Expl anation ACP-Advance Directive ACP-Power of Shale Planer Operator Helper DNR Documentation 03/03/2013 3:14 PM DNR Documentation 02/24/2020 12:32 PM Documents on File Type Date Recorded Patient Design Maintenance Engineer Expl anation ACP-Advance Directive ACP-Power of Shale Planer Operator Helper DNR Documentation 03/03/2013 3:14 PM DNR Documentation 02/24/2020 12:32 PM Latest Code Status on File Code Status Date Activated Date Inactivated Comments DNR-CC 10/06/2020 8:41 PM Full Code 10/06/2020 8:08 PM 10/06/2020 8:41 PM Healthcare Agents on File Name Relationship Healthcare Agent Relationshi p Communication Kody Alcaraz Legal Guardian Primary Decision Maker Documents on File Type Date Recorded Patient Design Maintenance Engineer Expl anation ACP-Advance Directive ACP-Do Not Resuscitate 03/03/2013 3:14 PM ACP-Do Not Resuscitate 02/24/2020 12:32 PM ACP-Do Not Resuscitate 10/13/2020 1:28 PM ACP-Power of Shale Planer Operator Helper Latest Code Status on File Code Status [...] Documents on File Type Date Recorded Patient Design Maintenance Engineer Expl anation ACP-Advance Directive ACP-Do Not Resuscitate 03/03/2013 3:14 PM ACP-Do Not Resuscitate 02/24/2020 12:32 PM ACP-Do Not Resuscitate 10/13/2020 1:28 PM ACP-Power of Shale Planer Operator Helper Latest Code Status on File Code Status Date Activated Date Inactivated Comments DNR-CC 11/30/2020 3:49 PM 12/02/2020 5:22 PM DNR-CC 10/06/2020 8:41 PM 10/10/2020 1:50 PM Full Code 10/06/2020 8:08 PM 10/06/2020 8:41 PM Healthcare Agents on File Name Relationship Healthcare Agent Relationshi p Communication Kody Alcaraz Legal Guardian Primary Decision Maker Documents on File Type Date Recorded Patient Design Maintenance Engineer Expl anation ACP-Advance Directive ACP-Power of Shale Planer Operator Helper ACP-Do Not Resuscitate 10/13/2020 1:28 PM ACP-Do Not Resuscitate 02/24/2020 12:32 PM ACP-Do Not Resuscitate 03/03/2013 3:14 PM Healthcare Agents on File Name Relationship Healthcare Agent Relationshi p Communication Kody Alcaraz Legal Guardian Primary Decision Maker Healthcare Agents on File Name Relationship Healthcare Agent Relationshi p Communication Kody Alcaraz Legal Guardian Primary Decision Maker Documents on File Type Date Recorded Patient Design Maintenance Engineer Expl anation ACP-Advance Directive ACP-Power of Shale Planer Operator Helper ACP-Do Not Resuscitate 10/13/2020 1:28 PM ACP-Do Not Resuscitate 02/24/2020 12:32 PM ACP-Do Not Resuscitate 03/03/2013 3:14 PM Healthcare Agents on File Name Relationship Healthcare Agent Relationshi p Communication Kody Alcaraz Legal Guardian Primary Decision Maker Documents on File Type Date Recorded Patient Design Maintenance Engineer Expl anation ACP-Do Not Resuscitate 10/13/2020 1:28 PM ACP-Do Not Resuscitate 02/24/2020 12:32 PM Healthcare Agents on File Name Relationship Healthcare Agent Relationshi p Communication Kody Alcaraz Legal Guardian Primary Decision Maker Healthcare Agents on File Name Relationship Healthcare Agent Relationshi p Communication Kody Alcaraz Legal Guardian Primary Decision Maker Documents on File Type Date Recorded Patient Design Maintenance Engineer Expl anation ACP-Do Not Resuscitate 10/13/2020 1:28 [...] Agents on File Name Relationship Healthcare Agent [facility] Communication Kody Alcaraz Legal Guardian Primary Decision [...] be sent through Care Everywhere. * Stroke (Bhutanese) documented in this encounter* Instructions* Lindsay Mcneill MD - 10/02/2020 Give Tylenol as directed until symptoms resolve. Clindamycin daily as directed until complete. Follow-up with a dentist as soon as possible. Return immediately for any worsening swelling pain fevers or any other acute concerns * Attachments The following attachments cannot be sent through Care Everywhere. * Cellulitis (Bhutanese) * Tooth: Abscessed (Bhutanese) documented in this encounter* Discharge Instr - SERGIO* Carlos Curielmen Juan, RELIGIOUS LEADER - 10/07/2020 4:48 PM EST Continuity of Care Form Patient Name: Minerva Alan : 1955 Admit date: 10/06/2020 Discharge date: 10/10/20 Code Status Order: DNR-CC Advance Directives: Admitting Physician: Nathanael Foreman MD PCP: Ara Pineda MD Discharging Nurse: opal Discharging Hospital Unit/Room#: 0315/0315-01 Discharging Unit Phone Number: [phone] Emergency Contact: Extended Emergency Contact Information Primary Emergency Contact: Kody Alcaraz Address: [address] [place] [address] Relation: Legal Guardian Past Surgical History: Past Surgical History: Procedure Laterality Date HIP SURGERY Immunization History: There is no immunization history on file for this patient. Active Problems: Patient Active Problem List Diagnosis Code Severe mitral regurgitation I34.0 Pulmonary hypertension, moderate to severe ([facility]) I27.20 Acute on chronic combined systolic and diastolic CHF (congestive heart failure) ([facility]) I50.43 Atrial flutter with rapid ventricular response ([facility]) I48.92 Facial cellulitis L03.211 Complex congenital heart [...] Assisted Dressing Assisted Toileting Assisted Feeding Independent Shorthand Reporter Assisted Med Delivery whole Wound Care Documentation [...] - No ventilator support Rehab Therapies: {THERAPEUTIC INTERVENTION:6776879032} Weight Bearing Status/Restrictions: No weight bearing restirctions Other Medical Equipment (for information only, NOT a DME order): walker Other Treatments: Patient's personal belongings (please select all that are sent with patient): None RN SIGNATURE: CASE MANAGEMENT/SOCIAL WORK SECTION Inpatient Status Date:10/06/20 Readmission Risk Assessment Score: Readmission Risk Risk of Unplanned Readmission: 17 Discharging to Facility/ Agency Name: skilled nursing Address:[address] [place] [address] Phone: Fax: Dialysis Facility (if applicable) Name: Address: Dialysis Schedule: Phone: Fax: Early Head Start Teacher/Regional Commercial Sales Manager signature: PHYSICIAN SECTION Prognosis: Fair Condition at [...] Admitting Physician: Austin Gorman MD PCP: Ara Pineda MD Discharging Nurse: Anjali PAN Discharging Hospital Unit/Room#: 0316/0316-01 Discharging Unit Emergency Contact: Extended Emergency Contact Information Primary Emergency Contact: Kody Alcraaz Address: [address] [place] [address] Relation: Legal Guardian Past Surgical History: Past Surgical History: Procedure Laterality Date HIP SURGERY Immunization History: There is no immunization history on file for this patient. 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 Chronic anticoagulation Z79.01 CHF (congestive heart failure) ([facility]) I50.9 Acute on chronic combined systolic and diastolic hrt fail ([facility]) I50.43 Isolation/Infection: Isolation No Isolation Patient Infection [...] Assisted Dressing Assisted Toileting Independent Feeding Independent Shorthand Reporter Dependent Med Delivery whole Wound Care Documentation [...] applicable) Name: Address: Dialysis Schedule: Phone: Fax: Early Head Start Teacher/Regional Commercial Sales Manager signature: {Esignature:[id number]} PHYSICIAN SECTION Prognosis: {Prognosis:0825203607} Condition at Discharge: { Patient Condition:716131263} Rehab Potential (if transferring to Rehab): {Prognosis:9348154881} Recommended Labs or Other Treatments After Discharge: Physician Certification: I certify the above information and transfer of Minerva Alan is necessary for the continuing treatment of the diagnosis listed and that she requires {Admit to Appropriate Level of Care:64077} for {GREATER/LESS:880776520} 30 days. Update Admission H&P: {CHP DME Changes in HandP:070857969} PHYSICIAN SIGNATURE: {Esignature:[id number]} * Attachments The following attachments cannot be sent through Care Everywhere. * Low Sodium Foods: General Info (Bhutanese) * Low Sodium: Reading a Food Label (Bhutanese) * Heart Failure (Bhutanese) documented in this encounter Summary Purpose Family [...] Complete 2D W Doppler W Color Ara Pineda MD [address] [place] [id number] [facility] Echo [address] [place] [id number] Specialty Diagnoses / Procedures Referred By Contac t Referred To Contact Diagnoses Chronic diastolic CHF (congestive heart failure) (HCC) Chronic a-fib (HCC) Chronic anticoagulation Severe mitral regurgitation Pulmonary hypertension, moderate to severe (HCC) Procedures Continuous cardiac monitoring, >2 up to 14 days Efren Tim MD [address] [place] [address] Referral ID Status Reason Start Date Expiration Date Visits Re quested Visits Authorized [id number] Closed 03/22/2022 03/22/2023 1 1 History of Present Illness * Lory Shipley - 10/04/2020 2:00 PM EST Explained policies and procedures of an echocardiogram/doppler study. documented in this encounter* Opal Moralez - 10/10/2020 11:34 AM EST Iv, nash removed pt discharged to shelter staff Jennifer Anthony LSW - 10/10/2020 9:54 AM EST The guardian aware of the discharge back to the shelter. She will go by ambulance. Ambulance could not come until 730 PM. The shelter will come and provide the transportation. LAURA Oneill Daisy Martin RN - 10/10/2020 1:55 AM EST Pt reassessed and VS rechecked. HR 104, BP 100/79. FLACC 0. No noted changed from initial assessment. Will continue to monitor. Daisy Mg RN - 10/09/2020 9:05 PM EST Hoop Punch And Coiler Operator entered room to administer nightly medications. BP 95/56, HR 116. Pt took medications without difficulty. Lighting adjusted in room. Bed alarm remains in place. Will continue to monitor. Daisy Mg RN - 10/09/2020 6:40 PM EST Bed alarm activated, telegraphic typewriter mechanic entered room to find patient sitting on [...] (congestive heart failure) (HCC). 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 * ASSESSMENT / PLAN: Acute on chronic combined systolic and diastolic CHF (congestive heart failure) ([facility]) Continue current therapy Monitor renal functionand electrolytes [...] be dry. Bed alarm. No complaints that telegraphic typewriter mechanic is aware of at this time. Will continue to monitor. * Alize Pham RN - 10/08/2020 6:58 PM EST Patient is deaf, non-verbal and MRDD. Patient able to effectively communicate what she wants via pointing at objects in the room. Vital signs and assessment completed. Patient has +1 pitting edema inBLE. Patient is overall cooperative. Brief is dry at this time. 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 * ASSESSMENT / PLAN: Acute on chronic combined systolic and diastolic CHF (congestive heart failure) ([facility]) Continue current therapy Monitor renal functionand electrolytes [...] staff to return linen. Patient continually pushes telegraphic typewriter mechanic away while telegraphic typewriter mechanic assessing patient (report received that patient will push away when she is done with something or no longer wants to be messed with). Hoop Punch And Coiler Operator assessed as able and competed VS. Will continue to monitor. * Jennifer Curiel LSW - 10/07/2020 10:44 AM EST Discussed discharge plans with the legal guardian. Patient is a 65 year old female here with Acute on chronic diastolic heart failure. She is alert. Patient is deaf and has the dx of intellectual disability. Patient is single and lives in a shelter. She uses a walker for ambulation. The staff assist herwith her ADL's. The shelter manages her medication and transportation. Her PCP is Dr. Ara Pineda MD. She has medical insurance that helps with medication costs. The discharge plan is to return to the shelter. She does not have advance directives do to having a legal guardian. RELIGIOUS LEADER to monitor and assist with any needs or concerns as they arise. LAURA Oneill * Saundra Yi RN - 10/07/2020 7:57 AM EST Hoop Punch And Coiler Operator to bedside to complete morning assessment and vitals. Pt awake in bed. Vitals obtained and assessment completed see flow sheet for details. Breakfast tray brought in, pt sitting at edge of bedeating breakfast. Attempted to pass pills pt kept pushing telegraphic typewriter mechanic away. Assisted pt to chair, while up in chair pt did take pills. No other needs noted at this time. Chair pad alarm active. Will continue to monitor. * Francine Burkett APRN - HEALTH INFORMATION ADMINISTRATOR - 10/07/2020 7:14 AM EST Progress Note [...] Acute on chronic combined CHF Appreciate cardiology Nash for I/O Dt weights Lasix 20 IV twice daily Trend labs Atrial flutter Continue Lovenox Continue aspirin, losartan Continue Lopressor 5 mg IV as needed tachycardia greater than 110 Facial cellulitis Improved Continue clindamycin as previously ordered as an outpatient High risk medications: Lasix Discharge plan: Return to shelter when stable Francine Burkett APRN, GUM REMOVER-C Associated attestation - Nathanael Foreman MD - 10/07/2020 4:55 PM EST Attending Supervising Physician s Attestation Statement I have personally evaluated and examined the patient [id number] in conjunction with the nurse practitioner. I [...] Examined and Reviewed plan of care with GUM REMOVER. Directions and discussion about care and plans. Disposition including length of stay was reviewed. Nutritional status, advanced directive and old records reviewed. Disposition: cardiology, diuresis The patient was seen examined with the nurse practitioner on October 07, 2020 all direct care was reviewed with the nurse practitioner at the bedside with the patient. Electronically signed by Nathanael Foreman MD * Priscilla Loya RN - 10/07/2020 5:14 AM EST HR 120. PRN IV metoprolol given at this time. Priscilla Orlando RN - 10/07/2020 3:31 AM EST Orthostatic blood pressures done at this time. See flowsheets for details. Priscilla Orlando RN - 10/06/2020 9:50 PM EST Cardiology consult called and faxed at this time. Priscilla Orlando RN - 10/06/2020 8:[address] [facility] to discuss MAR with nurse. Was referred to April, who states that patientreceived all meds this AM at shelter. States she was in a hurry and did not send an updated MAR. Priscilla Orlando RN - 10/06/2020 8:35 PM EST NAOMIE Leung notified of continued tachycardia. Will put in new orders. Priscilla Kwan RN - 10/06/2020 8:05 PM EST 16 Fr nash catheter inserted at this time. Bulb inflated [...] 2:50 PM EDT Discharge folder given to skilled nursing staff. Patient IV removed and patient dressed at this time. * Jennifer Curiel LSW - 12/02/2020 12:36 PM EDT Left a message for the guardian that the patient was returning to the skilled nursing. LAURA Oneill * Jennifer Curiel LSW - 12/02/2020 11:48 AM EDT The shelter staff will come to transport around 4 PM. LAURA Oneill * Efren Tim MD - 12/02/2020 10:33 AM EDT Images from the original note were not included. Helen Ng am scribing for and in the presence of Efren Tim MD, F.A.C.C. 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) Pulmonary hypertension, moderate to severe ([facility]) 04/2012 RVSP 110 mmHg Seizures ([facility]) Severe mitral regurgitation by prior echocardiogram 04/2012 [...] anticoagulation Priority: High CHF (congestive heart failure) ([facility]) 11/30/2020 Acute on chronic combined systolic and diastolic hrt fail ([facility]) 11/30/2020 Facial cellulitis 10/07/2020 Acute on chronic combined systolic and diastolic CHF (congestive heart failure) ([facility]) 10/06/2020 Atrial flutter with rapid ventricular response ([facility]) 10/06/2020 Severe mitral regurgitation Pulmonary hypertension, moderate to severe ([facility]) Acute on chronic heart failure with preserved [...] our heart failure nurse Harmony call the shelter to inquire about her weight, vital signs, symptoms and medication compliance/problems. Atrial flutter with variable block: Unknown chronicity Rate control with beta-leonie therapy: Continue Metoprolol tartrate (Lopressor) 75 mg bid. Please avoid calcium channel blockers. Continue digoxin. Stroke Risk: Her CHADS2-VASc score is 2/9 (2.2% stroke risk) Anticoagulation: Continue Eliquis 5 mg twice daily [id number] Score for Atrial Fibrillation Stroke Risk Risk Factors Component Value C CHF Yes 1 H HTN No 0 A2 Age >= 75 No, (65 y.o.) 0 D DM No 0 S2 Prior Stroke/TIA No 0 V Vascular Disease No 0 A Age 65-74 No, (65 y.o.) 0 Sc Sex female 1 [id number] Score 2 Score last updated 10/06/20 3:04 [...] all the details with her power of attorney law clerk over the phone when she was in the hospital. Sincerely, Efren Tim MD, F.A.C.C. [facility] Director Of Public Safety [address] [place] [id number] , I believe that the risk of [...] or pillow. * Francine Burkett APRN - HEALTH INFORMATION ADMINISTRATOR - 12/02/2020 7:14 AM EDT Progress Note [...] Discharge plan: Home today Francine Burkett APRN, GUM REMOVER-C * Daisy Torres RN - 12/01/2020 8:45 [...] - 12/01/2020 4:26 PM EDT Nurse from [facility] called at this time for an update, update given on the patient. * Anna Infante LSW - 12/01/2020 11:06 AM EDT SW reviewed pt chart and past assessments from recent hospitalizations to complete assessment. SW spoke with pt's guardian as well. SW attempted to contact the shelter several times and the line was busy. Pt is a 65 year old single female who is deaf and has an intellectual disability and was admitted for acute on chronic combined systolic and diastolic CHF. Pt lives in a shelter in [place]. The staff there assists her with ADLs and manage her medications and provide transportation.Pt has a walker that she uses to ambulate with. Pt is a DNR CC code status and follows with Dr Ara Pineda as PCP. Pt has a guardian that oversees her so no advance directives are on file for pt. Pt has insurance that covers her medications. Guardian reports that the plan for discharge will be to return to the shelter. No other needs identified at this time. [...] systolic and diastolic CHF (congestive heart failure) ([facility]) Active Problems: Complex congenital heart disease Severe mitral regurgitation Pulmonary hypertension, moderate to severe ([facility]) Acute on chronic combined systolic and diastolic hrt fail ([facility]) Resolved Problems: * No resolved hospital problems. * PLAN: Acute on chronic combined CHF ? Chest x-ray enlarged heart, CHF ? Appreciate cardiology ? Continue IV Lasix 40 mg daily ? Continue losartan, Lopressor ? Labs stable although BNP 4700 Atrial flutter ? Continue Eliquis, digoxin, Lopressor High risk medication monitoring: Digoxin Discharge plan: Home tomorrow Francine Burkett APRN, GUM REMOVER-C Associated attestation - Austin Gorman MD - 12/01/2020 8:46 PM EDT Attestation 12/01/20 I personally evaluated and examined the patient [id number] in conjunction with the GUM REMOVER and agree with the management and dispostition of the patient. Please see GUM REMOVER's progress note for full details. My douglas findings are: SUBJECTIVE: Patient seen for follow up of Acute on chronic combined systolic and diastolic CHF (congestive heart failure) ([facility]). She has bilat leg edema Review of [...] with the plan as outlined in the GUM REMOVER's note Principal Problem: Acute on chronic combined [...] to monitor. Bed alarm on. * Naomi Duke RN - 11/30/2020 6:45 PM EDT Pt sitting up in chair when telegraphic typewriter mechanic entered room. Vitals and assessment as charted. FLACC 0. Pt trying to get out of chair while telegraphic typewriter mechanic was in room. Hoop Punch And Coiler Operator assisted pt out of the chair and pt walked to the bathroom. Hoop Punch And Coiler Operator assisted pt back into the chair. Call light within reach. Chair alarm on. * Mirna Galloway RN - 11/30/2020 3:00 PM EDT Patient is deaf and non-verbal. Arrived to floor by W/C as a direct admit accompanied only by registration personnel. Was informed by registration that the aide that was with this patient had left totake a walker home. Made call to shelter and spoke with Steph to determine how they normally communicate with this patient, was informed that a staff member at the home occasionally will sign to this patient and that she does sometime respond a little to that. Attempted to use IPad with a traffic control signaler but patient kept pushing the pad away and attempted to push off button several times while the translater was signing to her. documented in this encounter Hospital Course * Francine Burkett, SALES AND MARKETING ADMINISTRATOR - HEALTH INFORMATION ADMINISTRATOR - 12/02/2020 10:49 AM EDT Discharge Summary [...] on chronic combined CHF. She presented from shelter due to significant weight gain and leg [...] She will be discharged back to her shelter today and shewill continue with Lasix 40 [...] anticoagulation Priority: High CHF (congestive heart failure) ([facility]) 11/30/2020 Acute on chronic combined systolic and diastolic hrt fail ([facility]) 11/30/2020 Facial cellulitis 10/07/2020 Acute on chronic combined systolic and diastolic CHF (congestive heart failure) ([facility]) 10/06/2020 Atrial flutter with rapid ventricular response ([facility]) 10/06/2020 Severe mitral regurgitation Pulmonary hypertension, moderate to severe ([facility]) Discharge Medications: Minerva Alan Home Medication Instructions DESMOND:[id number] Printed on:12/02/20 1050 Medication Information acetaminophen (TYLENOL) [...] up: Patient will be followed by Ara Pineda MD in 1-2 weeks; Dr. Tim 2 weeks CORE MEASURES on Discharge (if applicable) SELWYN/ARB in CHF: Yes Statin in IA: NA ASA in IA: NA Statin in CVA: NA Antiplatelet in CVA: NA Total time spent on discharge services: 40 minutes Including the following activities: Evaluation and Management of patient Discussion with patient and/or surrogate about current care plan Coordination with Case Management and/or Regional Commercial Sales Manager Coordination of care with Consultants (if applicable) Coordination of care with Receiving Facility Physician (if applicable) Completion of DME forms (if applicable) Preparation of Discharge Summary Preparation of Medication Reconciliation Preparation of Discharge Prescriptions Signed: Francine Burkett APRN, GUM REMOVER-C 12/02/2020, 10:50 AM Associated attestation - Austin Gorman MD - 12/02/2020 11:02 AM EDT I personally evaluated and examined the patient face to face in conjunction with the APC and agree with the management and disposition of the patient. My douglas findings are: Patient ID: Minerva Alan [id number] Admission date: 11/30/2020 Discharge date: 12/02/2020 Admitting Physician: Austin Gorman MD Primary Care Physician: Ara Pineda MD Primary Discharge Diagnoses: Patient Active Problem List Diagnosis Date Noted Complex congenital heart disease Priority: High Endocardial cushion defect Priority: High Chronic anticoagulation Priority: High CHF (congestive heart failure) ([facility]) 11/30/2020 Acute on chronic combined systolic and diastolic hrt fail ([facility]) 11/30/2020 Facial cellulitis 10/07/2020 Acute on chronic combined systolic and diastolic CHF (congestive heart failure) ([facility]) 10/06/2020 Atrial flutter with rapid ventricular response ([facility]) 10/06/2020 Severe mitral regurgitation Pulmonary hypertension, moderate to severe ([facility]) Additional Diagnoses: Diagnosis Date Autistic disorder Bradycardia CHF (congestive heart failure) ([facility]) Deaf H/O echocardiogram 10/04/2020 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 Severe LA enlargement. Severe pulmonary hypertension. Sick sinus syndrome ([facility]) Syncope Review of Systems: Constitutional: negative for [...] on chronic combined CHF. She presented from shelter due to significant weight gain and leg [...] compression. She will be discharged to her shelter today and she will continue with Lasix [...] ms QTc Calculation (Bazett) 395 ms R York -31 degrees T York 137 degrees Comprehensive Metabolic Panel Collection Time: [...] # 1.43 1.10 - 3.70 k/uL Absolute [employer] # 0.74 0.10 - 1.20 k/uL Absolute [...] Comment GFR Staging Discharge Condition: stable Disposition: skilled nursing Discharge Medications: Minerva Alan Home Medication Instructions DESMOND:[id number] Printed on:12/02/20 1100 Medication Information acetaminophen (TYLENOL) [...] Complete 2D W Doppler W Color Ara Pineda MD [address] [place] [id number] [facility] Echo [address] [place] [id number] Reason Comments Other Send from Dr. Tim office to evaluate Status Reason Specialty Diagnoses / Procedures Referre d By Contact Referred To Contact Closed Radiology Diagnoses Breast cancer screening by mammogram Procedures ED CHANG DIGITAL SCREEN SELF REFERRAL W OR WO CAD BILATERAL ED DIGITAL SCREEN W OR WO CAD BILATERAL Scooter Dhillon, SALES AND MARKETING ADMINISTRATOR - HEALTH INFORMATION ADMINISTRATOR [id number] [facility] [address] [place] [address] Specialty Diagnoses / Procedures Referred By Contac t Referred To Contact Radiology Diagnoses Screening mammogram for high-risk patient Procedures ED CHANG DIGITAL SCREEN BILATERAL ED DIGITAL SCREEN W OR WO CAD BILATERAL Scooter Dhillon, SALES AND MARKETING ADMINISTRATOR - HEALTH INFORMATION ADMINISTRATOR [id number] [facility] [address] [place] [address] Referral ID Status Reason Start Date Expiration Date Visits Re quested Visits Authorized [id number] Closed 11/29/2021 11/29/2022 1 1 Specialty Diagnoses / Procedures Referred By Contac t Referred To Contact Diagnoses Chronic diastolic CHF (congestive heart failure) (HCC) Chronic a-fib (HCC) Chronic anticoagulation Severe mitral regurgitation Pulmonary hypertension, moderate to severe (HCC) Procedures Continuous cardiac monitoring, >2 up to 14 days Efren Tim MD [address] [place] [address] [place] [address] Referral ID Status Reason Start Date Expiration Date Visits Re quested Visits Authorized [id number] Closed 03/22/2022 03/22/2023 1 1 INFORMATION SOURCE (unrecogn ized section and content) DATE CREATED AUTHOR 06/06/2020 [facility] DATE CREATED AUTHOR AUTHOR'S ORGANIZ ATION 02/21/2023 [facility] DATE CREATED AUTHOR AUTHOR'S ORGANIZ ATION 09/20/2023 [facility] Juan Jose [facility] Ordered Prescriptions (unrec ognized section and content) [...] Care Teams (unrecognized sec tion and content) Highway Technician Relationship Specialty [place] [address] [place] [id number] PCP - General Internal Medicine 09/21/20 Highway Technician Relationship Specialty Start Date End Date Ara Pineda MD [address] [id number] PCP - General Internal Medicine 09/21/20 Highway Technician Relationship Specialty Start Date End Date Ara Pineda MD [facility] [place] [phone] PCP - General Internal Medicine 09/21/20 Highway Technician Relationship Specialty Start Date End Date Ara Pineda MD [address] [place], [place] [id number] PCP - General Internal Medicine 09/21/20 Highway Technician Relationship Specialty Start Date End Date Ara Pineda MD [address] [place], [place] [phone] PCP - General Internal Medicine 09/21/20 Highway Technician Relationship Specialty Start Date End Date Ara Pineda MD [facility] [place] [phone] PCP - General Internal Medicine 09/21/20 Highway Technician Relationship Specialty Start Date End Date Ara Pineda MD [facility] [place] [phone] PCP - General Internal Medicine 09/21/20 Highway Technician Relationship Specialty Start Date End Date Ara Pineda MD [facility] [place] [phone] PCP - General Internal Medicine 09/21/20 Highway Technician Relationship Specialty Start Date End Date Ara Pineda MD [address] [place], [place] [phone] PCP - General Internal Medicine 09/21/20 FOR [...] BE BASED ON THE PRIMARY CLINICAL RECORDS. [facility] [employer] [facility]. provides no warranty or guarantee of the accuracy or completeness of information in this document.
[2023-11-01] MEDS: SURGIFOAM GEL SPONGE SIZE 100 1 EACH TOPICAL (02:48)
[2023-11-01 03:06] VITALS: BP 120/75; PULSE 80; RESP 18; O2SAT 97
== END 2023-11-01 03:05 | disposition home or self-care (01) ==
PROVIDERS: Emergency Provider Emergency Medicine
DX: S01.01XD Laceration without foreign body of scalp, subsequent encounter (principal); W19.XXXD Unspecified fall, subsequent encounter; H91.3 Deaf nonspeaking, not elsewhere classified; F84.0 Autistic disorder; Z79.01 Long term (current) use of anticoagulants; Z79.899 Other long term (current) drug therapy; Z79.82 Long term (current) use of aspirin
CPT/HCPCS: 99282